=== PATIENT | male | born 1960 | race Caucasian/White ===

== ENCOUNTER 2017-01-14 18:01 | Inpatient (IN) | payer BC ==
--- NOTE | 2017-01-14 18:13 | ED ---
Chest Pain HPI - General Stated Complaint: chest pain Time Seen by Provider: 01/14/17 18:01 Source: patient, RN notes reviewed - History of Present Illness Initial Comments: This is a 56-year-old male with a history of type 2 diabetes and hypertension also a current one or 2 pack a week smoker who states he had the onset today about 30 minutes after walking and was pain going across his back and radiating to the front of his chest. It was about 78/10 severity associated with some dyspnea some nausea and sweats. He states he's had recent similar episodes we' ll go to bed at night and would resolve after he was sitting upright for a while. He has no known history of heart disease or lung disease that he is aware of. He's had no recent fevers chills nausea vomiting sweats cough or phlegm production except for any associated symptoms today already mentioned. He was given a nitroglycerin and route by paramedics she states the pain was very starting resolved and he took 2 aspirins at home he currently is pain-free at this time. MD Complaint: chest pain - Related Data Home Medications Medication Instructions Recorded Confirmed Aspirin 81 mg PO DAILY 12/18/13 01/14/17 Atenolol [Tenormin] 25 mg PO DAILY 12/18/13 01/14/17 Benazepril [Lotensin] 10 mg PO DAILY 12/18/13 01/14/17 Linagliptin [Tradjenta] 5 mg PO DAILY 12/18/13 01/14/17 Multivitamins, Thera [Multivitamin] 1 tab PO DAILY 12/18/13 01/14/17 Iraan-3 Fatty Acids [Iraan-3] 1,000 mg PO DAILY 12/18/13 01/14/17 glipiZIDE [Glucotrol XL] 5 mg PO DAILY 12/18/13 01/14/17 metFORMIN HCL 1,000 mg PO BID 12/18/13 01/14/17 Acetaminophen Tab [Tylenol Tab] 1,000 mg PO Q6HR PRN 09/21/15 01/14/17 Desloratadine [Clarinex] 5 mg PO DAILY 09/21/15 01/14/17 Ibuprofen [Motrin] 600 mg PO Q8HR PRN 09/21/15 01/14/17 Tadalafil [Cialis] 20 mg PO ONCE PRN 09/21/15 01/14/17 Hydrocodone/Acetaminophen [[place] 1 tab PO Q6HR PRN 01/14/17 01/14/17 5-325] Allergies Allergy/AdvReac Type Severity Reaction Status Date / Time No Known Allergies Allergy Verified 01/14/17 18:55 Review of Systems ROS Statement: Those systems with pertinent positive or pertinent negative responses have been documented in the HPI. ROS Other: All systems not noted in ROS Statement are negative. EKG Findings - EKG Results: EKG: interpreted by RUDOLPH, sinus rhythm (Sinus rhythm rate 88. Interval 1:30 QRS duration 70 QT/QTC of 352/425 that anterior fascicular block pulmonary disease pattern evidence for LVH no acute ST-T wave changes noted at this time) Past Medical History Past Medical History: Diabetes Mellitus, GERD/Reflux, Hearing Disorder / Deafness, Hyperlipidemia, Hypertension, Liver Disease, Musculoskeletal Disorder , Osteoarthritis (OA) Additional Past Medical History / Comment(s): SEASONAL ALLERGIES. UMBILICAL HERNIA. FATTY LIVER. VARICOSE VEIN LT CALF. RT RING, THUMB TRIGGER FINGERS. History of Any Multi-Drug Resistant Organisms: None Reported Past Surgical History: Orthopedic Surgery Additional Past Surgical History / Comment(s): COLONOSCOPY, colon polyps. TRAUMATIC AMP RT 3RD AND 4TH FINGERTIPS. TOTAL LT HIP 12/2013. Past Anesthesia/Blood Transfusion Reactions: No Reported Reaction Past Psychological History: No Psychological Hx Reported Smoking Status: Former smoker Past Alcohol Use History: Occasional Additional Past Alcohol Use History / Comment(s): SMOKED 25 YRS ON/OFF, 2-3 PKS PER WK, QUIT 08/2015. Past Drug Use History: None Reported - Past Family History Mother Family Medical History: No Reported History General Exam - General Exam Comments Initial Comments: This is a well-developed well-nourished awake alert oriented 3 male Course Vital Signs 01/14/17 01/14/17 18:15 19:11 Temperature 98.4 F 97.4 F L Pulse Rate 89 85 Respiratory 20 18 Rate Blood Pressure 117/71 131/65 O2 Sat by Pulse 99 98 Oximetry - Reevaluation(s) Reevaluation #1: 01/14/17 19:52 I did discuss smoking and risks of smoking and cessation with the patient. We did go over his factors for heart disease stroke peripheral vascular disease cancers. The total conversation lasted about 3.1 minutes. Reevaluation #2: 01/14/17 19:52 No further chest pains this time I did discuss the findings with the patient and his . Chest Pain MDM - MDM I did review the imaging and reports no acute findings. Patient is currently pain-free the symptoms are suspicious however for new-onset angina. Patient does have risk factors including family history was the patient's did deformity of also he is a smoker he has diabetes. They have requested Dr. Brown for consultation. Disposition Clinical Impression: Unstable angina pectoris Disposition: ADMITTED IP TO THIS HOSP Condition: Stable Referrals: Sridhar Tavarez MD [Primary Care Provider] - 1-2 days
[2017-01-14 18:31] LABS: Basophils # (A) 0.1 k/uL (0-0.2); Basophils % (A) 0 %; CH 31.5; CHCM 34.3; Eosinophils # (A) 0.5 k/uL (0-0.7); Eosinophils % (A) 3 %; HCT 47.8 % (39.0-53.0); HDW 2.65; HGB 16.1 gm/dL (13.0-17.5); Luc # (Auto) 0.22; Luc % (Auto) 1; Lymphocytes # (A) 1.5 k/uL (1.0-4.8); Lymphocytes % (A) 10 %; MCH 31.1 pg (25.0-35.0); MCHC 33.7 g/dL (31.0-37.0); MCV 92.2 fL (80.0-100.0); Mean Platelet Volume 7.8; Monocytes # (A) 0.5 k/uL (0-1.0); Monocytes % (A) 3 %; Neutrophils % (A) 82 %; RBC 5.19 m/uL (4.30-5.90); RDW 13.4 % (11.5-15.5); WBC 15.8 k/uL (3.8-10.6); WBC (Perox) 15.52
--- NOTE | 2017-01-14 18:38 | XR ---
EXAMINATION TYPE: XR chest 2V DATE OF EXAM: 01/14/2017 6:33 PM COMPARISON: NONE HISTORY: Chest pain TECHNIQUE: Frontal and lateral views of the chest are obtained. FINDINGS: Heart and mediastinum are normal. Lungs are clear. There are chest leads. Diaphragm is nor mal. Bony thorax is intact. IMPRESSION: Normal chest
[2017-01-14 18:40] LABS: ALT 77 U/L (21-72); AST 54 U/L (17-59); Alkaline Phosphatase 62 U/L (38-126); Anion Gap 14 mmol/L; Blood Urea Nitrogen 12 mg/dL (9-20); Carbon Dioxide 21 mmol/L (22-30); Chloride 108 mmol/L (98-107); Glucose 191 mg/dL (74-99); Magnesium 1.3 mg/dL (1.6-2.3); Non-African American GFR(MDRD) >60 (>60 ml/min/1.73 sqM); Potassium 4.3 mmol/L (3.5-5.1); Sodium 143 mmol/L (137-145); Total Bilirubin 0.6 mg/dL (0.2-1.3); Total Protein 7.3 g/dL (6.3-8.2)
[2017-01-14 18:46] LABS: INR 1.1 (<1.1); Partial Thromboplastin Time 24.2 sec (22.0-30.0); Prothrombin Time 10.9 sec (9.0-12.0)
[2017-01-14 19:04] LABS: Creatine Kinase MB 1.1 ng/mL (0.0-2.4); Troponin I 0.015 ng/mL (0.000-0.034)
[2017-01-14] MEDS: SODIUM CHLORIDE 0.9% 1,000 ML IV STA ×2 (19:11→21:53)
[2017-01-14] MEDS ORDERED: NITROGLYCERIN SL TABS 0.4 MG TAB SUBLINGUAL PRN (19:56)
[2017-01-14] MEDS ORDERED: HEPARIN SODIUM,PORCINE 5,000 UNIT/ML 1 ML VIAL IV ONE (19:56)
[2017-01-14] MEDS ORDERED: ACETAMINOPHEN TAB 500 MG TAB PO PRN (19:58)
[2017-01-14] MEDS ORDERED: HYDROcodone/APAP 5-325MG 1 EACH TAB PO PRN (19:58)
[2017-01-14] MEDS ORDERED: HEPARIN SODIUM,PORCINE/D5W PMX 25,000 UNIT in DEXTROSE/WATER 1 500ML.BAG IV SCH (20:00)
[2017-01-14 21:01] VITALS: BMI 33.7
[2017-01-14 21:43] LABS: Glucose,Whole Blood 188 mg/dL (75-99)
[2017-01-14] MEDS: INSULIN LISPRO (humaLOG) 300 UNIT/3 ML VIAL SQ SCH (21:52)
[2017-01-14] MEDS: SODIUM CHLORIDE 0.9% 1,000 ML IV SCH (21:54)
[2017-01-14] MEDS: metFORMIN 500 MG TAB PO SCH (21:57)
[2017-01-15] MEDS ORDERED: HEPARIN SODIUM,PORCINE 5,000 UNIT/ML 1 ML VIAL IV STA (00:29)
[2017-01-15 00:32] LABS: Creatine Kinase MB 1.5 ng/mL (0.0-2.4)
[2017-01-15 00:40] LABS: Troponin I 0.098 ng/mL (0.000-0.034)
[2017-01-15] MEDS: NITROGLYCERIN OINT 1 INCH/GM PACKET TOPICAL SCH ×3 (00:48→18:22)
[2017-01-15 06:24] LABS: Basophils # (A) 0.1 k/uL (0-0.2); Basophils % (A) 1 %; CH 31.6; CHCM 33.9; Eosinophils # (A) 0.7 k/uL (0-0.7); Eosinophils % (A) 5 %; HCT 45.6 % (39.0-53.0); HDW 2.57; HGB 15.2 gm/dL (13.0-17.5); Luc % (Auto) 2; Lymphocytes # (A) 2.5 k/uL (1.0-4.8); Lymphocytes % (A) 20 %; MCH 31.1 pg (25.0-35.0); MCHC 33.2 g/dL (31.0-37.0); MCV 93.6 fL (80.0-100.0); Mean Platelet Volume 7.8; Monocytes # (A) 0.5 k/uL (0-1.0); Monocytes % (A) 4 %; Neutrophils # (A) 8.6 k/uL (1.3-7.7); Neutrophils % (A) 68 %; RBC 4.87 m/uL (4.30-5.90); RDW 13.6 % (11.5-15.5); WBC 12.6 k/uL (3.8-10.6); WBC (Perox) 12.94
[2017-01-15 06:25] LABS: Glucose,Whole Blood 171 mg/dL (75-99)
[2017-01-15] MEDS: INSULIN LISPRO (humaLOG) 300 UNIT/3 ML VIAL SQ SCH ×4 (06:35→21:36)
[2017-01-15] MEDS ORDERED: Magnesium Replacement Protocol 1 EACH MISC MISCELLANE PRN (06:40)
[2017-01-15 06:47] LABS: Cholesterol 163 mg/dL (<200); HDL Cholesterol 34 mg/dL (40-60); Triglycerides 295 mg/dL (<150)
[2017-01-15 07:23] LABS: Creatine Kinase MB 1.3 ng/mL (0.0-2.4)
[2017-01-15 07:48] LABS: Troponin I 0.112 ng/mL (0.000-0.034)
[2017-01-15 08:07] LABS: Hemoglobin A1C 7.4 % (4.2-6.1)
[2017-01-15] MEDS ORDERED: NITROGLYCERIN SL TABS 0.4 MG TAB SUBLINGUAL PRN ×2 (08:38→13:56)
[2017-01-15] MEDS ORDERED: SODIUM CHLORIDE 0.9% 1,000 ML in EMPTY BAG 1 BAG IV ONE (08:38)
[2017-01-15] MEDS ORDERED: ASPIRIN 325 MG TAB PO STA (08:38)
[2017-01-15] MEDS ORDERED: ALPRAZolam 0.5 MG TAB PO PRN (08:38)
[2017-01-15] MEDS ORDERED: ATORVASTATIN 80 MG TAB PO STA (08:38)
[2017-01-15] MEDS ORDERED: ALPRAZolam 0.25 MG TAB PO PRN (08:38)
[2017-01-15] MEDS ORDERED: NON-FORMULARY DRUG (Omega-3 Fatty Acids [Omega-3] 1,000 MG) PO SCH (09:00)
[2017-01-15] MEDS ORDERED: ASPIRIN 325 MG TAB PO SCH (09:00)
--- NOTE | 2017-01-15 09:15 | CONS ---
DATE OF CONSULTATION: CHIEF COMPLAINT: Chest pain. Nikhil is a 56-year-old gentleman with multiple coronary risk factors including strong family history of premature coronary artery disease, smoking, hypertension, dyslipidemia, [id number] diabetes who presented to the hospital complaining of chest pain. He describes it as a moderate to severe intensity precordial chest pressure that radiated down his arms that came on at rest and progressively got worse. Came to the hospital, treated with intravenous heparin, nitrates and he became pain free. He EKG does not reveal acute ischemic changes. Cardiac enzymes are slightly elevated at 0.015, 0.09 and 0.1 suggestive of non-ST segment elevation ND. Given his symptomatology, risk factors and I advised the patient to undergo cardiac catheterization for further evaluation. He had been explained of risks, benefits, and alternatives, understood and accepted. Past medical history is significant for hypertension, diabetes, dyslipidemia, [id number] diabetes. Medications at home included metformin 1000 mg daily, Glucotrol XL 5 q. daily, Cialis 20 q. daily, Tradjenta, Motrin, [place], Clarinex, Lotensin, Tenormin, aspirin. ALLERGIES: There are no known drug allergies. FAMILY HISTORY: Significant for premature coronary artery disease. SOCIAL HISTORY: Negative for current smoking, EtOH abuse, or drug abuse. REVIEW OF SYSTEMS: HEENT is unremarkable. CARDIAC: As described above. RESPIRATORY: Negative. GI: Negative. GENITOURINARY: Negative. ALLERGY/IMMUNOLOGY: Negative. SKIN: Negative. MUSCULOSKELETAL: Negative. ENDOCRINE: Negative. CONSTITUTIONAL: Negative. ONCOLOGICAL: NEGATIVE. The rest of the system review is not relevant. On exam, comfortable at rest. Vital signs are stable. There is no jugular venous distention. Carotid upstroke is normal. There is no bruit. Chest is clear to auscultation and percussion. Heart exam reveals first and second heart sounds. No gallop. No murmur, no rub. Abdomen is soft, nontender. Exam of extremities did not reveal any edema. Peripheral pulses are felt. LEGAL WRITING PROFESSOR exam did not reveal focal neurological deficits. EKG does not reveal acute ischemic changes. Troponins are elevated. Creatinine is 0.86. ASSESSMENT: 1. Acute non-ST segment elevation myocardial infarction. 2. Hypertension. 3. Insulin-requiring diabetes. PLAN: Patient will undergo cardiac catheterization for further evaluation. He has been explained of risks, benefits, and alternatives.
[2017-01-15] MEDS: MAGNESIUM SULFATE-D5W PMX 1 GM in DEXTROSE/WATER 1 100ML.BAG IVPB SCH ×3 (09:47→17:19)
[2017-01-15] MEDS ORDERED: IV FLUID CONTINUATION 175 ML IV ONE (09:57)
[2017-01-15] MEDS ORDERED: SODIUM CHLORIDE 0.9% 250 ML IV ONE (09:57)
[2017-01-15] MEDS ORDERED: MIDAZOLAM 2 MG/2 ML VIAL ONE (10:00)
[2017-01-15] MEDS ORDERED: LIDOCAINE 2% INJ 20 MG/ML (20 ML MDV) ONE (10:01)
[2017-01-15] MEDS ORDERED: diphenhydrAMINE 50 MG/ML 1 ML VIAL ONE (10:04)
[2017-01-15] MEDS: MIDAZOLAM 2 MG/2 ML VIAL IV ONE ×2 (10:04→10:30)
[2017-01-15] MEDS ORDERED: diphenhydrAMINE 50 MG/ML 1 ML VIAL IVP ONE (10:06)
[2017-01-15] MEDS ORDERED: LIDOCAINE 2% INJ 20 MG/ML SQ ONE ×2 (10:08→13:18)
[2017-01-15] MEDS ORDERED: fentaNYL (PF) 50 MCG/ML 2 ML AMP ONE (10:19)
[2017-01-15] MEDS ORDERED: fentaNYL (PF) 50 MCG/ML 2 ML AMP IV ONE (10:22)
--- NOTE | 2017-01-15 10:26 | ECHOF ---
Referral Reason:chest pain MEASUREMENTS -------- HEIGHT: 152.4 cm WEIGHT: 105.2 kg BP: 119/56 RVIDd: 3.5 cm (< 3.3) IVSd: 1.3 cm (0.6 - 1.1) LVIDd: 4.6 cm (3.9 - 5.3) LVPWd: 1.0 cm (0.6 - 1.1) IVSs: 1.4 cm LVIDs: 3.6 cm LVPWs: 1.4 cm LA Diam: 3.2 cm (2.7 - 3.8) LAESV Index (A-L): 33.02 ml/m Ao Diam: 3.8 cm (2.0 - 3.7) AV Cusp: 0.9 cm (1.5 - 2.6) LA Diam: 3.9 cm (2.7 - 3.8) MV EXCURSION: 21.866 mm (> 18.000) MV EF SLOPE: 59 mm/s (70 - 150) EPSS: 0.7 cm MV E Kd: 0.63 m/s MV DecT: 221 ms MV A Kd: 0.86 m/s MV E/A Ratio: 0.73 AV maxP.14 mmHg AV meanP.60 mmHg AR PHT: 411 ms RAP: 5.00 mmHg RVSP: 12.23 mmHg FINDINGS -------- Sinus rhythm. This was a techncally difficult study with suboptimal views, , Definity utilized for enhancement of images. There is mild concentric left ventricular hypertrophy. Overall left ventricular systolic function is low-normal with, an EF between 50 - 55 %. The right ventricle is normal in size. LA is midly dilated 29-33ml/m2. The right atrial size is normal. 1.5MG OF DEFINITY UTLIZED: 2 OR MORE WALL SEGMENTS NOT VISUALIZED. Moderate aortic stenosis with peak/mean pressure gradient of 50.14mmHg / 26.60mmHg, the aortic valve area by continuity equation is 1.0cm. Can't exclude Bicuspid valve vs fused cusp. Mild mitral annular calcification present. Mild mitral regurgitation is present. Mild tricuspid regurgitation present. There is no evidence of pulmonary hypertension. The right ventricular systolic pressure, as measured by Doppler, is 12.23mmHg. There is no pulmonic regurgitation present. The aortic root size is normal. There is no pericardial effusion. CONCLUSIONS -------- 1. This was a techncally difficult study with suboptimal views, , Definity utilized for enhancement of images. 2. Mild tricuspid regurgitation present. 3. There is no evidence of pulmonary hypertension. 4. The right ventricular systolic pressure, as measured by Doppler, is 12.23mmHg. 5. There is no pulmonic regurgitation present. 6. The aortic root size is normal. 7. There is no pericardial effusion. 8. There is mild concentric left ventricular hypertrophy. 9. Overall left ventricular systolic function is low-normal with, an EF between 50 - 55 %. 10. LA is midly dilated 29-33ml/m2. 11. 1.5MG OF DEFINITY UTLIZED: 2 OR MORE WALL SEGMENTS NOT VISUALIZED. 12. Moderate aortic stenosis with peak/mean pressure gradient of 50.14mmHg / 26.60mmHg, the aortic valve area by continuity equation is 1.0cm. 13. Can't exclude Bicuspid valve vs fused cusp. 14. Mild mitral annular calcification present. 15. Mild mitral regurgitation is present. LEATHER [employer]EL[employer]S CUTTER: Liz Pena RDCS
[2017-01-15] MEDS ORDERED: IOHEXOL 350 MG/ML 125ML BOTTLE INJ ONE ×2 (10:40→13:46)
--- NOTE | 2017-01-15 10:54 | CC ---
DATE OF SERVICE: INDICATION: Non-ST segment elevation [place]. PROCEDURE NOTE: After obtaining informed consent, left heart catheterization and coronary angiogram are performed via the right femoral artery using standard Adryan catheters. Patient tolerated the procedure well without any obvious immediate complications. FINDINGS: 1. HEMODYNAMICS: Left ventricular end-diastolic pressure is 14 to 16 mm. There is no significant gradient across the aortic valve. 2. LEFT VENTRICULOGRAM: Left ventriculogram was not performed. 3. ANGIOGRAPHIC DATA: LEFT MAIN CORONARY ARTERY: Left main coronary artery is a normal size vessel and is free of stenosis. It divides into left anterior descending coronary artery and circumflex coronary artery. LAD shows an 80% to 90% stenosis right at the origin of a diagonal branch. The diagonal branch itself shows mild atherosclerotic plaque in its midportion. Circumflex coronary artery is a large dominant vessel that gives off a fair caliber OM branch that shows a 40% to 50% stenosis. It is a small caliber vessel and diffusely diseased. Right coronary artery is a nondominant vessel, shows long segment of 90% to 95% stenosis with right to left collaterals, probably to the LAD. The very distal LAD also shows the lesion. CONCLUSION: Three-vessel coronary artery disease as described above with severe stenosis involving the left anterior descending artery and right coronary artery. Patient will undergo angioplasty of the left anterior descending artery.
--- NOTE | 2017-01-15 10:58 | LTR ---
January 15, 2017 RE: Nikhil Shen Dear Varinder; I performed cardiac catheterization on Nikhil Shen who presented to [facility] with non-ST segment elevation CT. His cardiac catheterization revealed severe 2-vessel coronary artery disease and he will undergo angioplasty of LAD. Thank you for allowing us to participate in the care of this pleasant gentleman. Sincerely, JOSÉ MARIE MD
[2017-01-15 12:00] LABS: Glucose,Whole Blood 155 mg/dL (75-99)
[2017-01-15] MEDS ORDERED: MULTIVITAMINS, THERA 1 EACH TAB PO SCH (12:00)
[2017-01-15] MEDS ORDERED: IV FLUID CONTINUATION 200 ML IV ONE (13:02)
[2017-01-15] MEDS ORDERED: MIDAZOLAM 2 MG/2 ML VIAL IVP ONE (13:19)
[2017-01-15] MEDS ORDERED: BIVALIRUDIN BOLUS 250 MG/50 ML IV ONE (13:20)
[2017-01-15] MEDS ORDERED: BIVALIRUDIN 250 MG in SODIUM CHLORIDE 0.9% 35 ML IV ONE (13:21)
[2017-01-15] MEDS ORDERED: PRASUGREL 10 MG TAB PO ONE (13:23)
[2017-01-15] MEDS: NITROGLYCERIN 1000MCG/10ML SYRINGE INTRAARTER ONE ×2 (13:26→13:35)
[2017-01-15] MEDS ORDERED: HYDROmorphone 2 MG/ML 1 ML SYRINGE IVP ONE (13:36)
[2017-01-15] MEDS ORDERED: ZOLPIDEM 5 MG TAB PO PRN (13:56)
[2017-01-15] MEDS ORDERED: RX INFO: IV CONTRAST WAS GIVEN 1 EACH MISC MISCELLANE PRN (13:56)
[2017-01-15] MEDS ORDERED: MAG HYDROX/AL HYDROX/SIMETH 30 ML CUP PO PRN (13:56)
[2017-01-15] MEDS ORDERED: ATROPINE SULFATE 0.1 MG/ML 10ML SYRINGE IV PRN (13:56)
[2017-01-15] MEDS ORDERED: SODIUM CHLORIDE 0.9% 1,000 ML IV SCH (14:00)
--- NOTE | 2017-01-15 14:58 | P.HPIM ---
History of Present Illness H&P Date: 01/15/17 Chief Complaint: Chest pain This is a 56-year-old male one of Dr. Daysi Waller with a previous medical history significant for hypertension and hypertensive cardio vascular disease, diabetes mellitus type 2, GERD, hyperlipidemia, benign prostatic hypertrophy, osteoarthritis, patient presented to the emergency department at [facility] yesterday because of a back pain radiating to the front associated with increased shortness breath and severe diaphoresis patient didn' t feel very well at that time. He was getting into the shower after he came back from work and he ended up coming out of the shower he felt a little bit nauseated but no vomiting patient was brought to the ER and he was found to have a slightly elevated troponin with a normal EKG, patient was started on heparin drip, aspirin, he was seen in consultation by cardiology underwent left heart catheterization that showed 2 vessel disease including the RCA with a long segment 9095% stenosis along with the LAD of 90% stenosis right at the origin of the diagonal branch, there is also was some mild disease involving the posterior marginal branch off the LCx, he was recommended for the patient to have an energy possibility of the LAD. As the patient does have collateral from left to right. Review of Systems Constitutional: Denies anorexia, Denies chronic headaches, Denies lethargy, Denies malaise, Denies weakness, Denies weight gain, Denies weight loss Eyes: denies blurred vision, denies bulging eye, denies decreased vision Ears: deny: decreased hearing Ears, nose, mouth and throat: Denies dysphagia, Denies neck lump, Denies swelling in throat, Denies sore throat Cardiovascular: Reports chest pain, Reports decreased exercise tolerance, Reports dyspnea on exertion, Reports high blood pressure, Reports shortness of breath, Denies phlebitis, Denies rapid heart beat, Denies syncope Respiratory: Denies congestion, Denies cough, Denies cough with sputum, Denies home oxygen, Denies sleep apnea, Denies snoring, Denies wheezing Gastrointestinal: Reports nausea, Denies abdominal pain, Denies bloating, Denies BRBPR, Denies heartburn, Denies hematemesis, Denies hematochezia, Denies melena, Denies vomiting Genitourinary: Reports nocturia, Denies dysuria, Denies polyuria Musculoskeletal: Denies myalgias Musculoskeletal: absent: ankle pain, ankle stiffness, ankle swelling, elbow pain , elbow stiffness, elbow swelling, foot pain, foot stiffness, foot swelling, hand pain, hand stiffness, hand swelling, hip pain, hip stiffness, hip swelling , knee pain, knee stiffness, knee swelling, shoulder pain, shoulder stiffness, shoulder swelling, wrist pain, wrist stiffness, wrist swelling Integumentary: Denies pruritus, Denies rash Neurological: Denies numbness, Denies weakness Psychiatric: Denies anxiety, Denies depression Endocrine: Denies fatigue, Denies weight change Past Medical History Past Medical History: Coronary Artery Disease (CAD), Diabetes Mellitus, GERD/ Reflux, Hearing Disorder / Deafness, Hyperlipidemia, Hypertension, Liver Disease , Musculoskeletal Disorder, Osteoarthritis (OA) Additional Past Medical History / Comment(s): SEASONAL ALLERGIES. UMBILICAL HERNIA. FATTY LIVER. VARICOSE VEIN LT CALF. RT RING, THUMB TRIGGER FINGERS. History of Any Multi-Drug Resistant Organisms: None Reported Past Surgical History: Orthopedic Surgery Additional Past Surgical History / Comment(s): COLONOSCOPY, colon polyps. TRAUMATIC AMP RT 3RD AND 4TH FINGERTIPS. TOTAL LT HIP 12/2013. Past Anesthesia/Blood Transfusion Reactions: No Reported Reaction Past Psychological History: No Psychological Hx Reported Smoking Status: Current some day smoker Past Alcohol Use History: Occasional Additional Past Alcohol Use History / Comment(s): SMOKED 25 YRS ON/OFF, 2-3 PKS PER WK, QUIT 08/2015. Past Drug Use History: None Reported - Past Family History Mother Family Medical History: No Reported History, Coronary Artery Disease (CAD) ( Mother is 88-year-old has history of CAD and CABG.) Additional Family Medical History / Comment(s): CABG Father Family Medical History: Coronary Artery Disease (CAD) (Father at age of 73 from myocardial infarction. He had his first heart attack at the age of 54) Additional Family Medical History / Comment(s): CABG x2 Brother(s) Family Medical History: Coronary Artery Disease (CAD) (Patient has one brother he was diagnosed with CAD and a stent placement at the age of 58.), Myocardial Infarction (GA) Additional Family Medical History / Comment(s): coronary stents Sister(s) Family Medical History: No Reported History (Patient has one sister with irregular heartbeat.) Additional Family Medical History / Comment(s): cardiac arrythmia Daughter(s) Family Medical History: No Reported History (Patient has one daughter no major medical problems) Son(s) Family Medical History: No Reported History (Patient has one son no major medical problems.) Medications and Allergies Home Medications Medication Instructions Recorded Confirmed Type Aspirin 81 mg PO DAILY 12/18/13 01/14/17 History Atenolol [Tenormin] 25 mg PO DAILY 12/18/13 01/14/17 History Benazepril [Lotensin] 10 mg PO DAILY 12/18/13 01/14/17 History Linagliptin [Tradjenta] 5 mg PO DAILY 12/18/13 01/14/17 History Multivitamins, Thera [Multivitamin] 1 tab PO DAILY 12/18/13 01/14/17 History [place]-3 Fatty Acids [[place]-3] 1,000 mg PO DAILY 12/18/13 01/14/17 History glipiZIDE [Glucotrol XL] 5 mg PO DAILY 12/18/13 01/14/17 History metFORMIN HCL 1,000 mg PO DAILY 12/18/13 01/14/17 History Acetaminophen Tab [Tylenol Tab] 1,000 mg PO Q6HR PRN 09/21/15 01/14/17 History Desloratadine [Clarinex] 5 mg PO DAILY 09/21/15 01/14/17 History Ibuprofen [Motrin] 600 mg PO Q8HR PRN 09/21/15 01/14/17 History Tadalafil [Cialis] 20 mg PO ONCE PRN 09/21/15 01/14/17 History Hydrocodone/Acetaminophen [Skipwith 1 tab PO Q6HR PRN 01/14/17 01/14/17 History 5-325] Allergies Allergy/AdvReac Type Severity Reaction Status Date / Time No Known Allergies Allergy Verified 01/14/17 21:10 Physical Exam Vitals: Vital Signs Temp Pulse Pulse Pulse Resp BP BP 01/15/17 12:00 83 12 110/61 01/15/17 08:00 89 18 131/73 01/15/17 03:52 97.9 F 90 16 131/60 01/15/17 00:00 88 18 01/14/17 23:47 97.7 F 84 18 145/73 01/14/17 22:21 18 01/14/17 21:07 98.1 F 83 16 144/75 01/14/17 20:07 97.7 F 90 18 134/71 01/14/17 19:11 97.4 F L 85 18 131/65 01/14/17 18:15 98.4 F 89 20 117/71 Pulse Ox 01/15/17 12:00 01/15/17 08:00 01/15/17 03:52 96 01/15/17 00:00 01/14/17 23:47 96 01/14/17 22:21 01/14/17 21:07 98 01/14/17 20:07 97 01/14/17 19:11 98 01/14/17 18:15 99 Intake and Output 01/14/17 01/15/17 01/15/17 22:59 06:59 14:59 Intake Total 450 408.695 282 Output Total 400 Balance 450 8.695 282 Intake: IV 282 Intake, IV Titration 100 408.695 Amount Heparin Sodium,Porcine/ 40 248.695 D5w Pmx 25,000 unit In Dextrose/Water 1 500ml. bag @ 9.38 UNITS/KG/HR 19 .99 mls/hr IV .Q24H ROWAN Rx#:[id number] Sodium Chloride 0.9% 1, 60 160 000 ml @ 20 mls/hr IV . Q24H ROWAN Rx#:[id number] Oral 350 Output: Urine 400 Other: Voiding Method Toilet Toilet Toilet # Voids 1 2 Weight 106.594 kg 105.4 kg 105.4 kg Patient Weight 01/16/17 06:59 Weight 105.4 kg - Constitutional General appearance: average body habitus, no acute distress - EENT Eyes: anicteric sclerae, EOMI, PERRLA, no ptosis, no scleral icterus, normal appearance ENT: hearing grossly normal, normal oropharynx, no thrush Ears: bilateral: normal - Neck Neck: no lymphadenopathy, normal ROM, no rigidity, no stridor, no thyromegaly Carotids: bilateral: upstroke normal Thyroid: bilateral: normal size - Respiratory Respiratory: bilateral: diminished, negative: dullness, rales, rhonchi, wheezing , prolonged expiration - Cardiovascular Rhythm: regular Heart sounds: normal: S1, S2 Abnormal Heart Sounds: no systolic murmur, no S3 Gallop, no S4 Gallop, no click - Gastrointestinal General gastrointestinal: normal bowel sounds, soft, no splenomegaly, no tenderness, no umbilical hernia, no ventral hernia - Genitourinary Male genitourinary: enlarged prostate - Integumentary Integumentary: normal, normal turgor - Neurologic Neurologic: CNII-XII intact - Musculoskeletal Musculoskeletal: strength equal bilaterally - Psychiatric Psychiatric: A&O x's 3, appropriate affect, intact judgment & insight Results CBC & Chem 7: 01/15/17 05:53 01/14/17 18:20 Labs: Abnormal Lab Results - Last 24 Hours (Table) 01/14/17 01/14/17 01/14/17 Range/Units 18:20 18:20 18:20 WBC 15.8 H (3.8-10.6) k/uL Plt Count 146 L (150-450) k/uL Neutrophils # 13.0 H (1.3-7.7) k/uL APTT (22.0-30.0) sec Chloride 108 H (98-107) mmol/L Carbon Dioxide 21 L (22-30) mmol/L Glucose 191 H (74-99) mg/dL POC Glucose (mg/dL) (75-99) mg/dL Hemoglobin A1c (4.2-6.1) % Magnesium 1.3 L (1.6-2.3) mg/dL ALT 77 H (21-72) U/L Total Creatine Kinase 173 H (55-170) U/L Troponin I (0.000-0.034) ng/mL Triglycerides (<150) mg/dL HDL Cholesterol (40-60) mg/dL 01/14/17 01/14/17 01/14/17 Range/Units 18:20 21:40 23:29 WBC (3.8-10.6) k/uL Plt Count (150-450) k/uL Neutrophils # (1.3-7.7) k/uL APTT (22.0-30.0) sec Chloride (98-107) mmol/L Carbon Dioxide (22-30) mmol/L Glucose (74-99) mg/dL POC Glucose (mg/dL) 188 H (75-99) mg/dL Hemoglobin A1c 7.4 H (4.2-6.1) % Magnesium (1.6-2.3) mg/dL ALT (21-72) U/L Total Creatine Kinase (55-170) U/L Troponin I 0.098 H* (0.000-0.034) ng/mL Triglycerides (<150) mg/dL HDL Cholesterol (40-60) mg/dL 01/14/17 01/15/17 01/15/17 Range/Units 23:29 05:53 05:53 WBC (3.8-10.6) k/uL Plt Count (150-450) k/uL Neutrophils # (1.3-7.7) k/uL APTT 30.8 H (22.0-30.0) sec Chloride (98-107) mmol/L Carbon Dioxide (22-30) mmol/L Glucose (74-99) mg/dL POC Glucose (mg/dL) (75-99) mg/dL Hemoglobin A1c (4.2-6.1) % Magnesium (1.6-2.3) mg/dL ALT (21-72) U/L Total Creatine Kinase (55-170) U/L Troponin I 0.112 H* (0.000-0.034) ng/mL Triglycerides 295 H (<150) mg/dL HDL Cholesterol 34 L (40-60) mg/dL 01/15/17 01/15/17 01/15/17 Range/Units 05:53 05:53 06:23 WBC 12.6 H (3.8-10.6) k/uL Plt Count 137 L (150-450) k/uL Neutrophils # 8.6 H (1.3-7.7) k/uL APTT 37.3 H (22.0-30.0) sec Chloride (98-107) mmol/L Carbon Dioxide (22-30) mmol/L Glucose (74-99) mg/dL POC Glucose (mg/dL) 171 H (75-99) mg/dL Hemoglobin A1c (4.2-6.1) % Magnesium (1.6-2.3) mg/dL ALT (21-72) U/L Total Creatine Kinase (55-170) U/L Troponin I (0.000-0.034) ng/mL Triglycerides (<150) mg/dL HDL Cholesterol (40-60) mg/dL 01/15/17 Range/Units 11:58 WBC (3.8-10.6) k/uL Plt Count (150-450) k/uL Neutrophils # (1.3-7.7) k/uL APTT (22.0-30.0) sec Chloride (98-107) mmol/L Carbon Dioxide (22-30) mmol/L Glucose (74-99) mg/dL POC Glucose (mg/dL) 155 H (75-99) mg/dL Hemoglobin A1c (4.2-6.1) % Magnesium (1.6-2.3) mg/dL ALT (21-72) U/L Total Creatine Kinase (55-170) U/L Troponin I (0.000-0.034) ng/mL Triglycerides (<150) mg/dL HDL Cholesterol (40-60) mg/dL Thrombosis Risk Factor Assmnt - DVT/VTE Prophylaxis DVT/VTE Prophylaxis: Pharmacologic Prophylaxis ordered, Mechanical Prophylaxis ordered - Choose All That Apply Each Factor Represents 1 point: Age 41-60 years Thrombosis Risk Factor Assessment Total Risk Factor Score: 1 Thrombosis Risk Factor Assessment Level: Low Risk Assessment and Plan Plan: Assessment and plan: 1. Non-ST elevation [place] status post left heart catheterization with three- vessel CAD as above 90% stenosis of the LAD just after the origin of the diagonal branch, and a 90-95% long segment of the RCA, and mild disease of the first marginal branch off the LCx. Patient is on heparin drip, aspirin, he would have injured possibility of the LAD, since the RCA has collateral from left to right. Patient will be started on antiplatelet therapy in the form of aspirin 81 mg orally once every day, Plavix versus Effient, risk factor modification including smoking cessation, and high-dose statin. 2. Hypertension and hypertensive cardiovascular disease. Continue patient on atenolol 25 mg orally once every day and lisinopril 10 mg orally once every day. 3. Diabetes mellitus type 2. Continue patient on consistent carbohydrate diet 1800-calorie, continue Linagliptin 5 mg orally once every day, glipizide 2.5 mg orally twice every day, BGM twice every day. 4. Hyperlipidemia. Continue patient on Lipitor 40 mg orally once every day. 5. Osteoarthritis. Stable at this time discontinue NSAIDs. 6. Enlarged prostate. Monitor for urinary retention. 7. Chronic tobacco use and dependence. Smoking cessation and counseling an increased risk of CAD which she already has, CVA, and malignancy. 8. GERD. Continue current PPI. 9. Patient is full code. 10. Admitted to inpatient. Estimate a length of stay 2 midnights.
[2017-01-15] MEDS: ATENOLOL 25 MG TAB PO SCH (15:43)
[2017-01-15] MEDS: LISINOPRIL 10 MG TAB PO SCH (15:43)
[2017-01-15] MEDS: LORATADINE 10 MG TAB PO SCH (15:43)
[2017-01-15] MEDS: LINAGLIPTIN 5 MG TABLET PO SCH (15:44)
[2017-01-15 16:54] LABS: Glucose,Whole Blood 221 mg/dL (75-99)
[2017-01-15] MEDS: metFORMIN 500 MG TAB PO SCH (18:22)
[2017-01-15] MEDS: SODIUM CHLORIDE 0.9% 1,000 ML IV SCH (20:29)
[2017-01-15 20:47] LABS: Glucose,Whole Blood 143 mg/dL (75-99)
[2017-01-16 06:17] LABS: Glucose,Whole Blood 181 mg/dL (75-99)
[2017-01-16] MEDS: INSULIN LISPRO (humaLOG) 300 UNIT/3 ML VIAL SQ SCH (06:44)
[2017-01-16 07:05] LABS: Anion Gap 10 mmol/L; Blood Urea Nitrogen 13 mg/dL (9-20); Calcium 9.2 mg/dL (8.4-10.2); Carbon Dioxide 22 mmol/L (22-30); Chloride 106 mmol/L (98-107); Glucose 154 mg/dL (74-99); Magnesium 1.5 mg/dL (1.6-2.3); Non-African American GFR(MDRD) >60 (>60 ml/min/1.73 sqM); Potassium 4.3 mmol/L (3.5-5.1); Sodium 138 mmol/L (137-145)
--- NOTE | 2017-01-16 07:44 | PTCA ---
DATE OF SERVICE: Mr. Shen is a 56-year-old male who presented with symptoms of unstable angina and Non-STEMI. He underwent cardiac catheterization by Dr. Medeiros and was found to have critical stenosis involving the proximal LAD the take off of the first diagonal branch. In view of that, recommendation made regarding angioplasty and stenting, the procedure as well as the risks and complications were discussed with the patient who is in full understanding and agreement. PROCEDURE: Patient was brought to the dental laboratory supervisor in a fasting semisedated state after receiving Versed and achieving moderate conscious sedated state, using Xylocaine anesthesia and the guidewire exchange technique, the 6 [place] sheath in the right femoral artery was exchanged to a new 6 [place] sheath. Following that, a 6 [place] FR4 guiding catheter was introduced into the system. After cannulating the left main, 0.014 balanced medium weight J-wire was advanced across the lesion, positioned in the first diagonal branch and then a second wire 0.214 balanced medium weight J-wire was advanced and positioned distal LAD. Following that, a 3.0 x 12 mm Xience Alpine stent was deployed, it was dilated at 16 atmospheres. Following that, the diagonal wire was reintroduced and position in the first diagonal branch and a 2.5 x 12 mm Trek balloon was advanced and one inflation at 10 atmospheres was done. Following that, the balloon and the guidewire were withdrawn back in the guiding catheter. Images were obtained and repeated. Those images reveal stable successful stenting. At that point, the guiding catheter, the balloon and the guidewire were removed. The sheath was removed. Hemostasis was obtained with the deployment of an Angio-Seal. There were no immediate complications. Patient is returned to his room in stable condition. Of note, the patient received Angiomax per protocol as well as oral loading dose of Effient. He had chest discomfort and EKG changes with the inflation that resolved at the end of the procedure. RESULT: Successful stenting of the proximal left anterior descending artery with reduction in stenosis from 80% to 0%. RECOMMENDATION: Patient will be continued aspirin, Effient, beta roosevelt and statin. The importance of dual antiplatelet treatment was discussed with the patient and his family and they are in full understanding and agreement. The duration of the procedure was 30 minutes.
--- NOTE | 2017-01-16 07:46 | LTR ---
January 15, 2017 RE: Ac Nikhil Felecia Dear Dr. Tavarez: I had the pleasure of performing coronary angioplasty and stenting on Mr. Shen at [facility] on the january and a full copy of procedure note will be forwarded to you. In brief, he underwent successful stenting of the proximal left anterior descending artery using a drug-eluting stent. I am hopeful that this procedure will stabilize his status. Thank you again for allowing me to participate in this patient's care. Please feel free to call for any questions. Sincerely, AYLIN MAIER MD
[2017-01-16 08:00] VITALS: BP 138/79; PULSE 87; RESP 16; TEMP 97
[2017-01-16] MEDS: ATENOLOL 25 MG TAB PO SCH (08:00)
[2017-01-16] MEDS: LINAGLIPTIN 5 MG TABLET PO SCH (08:01)
[2017-01-16] MEDS: LORATADINE 10 MG TAB PO SCH (08:02)
[2017-01-16] MEDS: LISINOPRIL 10 MG TAB PO SCH ×2 (08:02→08:04)
[2017-01-16] MEDS ORDERED: ASPIRIN 81 MG CHEW PO SCH (09:00)
[2017-01-16] MEDS ORDERED: ATORVASTATIN 40 MG TAB PO SCH (09:00)
[2017-01-16] MEDS ORDERED: CLOPIDOGREL 75 MG TAB PO SCH (09:00)
[2017-01-16] MEDS: MAGNESIUM SULFATE-D5W PMX 1 GM in DEXTROSE/WATER 1 100ML.BAG IVPB SCH ×2 (09:53→11:04)
--- NOTE | 2017-01-16 11:27 | P.PN ---
Subjective Principal diagnosis: Non-STEMI This is a 56-year-old gentleman with history of hypertension, diabetes , hyperlipidemia, BPH, who presented to the hospital with a non-ST elevation myocardial infarction. He was taken to the cardiac catheterization lab yesterday, cardiac cath was performed by Dr. Paredes, patient subsequently underwent angioplasty and stenting of the LAD. EKG this morning showed normal sinus rhythm with no changes from post-PCI. Patient feels well, denies any chest pain or difficulty in breathing. Blood pressure 138/80 with a heart rate in the 80s. Temperature 97.0 he is 95% on room air. Sodium 138, potassium 4.3 , BUN 13, creatinine 0.9. Magnesium level I.5. Objective - Vital Signs Vital signs: Vital Signs Temp 97.0 F L 01/16/17 07:58 Pulse 87 01/16/17 07:58 Resp 16 01/16/17 07:58 BP 138/79 01/16/17 07:58 Pulse Ox 95 01/16/17 07:58 Intake & Output 01/15/17 01/16/17 01/16/17 18:59 06:59 18:59 Intake Total 642 1920 180 Output Total 1200 Balance 642 720 180 Weight 105.4 kg 106 kg 106 kg Intake: IV 282 Intake, IV Titration 1200 Amount Sodium Chloride 0.9% 1, 1200 000 ml @ 100 mls/hr IV . Q10H ROWAN Rx#:[id number] Oral 360 720 180 Output: Urine 1200 Other: Voiding Method Toilet Toilet Toilet # Voids 2 - Exam PHYSICAL EXAMINATION: HEENT: Head is atraumatic, normocephalic. Pupils equal, round. Neck is supple. There is no elevated jugular venous pressure. HEART EXAMINATION: Heart S1, S2 normal. No murmur or gallop heard. CHEST EXAMINATION: Lungs are clear to auscultation and precussion. No chest wall tenderness is noted on palpation or with deep breathing. ABDOMEN: Soft, nontender. Bowel sounds are heard. No organomegaly noted. Right groin soft, no evidence of any hematoma. EXTREMITIES:[ 2+ peripheral pulses with no evidence of peripheral edema and no calf tenderness noted]. NEUROLOGIC [patient is awake, alert and oriented -3.] . - Labs CBC & Chem 7: 01/15/17 05:53 01/16/17 05:53 Labs: Abnormal Lab Results - Last 24 Hours (Table) 01/15/17 01/15/17 01/15/17 Range/Units 11:58 16:40 20:46 Glucose (74-99) mg/dL POC Glucose (mg/dL) 155 H 221 H 143 H (75-99) mg/dL Magnesium (1.6-2.3) mg/dL 01/16/17 01/16/17 Range/Units 05:53 06:15 Glucose 154 H (74-99) mg/dL POC Glucose (mg/dL) 181 H (75-99) mg/dL Magnesium 1.5 L (1.6-2.3) mg/dL Assessment and Plan Plan: Assessment and plan #1 non-ST elevation myocardial infarction status post angioplasty and stenting of the LAD. #2 hypertension #3 hyperlipidemia #4 diabetes Plan Patient may be able to be discharged home today from cardiology's perspective. We will make him a follow-up appointment to see Dr. Paredes in the office in one week. Discharge medications include aspirin 81 mg daily, Tenormin 25 mg daily, patient states he has had issues with Lipitor in the past, therefore we will start him on Crestor 20 mg daily, Plavix 75 mg daily, Lisinopril 10 mg daily, and sublingual nitroglycerin as needed for chest pain. Prescriptions have been provided to the patient for all of his new medications. DNP note has been reviewed, I agree with a documented findings and plan of care. Patient was seen and examined.
--- NOTE | 2017-01-16 11:36 | P.DS ---
Providers Date of admission: 01/15/17 13:58 Attending physician: Marvin Villalobos Consults: 01/14/17 19:56 Consult Physician Urgent Consulting Provider: Patrick Toro Consult Reason/Comments: Unstable angina Do you want consulting provider notified?: Yes 01/15/17 13:56 Consult Physician Routine Consulting Provider: [facility] Consult Reason/Comments: Post Interventional patient Do you want consulting provider notified?: Already Contacted Primary care physician: Sridhar Tavarez [facility] Course: This is a 56-year-old male one of Dr. Daysi Waller with a previous medical history significant for hypertension and hypertensive cardio vascular disease, diabetes mellitus type 2, GERD, hyperlipidemia, benign prostatic hypertrophy, osteoarthritis, patient presented to the emergency department at [facility] yesterday because of a back pain radiating to the front associated with increased shortness breath and severe diaphoresis patient didn' t feel very well at that time. He was getting into the shower after he came back from work and he ended up coming out of the shower he felt a little bit nauseated but no vomiting patient was brought to the ER and he was found to have a slightly elevated troponin with a normal EKG, patient was started on heparin drip, aspirin, he was seen in consultation by cardiology underwent left heart catheterization that showed 2 vessel disease including the RCA with a long segment 9095% stenosis along with the LAD of 90% stenosis right at the origin of the diagonal branch, there is also was some mild disease involving the posterior marginal branch off the LCx, he was recommended for the patient to have an energy possibility of the LAD. As the patient does have collateral from left to right. Discharge diagnoses: 1. Non-ST elevation [place] status post left heart catheterization with three- vessel CAD as above 90% stenosis of the LAD just after the origin of the diagonal branch S/P PCI of the LAD 2. Hypertension and hypertensive cardiovascular disease. 3. Diabetes mellitus type 2. 4. Hyperlipidemia. 5. Osteoarthritis. 6. Enlarged prostate. 7. Chronic tobacco use and dependence. Smoking cessation and counseling an increased risk of CAD which she already has, CVA, and malignancy. 8. GERD. Patient Condition at Discharge: Stable Plan - Discharge Summary New Discharge Prescriptions: New Clopidogrel [Plavix] 75 mg PO DAILY #30 tab Nitroglycerin Sl Tabs [Nitrostat] 0.4 mg SUBLINGUAL Q5M PRN #25 tab PRN Reason: Chest Pain Rosuvastatin Calcium [Crestor] 20 mg PO DAILY #30 tab Continue Benazepril [Lotensin] 10 mg PO DAILY Atenolol [Tenormin] 25 mg PO DAILY Aspirin 81 mg PO DAILY Discontinued Ibuprofen [Motrin] 600 mg PO Q8HR PRN PRN Reason: Pain Tadalafil [Cialis] 20 mg PO ONCE PRN PRN Reason: ERECTILE DYSFUNCTION No Action Linagliptin [Tradjenta] 5 mg PO DAILY metFORMIN HCL 1,000 mg PO DAILY glipiZIDE [Glucotrol XL] 5 mg PO DAILY [place]-3 Fatty Acids [[place]-3] 1,000 mg PO DAILY Multivitamins, Thera [Multivitamin] 1 tab PO DAILY Acetaminophen Tab [Tylenol Tab] 1,000 mg PO Q6HR PRN PRN Reason: Pain Desloratadine [Clarinex] 5 mg PO DAILY Hydrocodone/Acetaminophen [[place] 5-325] 1 tab PO Q6HR PRN PRN Reason: Pain Discharge Medication List Aspirin 81 mg PO DAILY 12/18/13 [History] Atenolol [Tenormin] 25 mg PO DAILY 12/18/13 [History] Benazepril [Lotensin] 10 mg PO DAILY 12/18/13 [History] Linagliptin [Tradjenta] 5 mg PO DAILY 12/18/13 [History] Multivitamins, Thera [Multivitamin] 1 tab PO DAILY 12/18/13 [History] [place]-3 Fatty Acids [[place]-3] 1,000 mg PO DAILY 12/18/13 [History] glipiZIDE [Glucotrol XL] 5 mg PO DAILY 12/18/13 [History] metFORMIN HCL 1,000 mg PO DAILY 12/18/13 [History] Acetaminophen Tab [Tylenol Tab] 1,000 mg PO Q6HR PRN 09/21/15 [History] Desloratadine [Clarinex] 5 mg PO DAILY 09/21/15 [History] Hydrocodone/Acetaminophen [[place] 5-325] 1 tab PO Q6HR PRN 01/14/17 [History] Clopidogrel [Plavix] 75 mg PO DAILY #30 tab 01/16/17 [Rx] Nitroglycerin Sl Tabs [Nitrostat] 0.4 mg SUBLINGUAL Q5M PRN #25 tab 01/16/17 [Rx ] Rosuvastatin Calcium [Crestor] 20 mg PO DAILY #30 tab 01/16/17 [Rx] Follow up Appointment(s)/Referral(s): Jacob Medeiros MD [STAFF PHYSICIAN] - 1 Week Sridhar Tavarez MD [Primary Care Provider] - 1-2 days
[2017-01-16 11:49] LABS: Glucose,Whole Blood 176 mg/dL (75-99)
== END 2017-01-16 12:40 | disposition home or self-care (01) | DRG 247 ==
LOC: EC 18:01 → 3OBS 19:56 → 6SEL 01-15 01:34 → OBSVTOIN 01-15 13:58
PROVIDERS: ADMIT Internal Medicine; ATTEND Internal Medicine
PROC: 027034Z Dilation of Coronary Artery, One Artery with Drug-eluting Intraluminal Device, Percutaneous Approach (ICD-10-PCS; 2017-01-15)
PROC: B2111ZZ Fluoroscopy of Multiple Coronary Arteries using Low Osmolar Contrast (ICD-10-PCS; principal; 2017-01-15 10:00)
PROC: 4A023N6 Measurement of Cardiac Sampling and Pressure, Right Heart, Percutaneous Approach (ICD-10-PCS; principal; 2017-01-15 10:00)
DX: I21.4 Non-ST elevation (NSTEMI) myocardial infarction (principal); I11.9 Hypertensive heart disease without heart failure; K76.0 Fatty (change of) liver, not elsewhere classified; E11.9 Type 2 diabetes mellitus without complications; I25.110 Atherosclerotic heart disease of native coronary artery with unstable angina pectoris; E78.5 Hyperlipidemia, unspecified; F17.200 Nicotine dependence, unspecified, uncomplicated; H91.90 Unspecified hearing loss, unspecified ear; K21.9 Gastro-esophageal reflux disease without esophagitis; M19.90 Unspecified osteoarthritis, unspecified site; N40.0 Benign prostatic hyperplasia without lower urinary tract symptoms; Z79.4 Long term (current) use of insulin; Z79.82 Long term (current) use of aspirin; Z79.84 Long term (current) use of oral hypoglycemic drugs; Z79.899 Other long term (current) drug therapy; Z82.49 Family history of ischemic heart disease and other diseases of the circulatory system; Z86.010 Personal history of colon polyps
CPT/HCPCS: 36415; 71020; 80048; 80053; 80061; 82550; 82553; 83036; 83735; 83880; 84484; 85025; 85379; 85610; 85730; 93005; 93306; 93458; 94760; 96365; 96366; 96374; 96376; 99285

== ENCOUNTER → 2018-01-30 | Outpatient (CLI) | payer BC ==
[2018-01-30 13:09] LABS: Basophils % (A) 0 %; Eosinophils # (A) 0.5 k/uL (0-0.7); Eosinophils % (A) 5 %; HCT 43.1 % (39.0-53.0); HGB 14.8 gm/dL (13.0-17.5); Lymphocytes # (A) 2.3 k/uL (1.0-4.8); Lymphocytes % (A) 25 %; MCH 30.5 pg (25.0-35.0); MCHC 34.4 g/dL (31.0-37.0); MCV 88.5 fL (80.0-100.0); Mean Platelet Volume 7.5; Monocytes # (A) 0.6 k/uL (0-1.0); Monocytes % (A) 6 %; Neutrophils # (A) 5.6 k/uL (1.3-7.7); Neutrophils % (A) 61 %; Platelet Count 144 k/uL (150-450); RBC 4.87 m/uL (4.30-5.90); RDW 13.2 % (11.5-15.5); WBC 9.2 k/uL (3.8-10.6)
[2018-01-30 13:25] LABS: Anion Gap 11 mmol/L; Blood Urea Nitrogen 14 mg/dL (9-20); Calcium 9.7 mg/dL (8.4-10.2); Carbon Dioxide 27 mmol/L (22-30); Chloride 101 mmol/L (98-107); Glucose 157 mg/dL (74-99); Potassium 4.7 mmol/L (3.5-5.1); Sodium 139 mmol/L (137-145)
== END | disposition home or self-care (01) ==
LOC: LABPAT 12:16
PROVIDERS: ATTEND Urology
DX: Z01.818 Encounter for other preprocedural examination (principal)
CPT/HCPCS: 36415; 80048; 85025

== ENCOUNTER 2018-02-08 06:01 | Observation (INO) | payer BC ==
[2018-01-31 10:24] VITALS: BMI 32.7
[~2018-02-08 06:01] MED LIST: DEXAMETHASONE SOD PHOSPHATE 10 MG/ML 1 ML VIAL IV ONE; HEPARIN SODIUM,PORCINE 5,000 UNIT/ML 1 ML VIAL SQ ONE; ONDANSETRON 4 MG/2 ML VIAL IVP ONE; ceFAZolin IN SWFI 2 GM/20 ML SYRINGE IVP ONE
[2018-02-08 06:54] LABS: Glucose,Whole Blood 249 mg/dL (75-99)
[2018-02-08] MEDS: LACTATED RINGERS 1,000 ML IV SCH (06:55)
[2018-02-08] MEDS: MIDAZOLAM 2 MG/2 ML VIAL IV ONE ×2 (06:56→07:20)
[2018-02-08] MEDS ORDERED: INSULIN ASPART 100 UNIT/ML 1 ML 10 ML VIAL SQ ONE (07:32)
[2018-02-08] MEDS ORDERED: SUCCINYLCHOLINE CHLORIDE 100 MG/5 ML SYR IV ONE (07:37)
[2018-02-08] MEDS ORDERED: HYDROmorphone (PF) 1 MG/ML ONE (07:37)
[2018-02-08] MEDS ORDERED: PROPOFOL 10 MG/ML 20 ML VIAL IV ONE (07:37)
[2018-02-08] MEDS ORDERED: ROCURONIUM BROMIDE 10 MG/ML 10 ML VIAL IV ONE (07:37)
[2018-02-08] MEDS ORDERED: fentaNYL (PF) 50 MCG/ML 2 ML AMP ONE (07:37)
[2018-02-08] MEDS ORDERED: NEOSTIGMINE 1 MG/ML 10 ML VIAL ONE (07:37)
[2018-02-08] MEDS ORDERED: PHENYLEPHRINE-0.9% NACL SYG 1 MG/10 ML SYRINGE ONE (07:37)
[2018-02-08] MEDS ORDERED: LIDOCAINE 1% INJ 10MG/ML (20 ML MDV) ONE (07:37)
[2018-02-08] MEDS ORDERED: MIDAZOLAM 2 MG/2 ML VIAL ONE (07:37)
[2018-02-08] MEDS ORDERED: GLYCOPYRROLATE 0.2 MG/ML 2 ML VIAL ONE (07:37)
[2018-02-08] MEDS ORDERED: LACTATED RINGERS 1,000 ML IV ONE ×2 (07:41→09:28)
[2018-02-08] MEDS ORDERED: BUPIVACAINE (PF) 0.5% 30 ML VIAL SQ ONE ×2 (08:02→11:59)
[2018-02-08] MEDS ORDERED: NITROGLYCERIN SL TABS 0.4 MG TAB SUBLINGUAL PRN (11:59)
[2018-02-08] MEDS ORDERED: ONDANSETRON 4 MG/2 ML VIAL IVP PRN (12:01)
[2018-02-08] MEDS ORDERED: HYDROmorphone 0.5 MG/0.5 ML SYRINGE IVP PRN (12:01)
[2018-02-08] MEDS ORDERED: ACETAMINOPHEN TAB 325 MG TAB PO PRN (12:01)
[2018-02-08] MEDS: HYDROmorphone 0.5 MG/0.5 ML SYRINGE IVP PRN ×2 (13:20→13:45)
[2018-02-08] MEDS: KETOROLAC 30 MG/ML 1 ML VIAL IVP PRN ×2 (13:45→21:45)
[2018-02-08] MEDS: SODIUM CHLORIDE 0.9% 1,000 ML IV SCH (15:29)
[2018-02-08 17:23] LABS: Glucose,Whole Blood 329 mg/dL (75-99)
[2018-02-08] MEDS: INSULIN ASPART 100 UNIT/ML 1 ML 10 ML VIAL SQ SCH ×2 (17:32→21:44)
[2018-02-08 20:27] LABS: Glucose,Whole Blood 289 mg/dL (75-99)
[2018-02-08] MEDS: HEPARIN SODIUM,PORCINE 5,000 UNIT/ML 1 ML VIAL SQ SCH (21:45)
[2018-02-09 00:50] VITALS: RESP 16
[2018-02-09] MEDS: SODIUM CHLORIDE 0.9% 1,000 ML IV SCH (01:40)
[2018-02-09] MEDS: KETOROLAC 30 MG/ML 1 ML VIAL IVP PRN ×2 (05:35→11:02)
[2018-02-09 06:01] VITALS: BP 131/74; PULSE 79; TEMP 98.3
[2018-02-09 07:31] LABS: Glucose,Whole Blood 175 mg/dL (75-99)
--- NOTE | 2018-02-09 08:02 | P.OP ---
Date of Procedure: 02/08/18 Preoperative Diagnosis: Adenocarcinoma of the prostate, clinical stage [id number]. Umbilical hernia. Postoperative Diagnosis: Same Procedure(s) Performed: Left nerve sparing robotic-assisted laparoscopic prostatectomy, bilateral pelvic lymphadenectomy, umbilical hernia repair. Anesthesia: KATHERINE Surgeon: Tai Hart Injection Mold Tooling Technician #1: Susannah Dubois Estimated Blood Loss (ml): 100 IV fluids (ml): 1,400 Condition: stable Disposition: PACU Indications for Procedure: The patient came for a rising PSA [4.52]. He is asymptomatic. His exam does identify a nodule in the right base. His ultrasound identified a 37 ml prostate. The nodule was biopsied positive for a Gleason6/7 [id number] prostate cancer. I had a lengthy discussion about treatment options, and he has elected to undergo a left nerve-sparing RALP. He understands the likelihood of postoperative erectile dysfunction despite preservation of the left neurovascular bundle. He also is aware of the risk of treatment failure, and the possible need for adjuvant therapy. The umbilical hernia will be repaired as the camera port incision is closed. Operative Findings: No evidence of extraprostatic disease. Small umbilical hernia. Description of Procedure: The patient was taken in the operating room and placed in the dorsal lithotomy position, with his legs supported in Ben stirrups. He was carefully positioned on a beanbag for stability. The abdomen and external genitalia were prepped and draped sterilely. A Newman catheter was inserted. The Veress needle was passed through the anterior abdominal wall immediately cephalad to the umbilicus, and insufflation was performed to a pressure of 20 mm Hg. Once insufflation was performed, the Veress needle was removed and a supraumbilical incision was made, through which a 12 mm camera port was placed. Under camera guidance, 3 8 mm robotic ports were placed, 2 on the left and one on the right. An additional 12 mm port was placed on the right lateral side for use as an railway yard assistant port. A 5 mm port was placed to the right of the camera port for suction. The patient was placed in Trendelenburg position, and docking was then performed to the da Poppy system utilizing a 4-arm approach. The abdomen was examined. The sigmoid colon was mobilized out of the pelvis. The peritoneum was incised lateral to the medial umbilical ligaments bilaterally , exposing the pubis. The peritoneum was then incised across the midline, allowing the bladder flap to be taken down. The endopelvic fascia was opened bilaterally, and muscular attachments from the urogenital diaphragm were swept away from the prostate. Bilateral pelvic lymphadenectomies were performed in the standard fashion. The peritoneal incisions were extended in a cephalad direction, and the vas deferens were divided bilaterally. Margins of dissection were the bifurcation of the iliac vessels proximally, the circumflex iliac vein distally, the external iliac artery laterally, and the obturator nerve medially. A combination of sharp and blunt dissection was used. Care was taken to avoid any neurovascular injury, and the use of monopolar electrocautery was avoided immediately adjacent to neurovascular structures. The lymphatic package was clipped distally. No enlarged lymph nodes were encountered. There were no complications. The vesical neck was incised transversely, down to the lumen. The Newman catheter was brought out through the anterior vesical neck incision and was used for traction. The posterior aspect of the vesical neck was incised, such that the full-thickness of the vesical neck was divided. The anterior layer of the Denonvilliers fascia was incised, exposing the vas deferens. Each were isolated and divided. Next, each of the seminal vesicles were dissected away from adjacent tissues, and vascular attachments were cauterized and divided. The posterior leaf of Denonvilliers fascia was incised transversely, allowing entry into the plane between the prostate and rectum. With lateral spreading, this plane was developed down to the apex. This exposed the lateral vascular pedicles bilaterally. These were clipped and divided in an antegrade fashion, down to the apex. The use of electrocautery was avoided on the left to prevent thermal damage to the nerves. The plane of dissection was immediately adjacent to the prostate on the left side to preserve the neurovascular bundle, whereas on the right side the neurovascular bundle was not preserved. The remaining apical attachments were swept away from the prostate. The dorsal venous complex was incised, as well as periurethral tissue. At this point, only the urethra remained intact. This was transected immediately distal to the prostatic apex using cold scissors. The specimen was placed within a specimen bag. The dorsal venous complex was sutured using a V-Loc suture in a running fashion. A second V-Loc suture was then used to place the Josesito stitch, incorporating the rhabdosphincter and the edge of Denonvilliers fascia. This allowed the bladder to be taken down to the urethra, leaving the vesical neck immediately adjacent to the urethra. The vesicourethral anastomosis was then performed using a V-Loc suture in a running fashion. After completing the anastomosis, an 18-Portuguese Newman catheter was placed and approximately 150 mL of 0.9 normal saline were instilled into the bladder. No extravasation of irrigant from the vesicourethral anastomosis was noted. A small amount of oozing was noted from the left lateral vascular pedicle, so Surgicel was placed over this. The patient was returned to the supine position. Undocking was performed, and the specimen bag sutures were passed through the camera port. After removing all the ports and allowing all of the CO2 to be released from the peritoneal cavity, the camera port incision was enlarged to allow removal of the surgical specimen. The fascial incision was extended inferiorly to the umbilical hernia fascial defect, and the fascia was then closed using 0 Vicryl suture in an interrupted [id number]-[id number] fashion. Each of the skin incisions were then closed using 4-0 Monocryl suture in a subcuticular fashion. Bupivacaine was injected at each of the incision sites. Dermabond was applied to each incision , and Steri-Strips were applied to the supraumbilical incision. The Newman catheter was connected to gravity drainage. All sponge and needle counts were correct. The patient tolerated the procedure well was taken to the recovery room in stable condition.
[2018-02-09] MEDS: INSULIN ASPART 100 UNIT/ML 1 ML 10 ML VIAL SQ SCH (08:17)
[2018-02-09] MEDS: HEPARIN SODIUM,PORCINE 5,000 UNIT/ML 1 ML VIAL SQ SCH (08:19)
[2018-02-09] MEDS ORDERED: METOPROLOL TARTRATE 25 MG TAB PO SCH (09:00)
[2018-02-09] MEDS ORDERED: LISINOPRIL 10 MG TAB PO SCH (09:00)
[2018-02-09] MEDS ORDERED: LINAGLIPTIN 5 MG TABLET PO SCH (09:00)
[2018-02-09] MEDS ORDERED: metFORMIN 500 MG TAB PO SCH (09:00)
[2018-02-09] MEDS: LACTATED RINGERS 1,000 ML IV SCH (09:02)
[2018-02-09 11:50] LABS: Glucose,Whole Blood 178 mg/dL (75-99)
[2018-02-09 12:31] LABS: Hemoglobin A1C 8.2 % (4.0-6.0)
--- NOTE | 2018-02-09 12:35 | P.DS ---
Providers Date of admission: 02/08/18 22:16 Attending physician: Tai Hart Primary care physician: [facility] Course: The patient is 58 years old. He underwent a robotic-assisted laparoscopic prostatectomy yesterday. He has had no problems. Tolerating his pain. He is ambulating. He is tolerating regular diet. His abdomen was soft his wound looks good. His vital signs are stable. His urine is clear. He'll be discharged home in care of family regular diet diet. He'll be given a small prescription of [place]. He'll follow-up in the office on February 18 Dr. Marie. He had been given instructions for the catheter. He's been instructed to contact us with any problems. Pathology report is pending. Patient Condition at Discharge: Good Plan - Discharge Summary Discharge Rx Participant: No New Discharge Prescriptions: New Ciprofloxacin HCl [Cipro] 250 mg PO Q12HR #6 tablet Hydrocodone/Acetaminophen [[place] 5-325] 1 - 2 each PO Q4HR PRN #20 tab PRN Reason: Pain HYDROcodone/APAP 7.5-325MG [[place] 7.5-325] 1 tab PO Q6HR PRN 3 Days #12 tab PRN Reason: Pain No Action Linagliptin [Tradjenta] 5 mg PO DAILY metFORMIN HCL 1,000 mg PO DAILY glipiZIDE [Glucotrol XL] 5 mg PO DAILY Benazepril [Lotensin] 10 mg PO QAM Aspirin 81 mg PO DAILY Sentinel-3 Fatty Acids [Sentinel-3] 1,000 mg PO DAILY Acetaminophen Tab [Tylenol Tab] 1,000 mg PO Q6HR PRN PRN Reason: Pain Desloratadine [Clarinex] 5 mg PO DAILY Hydrocodone/Acetaminophen [[place] 5-325] 1 tab PO Q6HR PRN PRN Reason: Pain Clopidogrel [Plavix] 75 mg PO DAILY #30 tab Nitroglycerin Sl Tabs [Nitrostat] 0.4 mg SUBLINGUAL Q5M PRN #25 tab PRN Reason: Chest Pain Simvastatin [Zocor] 20 mg PO Q72H Tadalafil [Cialis] 20 mg PO DAILY PRN PRN Reason: SEXUAL DYSFUNCTION Metoprolol Tartrate [Lopressor] 25 mg PO QAM Discharge Medication List Aspirin 81 mg PO DAILY 12/18/13 [History] Benazepril [Lotensin] 10 mg PO QAM 12/18/13 [History] Linagliptin [Tradjenta] 5 mg PO DAILY 12/18/13 [History] Sentinel-3 Fatty Acids [Sentinel-3] 1,000 mg PO DAILY 12/18/13 [History] glipiZIDE [Glucotrol XL] 5 mg PO DAILY 12/18/13 [History] metFORMIN HCL 1,000 mg PO DAILY 12/18/13 [History] Acetaminophen Tab [Tylenol Tab] 1,000 mg PO Q6HR PRN 09/21/15 [History] Desloratadine [Clarinex] 5 mg PO DAILY 09/21/15 [History] Hydrocodone/Acetaminophen [[place] 5-325] 1 tab PO Q6HR PRN 01/14/17 [History] Clopidogrel [Plavix] 75 mg PO DAILY #30 tab 01/16/17 [Rx] Nitroglycerin Sl Tabs [Nitrostat] 0.4 mg SUBLINGUAL Q5M PRN #25 tab 01/16/17 [Rx ] Metoprolol Tartrate [Lopressor] 25 mg PO QAM 01/31/18 [History] Simvastatin [Zocor] 20 mg PO Q72H 01/31/18 [History] Tadalafil [Cialis] 20 mg PO DAILY PRN 01/31/18 [History] Ciprofloxacin HCl [Cipro] 250 mg PO Q12HR #6 tablet 02/08/18 [Rx] Hydrocodone/Acetaminophen [[place] 5-325] 1 - 2 each PO Q4HR PRN #20 tab 02/08/18 [Rx] HYDROcodone/APAP 7.5-325MG [[place] 7.5-325] 1 tab PO Q6HR PRN 3 Days #12 tab [Rx] Follow up Appointment(s)/Referral(s): Tai Hart MD [STAFF PHYSICIAN] - 02/18/18 Activity/Diet/Wound Care/Special Instructions: Discharge home with Newman catheter. Provide patient with a urinary leg bag, and instruct him on the use of both a leg bag and an overnight drainage bag. Diet as tolerated. No lifting, driving, or strenuous activity. Okay to shower. Patient is to begin taking ciprofloxacin on 02/17/2018. Discharge Disposition: HOME SELF-CARE
[2018-02-10] MEDS ORDERED: ATORVASTATIN 10 MG TAB PO SCH (21:00)
== END 2018-02-09 14:59 | disposition home or self-care (01) ==
LOC: OR 06:01 → 5MS5E 11:59 → OR 22:16
PROVIDERS: ADMIT Urology; ATTEND Urology
DX: C61 Malignant neoplasm of prostate (principal); K42.9 Umbilical hernia without obstruction or gangrene; I25.10 Atherosclerotic heart disease of native coronary artery without angina pectoris; I10 Essential (primary) hypertension; E78.2 Mixed hyperlipidemia; Z95.5 Presence of coronary angioplasty implant and graft; K21.9 Gastro-esophageal reflux disease without esophagitis; Z79.899 Other long term (current) drug therapy; I35.0 Nonrheumatic aortic (valve) stenosis; I25.2 Old myocardial infarction; Z82.49 Family history of ischemic heart disease and other diseases of the circulatory system; Z79.84 Long term (current) use of oral hypoglycemic drugs; E11.9 Type 2 diabetes mellitus without complications; Z79.02 Long term (current) use of antithrombotics/antiplatelets; Z79.82 Long term (current) use of aspirin; K76.0 Fatty (change of) liver, not elsewhere classified; M54.40 Lumbago with sciatica, unspecified side; J30.2 Other seasonal allergic rhinitis; I83.90 Asymptomatic varicose veins of unspecified lower extremity; M25.50 Pain in unspecified joint; Z87.891 Personal history of nicotine dependence; Z82.61 Family history of arthritis
CPT/HCPCS: 38571; 49652; 55866; S2900; 83036; 86850; 86900; 86901; 88307; 88309

== ENCOUNTER → 2018-03-19 | Outpatient (CLI) | payer BC | END | disposition home or self-care (01) | LOC: LABWHC1 10:08 | PROVIDERS: ATTEND Urology | DX: C61 Malignant neoplasm of prostate (principal) | CPT/HCPCS: 36415; 84153 ==

== ENCOUNTER → 2018-06-01 | Outpatient (CLI) | payer BC ==
[2018-06-01 09:38] LABS: ALT 109 U/L (21-72); AST 102 U/L (17-59); Cholesterol 238 mg/dL (<200); HDL Cholesterol 31 mg/dL (40-60)
[2018-06-01 09:48] LABS: Triglycerides 706 mg/dL (<150)
== END | disposition home or self-care (01) ==
LOC: LABWHC1 08:38
PROVIDERS: ATTEND Internal Medicine Cardiovascular Disease
DX: E78.2 Mixed hyperlipidemia (principal)
CPT/HCPCS: 36415; 80061; 84450; 84460

== ENCOUNTER → 2018-07-06 | Outpatient (CLI) | payer BC ==
[2018-07-06 17:26] LABS: ALT 112 U/L (10-49); AST 58 U/L (14-35)
== END | disposition home or self-care (01) ==
LOC: LABWHC1 09:01
PROVIDERS: ATTEND Internal Medicine Cardiovascular Disease
DX: I10 Essential (primary) hypertension (principal)
CPT/HCPCS: 36415; 84450; 84460

== ENCOUNTER → 2018-08-07 | Outpatient (CLI) | payer BC ==
--- NOTE | 2018-08-07 10:57 | US ---
EXAMINATION TYPE: US abdomen limited DATE OF EXAM: 08/07/2018 COMPARISON: NONE CLINICAL HISTORY: R94.5 ABN.LIVER FUNCTION STUDIES. abn labs, hx right back pain. NPO. Prostate rem terri in January. EXAM MEASUREMENTS: Liver Length: 21.9 cm Gallbladder Wall: 0.3 cm CHD: 0.4 cm Right Kidney: 13.2 x 4.9 x 4.9 cm Pancreas: Tail obscured by overlying bowel gas. Appears echogenic and heterogenous. Liver: Increased attenuation, decreased visualization of vessels suggestive of fatty infiltrate. Ap pears enlarged in size. Gallbladder: wnl Evidence for sonographic Barnes's sign: neg CBD: Obscured by overlying bowel gas CHD: wnl Right Kidney: wnl Visualized pancreas is slightly heterogeneous without mass or ductal dilatation. Portions of distal b artem and tail are obscured by overlying bowel gas on images saved. Visualized liver is heterogeneously hyperechoic. Evaluation for focal masses is suboptimal due to the heterogeneity. No surrounding asci audelia is noted. No shadowing mobile gallstones are present. No intrahepatic ductal dilatation is seen. IMPRESSION: Heterogeneous hyperechoic appearance of liver could reflect product of diffuse fatty infi ltration or underlying hepatocellular disease. Imaging guided random biopsy for tissue analysis can b e performed if desired.
== END | disposition home or self-care (01) ==
LOC: RADUSWWP 08:28
DX: R94.5 Abnormal results of liver function studies (principal)
CPT/HCPCS: 76705

== ENCOUNTER → 2018-12-26 | Outpatient (CLI) | payer BC | END | disposition home or self-care (01) | LOC: LABWHC1 16:44 | PROVIDERS: ATTEND Urology | DX: C61 Malignant neoplasm of prostate (principal) | CPT/HCPCS: 36415; 84153 ==

== ENCOUNTER → 2019-04-17 | Outpatient (CLI) | payer BC ==
[2019-04-17 16:59] LABS: Basophils # (A) 0.1 k/uL (0-0.2); Basophils % (A) 1 %; Eosinophils # (A) 0.5 k/uL (0-0.7); Eosinophils % (A) 6 %; HCT 44.6 % (39.0-53.0); HGB 15.3 gm/dL (13.0-17.5); Lymphocytes # (A) 1.8 k/uL (1.0-4.8); Lymphocytes % (A) 21 %; MCH 30.8 pg (25.0-35.0); MCHC 34.3 g/dL (31.0-37.0); MCV 89.8 fL (80.0-100.0); Mean Platelet Volume 7.3; Monocytes # (A) 0.5 k/uL (0-1.0); Monocytes % (A) 6 %; Neutrophils # (A) 5.2 k/uL (1.3-7.7); Neutrophils % (A) 62 %; Platelet Count 161 k/uL (150-450); RBC 4.97 m/uL (4.30-5.90); RDW 15.6 % (11.5-15.5); WBC 8.4 k/uL (3.8-10.6)
== END | disposition home or self-care (01) ==
LOC: LABPAT 16:31
PROVIDERS: ATTEND Surgery
DX: Z01.812 Encounter for preprocedural laboratory examination (principal); K43.2 Incisional hernia without obstruction or gangrene
CPT/HCPCS: 85025

== ENCOUNTER → 2019-04-28 | Outpatient (CLI) | payer BC | END | disposition home or self-care (01) | LOC: LABPAT 15:40 | PROVIDERS: ATTEND Anesthesiology | DX: Z01.818 Encounter for other preprocedural examination (principal); K43.2 Incisional hernia without obstruction or gangrene; I10 Essential (primary) hypertension; E11.9 Type 2 diabetes mellitus without complications; I25.2 Old myocardial infarction | CPT/HCPCS: 93005 ==

== ENCOUNTER 2019-04-30 08:48 | Day surgery (SDC) | payer BC ==
[2019-04-25 16:17] VITALS: BMI 33.0
[~2019-04-30 08:48] MED LIST changes: +LACTATED RINGERS 1,000 ML IV SCH; +ONDANSETRON 4 MG/2 ML VIAL IVP PRN; -ceFAZolin IN SWFI 2 GM/20 ML SYRINGE IVP ONE
[2019-04-30] MEDS ORDERED: LIDOCAINE 1% 20 ML VIAL (10MG/ML) FOR IV START INTRADERMA ONE (09:28)
[2019-04-30 09:32] LABS: Glucose,Whole Blood 173 mg/dL (75-99)
--- NOTE | 2019-04-30 09:34 | P.GSHP ---
History of Present Illness H&P Date: 04/30/19 Chief Complaint: Incisional hernia 59-year-old male known to our service. Patient was seen in February. Patient has complaints of a bulge above the umbilicus. He apparently had a robotic prostatectomy in January 2018. A small umbilical hernia was incorporated into the trocar closure site at that time. 2-3 months later the patient felt a bulge again while straining. Mild pain. Increasing in size. Past Medical History Past Medical History: Coronary Artery Disease (CAD), Diabetes Mellitus, GERD/Reflux, Hearing Disorder / Deafness, Hyperlipidemia, Hypertension, Liver Disease, Musculoskeletal Disorder, Osteoarthritis (OA) Additional Past Medical History / Comment(s): SEASONAL ALLERGIES. UMBILICAL HERNIA. FATTY LIVER. VARICOSE VEIN LT CALF. RT RING, THUMB TRIGGER FINGERS. Last Myocardial Infarction Date:: 01/14/2017 History of Any Multi-Drug Resistant Organisms: None Reported Past Surgical History: Orthopedic Surgery Additional Past Surgical History / Comment(s): COLONOSCOPY, colon polyps. TRAUMATIC AMP RT 3RD AND 4TH FINGERTIPS. TOTAL LT HIP 12/2013. Past Anesthesia/Blood Transfusion Reactions: No Reported Reaction Date of Last Stent Placement:: 01/15/18 Smoking Status: Current some day smoker - Past Family History Mother Family Medical History: No Reported History, Coronary Artery Disease (CAD) Additional Family Medical History / Comment(s): CABG and stent Father Family Medical History: Coronary Artery Disease (CAD) Additional Family Medical History / Comment(s): CABG x2 Brother(s) Family Medical History: Coronary Artery Disease (CAD), Myocardial Infarction ([place]) Additional Family Medical History / Comment(s): coronary stents Sister(s) Family Medical History: No Reported History Additional Family Medical History / Comment(s): cardiac arrythmia Daughter(s) Family Medical History: No Reported History Son(s) Family Medical History: No Reported History Medications and Allergies Home Medications Medication Instructions Recorded Confirmed Type Aspirin 81 mg PO DAILY 12/18/13 04/25/19 History Benazepril [Lotensin] 10 mg PO QAM 12/18/13 04/30/19 History Linagliptin [Tradjenta] 5 mg PO DAILY 12/18/13 04/30/19 History Ravenna-3 Fatty Acids [Ravenna-3] 1,000 mg PO DAILY 12/18/13 04/25/19 History glipiZIDE [Glucotrol XL] 5 mg PO DAILY 12/18/13 04/30/19 History metFORMIN HCL 1,000 mg PO BID 12/18/13 04/30/19 History Desloratadine [Clarinex] 5 mg PO DAILY 09/21/15 04/30/19 History Metoprolol Tartrate [Lopressor] 25 mg PO QAM 01/31/18 04/30/19 History Allergies Allergy/AdvReac Type Severity Reaction Status Date / Time No Known Allergies Allergy Verified 04/25/19 15:51 Surgical - Exam Vital Signs Temp Pulse Resp BP Pulse Ox 97 F L 99 16 175/89 96 04/30/19 09:12 04/30/19 09:12 04/30/19 09:12 04/30/19 09:12 04/30/19 09:12 Physical exam: General: Well-developed, well-nourished HEENT: Normocephalic, sclerae nonicteric Abdomen: Nontender, nondistended, reducible incisional hernia above umbilicus fascial defect 4 x 6 cm Extremities: No edema Neuro: Alert and oriented Results - Labs Abnormal Lab Results - Last 24 Hours (Table) 04/30/19 Range/Units 09:25 POC Glucose (mg/dL) 173 H (75-99) mg/dL Assessment and Plan (1) Incisional hernia Narrative/Plan: Will proceed with open repair reducible incisional hernia with mesh. Ri Risks of bleeding, infection, recurrence, bladder and bowel injury, numbness, nerve injury were discussed with the patient. The patient understands and wishes to proceed. Current Visit: Yes Status: Acute Code(s): K43.2 - INCISIONAL HERNIA WITHOUT OBSTRUCTION OR GANGRENE SNOMED Code(s): 327534490
[2019-04-30] MEDS ORDERED: GLYCOPYRROLATE 0.2 MG/ML 2 ML VIAL ONE (10:21)
[2019-04-30] MEDS ORDERED: SUCCINYLCHOLINE CHLORIDE 100 MG/5 ML SYR IV ONE (10:21)
[2019-04-30] MEDS ORDERED: ROCURONIUM BROMIDE 10 MG/ML 10 ML VIAL IV ONE (10:21)
[2019-04-30] MEDS ORDERED: fentaNYL (PF) 50 MCG/ML 2 ML AMP ONE (10:21)
[2019-04-30] MEDS ORDERED: HYDROmorphone (PF) 1 MG/ML ONE (10:21)
[2019-04-30] MEDS ORDERED: LIDOCAINE 1% INJ 10MG/ML (20 ML MDV) ONE (10:21)
[2019-04-30] MEDS ORDERED: METOPROLOL TARTRATE 5 MG/5 ML VIAL IVP ONE (10:21)
[2019-04-30] MEDS ORDERED: ePHEDrine SULFATE/0.9% NACL/PF 50 MG/5 ML SYRINGE IV ONE (10:21)
[2019-04-30] MEDS ORDERED: PROPOFOL 10 MG/ML 20 ML VIAL IV ONE (10:21)
[2019-04-30] MEDS ORDERED: MIDAZOLAM 2 MG/2 ML VIAL ONE (10:21)
[2019-04-30] MEDS ORDERED: NEOSTIGMINE 1 MG/ML 10 ML VIAL ONE (10:21)
[2019-04-30] MEDS ORDERED: BUPIVACAINE (PF) 0.25% 30 ML VIAL SQ ONE (10:43)
[2019-04-30] MEDS ORDERED: LACTATED RINGERS 1,000 ML IV ONE (11:00)
[2019-04-30] MEDS ORDERED: HYDROcodone/APAP 5-325MG 1 EACH TAB PO PRN (12:03)
[2019-04-30] MEDS ORDERED: NALOXONE 0.4 MG/ML 1 ML VIAL IV PRN (12:03)
--- NOTE | 2019-04-30 12:07 | P.OP ---
Date of Procedure: 04/30/19 Procedure(s) Performed: PREOPERATIVE DIAGNOSIS: Reducible incisional hernia POSTOPERATIVE DIAGNOSIS: Same PROCEDURE: Reducible incisional hernia with mesh SURGEON: Karlo EBL: Minimal ANESTHESIA: Gen. COMPLICATIONS: None OPERATIVE PROCEDURE: Patient placed on the operating table in the supine position. Abdomen was prepped and draped in usual sterile fashion. The previous incision was re-incised superiorly. Dissection through the subcutaneous tissues took place using electrocautery. A large hernia was identified. The hernia sac was carefully dissected down to the level of the fascia where it was excised. The patient's hernia defect at the fascia measured 6.5 x 4 cm. The 12 x 7 cm ventral ex mesh was placed beneath the fascia. This was sutured to the fascia using trans-fascial 0 Ethibond sutures. Following that the midline fascial defect was reapproximated using interrupted vest over pants 0 Ethibond sutures. The folding edge was tacked down using interrupted 0 Ethibond sutures as well. The umbilicus was tacked back down to the fascia using interrupted 3-0 Vicryl sutures. The subcutaneous tissues were closed using 20 and 3-0 Vicryl sutures. The skin was closed using a running 4-0 Monocryl stitch. Sterile dressings were applied. DISPOSITION: Stable to recovery room
[2019-04-30 12:16] VITALS: TEMP 97
[2019-04-30 12:37] VITALS: RESP 16
[2019-04-30] MEDS: HYDROmorphone 0.5 MG/0.5 ML SYRINGE IVP PRN ×2 (12:37→12:44)
[2019-04-30 13:01] LABS: Glucose,Whole Blood 233 mg/dL (75-99)
[2019-04-30] MEDS ORDERED: INSULIN ASPART (NovoLOG) 100 UNIT/ML VIAL SQ ONE (13:17)
[2019-04-30] MEDS ORDERED: SODIUM CHLORIDE 0.9% 1,000 ML IV ONE (13:21)
[2019-04-30] MEDS ORDERED: HYDROcodone/APAP 5-325MG 1 EACH TAB PO ONE (14:12)
[2019-04-30 15:02] VITALS: BP 135/85; PULSE 108
== END 2019-04-30 16:08 | disposition home or self-care (01) ==
LOC: OR 08:48
PROVIDERS: ATTEND Surgery
DX: K43.2 Incisional hernia without obstruction or gangrene (principal); E11.9 Type 2 diabetes mellitus without complications; E78.5 Hyperlipidemia, unspecified; I10 Essential (primary) hypertension; I25.10 Atherosclerotic heart disease of native coronary artery without angina pectoris; I25.2 Old myocardial infarction; K21.9 Gastro-esophageal reflux disease without esophagitis; M19.90 Unspecified osteoarthritis, unspecified site; Z79.82 Long term (current) use of aspirin; Z79.84 Long term (current) use of oral hypoglycemic drugs; Z82.49 Family history of ischemic heart disease and other diseases of the circulatory system; J30.2 Other seasonal allergic rhinitis; Z86.010 Personal history of colon polyps; Z95.1 Presence of aortocoronary bypass graft; Z95.5 Presence of coronary angioplasty implant and graft
CPT/HCPCS: 88302; 49560; 49568; C1781; J2250; J1644; J1100; J2710; J0690; J2405; J2001; J3010; J1170 ×2; J0330; J2704

== ENCOUNTER → 2019-05-20 | Outpatient (CLI) | payer BC ==
[2019-05-21 00:25] LABS: ALT 80 U/L (10-49); AST 49 U/L (14-35); Albumin/Globulin Ratio 2.71 (1.60-3.17); Alkaline Phosphatase 61 U/L (41-126); Bilirubin, Conjugated <0.20 mg/dL (0.20-0.40); Globulin 1.7 g/dL (1.6-3.3); Total Bilirubin 0.2 mg/dL (0.2-1.2); Total Protein 6.3 g/dL (6.2-8.2)
== END ==
LOC: LABWHC1 16:11
PROVIDERS: ATTEND Physician Assistant
DX: R94.5 Abnormal results of liver function studies (principal)
CPT/HCPCS: 36415; 80076

== ENCOUNTER → 2019-07-28 | Outpatient (CLI) | payer BC | END | disposition home or self-care (01) | LOC: LABWHC1 16:40 | PROVIDERS: ATTEND Urology | DX: C61 Malignant neoplasm of prostate (principal) | CPT/HCPCS: 36415; 84153 ==

== ENCOUNTER → 2019-09-27 | Outpatient (CLI) | payer BC ==
[2019-09-27 09:44] LABS: HCT 49.3 % (39.0-53.0); HGB 16.3 gm/dL (13.0-17.5); MCH 30.2 pg (25.0-35.0); MCHC 33.1 g/dL (31.0-37.0); MCV 91.1 fL (80.0-100.0); Mean Platelet Volume 7.9; Platelet Count 169 k/uL (150-450); RBC 5.41 m/uL (4.30-5.90); RDW 12.8 % (11.5-15.5)
[2019-09-27 18:07] LABS: African American GFR (CKD) 76.3 (60.0-200.0); Albumin 4.8 g/dL (3.80-4.90); Albumin/Globulin Ratio 2.53 (1.60-3.17); BUN/Creat Ratio 12.5 Ratio (12.00-20.00); Chol/HDL Ratio 8.43; Globulin 1.9 g/dL (1.6-3.3); Non-African American GFR(CKD) 65.8 (60.0-200.0); Total Bilirubin 0.4 mg/dL (0.3-1.2); Total Protein 6.7 g/dL (6.2-8.2)
== END | disposition home or self-care (01) ==
LOC: LABWHC1 09:09
PROVIDERS: ATTEND Family Medicine
DX: I10 Essential (primary) hypertension (principal); E11.9 Type 2 diabetes mellitus without complications; E78.5 Hyperlipidemia, unspecified; C61 Malignant neoplasm of prostate; I25.10 Atherosclerotic heart disease of native coronary artery without angina pectoris
CPT/HCPCS: 36415; 80053; 80061; 83036; 83721; 84153; 84443; 85027

== ENCOUNTER → 2020-03-17 | Outpatient (CLI) | payer BC ==
[2020-03-17 14:19] LABS: Basophils # (A) 0.1 k/uL (0-0.2); Basophils % (A) 1 %; Eosinophils # (A) 0.5 k/uL (0-0.7); Eosinophils % (A) 5 %; HCT 49.8 % (39.0-53.0); HGB 16.6 gm/dL (13.0-17.5); Lymphocytes % (A) 27 %; MCH 30.9 pg (25.0-35.0); MCHC 33.2 g/dL (31.0-37.0); MCV 92.8 fL (80.0-100.0); Mean Platelet Volume 7.9; Monocytes # (A) 0.6 k/uL (0-1.0); Monocytes % (A) 5 %; Neutrophils # (A) 6.6 k/uL (1.3-7.7); Neutrophils % (A) 59 %; Platelet Count 169 k/uL (150-450); RBC 5.37 m/uL (4.30-5.90); RDW 13.1 % (11.5-15.5); WBC 11.1 k/uL (3.8-10.6)
[2020-03-17 14:25] LABS: Appearance,Urine Clear (Clear); Bilirubin,Urine Negative (Negative); Blood,Urine Negative (Negative); Color,Urine Yellow; Glucose,Urine (UA) 4+ (Negative); Ketones,Urine Trace (Negative); Leukocyte Esterase,Urine Negative (Negative); Nitrite,Urine Negative (Negative); Protein,Urine Trace (Negative); Specific Gravity,Urine 1.032 (1.001-1.035); Urobilinogen,Urine <2.0 mg/dL (<2.0)
[2020-03-17 14:27] LABS: Calcium 10.3 mg/dL (8.4-10.2); Potassium 5.7 mmol/L (3.5-5.1)
== END | disposition home or self-care (01) ==
LOC: LABPAT 13:23
PROVIDERS: ATTEND Urology
DX: Z01.818 Encounter for other preprocedural examination (principal); N52.9 Male erectile dysfunction, unspecified; E11.9 Type 2 diabetes mellitus without complications; R35.0 Frequency of micturition
CPT/HCPCS: 80048; 81003; 85025; 87086

== ENCOUNTER 2020-03-23 09:23 | Day surgery (SDC) | payer BC ==
[2020-03-22 08:36] VITALS: BMI 33.0
[~2020-03-23 09:23] MED LIST changes: -DEXAMETHASONE SOD PHOSPHATE 10 MG/ML 1 ML VIAL IV ONE; -HEPARIN SODIUM,PORCINE 5,000 UNIT/ML 1 ML VIAL SQ ONE; +LIDOCAINE 1% (10MG/ML) FOR IV START INTRADERMA PRN; -ONDANSETRON 4 MG/2 ML VIAL IVP ONE; -ONDANSETRON 4 MG/2 ML VIAL IVP PRN
[2020-03-23 09:59] VITALS: TEMP 98.3
[2020-03-23] MEDS ORDERED: SODIUM CHLORIDE 0.9% 500 ML 500 ML IV ONE (09:59)
[2020-03-23 10:07] LABS: Glucose,Whole Blood 283 mg/dL (75-99)
[2020-03-23] MEDS ORDERED: fentaNYL (PF) 50 MCG/ML 2 ML AMP ONE (10:24)
[2020-03-23] MEDS ORDERED: BENZOCAINE SPRAY 1 CAN MUCOUS MEM ONE ×2 (10:30→10:35)
[2020-03-23] MEDS ORDERED: MIDAZOLAM 2 MG/2 ML VIAL IVP ONE (10:35)
[2020-03-23] MEDS ORDERED: fentaNYL (PF) 50 MCG/ML 2 ML AMP IVP ONE (10:35)
[2020-03-23 11:13] VITALS: RESP 16
[2020-03-23 11:45] VITALS: BP 118/72; PULSE 92
[2020-03-23] MEDS ORDERED: INSULIN ASPART (NovoLOG) 100 UNIT/ML VIAL SQ SCH (12:30)
[2020-03-23] MEDS ORDERED: SODIUM CHLORIDE 0.9% 1,000 ML IV SCH (12:30)
--- NOTE | 2020-03-23 13:57 | ECHOT ---
TRANSESOPHAGEAL ECHOCARDIOGRAM INDICATION: Severe aortic stenosis. Nikhil is a 60-year-old gentleman who has aortic stenosis and was advised to undergo transesophageal echo for the same. Patient has been explained of risks, benefits and alternatives, and he received moderate conscious sedation. Sedation time was 7 minutes. PROCEDURE NOTE: After obtaining informed consent, transesophageal echocardiogram is performed in left lateral position using an Omni plane probe. Local and IV sedation were obtained by Xylocaine spray and intravenous Versed. He tolerated the procedure well without any obvious immediate complications. FINDINGS: 1. Aortic valve appears heavily calcified with severe restriction in leaflet mobility which seems to be a quadricuspid valve with a valve area of around 0.6-0.8 aortic stenosis. There are mild aortic regurgitation noted. Aortic root measures within normal limits. Mitral valve appears anatomically normal. There is mild mitral regurgitation noted. There is mild tricuspid regurgitation noted. 2. Interatrial septum, there is no evidence of [id number] shunt by color-flow Doppler or [id number]-wq-psdm shunt by agitated saline contrast study. 3. Left ventricle has normal size and systolic function. CONCLUSION: Severe aortic stenosis involving a heavily calcified aortic valve. PLAN: The patient will need further evaluation for the valve once he goes through his surgery. MMODL / IJN: [id number] /
--- NOTE | 2020-03-23 14:07 | LTR ---
DATE OF SERVICE: 03/23/2020 RE: Ac Nikhil Dear Dr. Willis: Nikhil is a 60-year-old gentleman who was to undergo penile implants by you for erectile dysfunction and was referred to us for preoperative cardiac evaluation. He has severe aortic stenosis, but is currently free of symptoms. Does not have chest pain, syncope, leg edema, and he tolerated surgery under anesthesia well about a year ago. I do not see any absolute contraindications for surgery under anesthesia. He is at increased risk for perioperative cardiac events, primarily due to the severe aortic stenosis. Thank you for letting us participate in the care of this patient. Sincerely, MD JANE Valero / EDWIN: [id number] /
== END 2020-03-23 11:35 | disposition home or self-care (01) ==
LOC: CATHCVL 09:23
PROVIDERS: ATTEND Internal Medicine Cardiovascular Disease
DX: I08.3 Combined rheumatic disorders of mitral, aortic and tricuspid valves (principal); I25.10 Atherosclerotic heart disease of native coronary artery without angina pectoris; N52.9 Male erectile dysfunction, unspecified; I10 Essential (primary) hypertension; R00.0 Tachycardia, unspecified; E11.9 Type 2 diabetes mellitus without complications; Z98.61 Coronary angioplasty status; Z72.0 Tobacco use; Z79.82 Long term (current) use of aspirin; Z79.899 Other long term (current) drug therapy; Z79.84 Long term (current) use of oral hypoglycemic drugs; Z82.49 Family history of ischemic heart disease and other diseases of the circulatory system
CPT/HCPCS: 93312; 93325; J2250; J3010

== ENCOUNTER → 2020-04-22 | Day surgery (SDC) | payer BC ==
[2020-04-16 15:47] VITALS: BMI 32.3
[~2020-04-22] MED LIST changes: +ALPRAZolam 0.25 MG TAB PO PRN; +ALPRAZolam 0.5 MG TAB PO PRN; +ASPIRIN 325 MG TAB PO STA; +ATORVASTATIN 80 MG TAB PO STA; +INSULIN ASPART (NovoLOG) 100 UNIT/ML VIAL SQ SCH; +IOPAMIDOL-370 125ML BTL INJ ONE; -LACTATED RINGERS 1,000 ML IV SCH; -LIDOCAINE 1% (10MG/ML) FOR IV START INTRADERMA PRN; +LIDOCAINE 1% INJ 10MG/ML (20 ML MDV) ONE; +LIDOCAINE 1% INJ 10MG/ML (20 ML MDV) SQ ONE; +MIDAZOLAM 2 MG/2 ML VIAL IV ONE; +NITROGLYCERIN SL TABS 0.4 MG TAB SUBLINGUAL PRN; +RX INFO: IV CONTRAST WAS GIVEN 1 EACH MISC MISCELLANE PRN; +SODIUM CHLORIDE 0.9% 1,000 ML IV SCH; +SODIUM CHLORIDE 0.9% 1,000 ML in EMPTY BAG 1 BAG IV ONE; +fentaNYL (PF) 50 MCG/ML 2 ML AMP IV ONE; +fentaNYL (PF) 50 MCG/ML 2 ML AMP ONE
[2020-04-22 11:25] LABS: Glucose,Whole Blood 282 mg/dL (75-99)
[2020-04-22 11:33] VITALS: RESP 18; TEMP 98.3
--- NOTE | 2020-04-22 14:14 | CC ---
CARDIAC CATHETERIZATION REPORT INDICATION: Aortic stenosis This is a 60-year-old gentleman with history of coronary artery disease, status post angioplasty of the diagonal branch, who recently presented to me for preoperative cardiac evaluation and his noninvasive evaluation has showed severe aortic stenosis. Due to that, I have performed cardiac catheterization. The patient understands risks, benefits and alternatives. PROCEDURE NOTE: After obtaining informed consent, left heart catheterization and coronary angiogram were performed via the right femoral artery using standard Adryan catheters. Patient tolerated the procedure well without any obvious immediate complications. A femoral angiogram was performed and Angio-Seal was deployed for hemostasis. Patient received moderate conscious sedation. Total sedation was 26 minutes. FINDINGS: HEMODYNAMICS: Left ventricular end-diastolic pressure is 18 mm. There is no significant gradient across the aortic valve. LEFT VENTRICULOGRAM: Left ventriculogram was not performed. ANGIOGRAPHIC DATA: LEFT MAIN CORONARY ARTERY: Left main coronary artery is a normal-sized vessel and is free of stenosis. Divides into left anterior descending coronary artery and circumflex coronary artery. LEFT ANTERIOR DESCENDING CORONARY ARTERY: LAD shows it appears calcified but no focal significant stenotic lesion. Diagonal branch shows a patent stent. CIRCUMFLEX CORONARY ARTERY: A dominant vessel, gives off a large caliber OM branch that shows a 70% stenosis. This has remained unchanged from his prior cardiac catheterization in 2017. RIGHT CORONARY ARTERY: Right coronary artery is a nondominant vessel and shows chronic occlusion in its midportion with some [id number] collaterals. HEMODYNAMICS: The peak to peak gradient across the aortic valve was 33 mm. The mean gradient was 16 mm, consistent with moderate aortic stenosis. We overestimated the aortic stenosis on noninvasive studies. CONCLUSION: 1. Moderate aortic stenosis. 2. Chronic but stable coronary artery disease involving the right coronary artery, OM branch, and a peak stent within the diagonal branch. PLAN: I reviewed angiographic data with the patient and told him that he does not need aortic valve replacement at this stage and that will manage his underlying CAD with medical therapy and let him go through the surgery that he was planning to do. MMODL / IJN: [id number] /
--- NOTE | 2020-04-22 14:14 | LTR ---
DATE OF SERVICE: 04/22/2020 RE: Nikhil Shen Dear Varinder; I performed cardiac catheterization on Nikhil Shen. A detail catheterization note is enclosed for your records. In brief, cardiac catheterization revealed moderate aortic stenosis. I believe, I was over estimating the aortic stenosis on the noninvasive studies and patient does not need aortic valve replacement at this stage. Thank you for giving me the privilege to participate in the care of this pleasant gentleman. Sincerely, MD JANE Valero / EDWIN: [id number] /
[2020-04-22 17:28] VITALS: BP 122/66; PULSE 76
== END ==
LOC: CATHCVL 10:44
PROVIDERS: ATTEND Internal Medicine Cardiovascular Disease
DX: I35.0 Nonrheumatic aortic (valve) stenosis (principal); I25.10 Atherosclerotic heart disease of native coronary artery without angina pectoris; E11.9 Type 2 diabetes mellitus without complications; I10 Essential (primary) hypertension; E78.2 Mixed hyperlipidemia; Z98.890 Other specified postprocedural states; Z95.5 Presence of coronary angioplasty implant and graft; Z72.0 Tobacco use; Z79.82 Long term (current) use of aspirin; Z79.899 Other long term (current) drug therapy; Z79.84 Long term (current) use of oral hypoglycemic drugs; Z82.49 Family history of ischemic heart disease and other diseases of the circulatory system
CPT/HCPCS: 93458; 84132; C1769 ×2; C1760; C1894; J2250; J2001; J3010; Q9967

== ENCOUNTER 2020-06-02 06:59 | Day surgery (SDC) | payer BC ==
--- NOTE | 2020-06-01 18:54 | P.GSHP ---
History of Present Illness H&P Date: 06/01/20 60 yo male who comes for placement of an IPP THe patient underwent a RALP 01/2018 for a litzy 7 t2 N0M0 adeoca of the prostate. He developed impotence post op and has not been successfully recouperated with pde 5 inhibitors, vacuum pump or vasoactive injections. He has no erection at all. He has DM and htn that add to his ED. He was given the option of an IPP After deliberating on the alternatives, risks and complications including infection, erosion, failure, lack of satisfaction, pain he has decided to proceed. - Constitutional Constitutional: Denies chills, Denies fever - EENT Eyes: denies blurred vision, denies pain Ears, nose, mouth and throat: Denies headache, Denies sore throat - Cardiovascular Cardiovascular: Denies chest pain, Denies shortness of breath - Respiratory Respiratory: Denies cough, Denies 7 - Gastrointestinal Gastrointestinal: Denies abdominal pain, Denies diarrhea, Denies nausea, Denies vomiting - Genitourinary (Female) Genitourinary: Denies dysuria, Denies hematuria - Genitourinary (Male) Genitourinary: Denies dysuria, Denies hematuria - Musculoskeletal Musculoskeletal: Denies myalgias - Integumentary Integumentary: Denies pruritus, Denies rash - Neurological Neurological: Denies numbness, Denies weakness - Psychiatric Psychiatric: Denies anxiety, Denies depression - Endocrine Endocrine: Denies fatigue, Denies weight change Past Medical History Past Medical History: Coronary Artery Disease (CAD), Cancer, Diabetes Mellitus, GERD/Reflux, Hearing Disorder / Deafness, Hyperlipidemia, Hypertension, Liver Disease, Musculoskeletal Disorder, Osteoarthritis (OA) Additional Past Medical History / Comment(s): SEASONAL ALLERGIES. FATTY LIVER. prostate ca Last Myocardial Infarction Date:: 01/14/2017 History of Any Multi-Drug Resistant Organisms: None Reported Past Surgical History: Heart Catheterization With Stent, Hernia Repair, Joint Replacement, Prostate Surgery Additional Past Surgical History / Comment(s): PROSTATECOMY. NABEEL 03/23/20, COLONOSCOPY, TRAUMATIC AMP RT 3RD AND 4TH FINGERTIPS, TOTAL LT HIP. Past Anesthesia/Blood Transfusion Reactions: No Reported Reaction Date of Last Stent Placement:: January 2017. Past Psychological History: No Psychological Hx Reported Smoking Status: Former smoker Past Alcohol Use History: Occasional Additional Past Alcohol Use History / Comment(s): SMOKED 25 YRS ON/OFF, 2-3 PKS PER WK, QUIT 08/2016. Past Drug Use History: None Reported - Past Family History Mother Family Medical History: No Reported History, Coronary Artery Disease (CAD) Additional Family Medical History / Comment(s): CABG and stent Father Family Medical History: Coronary Artery Disease (CAD) Additional Family Medical History / Comment(s): CABG x2 Brother(s) Family Medical History: Coronary Artery Disease (CAD), Myocardial Infarction (IA) Additional Family Medical History / Comment(s): coronary stents Sister(s) Family Medical History: No Reported History Additional Family Medical History / Comment(s): cardiac arrythmia Daughter(s) Family Medical History: No Reported History Son(s) Family Medical History: No Reported History Medications and Allergies Home Medications Medication Instructions Recorded Confirmed Type Aspirin 81 mg PO DAILY 12/18/13 05/31/20 History Linagliptin [Tradjenta] 5 mg PO QAM 12/18/13 05/31/20 History glipiZIDE [Glucotrol XL] 5 mg PO QAM 12/18/13 05/31/20 History metFORMIN HCL 1,000 mg PO BID 12/18/13 05/31/20 History Desloratadine [Clarinex] 5 mg PO DAILY 09/21/15 05/31/20 History Metoprolol Tartrate [Lopressor] 25 mg PO QAM 01/31/18 05/31/20 History Famotidine [Pepcid] 20 mg PO QAM 03/18/20 05/31/20 History amLODIPine [Norvasc] 10 mg PO QAM 04/16/20 05/31/20 History Allergies Allergy/AdvReac Type Severity Reaction Status Date / Time No Known Allergies Allergy Verified 05/31/20 10:00 Surgical - Exam - General well developed, well nourished, no distress - Eyes PERRL - ENT no hearing loss - Neck trachea midline - Respiratory normal expansion, normal respiratory effort - Cardiovascular Rhythm: regular - Abdomen Abdomen: soft, non tender - Genitourinary normal penis with no external lesions, testicles present - Integumentary no rash, no growths - Neurologic normal coordination, normal sensation - Musculoskeletal normal gait, normal posture - Psychiatric oriented to time, oriented to person, oriented to place, speech is normal, memory intact Assessment and Plan Assessment: Impression: 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 Plan: insertion of IPP
[~2020-06-02 06:59] MED LIST changes: -ALPRAZolam 0.25 MG TAB PO PRN; -ALPRAZolam 0.5 MG TAB PO PRN; +AMPICILLIN 1,000 MG in SODIUM CHLORIDE 0.9% 50 ML IVPB ONE; -ASPIRIN 325 MG TAB PO STA; -ATORVASTATIN 80 MG TAB PO STA; +DEXAMETHASONE SOD PHOSPHATE 10 MG/ML 1 ML VIAL IV ONE; +GENTAMICIN 130 MG in SODIUM CHLORIDE 0.9% 100 ML IVPB ONE; -INSULIN ASPART (NovoLOG) 100 UNIT/ML VIAL SQ SCH; -IOPAMIDOL-370 125ML BTL INJ ONE; +LACTATED RINGERS 1,000 ML IV SCH; +LIDOCAINE 1% (10MG/ML) FOR IV START INTRADERMA PRN; -LIDOCAINE 1% INJ 10MG/ML (20 ML MDV) ONE; -LIDOCAINE 1% INJ 10MG/ML (20 ML MDV) SQ ONE; -MIDAZOLAM 2 MG/2 ML VIAL IV ONE; -NITROGLYCERIN SL TABS 0.4 MG TAB SUBLINGUAL PRN; -RX INFO: IV CONTRAST WAS GIVEN 1 EACH MISC MISCELLANE PRN; -SODIUM CHLORIDE 0.9% 1,000 ML IV SCH; -SODIUM CHLORIDE 0.9% 1,000 ML in EMPTY BAG 1 BAG IV ONE; -fentaNYL (PF) 50 MCG/ML 2 ML AMP IV ONE; -fentaNYL (PF) 50 MCG/ML 2 ML AMP ONE
[2020-06-02] MEDS ORDERED: ONDANSETRON 4 MG/2 ML VIAL ONE (07:29)
[2020-06-02] MEDS ORDERED: INSULIN ASPART (NovoLOG) 100 UNIT/ML VIAL SQ ONE ×2 (07:45→10:14)
[2020-06-02 07:53] LABS: Glucose,Whole Blood 249 mg/dL (75-99)
[2020-06-02] MEDS ORDERED: SUCCINYLCHOLINE CHLORIDE 100 MG/5 ML SYR IV ONE (07:59)
[2020-06-02] MEDS ORDERED: LIDOCAINE 1% INJ 10MG/ML (20 ML MDV) ONE (07:59)
[2020-06-02] MEDS ORDERED: MIDAZOLAM 2 MG/2 ML VIAL ONE (07:59)
[2020-06-02] MEDS ORDERED: PROPOFOL 10 MG/ML 20 ML VIAL IV ONE (07:59)
[2020-06-02] MEDS ORDERED: HYDROmorphone (PF) 1 MG/ML ONE (07:59)
[2020-06-02] MEDS ORDERED: fentaNYL (PF) 50 MCG/ML 2 ML AMP ONE (07:59)
[2020-06-02] MEDS ORDERED: GENTAMICIN 80 MG in SODIUM CHLORIDE 0.9% 200 ML IRRIGATION ONE (08:33)
[2020-06-02] MEDS ORDERED: LACTATED RINGERS 1,000 ML IV ONE (09:25)
[2020-06-02 09:43] LABS: Glucose,Whole Blood 263 mg/dL (75-99)
--- NOTE | 2020-06-02 09:43 | P.OP ---
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 His 2 years status post robotic-assisted laparoscopic prostatectomy. He is also diabetic. He has organic impotence secondary to the both. He failed PDE 5 inhibitors, vacuum pump and vasoactive injections. He has no erection. He comes for an inflatable penile prosthesis. The risks and complications have been outlined Description of Procedure: The patient is brought to the operating suite. He is given a general endotracheal anesthesia. He is prepped and draped sterilely. A midline infrapubic incision was made. The lower rectus fascia and the penis are exposed. I cleaned off the rectus fascia. I incised in the midline. I developed the prevesical pouch for the balloon reservoir. I placed an introducer through the right external inguinal ring into the prevesical space. I attached the tubing to the reservoir to the introducers and pull back through the incision. The reservoir was placed in infrapubic space. It is then insufflated with 65 mL of saline and a. It fits without compression. The rectus fascias closed with a running 1 PDS. Each corpora exposed and cleaned. 3-0 PDS stitches were used for stay stitches bilaterally. Corporotomies were made bilaterally. The corpora are dilated with Metzenbaum scissors proximally and distally and then with Hegar dilators 9-13. I measured the corporal length at 10 cm proximally and 9 cm distally bilaterally . I will use 18 cm prosthesis with 1 cm rear tip extenders. After the implants are prepared I used the Brian introducer and a Santiago needle. I first passed the right implant distally through the corpora. The proximal and seated and then the implant is inflated and deflates without buckling or ST deformity. I closed the corporotomies with a running 3-0 PDS. I then pass the left implant through the corpora using the Santiago needle and Brian introducer. It sits nicely distally and proximally and deflates appropriately without buckling or ST deformity. The corpora was closed with running 3-0 PDS. I then created a scrotal pouch for the pump. I placed the pump in the scrotum. I then connected the reservoir to the pump with straight connector. I then inflate and deflate the implant without difficulty. I then irrigate the wound thoroughly. I then closed the wound with a 3-0 chromic and then a 4-0 Vicryl. Blood loss is at most 50 mL. The patient tolerated procedure well he is awake and returned recovery in good condition. He'll be discharged home upon recovery and found the office in one week.
[2020-06-02 09:45] VITALS: TEMP 96.9
[2020-06-02] MEDS ORDERED: HYDROcodone/APAP 5-325MG 1 EACH TAB PO ONE (11:04)
[2020-06-02] MEDS ORDERED: HYDROcodone/APAP 5-325MG 1 EACH TAB ONE (11:06)
[2020-06-02 11:17] LABS: Glucose,Whole Blood 277 mg/dL (75-99)
[2020-06-02 11:47] VITALS: BP 138/88; PULSE 87; RESP 18
[2020-06-02 12:14] LABS: Glucose,Whole Blood 272 mg/dL (75-99)
== END 2020-06-02 12:20 | disposition home or self-care (01) ==
LOC: OR 06:59
PROVIDERS: ATTEND Urology
DX: N52.31 Erectile dysfunction following radical prostatectomy (principal); E11.9 Type 2 diabetes mellitus without complications; I25.10 Atherosclerotic heart disease of native coronary artery without angina pectoris; K21.9 Gastro-esophageal reflux disease without esophagitis; I35.0 Nonrheumatic aortic (valve) stenosis; H91.90 Unspecified hearing loss, unspecified ear; E78.5 Hyperlipidemia, unspecified; I10 Essential (primary) hypertension; K76.0 Fatty (change of) liver, not elsewhere classified; M19.90 Unspecified osteoarthritis, unspecified site; Z85.46 Personal history of malignant neoplasm of prostate; Z95.5 Presence of coronary angioplasty implant and graft; Z96.642 Presence of left artificial hip joint; Z87.891 Personal history of nicotine dependence; Z98.890 Other specified postprocedural states; Z82.49 Family history of ischemic heart disease and other diseases of the circulatory system; Z79.84 Long term (current) use of oral hypoglycemic drugs; Z79.82 Long term (current) use of aspirin; Z79.899 Other long term (current) drug therapy
CPT/HCPCS: 54401; C1813; J2250; J1580 ×2; J1100; J2405; J2001; J3010; J0290; J1170; J0330; J2704

== ENCOUNTER 2021-10-21 07:58 | Day surgery (SDC) | payer BC ==
[2021-10-20 10:12] VITALS: BMI 33.0
[~2021-10-21 07:58] MED LIST changes: +ALPRAZolam 0.25 MG TAB PO PRN; +ALPRAZolam 0.5 MG TAB PO PRN; -AMPICILLIN 1,000 MG in SODIUM CHLORIDE 0.9% 50 ML IVPB ONE; +ASPIRIN 325 MG TAB PO STA; -DEXAMETHASONE SOD PHOSPHATE 10 MG/ML 1 ML VIAL IV ONE; -GENTAMICIN 130 MG in SODIUM CHLORIDE 0.9% 100 ML IVPB ONE; +HEPARIN SODIUM,PORCINE 10,000 UNIT in SODIUM CHLORIDE 0.9% 1,000 ML IRRIGATION PRN; +HEPARIN SODIUM,PORCINE 2,500 UNIT in SODIUM CHLORIDE 0.9% 250 ML IRRIGATION PRN; -LACTATED RINGERS 1,000 ML IV SCH; -LIDOCAINE 1% (10MG/ML) FOR IV START INTRADERMA PRN; +NITROGLYCERIN SL TABS 0.4 MG TAB SUBLINGUAL PRN; +SODIUM CHLORIDE 0.9% 1,000 ML in EMPTY BAG 1 BAG IV SCH
[2021-10-21 08:25] VITALS: TEMP 98.2
[2021-10-21 08:27] LABS: Glucose,Whole Blood 210 mg/dL (75-99)
[2021-10-21] MEDS ORDERED: INSULIN ASPART (NovoLOG) 100 UNIT/ML VIAL SQ ONE (08:30)
[2021-10-21] MEDS ORDERED: HEPARIN SODIUM 1,000 UN/ML (10ML VL) ONE (08:50)
[2021-10-21] MEDS ORDERED: VERAPAMIL 2.5 MG/ML 2 ML AMP ONE (08:50)
[2021-10-21] MEDS ORDERED: LIDOCAINE 1% INJ 10MG/ML (20 ML MDV) ONE (08:51)
[2021-10-21] MEDS ORDERED: MIDAZOLAM 2 MG/2 ML VIAL IVP ONE (09:07)
[2021-10-21] MEDS ORDERED: LIDOCAINE 1% INJ 10MG/ML (20 ML MDV) SQ ONE (09:11)
[2021-10-21] MEDS ORDERED: VERAPAMIL SYRINGE (5 MG/10 ML) INTRAARTER ONE (09:14)
[2021-10-21] MEDS ORDERED: HEPARIN SODIUM 1,000 UN/ML (10ML VL) IVP ONE (09:17)
[2021-10-21] MEDS ORDERED: IOPAMIDOL-370 50ML BTL INJ ONE (09:27)
[2021-10-21] MEDS ORDERED: IOPAMIDOL-370 125ML BTL INJ ONE (09:30)
[2021-10-21] MEDS ORDERED: HYDROmorphone 0.5 MG/0.5 ML SYRINGE IVP STA (09:44)
[2021-10-21] MEDS ORDERED: FUROSEMIDE 10 MG/ML 4 ML VIAL IV STA (09:54)
[2021-10-21] MEDS ORDERED: FUROSEMIDE 10 MG/ML 2 ML VIAL IV STA (10:02)
[2021-10-21] MEDS ORDERED: FUROSEMIDE 10 MG/ML 4 ML VIAL ONE (10:04)
[2021-10-21] MEDS ORDERED: fentaNYL (PF) 50 MCG/ML 2 ML AMP ONE (11:09)
[2021-10-21] MEDS ORDERED: IV FLUID CONTINUATION 600 ML IV ONE (11:20)
[2021-10-21] MEDS ORDERED: fentaNYL (PF) 50 MCG/ML 2 ML AMP IV ONE (11:32)
[2021-10-21] MEDS ORDERED: BENZOCAINE SPRAY 1 CAN MUCOUS MEM ONE (11:32)
[2021-10-21] MEDS: MIDAZOLAM 2 MG/2 ML VIAL IV ONE ×2 (11:33→11:35)
[2021-10-21] MEDS ORDERED: RX INFO: IV CONTRAST WAS GIVEN 1 EACH MISC MISCELLANE PRN (13:42)
[2021-10-21] MEDS ORDERED: SODIUM CHLORIDE 0.9% 1,000 ML IV SCH (13:45)
--- NOTE | 2021-10-21 14:10 | ECHOT ---
TRANSESOPHAGEAL ECHOCARDIOGRAM INDICATION: Aortic stenosis. This is a 61-year-old gentleman with history of aortic stenosis and regurgitation and coronary artery disease, who presented to me recently with symptoms of chest pain and shortness of breath. He underwent a cardiac catheterization that revealed a patent stent within the LAD and chronic disease involving circumflex coronary artery and right coronary artery. Because of his worsening symptoms, I advised the patient to undergo transesophageal echo for further evaluation of his mitral and aortic valve. He has been explained risks, benefits and alternatives. PROCEDURE NOTE: After obtaining informed consent, transesophageal echocardiogram was performed in left lateral position using an Omni plane probe. Local and IV sedation were obtained with 2 mg of Versed and 25 mcg of fentanyl. The patient tolerated the procedure well without any obvious immediate complications. FINDINGS: 1. Aortic valve is a quadricuspid valve with severe restriction in leaflet mobility. It is calcified. By planimetry the valve area is 0.5 square cm. There is moderate aortic regurgitation noted. 2. Aortic root measures within normal limits. 3. Mitral valve appears anatomically normal. There is severe central mitral regurgitation noted with reversal of flow into the pulmonary veins. 4. Tricuspid valve shows mild tricuspid regurgitation. 5. Interatrial septum: There is no evidence of [id number] shunt by color-flow Doppler or [id number] shunt by agitated saline contrast study. 6. Left atrium appears enlarged. 7. Right atrium and right ventricle exam within normal limits. 8. Left ventricle has normal size and systolic function. CONCLUSION: 1. 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 2. Moderate aortic regurgitation. 3. Severe mitral regurgitation. PLAN: Patient will undergo bypass surgery along with aortic valve replacement. MMODL / IJN: [id number] /
--- NOTE | 2021-10-21 14:19 | CC ---
CARDIAC CATHETERIZATION REPORT INDICATION: Unstable angina. PROCEDURE NOTE: After obtaining informed consent, left heart catheterization and coronary angiogram were performed via the right radial artery using standard Adryan catheters. The patient tolerated the procedure well without any obvious immediate complications. Patient received moderate conscious sedation. Total sedation time was 16 minutes. Using a micropuncture needle, right radial artery access was obtained and catheters and wires were floated into the ascending aorta under fluoroscopic guidance. The patient tolerated the procedure well without any obvious immediate complications. He received 5 mg of verapamil and 5000 units of heparin. A size 3 and half Adryan catheters were used to engage the right and left coronary arteries. The pigtail was used to obtain aortogram. FINDINGS: HEMODYNAMICS: Central aortic pressure is 130/70 mm. LEFT VENTRICULOGRAM: Not performed. AORTOGRAM: Aortogram is performed in FAY position. Ascending aorta appears normal. There is a 2 to 3+ aortic regurgitation noted. CORONARY ANGIOGRAPHIC FINDINGS: RIGHT CORONARY ARTERY: Right coronary artery is a nondominant vessel, has a chronic total occlusion of the mid RCA. LEFT MAIN: Left main coronary artery is a normal-sized vessel and is free of stenosis. Divides into left anterior descending coronary artery and circumflex coronary artery. LEFT ANTERIOR DESCENDING CORONARY ARTERY: LAD was previously stented. The stent appears patent. The diagonal branches shows a 60-70% stenosis. CIRCUMFLEX CORONARY ARTERY: The circumflex coronary artery has a long segment of 90% stenosis and the OM branch has a 70-80 percent stenosis. CONCLUSIONS: Three-vessel coronary artery disease with patent stent within the LAD, severe stenosis involving the circumflex coronary artery, right coronary artery and the OM branch. PLAN: Patient will need bypass surgery with aortic valve replacement and mitral valve repair. MMODL / IJN: [id number] /
--- NOTE | 2021-10-21 14:19 | LTR ---
DATE OF SERVICE: 10/21/2021 Dear Varinder, I performed cardiac catheterization and NABEEL on Nikhil Shen. Detailed reports are enclosed for your records. In brief, his cardiac catheterization reveals severe two vessel coronary artery disease and he has severe aortic stenosis and mitral regurgitation along with moderate aortic regurgitation. The patient will need bypass surgery with aortic valve replacement and mitral valve repair. I have consulted Dr. Jones, the cardiothoracic surgeon. Thank you for giving me the privilege to participate in the care of this pleasant gentleman. Sincerely, MMTRACEYL / IJN: [id number] /
[2021-10-21 14:50] LABS: Appearance,Urine Clear (Clear); Bilirubin,Urine Negative (Negative); Blood,Urine Negative (Negative); Color,Urine Yellow; Glucose,Urine (UA) 3+ (Negative); Ketones,Urine Negative (Negative); Leukocyte Esterase,Urine Negative (Negative); Mucus,Urine Rare /hpf; Nitrite,Urine Negative (Negative); PH, Urine 5.5 (5.0-8.0); Protein,Urine 1+ (Negative); RBC,Urine 2 /hpf (0-5); Specific Gravity,Urine 1.045 (1.001-1.035); Squamous Epithelial Cell,Urine <1 /hpf (0-4); Urobilinogen,Urine <2.0 mg/dL (<2.0); WBC,Urine 1 /hpf (0-5)
--- NOTE | 2021-10-21 14:56 | P.GSCN ---
History of Present Illness Consult date: 10/21/21 Reason for Consult: Aortic valve stenosis, triple-vessel coronary artery disease Requesting physician: Jacob Medeiros History of present illness: This is a 61-year-old gentleman who follows on an outpatient basis with Dr. Sridhar Tavarez for primary care and Dr. Medeiros for cardiology. He has a previous medical history of coronary artery disease with myocardial infarction status post PCI in 2016, hypertension, hyperlipidemia, insulin-dependent diabetes, fatty liver disease, prostate cancer status post prostatectomy in 2017, previous tobacco dependence, Covid infection in June 2021, and strong family history of heart disease including premature coronary artery disease with father having CABG at 54 years old. He is vaccinated but not boosted against Covid. This gentleman has been experiencing exertional chest pain and shortness of breath for several weeks. He does admit to occasional lower extremity swelling. He denies any other symptomatology. He was recommended to undergo heart catheterization and transesophageal echocardiogram which were completed today. Cardiac catheterization was reported to show chronic total occlusion of the mid RCA, patent stents to the LAD, 60-70% stenosis to the diagonal branch of the LAD, 90% stenosis to the circumflex coronary artery as well as 70-80% stenosis to an OM branch. Transesophageal echocardiogram was reported to show quadricuspid aortic valve with severe restriction in leaflet mobility, aortic valve area 0.5 cm, moderate aortic regurgitation, severe central mitral regurgitation, mild tricuspid regurgitation, and normal left ventricular systoli c function. Due to these findings consultation was placed to Dr. Jones from cardiothoracic surgery for surgical recommendations. Review of Systems Review of systems was completed and was negative except as noted - Cardiovascular Reports as per HPI, Reports chest pain, Reports decreased exercise tolerance, Reports dyspnea on exertion Past Medical History Past Medical History: Coronary Artery Disease (CAD), Cancer, Diabetes Mellitus, GERD/Reflux, Hearing Disorder / Deafness, Hyperlipidemia, Hypertension, Liver Disease, Musculoskeletal Disorder, Osteoarthritis (OA) Additional Past Medical History / Comment(s): SEASONAL ALLERGIES. FATTY LIVER. prostate ca, recent occasional chest pressure & back pain for a few months, SOB w/exertion, mild ankle swelling Last Myocardial Infarction Date:: 01/14/2017 History of Any Multi-Drug Resistant Organisms: None Reported Past Surgical History: Heart Catheterization With Stent, Hernia Repair, Joint Replacement, Prostate Surgery Additional Past Surgical History / Comment(s): PROSTATECTOMY. NABEEL 03/23/20, COLONOSCOPY, TRAUMATIC AMP RT 3RD AND 4TH FINGERTIPS, TOTAL LT HIP., penile implant, right hand trigger finger surg. Past Anesthesia/Blood Transfusion Reactions: No Reported Reaction Date of Last Stent Placement:: January 2017. Past Psychological History: No Psychological Hx Reported Smoking Status: Former smoker Past Alcohol Use History: Rare Past Drug Use History: None Reported - Past Family History Mother Family Medical History: No Reported History, Coronary Artery Disease (CAD) Additional Family Medical History / Comment(s): CABG and stent Father Family Medical History: Coronary Artery Disease (CAD) Additional Family Medical History / Comment(s): CABG x2 Brother(s) Family Medical History: Coronary Artery Disease (CAD), Myocardial Infarction (ID) Additional Family Medical History / Comment(s): coronary stents Sister(s) Family Medical History: No Reported History Additional Family Medical History / Comment(s): cardiac arrythmia Daughter(s) Family Medical History: No Reported History Son(s) Family Medical History: No Reported History Medications and Allergies Home Medications Medication Instructions Recorded Confirmed Type Aspirin 81 mg PO DAILY 12/18/13 10/21/21 History Linagliptin [Tradjenta] 5 mg PO QAM 12/18/13 10/21/21 History glipiZIDE [Glucotrol XL] 5 mg PO QAM 12/18/13 10/21/21 History metFORMIN HCL [Glucophage] 1,000 mg PO BID 12/18/13 10/20/21 History Desloratadine [Clarinex] 5 mg PO DAILY 09/21/15 10/21/21 History Metoprolol Tartrate [Lopressor] 25 mg PO QAM 01/31/18 10/21/21 History Famotidine [Pepcid] 20 mg PO QAM 03/18/20 10/21/21 History Baclofen [Lioresal] 10 mg PO HS PRN 10/20/21 10/21/21 History Benazepril [Lotensin] 10 mg PO DAILY 10/20/21 10/21/21 History Insulin Glargine,Hum.rec.anlog 20 unit SQ QAM 10/20/21 10/21/21 History [Lantus Solostar Pen] Allergies Allergy/AdvReac Type Severity Reaction Status Date / Time No Known Allergies Allergy Verified 10/20/21 09:41 Surgical - Exam Vital Signs Temp Pulse Resp BP Pulse Ox 98.2 F 99 16 134/89 96 10/21/21 08:24 10/21/21 08:24 10/21/21 08:24 10/21/21 08:24 10/21/21 08:24 CONSTITUTIONAL: Awake and alert, appears comfortable, cooperative, well- developed, well-nourished, no pain, no acute distress EYES: Pupils equal, round, reactive to light, normal ocular movement ENT: Moist mucous membranes without oral lesions present NECK: No masses, no bruits, trachea midline RESPIRATORY: Lungs sounds clear to auscultation bilaterally. Respirations even, nonlabored. Currently on room air with oxygen saturation 92%. Strong cough. No chest wall deformities. No clubbing or cyanosis present CARDIOVASCULAR: S1, S2 present, systolic murmur present. Regular rate and rhythm, sinus rhythm on telemetry. Palpable peripheral pulses bilaterally. No edema present. No calf pain or tenderness noted. Lower extremity varicosities noted. Left radial Ben's test positive. GASTROINTESTINAL: Abdomen soft, nontender, nondistended without masses or organomegaly noted. There is no rebound or guarding present. Active bowel sounds present 4 quadrants. GENITOURINARY: Deferred INTEGUMENTARY: Skin is warm and dry with evidence of good perfusion. NEUROLOGIC: Cranial nerves II through XII intact, normal coordination, no obvious motor or sensory deficits, speech is normal MUSKULOSKELETAL: Able to move all extremities, strength equal bilaterally, normal posture PSYCHIATRIC: Alert and oriented to person place and time, appropriate affect, intact judgment and insight Results - Labs Abnormal Lab Results - Last 24 Hours (Table) 10/21/21 Range/Units 08:22 POC Glucose (mg/dL) 210 H (75-99) mg/dL - Imaging Additional studies: Heart catheterization and echocardiogram films reviewed Assessment and Plan Assessment: 1. Triple-vessel coronary artery disease with myocardial infarction status post PCI in 2016 2. Severe aortic stenosis with aortic valve area 0.57 m, mild aortic regurgitation 3. Severe central mitral regurgitation 4. Preserved left ventricular systolic function 5. Hypertension 6. Hyperlipidemia 7. Insulin-dependent diabetes 8. Fatty liver disease 9. Prostate cancer status post prostatectomy in 2017 10. Previous tobacco dependence 11. Covid infection in June 2021, vaccinated not boosted against Covid 12. Strong family history of heart disease including premature coronary artery disease with father having CABG at 54 years old Plan: The patient was seen and examined in the extended stay unit with Dr. Jones. Chart/diagnostics reviewed. The usual perioperative course of open heart surgery was discussed in detail the patient and his family, risks and benefits were reviewed, all questions were answered. The patient does consent to surgery. Preoperative testing was initiated. Once all testing has been completed we will calculate STS risk score. Recommend to maximize medical therapy with aspirin, statin, beta roosevelt. The patient was instructed to get dental clearance. Follow-up appointment was made with Dr. Jones for October 28 to discuss the results of preoperative testing and finalize plans for surgery. Thank you Dr. Medeiros for this consult. We look forward to working with you in the care of your patient. I have personally seen and examined the patient, performed the documentation and the assessment and plan as written. Number of minutes spent on the visit: 45. Time with Patient: Greater than 30
[2021-10-21 15:00] LABS: Basophils # (A) 0.1 k/uL (0-0.2); Basophils % (A) 1 %; Eosinophils # (A) 0.2 k/uL (0-0.7); Eosinophils % (A) 2 %; HCT 50.8 % (39.0-53.0); HGB 16.5 gm/dL (13.0-17.5); Lymphocytes # (A) 1.8 k/uL (1.0-4.8); Lymphocytes % (A) 16 %; MCH 30.4 pg (25.0-35.0); MCHC 32.5 g/dL (31.0-37.0); MCV 93.3 fL (80.0-100.0); Mean Platelet Volume 8.5; Monocytes # (A) 0.6 k/uL (0-1.0); Monocytes % (A) 5 %; Neutrophils # (A) 8.7 k/uL (1.3-7.7); Neutrophils % (A) 75 %; Platelet Count 199 k/uL (150-450); RBC 5.44 m/uL (4.30-5.90); RDW 14.1 % (11.5-15.5); WBC 11.6 k/uL (3.8-10.6)
[2021-10-21 15:10] VITALS: BP 104/76; PULSE 93; RESP 16
[2021-10-21 15:13] LABS: Partial Thromboplastin Time 23.4 sec (22.0-30.0); Prothrombin Time 11.3 sec (9.0-12.0)
[2021-10-21 15:21] LABS: ALT 95 U/L (4-49); AST 84 U/L (17-59); African American GFR (CKD) 75 (>60 ml/min/1.73 sqM); Albumin 4.2 g/dL (3.5-5.0); Alkaline Phosphatase 75 U/L (38-126); Anion Gap 13 mmol/L; Blood Urea Nitrogen 17 mg/dL (9-20); Calcium 9.2 mg/dL (8.4-10.2); Carbon Dioxide 22 mmol/L (22-30); Chloride 100 mmol/L (98-107); Glucose 320 mg/dL (74-99); Non-African American GFR(CKD) 65 (>60 ml/min/1.73 sqM); Potassium 4.6 mmol/L (3.5-5.1); Sodium 135 mmol/L (137-145); Total Bilirubin 0.7 mg/dL (0.2-1.3); Total Protein 7.2 g/dL (6.3-8.2)
--- NOTE | 2021-10-21 15:56 | CT ---
EXAMINATION TYPE: CT chest wo con DATE OF EXAM: 10/21/2021 COMPARISON: Chest x-ray 01/14/2017 HISTORY: Afib, looking for ascending aorta dimensions. Recent cardiac cath procedure CT DLP: 712 mGycm. Automated Exposure Control for Dose Reduction was Utilized. TECHNIQUE: CT scan of the thorax is performed without IV contrast. FINDINGS: Lack of intravenous contrast could compromise sensitivity Root of the aorta measures approximately 3.9 cm, proximal ascending aorta measures 3.5 cm, proximal d escending aorta 2.9 cm LUNGS: The lungs show bilateral airspace disease, groundglass opacity, there are bilateral pleural ef fusions and associated atelectasis MEDIASTINUM: Lack of IV contrast is noted to limit evaluation for mediastinal and especially hilar ad enopathy. There are no definitive greater than 1 cm hilar or mediastinal lymph nodes. No cardiomega ly or pericardial effusion is seen. There are extensive calcifications of the root of aorta, coronary artery calcifications are present. OTHER: No the liver shows low attenuation likely due to hepatic steatosis. There is contrast being e xcreted from the kidneys.. IMPRESSION: Correlate for congestive heart failure with bilateral pleural effusions. Coronary artery disease.
[2021-10-21 16:00] LABS: Magnesium 0.9 mg/dL (1.6-2.3)
[2021-10-21 23:32] LABS: LDL Cholesterol,Calculated 82.1 mg/dL (0.0-131.0)
[2021-10-22 01:21] LABS: Hepatitis A Antibody IgM Nonreactive (Nonreactive); Hepatitis B Core IgM Nonreactive (Nonreactive); Hepatitis B Surface Antigen Nonreactive (Nonreactive); Hepatitis C IgG Antibody Nonreactive (Nonreactive)
--- NOTE | 2021-10-27 10:44 | US ---
EXAMINATION TYPE: US vein mapping BILAT DATE OF EXAM: 10/21/2021 2:10 PM COMPARISON: NONE CLINICAL HISTORY: preop open heart. SIDE PERFORMED: Bilateral TECHNIQUE: Lower extremity saphenous vein is examined and measured utilizing real time linear array sonography. Patient History: Paralysis: Yes Varicosities: Yes Edema: Yes DUPLEX FINDINGS: Greater Saphenous: Color flow seen Measurements in mm: Right Greater Saphenous: Groin: 6.6 x 5.1 mm High Thigh: 4.5 x 5.5 mm Mid Thigh: 4.8 x 4.9 mm Above Knee: 3.9 x 4.8 mm Knee: 3.6 x 4.9 mm Below Knee: 2.2 x 2.6 mm Mid Calf: 2.7 x 3.3 mm At Ankle: 2.9 x 4.3 mm Left Greater Saphenous: Groin: 9.3 x 9.6 mm High Thigh: 5.9 x 8.3 mm Mid Thigh: 5.9 x 6.9 mm Above Knee: 7.2 x 9.9 mm Knee: 6.0 x 7.5 mm Below Knee: 7.0 x 7.9 mm At Ankle: 2.1 x 3.1 mm Multiple varicosities in the already enlarged left greater saphenous vein IMPRESSION: 1. Bilateral GSV measurements listed above. 2. Performing surgeon to determine viability as conduit.
--- NOTE | 2021-10-27 10:47 | US ---
EXAMINATION TYPE: Pre-Operative Non-Invasive Evaluation of the hand for Potential Radial Artery Bunny warren, Measurements only DATE OF EXAM: 10/21/2021 2:10 PM CLINICAL HISTORY: preop open heart. SIDE PERFORMED: Left TECHNIQUE: Radial artery is measured utilizing real time linear array sonography. Dominant hand: Right Duplex Findings: Radial Artery: Color flow seen Measurements in mm, transverse view: Left Radial: Proximal: 4.8 x 4.4 mm Mid: 3.8 x 3.1 mm Distal: 3.5 x 3.3 mm IMPRESSION: 1. Left radial artery measurements listed above. 2. Performing surgeon to determine viability of conduit.
== END 2021-10-21 14:53 | disposition home or self-care (01) ==
LOC: CATHCVL 07:58
PROVIDERS: ATTEND Internal Medicine Cardiovascular Disease
DX: I35.0 Nonrheumatic aortic (valve) stenosis (principal); I34.0 Nonrheumatic mitral (valve) insufficiency; Q23.8 Other congenital malformations of aortic and mitral valves
CPT/HCPCS: 93454; 93312; 93320; 93325; 94150; 80061; 80053; 80074; 84443; 83735; 85025; 85610; 85730; 81001; 87070; 83036; 93931; 93970; 71250; C1894; J2250; J1940; J2001; J3010; J1644; J1170; Q9967 ×2

== ENCOUNTER → 2021-10-26 | Outpatient (CLI) | payer BC ==
--- NOTE | 2021-10-26 14:11 | XR ---
EXAMINATION TYPE: XR chest 2V DATE OF EXAM: 10/26/2021 COMPARISON: 01/14/17 HISTORY: Shortness of breath TECHNIQUE: Frontal and lateral views of the chest are obtained. FINDINGS: Scattered senescent parenchymal changes noted. Hyperinflation compatible with COPD. No evidence for infiltrate. Perihilar linear atelectasis noted. Heart size is stable. Mediastinal structures are stable and grossly unremarkable. No evidence for hilar prominence. Degenerative changes dorsal spine. IMPRESSION: 1. No evidence for acute pulmonary disease.
== END | disposition home or self-care (01) ==
LOC: RADXRMAIN 13:43
PROVIDERS: ATTEND Surgery
DX: Z01.818 Encounter for other preprocedural examination (principal); I25.10 Atherosclerotic heart disease of native coronary artery without angina pectoris
CPT/HCPCS: 71046

== ENCOUNTER 2021-11-14 10:43 | Emergency (ER) | payer BC ==
[2021-11-14 10:59] VITALS: RESP 18; TEMP 97.8
--- NOTE | 2021-11-14 11:34 | ED ---
General Adult HPI - General Chief complaint: Shortness of Breath Stated complaint: SOB, feet & ankle swelling Time Seen by Provider: 11/14/21 11:08 Source: patient, RN notes reviewed Mode of arrival: ambulatory Limitations: no limitations - History of Present Illness Initial comments: 61-year-old male presents emergency department with chief complaint of dyspnea, orthopnea, leg swelling. Patient states that he is scheduled for aortic valve replacement on Sunday by is oriented. Patient states he had resized ligation 2 weeks ago for similar issues. He states that he has to sleep more upright, is noticed some increasing leg swelling, recent 3 pound weight gain. He does have continuous exertional dyspnea, increasing fatigue he did have some discomfort this morning which he took nitro for. Patient contacted cardiothoracic team prior arrival. - Related Data Home Medications Medication Instructions Recorded Confirmed Linagliptin [Tradjenta] 5 mg PO DAILY 12/18/13 11/14/21 glipiZIDE [Glucotrol XL] 5 mg PO DAILY 12/18/13 11/14/21 Desloratadine [Clarinex] 5 mg PO DAILY 09/21/15 11/14/21 Famotidine [Pepcid] 20 mg PO DAILY 03/18/20 11/14/21 Baclofen [Lioresal] 10 mg PO HS PRN 10/20/21 11/14/21 Insulin Glargine,Hum.rec.anlog 30 unit SQ DAILY 10/20/21 11/14/21 [Lantus Solostar Pen] Aspirin EC [Ecotrin Low Dose] 81 mg PO DAILY 10/28/21 11/14/21 Cholecalciferol [Vitamin D3 (25 25 mcg PO DAILY 10/28/21 11/14/21 Mcg = 1000 Iu)] Ibuprofen [Motrin] 800 mg PO Q8H PRN 10/28/21 11/14/21 Nitroglycerin Sl Tabs [Nitrostat] 0.4 mg SL Q5M PRN 10/28/21 11/14/21 Zinc 50 mg PO DAILY 10/28/21 11/14/21 Ubidecarenone [Co Q-10] 100 mg PO BID 11/14/21 11/14/21 metFORMIN HCL [Glucophage] 1,000 mg PO BID 11/14/21 11/14/21 Previous Rx's Medication Instructions Recorded Simvastatin 40 mg PO HS #30 tablet 10/26/21 Furosemide [Lasix] 20 mg PO DAILY #30 tab 10/29/21 Metoprolol Tartrate [Lopressor] 50 mg PO BID tab 10/29/21 amLODIPine [Norvasc] 5 mg PO DAILY #30 tab 10/29/21 Allergies Allergy/AdvReac Type Severity Reaction Status Date / Time No Known Allergies Allergy Verified 11/14/21 11:53 Review of Systems ROS Statement: Those systems with pertinent positive or pertinent negative responses have been documented in the HPI. ROS Other: All systems not noted in ROS Statement are negative. Past Medical History Past Medical History: Coronary Artery Disease (CAD), Cancer, Diabetes Mellitus, GERD/Reflux, Hearing Disorder / Deafness, Hyperlipidemia, Hypertension, Liver Disease, Musculoskeletal Disorder, Osteoarthritis (OA) Additional Past Medical History / Comment(s): SEASONAL ALLERGIES. FATTY LIVER. prostate ca, recent occasional chest pressure & back pain for a few months, SOB w/exertion, mild ankle swelling Last Myocardial Infarction Date:: 01/14/2017 History of Any Multi-Drug Resistant Organisms: None Reported Past Surgical History: Heart Catheterization With Stent, Hernia Repair, Joint Replacement, Prostate Surgery Additional Past Surgical History / Comment(s): PROSTATECTOMY. NABEEL 03/23/20, COLONOSCOPY, TRAUMATIC AMP RT 3RD AND 4TH FINGERTIPS, TOTAL LT HIP., penile implant, right hand trigger finger surg. Past Anesthesia/Blood Transfusion Reactions: No Reported Reaction Date of Last Stent Placement:: January 2017. Past Psychological History: No Psychological Hx Reported Smoking Status: Former smoker Past Alcohol Use History: Rare Past Drug Use History: None Reported - Past Family History Mother Family Medical History: No Reported History, Coronary Artery Disease (CAD) Additional Family Medical History / Comment(s): CABG and stent Father Family Medical History: Coronary Artery Disease (CAD) Additional Family Medical History / Comment(s): CABG x2 Brother(s) Family Medical History: Coronary Artery Disease (CAD), Myocardial Infarction (NM) Additional Family Medical History / Comment(s): coronary stents Sister(s) Family Medical History: No Reported History Additional Family Medical History / Comment(s): cardiac arrythmia Daughter(s) Family Medical History: No Reported History Son(s) Family Medical History: No Reported History General Exam Limitations: no limitations General appearance: alert, in no apparent distress Head exam: Present: atraumatic, normocephalic, normal inspection Eye exam: Present: normal appearance, PERRL, EOMI. Absent: scleral icterus, con junctival injection, periorbital swelling ENT exam: Present: normal exam, normal oropharynx, mucous membranes moist Neck exam: Present: normal inspection, full ROM. Absent: tenderness, meningismus, lymphadenopathy Respiratory exam: Present: rales. Absent: normal lung sounds bilaterally, respiratory distress, wheezes, rhonchi, stridor Cardiovascular Exam: Present: regular rate, normal rhythm, normal heart sounds. Absent: systolic murmur, diastolic murmur, rubs, gallop, clicks Extremities exam: Present: pedal edema Neurological exam: Present: alert Course Vital Signs 11/14/21 11/14/21 10:56 11:07 Temperature 97.8 F Pulse Rate 87 Respiratory 18 18 Rate Blood Pressure 96/68 O2 Sat by Pulse 94 L Oximetry Medical Decision Making - Medical Decision Making Chest x-ray shows very minimal trace effusion which is improved from prior. Patient has no hypoxia. Patient BNP is mildly elevated I did contact cardiothoracic. Patient be given additional dose of Lasix will increase Lasix for 5 days and return for any worsening changes symptoms. - Lab Data Result diagrams: 11/14/21 11:22 11/14/21 11:22 Lab Results 11/14/21 11/14/21 11/14/21 Range/Units 11:22 11:22 11:22 WBC 10.4 (3.8-10.6) k/uL RBC 4.99 (4.30-5.90) m/uL Hgb 15.3 (13.0-17.5) gm/dL Hct 45.3 (39.0-53.0) % MCV 90.8 (80.0-100.0) fL MCH 30.7 (25.0-35.0) pg MCHC 33.8 (31.0-37.0) g/dL RDW 13.8 (11.5-15.5) % Plt Count 180 (150-450) k/uL MPV 7.8 Neutrophils % 71 % Lymphocytes % 17 % Monocytes % 7 % Eosinophils % 1 % Basophils % 1 % Neutrophils # 7.4 (1.3-7.7) k/uL Lymphocytes # 1.8 (1.0-4.8) k/uL Monocytes # 0.7 (0-1.0) k/uL Eosinophils # 0.1 (0-0.7) k/uL Basophils # 0.1 (0-0.2) k/uL PT 10.9 (9.0-12.0) sec INR 1.0 (<1.2) APTT 28.5 (22.0-30.0) sec Sodium 137 (137-145) mmol/L Potassium 4.5 (3.5-5.1) mmol/L Chloride 101 (98-107) mmol/L Carbon Dioxide 21 L (22-30) mmol/L Anion Gap 15 mmol/L BUN 19 (9-20) mg/dL Creatinine 1.14 (0.66-1.25) mg/dL Est GFR (CKD-EPI)AfAm 80 (>60 ml/min/1.73 sqM) Est GFR (CKD-EPI)NonAf 69 (>60 ml/min/1.73 sqM) Glucose 185 H (74-99) mg/dL Calcium 9.4 (8.4-10.2) mg/dL Total Bilirubin 1.4 H (0.2-1.3) mg/dL AST 37 (17-59) U/L ALT 37 (4-49) U/L Alkaline Phosphatase 70 (38-126) U/L Troponin I (0.000-0.034) ng/mL NT-Pro-B Natriuret Pep pg/mL Total Protein 7.8 (6.3-8.2) g/dL Albumin 4.5 (3.5-5.0) g/dL 11/14/21 11/14/21 Range/Units 11:22 11:22 WBC (3.8-10.6) k/uL RBC (4.30-5.90) m/uL Hgb (13.0-17.5) gm/dL Hct (39.0-53.0) % MCV (80.0-100.0) fL MCH (25.0-35.0) pg MCHC (31.0-37.0) g/dL RDW (11.5-15.5) % Plt Count (150-450) k/uL MPV Neutrophils % % Lymphocytes % % Monocytes % % Eosinophils % % Basophils % % Neutrophils # (1.3-7.7) k/uL Lymphocytes # (1.0-4.8) k/uL Monocytes # (0-1.0) k/uL Eosinophils # (0-0.7) k/uL Basophils # (0-0.2) k/uL PT (9.0-12.0) sec INR (<1.2) APTT (22.0-30.0) sec Sodium (137-145) mmol/L Potassium (3.5-5.1) mmol/L Chloride (98-107) mmol/L Carbon Dioxide (22-30) mmol/L Anion Gap mmol/L BUN (9-20) mg/dL Creatinine (0.66-1.25) mg/dL Est GFR (CKD-EPI)AfAm (>60 ml/min/1.73 sqM) Est GFR (CKD-EPI)NonAf (>60 ml/min/1.73 sqM) Glucose (74-99) mg/dL Calcium (8.4-10.2) mg/dL Total Bilirubin (0.2-1.3) mg/dL AST (17-59) U/L ALT (4-49) U/L Alkaline Phosphatase (38-126) U/L Troponin I 0.031 (0.000-0.034) ng/mL NT-Pro-B Natriuret Pep 2760 pg/mL Total Protein (6.3-8.2) g/dL Albumin (3.5-5.0) g/dL Disposition Clinical Impression: Pulmonary edema, Aortic stenosis Disposition: HOME SELF-CARE Condition: Stable Instructions (If sedation given, give patient instructions): Heart Failure (ER) Additional Instructions: Please return to the Emergency Department if symptoms worsen or any other concerns. Is patient prescribed a controlled substance at d/c from ED?: No Referrals: Sridhar Tavarez MD [Primary Care Provider] - 1-2 days Time of Disposition: 12:59
--- NOTE | 2021-11-14 11:40 | XR ---
EXAMINATION TYPE: XR chest 2V DATE OF EXAM: 11/14/2021 COMPARISON: 10/28/2021 HISTORY: 61-year-old male shortness of breath, difficulty breathing TECHNIQUE: PA and lateral views FINDINGS: Heart limits of normal in size. Mild interstitial/vascular prominence. Possible trace effusion on the lateral view. Hyperinflation. No cait consolidation. [facility] in the mid to lower thoracic spine. IMPRESSION: COPD and interstitial/vascular prominence. Suggestion of trace effusions on the lateral view. Correla te for possible mild CHF with pulmonary vascular congestion.
[2021-11-14 11:55] LABS: Partial Thromboplastin Time 28.5 sec (22.0-30.0); Prothrombin Time 10.9 sec (9.0-12.0)
[2021-11-14 11:57] LABS: Basophils # (A) 0.1 k/uL (0-0.2); Basophils % (A) 1 %; Eosinophils # (A) 0.1 k/uL (0-0.7); Eosinophils % (A) 1 %; HCT 45.3 % (39.0-53.0); HGB 15.3 gm/dL (13.0-17.5); Lymphocytes # (A) 1.8 k/uL (1.0-4.8); Lymphocytes % (A) 17 %; MCH 30.7 pg (25.0-35.0); MCHC 33.8 g/dL (31.0-37.0); MCV 90.8 fL (80.0-100.0); Mean Platelet Volume 7.8; Monocytes # (A) 0.7 k/uL (0-1.0); Monocytes % (A) 7 %; Neutrophils # (A) 7.4 k/uL (1.3-7.7); Neutrophils % (A) 71 %; Platelet Count 180 k/uL (150-450); RBC 4.99 m/uL (4.30-5.90); RDW 13.8 % (11.5-15.5); WBC 10.4 k/uL (3.8-10.6)
[2021-11-14 12:11] LABS: Albumin 4.5 g/dL (3.5-5.0); Calcium 9.4 mg/dL (8.4-10.2); Potassium 4.5 mmol/L (3.5-5.1); Total Bilirubin 1.4 mg/dL (0.2-1.3); Total Protein 7.8 g/dL (6.3-8.2)
[2021-11-14] MEDS ORDERED: FUROSEMIDE 10 MG/ML 2 ML VIAL IV ONE (12:50)
[2021-11-14 13:18] VITALS: BP 116/78; PULSE 92
== END 2021-11-14 13:18 | disposition home or self-care (01) ==
LOC: EC 10:43
DX: J81.1 Chronic pulmonary edema (principal); I35.0 Nonrheumatic aortic (valve) stenosis; I25.10 Atherosclerotic heart disease of native coronary artery without angina pectoris; E11.9 Type 2 diabetes mellitus without complications; K21.9 Gastro-esophageal reflux disease without esophagitis; E78.5 Hyperlipidemia, unspecified; I10 Essential (primary) hypertension; M19.90 Unspecified osteoarthritis, unspecified site; Z79.82 Long term (current) use of aspirin; Z79.4 Long term (current) use of insulin; Z79.84 Long term (current) use of oral hypoglycemic drugs; Z85.46 Personal history of malignant neoplasm of prostate; Z96.642 Presence of left artificial hip joint; Z87.891 Personal history of nicotine dependence
CPT/HCPCS: 99285; 96374; 36415; 93005; 83880; 80053; 84484; 85025; 85610; 85730; 71046; J1940

== ENCOUNTER → 2021-11-15 | Outpatient (CLI) | payer BC ==
[2021-11-15 15:46] LABS: Partial Thromboplastin Time 26.8 sec (22.0-30.0); Prothrombin Time 10.4 sec (9.0-12.0)
--- NOTE | 2021-11-15 15:47 | P.PN ---
Progress Note - Text Progress Note Date: 11/15/21 A 5 m walk test was completed with the patient, time 1: 2.27 seconds, time 2: 2.30 seconds, time 3: 2.33 seconds.
[2021-11-16 02:04] LABS: HCT 45.5 % (39.6-50.0); HGB 14.8 g/dL (13.0-17.0); MCHC 32.5 g/dL (32.0-37.0); MCV 89.2 fL (80.0-97.0); Mean Platelet Volume 10.7 fL (9.5-12.2); NRBC Per 100 WBC 0 /100 WBCS (0.0-0.0); Platelet Count 197 X 10*3/uL (140-440); WBC 8.86 X 10*3/uL (4.50-10.00)
[2021-11-16 02:31] LABS: African American GFR (CKD) 74.4 (60.0-200.0); Albumin 4.6 g/dL (3.8-4.9); Albumin/Globulin Ratio 1.66 (1.60-3.17); Anion Gap 13.3 mmol/L (10.00-18.00); BUN/Creat Ratio 14.3 Ratio (12.00-20.00); Blood Urea Nitrogen 17.3 mg/dL (9.0-27.0); Calcium 10.2 mg/dL (8.7-10.3); Carbon Dioxide 27.9 mmol/L (20.0-27.5); Globulin 2.7 g/dL (1.6-3.3); Non-African American GFR(CKD) 64.2 (60.0-200.0); Potassium 4.1 mmol/L (3.5-5.5); Total Bilirubin 0.6 mg/dL (0.30-1.20); Total Protein 7.3 g/dL (6.2-8.2)
== END | disposition home or self-care (01) ==
LOC: LABPAT 12:14
PROVIDERS: ATTEND Surgery
DX: I10 Essential (primary) hypertension (principal); E11.9 Type 2 diabetes mellitus without complications; J81.1 Chronic pulmonary edema; R06.09 Other forms of dyspnea
CPT/HCPCS: 36415; 80053; 85027; 85610; 85730; 87070

== ENCOUNTER 2021-11-21 05:45 | Inpatient (IN) | payer BC ==
[~2021-11-21 05:45] MED LIST changes: +ALBUMIN HUMAN 25% 50 ML IV ONE; -ALPRAZolam 0.25 MG TAB PO PRN; -ALPRAZolam 0.5 MG TAB PO PRN; +ASPIRIN 325 MG TAB PO ONE; -ASPIRIN 325 MG TAB PO STA; +ATORVASTATIN 10 MG TAB PO ONE; +CALCIUM CHLORIDE 100 MG/ML 10 ML SYRINGE IV ONE; +CHLORHEXIDINE GLUCONATE 15 ML CUP MUCOUS MEM ONE; +CLEVIDIPINE BUTYRATE 25 MG in EMPTY BAG 1 BAG IV ONE; +DILTIAZEM 125 MG in SODIUM CHLORIDE 0.9% 100 ML IV ONE; +ELECTROLYTE-A SOLUTION 1,000 ML with POTASSIUM CHLORIDE 100 MEQ, MAGNESIUM SULFATE 16 M... IV ONE; +ELECTROLYTE-A SOLUTION 1,000 ML with POTASSIUM CHLORIDE 40 MEQ, MAGNESIUM SULFATE 16 ME... IV ONE; +HEPARIN SODIUM 1,000 UN/ML (10ML VL) IV ONE; -HEPARIN SODIUM,PORCINE 10,000 UNIT in SODIUM CHLORIDE 0.9% 1,000 ML IRRIGATION PRN; -HEPARIN SODIUM,PORCINE 2,500 UNIT in SODIUM CHLORIDE 0.9% 250 ML IRRIGATION PRN; +HEPARIN SODIUM,PORCINE 5,000 UNIT in SODIUM CHLORIDE 0.9% 500 ML 500 ML IV ONE; +INSULIN REGULAR 100 UNIT in SODIUM CHLORIDE 0.9% 100 ML IV ONE; +LACTATED RINGERS 1,000 ML IV ONE; +MAGNESIUM SULFATE 16.24 MEQ in EMPTY SYRINGE 1 SYR IV ONE; +MANNITOL 25% 12.5 GM/50 ML VIAL IV ONE; +METOPROLOL TARTRATE 12.5 MG TAB PO ONE; +MUPIROCIN 2% OINT 22 GM TUBE NASAL ONE; +NITROGLYCERIN SL TABS 0.4 MG TAB SUBLINGUAL ONE; -NITROGLYCERIN SL TABS 0.4 MG TAB SUBLINGUAL PRN; +NITROGLYCERIN-D5W PMX 25 MG/250 ML BTL IV ONE; +NITROGLYCERIN-D5W PMX 50 MG in DEXTROSE/WATER 1 250ML.BAG IV ONE; +NOREPINEPHRINE 4 MG in SODIUM CHLORIDE 0.9% 250 ML IV ONE; +PAPAVERINE 360 MG in SODIUM CHLORIDE 0.9% 90 ML IV ONE; +PHENYLEPHRINE 10 MG/ML VIAL IV ONE; +PHENYLEPHRINE 40 MG in SODIUM CHLORIDE 0.9% 250 ML IV ONE; +PROTAMINE SULFATE 10 MG/ML 25 ML VIAL IV ONE; +PROTAMINE SULFATE 250 MG in EMPTY BAG 1 BAG IV ONE; +SODIUM BICARB 8.4% 50 ML SYR (1 MEQ/ML) IV ONE; +SODIUM CHLORIDE 0.9% 1,000 ML IV ONE; -SODIUM CHLORIDE 0.9% 1,000 ML in EMPTY BAG 1 BAG IV SCH; +TRANEXAMIC ACID 2,000 MG in SODIUM CHLORIDE 0.9% 80 ML IV ONE; +ceFAZolin 1,000 MG in SODIUM CHLORIDE 0.9% IRRIGATIO 1,000 ML IRRIGATION ONE; +propofoL 1,000 MG/100 ML VIAL IV ONE
[2021-11-21] MEDS ORDERED: MIDAZOLAM 2 MG/2 ML VIAL IV PRN (05:56)
[2021-11-21] MEDS ORDERED: LACTATED RINGERS 1,000 ML IV SCH (05:56)
[2021-11-21 06:28] LABS: Glucose,Whole Blood 157 mg/dL (75-99)
[2021-11-21] MEDS ORDERED: NITROGLYCERIN-D5W PMX 50 MG/250 ML BOTTLE IV ONE (07:30)
[2021-11-21] MEDS ORDERED: MIDAZOLAM HCL 10 MG/10 ML VIAL ONE (07:30)
[2021-11-21] MEDS ORDERED: PHENYLEPHRINE-0.9% NACL SYG 1,000 MCG/10 ML SYRINGE ONE (07:30)
[2021-11-21] MEDS ORDERED: PROTAMINE SULFATE 10 MG/ML 25 ML VIAL IV ONE (07:30)
[2021-11-21] MEDS ORDERED: TRANEXAMIC ACID IN NACL,ISO-OS 1,000 MG/100 ML BAG ONE (07:30)
[2021-11-21] MEDS ORDERED: fentaNYL (PF) 50 MCG/ML 50 ML VIAL ONE (07:30)
[2021-11-21] MEDS ORDERED: ELECTROLYTE-R (PH 7.4) 1,000 ML IV.SOLN IV ONE (07:30)
[2021-11-21] MEDS ORDERED: CALCIUM CHLORIDE 100 MG/ML 10 ML SYRINGE ONE (07:30)
[2021-11-21] MEDS ORDERED: LIDOCAINE 2% SYG (PF) 100 MG/5 ML ONE (07:30)
[2021-11-21] MEDS ORDERED: VECURONIUM 10 MG VIAL IV ONE (07:30)
[2021-11-21] MEDS ORDERED: MAGNESIUM SULFATE 4 MEQ/ML 10ML VIAL ONE (07:30)
[2021-11-21] MEDS ORDERED: PROPOFOL 10 MG/ML 20 ML VIAL IV ONE (07:30)
[2021-11-21] MEDS ORDERED: HEPARIN SODIUM,PORCINE 10,000 UNIT/ML 1 ML VIAL ONE (07:30)
[2021-11-21] MEDS ORDERED: WATER FOR INJECTION, STERILE 10 ML VIAL IV ONE (07:30)
[2021-11-21] MEDS ORDERED: SODIUM CHLORIDE 0.9% IRRIG 1,000 ML BTL IRRIGATION ONE (07:30)
[2021-11-21] MEDS ORDERED: ALBUMIN HUMAN 5% (25gm) 500 ML VIAL IVPB ONE (07:30)
[2021-11-21] MEDS ORDERED: ELECTROLYTE-A SOLUTION 1,000 ML with POTASSIUM CHLORIDE 100 MEQ, MAGNESIUM SULFATE 16 M... IV ONE ×5 (08:45)
[2021-11-21] MEDS ORDERED: ELECTROLYTE-A SOLUTION 1,000 ML with POTASSIUM CHLORIDE 40 MEQ, MAGNESIUM SULFATE 16 ME... IV ONE ×5 (09:00)
--- NOTE | 2021-11-21 09:10 | P.ANPRN ---
Procedure Note - Anesthesia - Invasive Line Right Central Line Time Out Performed: Yes Date of Procedure: 11/21/21 Time of Procedure: 07:10 Location of Patient: Phase I Preparation: Sterile Prep, Sterile Dressing Ultrasound Used: Yes Purpose - Visualization and Identification of Vasculature: Yes Needle Guage: 18 Image Stored and Saved: Yes Narrative: Central line placement per sterile protocol utilized. Seldinger technique used. Right IJ Right Samaria Mirian Time Out Performed: Yes Date of Procedure: 11/21/21 Time of Procedure: 07:20 Location of Patient: Phase I Preparation: Sterile Prep, Sterile Dressing Narrative: With the patient still draped after central line, SWAN placed after all ports flushed and balloon tested. Advanced to RV and then PA waveforms. Secured @ 45 cm. Main PA position on NABEEL Right Arterial Line Time Out Performed: Yes Date of Procedure: 11/21/21 Time of Procedure: 07:40 Location of Patient: Phase I Preparation: Sterile Prep, Sterile Dressing Arterial Line Location: Brachial Ultrasound Used: Yes Purpose - Visualization and Identification of Vasculature: Yes Needle Guage: 20 Image Stored and Saved: Yes Narrative: After several radial attempts by [employer]ING [employer]ILES TEACHER, attending anesthesiologist took over and right arm prepped and draped. Under u/s guidance right brachial artery identified. 1% lidocaine 3 ml injected subq. 20 g needle inserted under u/s with pulsatile flow obtain. Catheter advanced over inserted guidewire. Line sutured in place. Biopatch and sterile dressing placed.
[2021-11-21] MEDS ORDERED: SODIUM CHLORIDE 0.9% 50 ML with VASOPRESSIN 20 UNIT IVPB SCH ×2 (09:15)
[2021-11-21] MEDS ORDERED: PAPAVERINE 360 MG in SODIUM CHLORIDE 0.9% 90 ML IV ONE (09:55)
[2021-11-21] MEDS ORDERED: SODIUM CHLORIDE 0.9% 500 ML 500 ML with HEPARIN SODIUM,PORCINE 5,000 UNIT IV ONE ×2 (09:55)
[2021-11-21] MEDS ORDERED: ceFAZolin 1,000 MG in SODIUM CHLORIDE 0.9% 1,000 ML IRRIGATION ONE (09:55)
[2021-11-21] MEDS ORDERED: ALBUMIN HUMAN 5% 250 ML IVPB ONE (15:04)
--- NOTE | 2021-11-21 15:07 | P.ANPRN ---
Procedure Note - Anesthesia - NABEEL Intraop Pre Bypass NABEEL Intraop - Anesthesia Indication: Aortic stenosis, mitral regurgitation, CAD Date of Procedure: 11/21/21 Pre-operative Diagnosis: Aortic stenosis, mitral regurgitation, CAD Post-operative Diagnosis: Same Surgeon: Ja Jones Left Ventricle: EF 40%, hypokinesis inferior and inferolateral ortega Ejection Fraction: Other Regional Wall Motion Abnormalities: Other Left Ventricle Hypertrophy: Yes R. Ventricle Function: Normal Aortic Valve: Peak 58 mmHg / Mean 38 mmHg Anatomy: Trileaflet Aortic Stenosis: Severe Aortic Regurgitation: Mild Mitral Stenosis: None Mitral Regurgitation: Mild Tricuspid Stenosis: None Tricuspid Regurgitation: None Pulmonic Stenosis: None Pulmonic Regurgitation: None R. Atrial Dilation: No R. Atrial PFO: No L. Atrial Dilation: No Aortic Dissection: No Aortic Calcification: Moderate Plural Effusion: None - NABEEL Intraop Post Bypass NABEEL Intraop Post Bypass Procedure Performed: S/P CABG, AVR, MVr with ring Left Ventricle: EF 40% w/ hypokinesis inferior and inferolateral unchanged Ejection Fraction: Other Regional Wall Motion Abnormalities: Other R. Ventricle Function: Normal Aortic Valve: Gradient Peak 21 / Mean 8.8 mmHg Mitral Valve: MV annuloplasty. No MR. Gradient Peak 7 / Mean 3.4 Tricuspid: Unchanged Pulmonic: Unchanged Aortic Dissection: No
[2021-11-21] MEDS ORDERED: METOCLOPRAMIDE 5 MG/ML 2 ML VIAL IVP PRN (15:35)
[2021-11-21] MEDS ORDERED: CALCIUM GLUCONATE IN NACL 2 GM in SALINE 1 100ML.BAG IVPB PRN (15:35)
[2021-11-21] MEDS ORDERED: FLUTICASONE 50MCG/SPRAY NASAL 16GM EA NOSTRIL PRN (15:35)
[2021-11-21] MEDS ORDERED: hydrALAZINE HCL 20 MG/ML 1 ML VIAL IVP PRN (15:35)
[2021-11-21] MEDS ORDERED: DEXTROSE 5% IN WATER 100 ML with AMIODARONE 150 MG IV PRN (15:35)
[2021-11-21] MEDS ORDERED: AMIODARONE 360 MG in DEXTROSE 5% IN WATER 200 ML IV ONE ×2 (15:35)
[2021-11-21] MEDS ORDERED: NITROGLYCERIN-D5W PMX 50 MG in DEXTROSE/WATER 1 250ML.BAG IV SCH (15:35)
[2021-11-21] MEDS ORDERED: Magnesium Replacement Protocol 1 EACH MISC MISCELLANE PRN (15:35)
[2021-11-21] MEDS ORDERED: MORPHINE SULFATE 2 MG/ML SYRINGE IVP PRN (15:35)
[2021-11-21] MEDS ORDERED: DEXMEDETOMIDINE/0.9% NACL(PMX) 400 MCG in EMPTY BAG 1 BAG IV SCH (15:35)
[2021-11-21] MEDS ORDERED: NOREPINEPHRINE 4 MG in SODIUM CHLORIDE 0.9% 250 ML IV SCH (15:35)
[2021-11-21] MEDS ORDERED: CLEVIDIPINE BUTYRATE 25 MG in EMPTY BAG 1 BAG IV SCH (15:35)
[2021-11-21] MEDS ORDERED: IPRATROPIUM-ALBUTEROL 3 ML NEB INHALATION PRN (15:35)
[2021-11-21] MEDS ORDERED: Potassium Replacement Protocol 1 EACH MISC MISCELLANE PRN (15:35)
[2021-11-21] MEDS ORDERED: Phosphorus Replacement Protoco 1 EACH MISC MISCELLANE PRN (15:35)
[2021-11-21] MEDS: MILRINONE-D5W PMX 20 MG in DEXTROSE/WATER 1 100ML.BAG IV SCH (16:00)
[2021-11-21 16:01] LABS: Glucose,Whole Blood 128 mg/dL (75-99)
[2021-11-21] MEDS: IPRATROPIUM-ALBUTEROL 3 ML NEB INHALATION SCH ×2 (16:07→19:26)
--- NOTE | 2021-11-21 16:09 | XR ---
EXAMINATION TYPE: XR chest 1V portable DATE OF EXAM: 11/21/2021 COMPARISON: X-ray dated 11/14/2021 HISTORY: Postoperative cardiac surgery TECHNIQUE: Single frontal view of the chest is obtained. FINDINGS: The tip of endotracheal tube is about 3.5 cm proximal to the perico. NG tube is seen in place with th e tip is below the diaphragm. Cardiac valve prosthesis with left atrial appendage clip, sternotomy wi re sutures and Villanueva-Mirian catheter. No sizable pleural effusion or definite pneumothorax. Minimal atelectasis seen in the left mid to lower lung zones. Degenerative changes of the thoracic sp ine and acromioclavicular joints. Lucency superimposed on the right glenoid, possibly artifactual jj chele fracture, please correlate clinically. IMPRESSION: Postsurgical changes and incidental findings as described above.
[2021-11-21 16:10] LABS: ABG Base Excess -2.1 mmol/L; ABG HCO3 24 mmol/L (21-25); ABG PCO2 45 mmHg (35-45); ABG PH 7.33 (7.35-7.45); ABG PO2 385 mmHg (83-108); ABG TCO2 25 mmol/L (19-24)
[2021-11-21] MEDS: INSULIN REGULAR 100 UNIT in SODIUM CHLORIDE 0.9% 100 ML IV SCH (16:12)
[2021-11-21 16:22] LABS: Allen Test Performed? no
[2021-11-21] MEDS: SODIUM CHLORIDE 0.9% 1,000 ML IV SCH (16:22)
[2021-11-21 16:57] LABS: Ionized Calcium 4.5 mg/dL (4.5-5.3)
[2021-11-21 17:04] LABS: Glucose,Whole Blood 151 mg/dL (75-99)
[2021-11-21 17:08] LABS: INR 1.2 (<1.2); Partial Thromboplastin Time 30.4 sec (22.0-30.0); Prothrombin Time 12.5 sec (9.0-12.0)
[2021-11-21 17:09] LABS: ALT 26 U/L (4-49); AST 60 U/L (17-59); African American GFR (CKD) >90 (>60 ml/min/1.73 sqM); Albumin 2.5 g/dL (3.5-5.0); Alkaline Phosphatase 26 U/L (38-126); Anion Gap 6 mmol/L; Basophils % (A) 0 %; Blood Urea Nitrogen 10 mg/dL (9-20); Calcium 6.9 mg/dL (8.4-10.2); Carbon Dioxide 23 mmol/L (22-30); Chloride 109 mmol/L (98-107); Eosinophils # (A) 0.1 k/uL (0-0.7); Eosinophils % (A) 1 %; Glucose 126 mg/dL (74-99); Lymphocytes # (A) 0.9 k/uL (1.0-4.8); Lymphocytes % (A) 11 %; MCH 30.5 pg (25.0-35.0); MCV 89.9 fL (80.0-100.0); Magnesium 2.2 mg/dL (1.6-2.3); Mean Platelet Volume 7.7; Monocytes # (A) 0.4 k/uL (0-1.0); Monocytes % (A) 5 %; Neutrophils # (A) 6.6 k/uL (1.3-7.7); Neutrophils % (A) 81 %; Non-African American GFR(CKD) >90 (>60 ml/min/1.73 sqM); RBC 3.78 m/uL (4.30-5.90); RDW 13.5 % (11.5-15.5); Sodium 138 mmol/L (137-145); Total Bilirubin 1.2 mg/dL (0.2-1.3); Total Protein 4.4 g/dL (6.3-8.2); WBC 8.2 k/uL (3.8-10.6)
[2021-11-21 17:10] LABS: HGB 11.6 gm/dL (13.0-17.5)
[2021-11-21 17:11] LABS: Potassium 4.1 mmol/L (3.5-5.1)
[2021-11-21 17:33] LABS: Platelet Count 94 k/uL (150-450)
[2021-11-21 18:15] LABS: Glucose,Whole Blood 180 mg/dL (75-99)
--- NOTE | 2021-11-21 18:16 | OP ---
OPERATIVE REPORT DATE OF SURGERY: 11/21/2021 SURGEON: Dr. Ja Jones. ASSISTANTS: 1. Amy Phillips. 2. RADHA Best. PREOPERATIVE DIAGNOSIS: 1. Severe bicuspid aortic valve stenosis. 2. Coronary artery disease. 3. Moderate to severe mitral valve regurgitation. 4. Moderate left ventricular dysfunction. 5. Diabetes. 6. Hypertension. 7. History of prostate cancer. 8. History of recent COVID infection. POSTOPERATIVE DIAGNOSIS: 1. Severe bicuspid aortic valve stenosis. 2. Coronary artery disease. 3. Moderate to severe mitral valve regurgitation. 4. Moderate left ventricular dysfunction. 5. Diabetes. 6. Hypertension. 7. History of prostate cancer. 8. History of recent COVID infection. 9. 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 PROCEDURE: 1. Double coronary artery bypass grafting using reverse saphenous vein graft from the aorta to the first obtuse marginal artery, reverse saphenous vein graft from the aorta to the posterolateral branch of the circumflex artery. 2. Aortic valve replacement using a 25 mm Inspiris pericardial bioprosthesis. 3. Mitral valve repair with posterior annuloplasty using a 30 mm AnnuloFlex band. 4. Exclusion of the left atrial appendage using a 35 mm AtriClip. 5. Intraoperative graft flow measurements using the Jenn Rykert-Stim system. 6. Intraoperative transesophageal echocardiogram and epiaortic scanning. INDICATION FOR SURGERY: The patient is a 61-year-old gentleman with known aortic stenosis who has been followed as an outpatient by Dr. Medeiros. Patient started having symptoms of heart failure and underwent workup that showed severe aortic valve stenosis at this point with cardiac catheterization showing a totally occluded old right coronary artery and severe stenosis of the first marginal artery and the circumflex system leading to a large posterolateral branch. LAD is patent with disease of the first diagonal artery. Patient has varicose veins in his left lower extremity. His modified Ben's test is very positive on the left side, precluding the use of radial artery. Patient has been brought in today for aortic valve replacement, mitral valve repair, as his NABEEL showed at least moderate central mitral valve regurgitation, and coronary artery bypass grafting to his first and second obtuse marginal arteries and possibly his diagonal artery. The STS risk was discussed with him and his family. They understood it and agreed to proceed. DESCRIPTION OF THE PROCEDURE: The patient was in supine position in the preoperative holding area. Right internal jugular Butternut-Mirian catheter and right brachial arterial line were placed. The patient's PA pressure was 60/30, cardiac index of 1.9. Subsequently he was brought to the operating room, where general endotracheal anesthesia was induced uneventfully. Newman catheter was inserted. Patient received 2 grams of cefazolin intravenously. The chest, abdomen and both lower extremities were prepped and draped using ChloraPrep. Ioban was used to cover the skin. Transesophageal echocardiogram confirmed the preoperative finding of moderate left ventricular dysfunction with inferior akinesia, and at this point under anesthesia mild to moderate mitral valve regurgitation and severe aortic valve stenosis. Midline sternotomy was performed and no bone wax was used. The left pleura was intentionally opened and drained with a 19-Prydeinig Jung drain. A Santo mitral retractor was used. Mediastinal fat was transected between two ties and epiaortic scanning revealed normal ascending aorta. Pericardium was opened in an inverted T- fashion and a pericardial cradle was created. Findings included a normal soft aorta, an enlarged heart and enlarged right-sided cavities. After systemic heparinization and after placement of respective pledgeted pursestrings, aortic cannulation in the proximal arch with a 21-Prydeinig cannula, direct SVC cannulation with a 28-Prydeinig cannula, and IVC cannulation at the junction with the right atrium with a 32-Prydeinig cannula were performed. Antegrade as well as retrograde cardioplegia catheters were placed. Both cava were encircled but not snared. In the same setting, the right greater saphenous vein was harvested endoscopically from groin to above ankle level after administration of 2500 units of heparin. The vein was prepared, and there appeared to be two usable segments from the vein, as it had varicosities in the discarded segments. The used pieces were reasonably of good quality and around 4 mm in diameter. The branches were tied and the leg incisions were closed over a drain. Cardiopulmonary bypass was initiated, and with the heart empty and beating, we looked at the target. The first obtuse marginal artery and the posterolateral branch of the circumflex artery were identified. The diagonal artery was diffusely diseased, and anyway we had not enough vein to bypass it. There was evidence of an old inferior posterior myocardial infarction with fibrotic changes. The right coronary artery had no tributary to speak of except an acute marginal artery. Aorta was clamped, and during aortic clamping myocardial protection was achieved with an initial dose of one liter of antegrade cold blood cardioplegia with adequate arrest at 200 mL followed by 400 mL of retrograde cold blood cardioplegia. All subsequent doses were given retrograde at 15-minute intervals. We started by excluding the left atrial appendage by deploying a 35 mm AtriClip at its base. Next we proceeded to perform the first distal anastomosis between a segment of vein and the first obtuse marginal artery, which was around 1.5 mm in diameter, using Prolene 7- 0 in continuous fashion. The second distal anastomosis was between another segment of vein and the posterolateral branch of the circumflex artery, which had diffuse disease in it proximally, but was bypassed in a soft area where it was around 1.5 mm in diameter using Prolene 7-0 in continuous fashion. At this point we proceeded to excise the aortic valve via a transverse aortotomy made 1 cm above the sinotubular junction. The valve appeared to be bicuspid with partial fusion of the left and right cusps. There was extensive calcification of the anulus and by the commissure between the right and without fusion at that level. The valve was excised and the anulus was debrided to a pliable anulus throughout. Thorough irrigation with around 700 mL of cold saline was performed. The valve was sized to around a 25 mm Inspires valve. I decided at this point to place only the sutures on the noncoronary anulus before proceeding with mitral valve repair. Ticron 2-0 with pledgets on the ventricular sides were placed at that level. So at this point I stopped and I moved to performing the mitral valve repair part. A standard left atriotomy was performed and the mitral valve was very deep and posterior. However, I was able to pass 6 annuloplasty sutures using non-pledgeted Ticron 2-0 from trigone to trigone posteriorly, and those were passed into a 30 mm posterior AnnuloFlex band, which seated nicely. The needles were cut and the suture tied using the CorKnot device. The valve appeared to be competent at this point. CO2 was flowing over the left-sided cavities as long they were open. Subsequently we closed the left atriotomy in one layer using 4-0 Prolene buttressed on each corner by a pledget. At this point we completed the aortic valve replacement part. We placed a total of 16 Ticron 2-0 horizontal mattress with the pledgets on the ventricular side all along the aortic anulus that were passed and a 25 mm Inspiris pericardial bioprosthesis cuff which seated nicely in a supra-annular position. All the needles were cut and the suture tied using the CorKnot device. Thorough irrigation was performed one more time. The aortotomy was closed in two layers using 4-0 Prolene buttressed on each side with a pledget, with the first layer being in a horizontal mattress and the second layer being in an [id number] technique. At this point rewarming was started as we punched out two buttons of the ascending aorta on the left side and performed the two proximal anastomoses of the vein graft using Prolene 6-0 in continuous fashion. The patient was half loaded with Primacor and started on 0.2 mcg/kg per minute of drips. De-airing maneuvers were followed. After around 15 to 20 minutes of reperfusion and after placement of two monopolar atrial pacing wires, one on the pursestring of the retrograde site and one on the right atrial appendage, we were able to wean off cardiopulmonary bypass with adequate hemodynamics. NABEEL showed good functioning aortic valve with no paravalvular leak and a low gradient and no mitral valve regurgitation. The left ventricular function appeared to be slightly improved, with adequate de-airing. With that, all suckers were stopped, and test-dose then full-dose protamine was given. Decannulation followed. Two 19-Prydeinig Jung drains were left substernally. No ventricular pacing wire was placed. Pericardial fat was approximated over the heart and the aorta. Before closing the pericardial fat, we had measured graft flow using a 4 mm probe. The flow into the vein to the first obtuse marginal artery was 43 mL/minute, pulsatility index of 3.3, diastolic filling of 57%, showing an excellent functioning graft. The flow into the vein to the second obtuse marginal artery was 93 mL/minute, pulsatility index of 1.5, diastolic filling of 67%, showing an excellent functioning artery going to a large territory. At this point and after ensuring adequate hemostasis and hemodynamics and after correct sponge, instrument and needle counts, the sternum was closed using 5 [id number] [place] cables after interposing Fibrillar between the sternal edges. Thorough irrigation with cefazolin followed. The rest of the closure proceeded in layers. Skin glue was applied. The patient did not receive any blood bank product but received one liter of Cell Saver blood. He was transferred to the ICU with a cardiac index of 3.2, mean arterial pressure of 72, PA pressure of 32/16, sinus rhythm at around 90 with good conduction. MMODL / AVIN: [id number] /
[2021-11-21] MEDS: HEPARIN SODIUM,PORCINE/PF 5,000 UNIT/0.5 ML SYRINGE SQ SCH ×2 (18:17→23:54)
[2021-11-21] MEDS: ACETAMINOPHEN IV (For NPO) 1,000 MG in EMPTY BAG 1 BAG IVPB SCH ×2 (18:17→23:53)
[2021-11-21] MEDS: ALBUMIN HUMAN 5% 250 ML in EMPTY BAG 1 BAG IVPB PRN ×3 (19:01→23:12)
[2021-11-21 19:08] LABS: Glucose,Whole Blood 177 mg/dL (75-99)
[2021-11-21 20:05] LABS: Glucose,Whole Blood 191 mg/dL (75-99)
[2021-11-21 20:23] LABS: Basophils % (A) 0 %; Eosinophils % (A) 0 %; HCT 32.7 % (39.0-53.0); HGB 10.7 gm/dL (13.0-17.5); Lymphocytes # (A) 0.9 k/uL (1.0-4.8); Lymphocytes % (A) 9 %; MCH 29.5 pg (25.0-35.0); MCHC 32.8 g/dL (31.0-37.0); MCV 89.7 fL (80.0-100.0); Mean Platelet Volume 8.1; Monocytes # (A) 0.5 k/uL (0-1.0); Monocytes % (A) 5 %; Neutrophils # (A) 8.9 k/uL (1.3-7.7); Neutrophils % (A) 84 %; RBC 3.65 m/uL (4.30-5.90); RDW 12.9 % (11.5-15.5); WBC 10.6 k/uL (3.8-10.6)
[2021-11-21 20:27] LABS: Platelet Count 97 k/uL (150-450)
[2021-11-21 21:04] LABS: Glucose,Whole Blood 196 mg/dL (75-99)
[2021-11-21 21:09] LABS: Allen Test Performed? Yes
[2021-11-21 21:10] LABS: ABG Base Excess -3.1 mmol/L; ABG HCO3 22 mmol/L (21-25); ABG Oxygen Saturation 98.6 % (94-97); ABG PCO2 37 mmHg (35-45); ABG PH 7.38 (7.35-7.45); ABG PO2 124 mmHg (83-108); ABG TCO2 23 mmol/L (19-24)
[2021-11-21] MEDS ORDERED: AMIODARONE 450 MG in DEXTROSE 5% IN WATER 250 ML IV SCH ×2 (21:35)
[2021-11-21 22:05] LABS: Glucose,Whole Blood 195 mg/dL (75-99)
[2021-11-21] MEDS: MUPIROCIN 2% OINT 22 GM TUBE NASAL SCH (22:45)
[2021-11-21 23:02] LABS: Glucose,Whole Blood 190 mg/dL (75-99)
[2021-11-21 23:36] LABS: Basophils % (A) 0 %; Eosinophils % (A) 0 %; HCT 30.3 % (39.0-53.0); HGB 10.1 gm/dL (13.0-17.5); Lymphocytes # (A) 0.7 k/uL (1.0-4.8); Lymphocytes % (A) 7 %; MCH 30.2 pg (25.0-35.0); MCHC 33.4 g/dL (31.0-37.0); MCV 90.3 fL (80.0-100.0); Mean Platelet Volume 8.8; Monocytes # (A) 0.4 k/uL (0-1.0); Monocytes % (A) 4 %; Neutrophils # (A) 8.7 k/uL (1.3-7.7); Neutrophils % (A) 87 %; RBC 3.35 m/uL (4.30-5.90); RDW 13.6 % (11.5-15.5)
[2021-11-21 23:40] LABS: Platelet Count 99 k/uL (150-450)
[2021-11-22 00:14] LABS: Glucose,Whole Blood 175 mg/dL (75-99)
[2021-11-22] MEDS: INSULIN REGULAR 100 UNIT in SODIUM CHLORIDE 0.9% 100 ML IV SCH ×3 (00:14→22:04)
[2021-11-22 01:11] LABS: Glucose,Whole Blood 170 mg/dL (75-99)
[2021-11-22 02:11] LABS: Glucose,Whole Blood 165 mg/dL (75-99)
[2021-11-22] MEDS: HYDROcodone/APAP 5-325MG 1 EACH TAB PO PRN ×4 (02:15→19:58)
[2021-11-22 03:07] LABS: Glucose,Whole Blood 159 mg/dL (75-99)
[2021-11-22] MEDS: MILRINONE-D5W PMX 20 MG in DEXTROSE/WATER 1 100ML.BAG IV SCH (03:15)
[2021-11-22 03:57] LABS: Glucose,Whole Blood 157 mg/dL (75-99)
[2021-11-22 04:17] LABS: Basophils % (A) 0 %; Eosinophils % (A) 0 %; HCT 29.1 % (39.0-53.0); HGB 9.6 gm/dL (13.0-17.5); Lymphocytes # (A) 1.1 k/uL (1.0-4.8); Lymphocytes % (A) 10 %; MCH 29.6 pg (25.0-35.0); MCHC 32.9 g/dL (31.0-37.0); Mean Platelet Volume 8.3; Monocytes # (A) 0.6 k/uL (0-1.0); Monocytes % (A) 5 %; Neutrophils # (A) 8.9 k/uL (1.3-7.7); Neutrophils % (A) 83 %; RBC 3.23 m/uL (4.30-5.90); RDW 13.3 % (11.5-15.5); WBC 10.7 k/uL (3.8-10.6)
[2021-11-22 04:36] LABS: Ionized Calcium 4.4 mg/dL (4.5-5.3)
[2021-11-22 04:39] LABS: Platelet Count 95 k/uL (150-450)
[2021-11-22 04:43] LABS: ALT 21 U/L (4-49); AST 65 U/L (17-59); African American GFR (CKD) >90 (>60 ml/min/1.73 sqM); Alkaline Phosphatase 32 U/L (38-126); Anion Gap 10 mmol/L; Blood Urea Nitrogen 10 mg/dL (9-20); Carbon Dioxide 21 mmol/L (22-30); Chloride 109 mmol/L (98-107); Glucose 147 mg/dL (74-99); Magnesium 1.8 mg/dL (1.6-2.3); Non-African American GFR(CKD) >90 (>60 ml/min/1.73 sqM); Potassium 4.1 mmol/L (3.5-5.1); Sodium 140 mmol/L (137-145); Total Bilirubin 0.8 mg/dL (0.2-1.3); Total Protein 4.8 g/dL (6.3-8.2)
[2021-11-22 05:11] LABS: Glucose,Whole Blood 159 mg/dL (75-99)
[2021-11-22] MEDS: MAGNESIUM SULFATE-D5W PMX 1 GM in DEXTROSE/WATER 1 100ML.BAG IVPB SCH ×2 (06:00→06:51)
[2021-11-22 06:10] LABS: Glucose,Whole Blood 143 mg/dL (75-99)
[2021-11-22] MEDS: ALBUMIN HUMAN 5% 250 ML in EMPTY BAG 1 BAG IVPB PRN ×3 (06:34→11:07)
[2021-11-22 07:03] LABS: Glucose,Whole Blood 150 mg/dL (75-99)
[2021-11-22] MEDS ORDERED: FUROSEMIDE 10 MG/ML 2 ML VIAL IV STA (07:24)
[2021-11-22] MEDS: CLOPIDOGREL 75 MG TAB PO SCH (07:59)
[2021-11-22] MEDS: ASPIRIN 325 MG TAB PO SCH (07:59)
[2021-11-22] MEDS: CHOLECALCIFEROL 25 MCG (1000 IU) TABLET PO SCH (07:59)
[2021-11-22] MEDS: METOPROLOL TARTRATE 25 MG TAB PO SCH ×2 (07:59→19:58)
[2021-11-22] MEDS: ATORVASTATIN 40 MG TAB PO SCH (07:59)
[2021-11-22] MEDS: HEPARIN SODIUM,PORCINE/PF 5,000 UNIT/0.5 ML SYRINGE SQ SCH ×3 (08:00→23:04)
[2021-11-22] MEDS: AMIODARONE 200 MG TAB PO SCH ×2 (08:00→19:58)
[2021-11-22] MEDS: MUPIROCIN 2% OINT 22 GM TUBE NASAL SCH ×2 (08:06→20:33)
--- NOTE | 2021-11-22 08:14 | XR ---
EXAMINATION TYPE: XR chest 1V portable DATE OF EXAM: 11/22/2021 Comparison: 11/21/2021 Clinical History: 61-year-old male Post Operative Cardiac Surgery Findings: Right IJ Boswell-Mirian catheter. Tip in the proximal right main pulmonary artery region. Median sternotom y wires with a prosthetic aortic valve. Left-sided basilar chest tube. Mediastinal drains also noted. Heart mildly enlarged. Interstitial prominence. Patchy retrocardiac opacity. No appreciable pneumoth orax. Impression: 1. Mild cardiomegaly and mild interstitial change, possible mild pulmonary vascular congestion, simil ar to prior. 2. Some patchy retrocardiac opacity/trace left effusion may be slightly increased, probably postopera tive atelectasis.
[2021-11-22 08:32] LABS: Glucose,Whole Blood 155 mg/dL (75-99)
[2021-11-22] MEDS ORDERED: PANTOPRAZOLE 40 MG/10 ML VIAL IVP SCH (09:00)
[2021-11-22] MEDS ORDERED: MAGNESIUM HYDROXIDE 2,400 MG/10 ML CUP PO PRN (09:00)
[2021-11-22] MEDS ORDERED: METOPROLOL TARTRATE 12.5 MG TAB PO SCH (09:00)
[2021-11-22] MEDS: IPRATROPIUM-ALBUTEROL 3 ML NEB INHALATION SCH ×4 (09:16→19:11)
[2021-11-22 09:20] LABS: Glucose,Whole Blood 146 mg/dL (75-99)
--- NOTE | 2021-11-22 10:11 | P.PN ---
Subjective Progress Note Date: 11/22/21 Principal diagnosis: Severe bicuspid aortic valve stenosis, coronary artery disease, moderate to severe mitral valve regurgitation and moderate left ventricular dysfunction. Past medical history significant for hypertension, coronary artery disease with history of myocardial infarction status post PCI in 2016, hyperlipidemia, insulin-dependent diabetes mellitus, fatty liver disease, prostate cancer status post prostatectomy in 2017, GERD, remote history of tobacco dependence, COVID-19 infection in June 2021, and a strong family history of premature coronary artery disease with his father having a CABG at age 54. Positive preoperative nasal screening for MSSA which was treated. POD #1 double coronary artery bypass grafting using a reverse saphenous vein graft from the aorta to the first obtuse marginal coronary artery, a reverse greater saphenous vein graft from the aorta to the posterior lateral branch of the circumflex coronary artery. Aortic valve replacement using a 25 mm Inspiris pericardial bioprosthesis. Mitral valve repair with posterior annuloplasty using a 30 mm AnnuloFlex band. Exclusion of the left atrial appendage using a 35 mm Atriclip. Intraoperative graft flow measurements using the VenueJam-Stim sytem. Intraoperative transesophageal echocardiogram and epi-aortic scanning. Acute blood loss anemia, expected due to hemodilution and cardiopulmonary bypass. Patient was seen in follow-up today 11/22/2021 at his bedside in the intensive care unit. Currently he is sitting up to the bedside chair, is awake, alert, oriented 3 and is in no acute distress. He was successfully extubated at 9:14 PM last evening, currently on 3 L nasal cannula with oxygen saturations 97% and he is achieving 1000 mL on his incentive spirometry with encouragement. Denies any complaints of shortness of breath although is complaining of some surgical type pain to his chest tube insertion sites. Right IJ Cordis and [place]-Mirian catheter in place with current hemodynamics showing a cardiac output of 5.9, cardiac index 2.7, PA pressures 30/21 and CVP 8 mmHg. Primacor drip is infusing at 0.3 mcg/kg/m, amiodarone drip is at 0.5 mg/m, nitroglycerin drip at 5 mics per minute and insulin drip is currently at 10.5 units per hour. Mediastinal and left pleural chest tubes remain in place to low continuous wall suction -20 cm H2O. No air leak is present. Draining thin serosanguineous drainage. Mediastinal chest tubes with 140 mL output in the last 8 hours and 450 mL output since surgery. Left pleural chest tube with 90 mL output last 8 hours and 300 mL output since surgery. Laboratory results and chest x-ray reviewed. Bedside telemetry showing sinus tachycardia heart rate 101 BPM. Afebrile the last 24 hours. Objective - Vital Signs Vital signs: Vital Signs Temp 97.9 F 11/22/21 08:00 Pulse 90 11/22/21 09:30 Resp 32 H 11/22/21 09:00 BP 132/86 11/21/21 06:10 Pulse Ox 97 11/22/21 09:00 Intake & Output 11/21/21 11/22/21 11/22/21 18:59 06:59 18:59 Intake Total 780.423 6907.857 855.178 Output Total 3890 972 225 Balance -3155.708 1637.857 630.178 Weight 107.8 kg Intake: IV 710 1865.39 494.97 ACETAMINOPHEN IV (For NPO 100 100 ) 1,000 mg In Empty Bag 1 bag @ 400 mls/hr IVPB Q6HR [facility] Rx#:[id number] Albumin Human 5% 250 ml @ 250 500 250 0 mls/hr IVPB .STK-MED ONE Rx#:[id number] CA Gluconate 100 CO/CI 80 310 50 Nitro @ 5mcg/min 16.5 Pressure Bag 27 90 27 Primacor @0.3mcg/kg/min 98.89 17.97 Sodium Chloride 0.9% 1, 150 550 150 000 ml @ 50 mls/hr IV . Q20H [facility] Rx#:[id number] ceFAZolin 2 gm In Sodium 50 100 Chloride 0.9% 50 ml @ 100 mls/hr IVPB Q8HR [facility] Rx# :[id number] Intake, IV Titration 24.292 485.467 160.208 Amount Insulin Regular 100 unit 3.233 70.525 38.108 In Sodium Chloride 0.9% 100 ml @ Per Protocol IV .Q0M [facility] Rx#:[id number] Magnesium Sulfate-D5w Pmx 100 100 1 gm In Dextrose/Water 1 100ml.bag @ 100 mls/hr IVPB Q1H [facility] Rx#: [id number] Milrinone-D5w Pmx 20 mg 100 In Dextrose/Water 1 100ml .bag @ 0.15 MCG/KG/MIN 4. 496 mls/hr IV .[id number] [facility] Rx#:[id number] Nitroglycerin-D5w Pmx 50 22.1 mg In Dextrose/Water 1 250ml.bag @ 5 MCG/MIN 1.5 mls/hr IV .Q24H [facility] Rx#: [id number] Norepinephrine 4 mg In 21.059 158.847 Sodium Chloride 0.9% 250 ml @ 0.02 MCG/KG/MIN 7. 612 mls/hr IV .Q24H [facility] Rx#:[id number] propofoL 1,000 mg In 56.095 Empty Bag 1 bag @ Titrate IV .Q0M [facility] Rx#: [id number] Oral 250 200 Lipid 9 Pressure Bag 9 Output: Chest Tube Drainage 400 262 50 Chest Tube Mediastinal 210 160 0 Left Pleural 190 102 50 Gastric Drainage 100 Drainage 30 20 Right Calf 30 20 Urine 1460 590 175 Estimated Blood Loss 2000 Other: Voiding Method Indwelling Catheter Indwelling Catheter Indwelling Catheter ABP, PAP, CO, CI - Last Documented Arterial Blood Pressure 126/58 Pulmonary Artery Pressure 32/20 Cardiac Output 9.1 Cardiac Index 4.2 - Exam CONSTITUTIONAL: Sitting up to the bedside chair in the intensive care unit, appears comfortable, cooperative, no apparent acute distress. HEENT: Neck is supple, no JVD, no lymphadenopathy. Right IJ Cordis and [place]- Mirian catheter in place and functioning. RESPIRATORY: Lungs sounds essentially clear throughout, diminished to his bilateral bases. Respirations are symmetrical and nonlabored. Currently on 3 L nasal cannula with oxygen saturations 97%. Able to achieve 1000 mL on his incentive spirometry. Strong cough. CARDIOVASCULAR: Regular rhythm and rate. S1 and S2 present, negative for S3, gallop or murmur. Sternum is stable. Palpable peripheral pulses bilaterally. No calf pain or tenderness noted. Heart hugger in place with patient demonstrating appropriate use. Knee-high RICHIE hose and sequential compression devices in place to his bilateral lower extremities. GASTROINTESTINAL: Abdomen soft, nontender, nondistended. Hypoactive bowel sounds present 4 quadrants. Tolerating diet. No guarding or rigidity. GENITOURINARY: Newman present draining clear, yellow urine. Output 395 mL in the last 8 hours. INTEGUMENTARY: Skin is warm and dry with no evidence of clubbing or cyanosis. Midline sternal incision clean dry and well approximated, covered with dry intact dressing. Right lower extremity EVH sites well approximated without redness or drainage. NEUROLOGIC: Cranial nerves II through XII intact. No focal deficits. MUSKULOSKELETAL: Able to move all extremities, strength equal bilaterally, generalized weakness. PSYCHIATRIC: Alert and oriented to person place and time, appropriate affect, intact judgment and insight. INVASIVE LINES AND TUBES: Mediastinal/left pleural chest tubes present and connected to low continuous wall suction, no air leaks present. Mediastinal tube with 140 mL of thin serosanguineous drainage overnight, 450 mL output since surgery. Left pleural chest tube with 90 mL of thin serosanguineous drainage overnight, 300 mL output since surgery. Atrial epicardial pacemaker wires present, connected to generator, AAI backup rate 50 bpm. Right internal jugular [place]/Cordis, right radial arterial line present. Last CO 5.9, CI 2.7, PA 30/21 and CVP 8 mmHg. right leg RONAN drain in place with scant thin serosanguineous drainage, 20 mL output in the last 8 hours. - Allied health notes Allied health notes reviewed: nursing - Labs CBC & Chem 7: 11/22/21 03:56 11/22/21 03:56 Labs: Abnormal Lab Results - Last 24 Hours (Table) 11/15/21 11/21/21 11/21/21 Range/Units 14:30 15:59 16:00 WBC (3.8-10.6) k/uL RBC 3.78 L (4.30-5.90) m/uL Hgb 11.6 L D (13.0-17.5) gm/dL Hct 34.0 L (39.0-53.0) % Plt Count 94 L (150-450) k/uL Neutrophils # (1.3-7.7) k/uL Lymphocytes # 0.9 L (1.0-4.8) k/uL PT (9.0-12.0) sec INR (<1.2) APTT (22.0-30.0) sec ABG pH (7.35-7.45) ABG pO2 (83-108) mmHg ABG Total CO2 (19-24) mmol/L ABG O2 Saturation (94-97) % Chloride (98-107) mmol/L Carbon Dioxide (22-30) mmol/L Glucose (74-99) mg/dL POC Glucose (mg/dL) 128 H (75-99) mg/dL Calcium (8.4-10.2) mg/dL Ionized Calcium Hipolito (4.5-5.3) mg/dL AST (17-59) U/L Alkaline Phosphatase (38-126) U/L Total Protein (6.3-8.2) g/dL Albumin (3.5-5.0) g/dL Crossmatch See Detail 11/21/21 11/21/21 11/21/21 Range/Units 16:00 16:00 16:06 WBC (3.8-10.6) k/uL RBC (4.30-5.90) m/uL Hgb (13.0-17.5) gm/dL Hct (39.0-53.0) % Plt Count (150-450) k/uL Neutrophils # (1.3-7.7) k/uL Lymphocytes # (1.0-4.8) k/uL PT 12.5 H (9.0-12.0) sec INR 1.2 H (<1.2) APTT 30.4 H (22.0-30.0) sec ABG pH 7.33 L (7.35-7.45) ABG pO2 385 H (83-108) mmHg ABG Total CO2 25 H (19-24) mmol/L ABG O2 Saturation 100.0 H (94-97) % Chloride 109 H (98-107) mmol/L Carbon Dioxide (22-30) mmol/L Glucose 126 H (74-99) mg/dL POC Glucose (mg/dL) (75-99) mg/dL Calcium 6.9 L (8.4-10.2) mg/dL Ionized Calcium Hipolito (4.5-5.3) mg/dL AST 60 H (17-59) U/L Alkaline Phosphatase 26 L (38-126) U/L Total Protein 4.4 L (6.3-8.2) g/dL Albumin 2.5 L (3.5-5.0) g/dL Crossmatch 11/21/21 11/21/21 11/21/21 Range/Units 16:53 18:13 19:07 WBC (3.8-10.6) k/uL RBC (4.30-5.90) m/uL Hgb (13.0-17.5) gm/dL Hct (39.0-53.0) % Plt Count (150-450) k/uL Neutrophils # (1.3-7.7) k/uL Lymphocytes # (1.0-4.8) k/uL PT (9.0-12.0) sec INR (<1.2) APTT (22.0-30.0) sec ABG pH (7.35-7.45) ABG pO2 (83-108) mmHg ABG Total CO2 (19-24) mmol/L ABG O2 Saturation (94-97) % Chloride (98-107) mmol/L Carbon Dioxide (22-30) mmol/L Glucose (74-99) mg/dL POC Glucose (mg/dL) 151 H 180 H 177 H (75-99) mg/dL Calcium (8.4-10.2) mg/dL Ionized Calcium Hipolito (4.5-5.3) mg/dL AST (17-59) U/L Alkaline Phosphatase (38-126) U/L Total Protein (6.3-8.2) g/dL Albumin (3.5-5.0) g/dL Crossmatch 11/21/21 11/21/21 11/21/21 Range/Units 20:02 20:03 21:02 WBC (3.8-10.6) k/uL RBC 3.65 L (4.30-5.90) m/uL Hgb 10.7 L (13.0-17.5) gm/dL Hct 32.7 L (39.0-53.0) % Plt Count 97 L (150-450) k/uL Neutrophils # 8.9 H (1.3-7.7) k/uL Lymphocytes # 0.9 L (1.0-4.8) k/uL PT (9.0-12.0) sec INR (<1.2) APTT (22.0-30.0) sec ABG pH (7.35-7.45) ABG pO2 (83-108) mmHg ABG Total CO2 (19-24) mmol/L ABG O2 Saturation (94-97) % Chloride (98-107) mmol/L Carbon Dioxide (22-30) mmol/L Glucose (74-99) mg/dL POC Glucose (mg/dL) 191 H 196 H (75-99) mg/dL Calcium (8.4-10.2) mg/dL Ionized Calcium Hipolito (4.5-5.3) mg/dL AST (17-59) U/L Alkaline Phosphatase (38-126) U/L Total Protein (6.3-8.2) g/dL Albumin (3.5-5.0) g/dL Crossmatch 11/21/21 11/21/21 11/21/21 Range/Units 21:05 22:03 22:58 WBC (3.8-10.6) k/uL RBC (4.30-5.90) m/uL Hgb (13.0-17.5) gm/dL Hct (39.0-53.0) % Plt Count (150-450) k/uL Neutrophils # (1.3-7.7) k/uL Lymphocytes # (1.0-4.8) k/uL PT (9.0-12.0) sec INR (<1.2) APTT (22.0-30.0) sec ABG pH (7.35-7.45) ABG pO2 124 H (83-108) mmHg ABG Total CO2 (19-24) mmol/L ABG O2 Saturation 98.6 H (94-97) % Chloride (98-107) mmol/L Carbon Dioxide (22-30) mmol/L Glucose (74-99) mg/dL POC Glucose (mg/dL) 195 H 190 H (75-99) mg/dL Calcium (8.4-10.2) mg/dL Ionized Calcium Hipolito (4.5-5.3) mg/dL AST (17-59) U/L Alkaline Phosphatase (38-126) U/L Total Protein (6.3-8.2) g/dL Albumin (3.5-5.0) g/dL Crossmatch 11/21/21 11/22/21 11/22/21 Range/Units 23:00 00:13 01:10 WBC (3.8-10.6) k/uL RBC 3.35 L (4.30-5.90) m/uL Hgb 10.1 L (13.0-17.5) gm/dL Hct 30.3 L (39.0-53.0) % Plt Count 99 L (150-450) k/uL Neutrophils # 8.7 H (1.3-7.7) k/uL Lymphocytes # 0.7 L (1.0-4.8) k/uL PT (9.0-12.0) sec INR (<1.2) APTT (22.0-30.0) sec ABG pH (7.35-7.45) ABG pO2 (83-108) mmHg ABG Total CO2 (19-24) mmol/L ABG O2 Saturation (94-97) % Chloride (98-107) mmol/L Carbon Dioxide (22-30) mmol/L Glucose (74-99) mg/dL POC Glucose (mg/dL) 175 H 170 H (75-99) mg/dL Calcium (8.4-10.2) mg/dL Ionized Calcium Hipolito (4.5-5.3) mg/dL AST (17-59) U/L Alkaline Phosphatase (38-126) U/L Total Protein (6.3-8.2) g/dL Albumin (3.5-5.0) g/dL Crossmatch 11/22/21 11/22/21 11/22/21 Range/Units 02:09 03:06 03:55 WBC (3.8-10.6) k/uL RBC (4.30-5.90) m/uL Hgb (13.0-17.5) gm/dL Hct (39.0-53.0) % Plt Count (150-450) k/uL Neutrophils # (1.3-7.7) k/uL Lymphocytes # (1.0-4.8) k/uL PT (9.0-12.0) sec INR (<1.2) APTT (22.0-30.0) sec ABG pH (7.35-7.45) ABG pO2 (83-108) mmHg ABG Total CO2 (19-24) mmol/L ABG O2 Saturation (94-97) % Chloride (98-107) mmol/L Carbon Dioxide (22-30) mmol/L Glucose (74-99) mg/dL POC Glucose (mg/dL) 165 H 159 H 157 H (75-99) mg/dL Calcium (8.4-10.2) mg/dL Ionized Calcium Hipolito (4.5-5.3) mg/dL AST (17-59) U/L Alkaline Phosphatase (38-126) U/L Total Protein (6.3-8.2) g/dL Albumin (3.5-5.0) g/dL Crossmatch 11/22/21 11/22/21 11/22/21 Range/Units 03:56 03:56 05:09 WBC 10.7 H (3.8-10.6) k/uL RBC 3.23 L (4.30-5.90) m/uL Hgb 9.6 L (13.0-17.5) gm/dL Hct 29.1 L (39.0-53.0) % Plt Count 95 L (150-450) k/uL Neutrophils # 8.9 H (1.3-7.7) k/uL Lymphocytes # (1.0-4.8) k/uL PT (9.0-12.0) sec INR (<1.2) APTT (22.0-30.0) sec ABG pH (7.35-7.45) ABG pO2 (83-108) mmHg ABG Total CO2 (19-24) mmol/L ABG O2 Saturation (94-97) % Chloride 109 H (98-107) mmol/L Carbon Dioxide 21 L (22-30) mmol/L Glucose 147 H (74-99) mg/dL POC Glucose (mg/dL) 159 H (75-99) mg/dL Calcium 7.0 L (8.4-10.2) mg/dL Ionized Calcium Hipolito 4.4 L (4.5-5.3) mg/dL AST 65 H (17-59) U/L Alkaline Phosphatase 32 L (38-126) U/L Total Protein 4.8 L (6.3-8.2) g/dL Albumin 3.0 L (3.5-5.0) g/dL Crossmatch 11/22/21 11/22/21 11/22/21 Range/Units 06:08 07:01 08:30 WBC (3.8-10.6) k/uL RBC (4.30-5.90) m/uL Hgb (13.0-17.5) gm/dL Hct (39.0-53.0) % Plt Count (150-450) k/uL Neutrophils # (1.3-7.7) k/uL Lymphocytes # (1.0-4.8) k/uL PT (9.0-12.0) sec INR (<1.2) APTT (22.0-30.0) sec ABG pH (7.35-7.45) ABG pO2 (83-108) mmHg ABG Total CO2 (19-24) mmol/L ABG O2 Saturation (94-97) % Chloride (98-107) mmol/L Carbon Dioxide (22-30) mmol/L Glucose (74-99) mg/dL POC Glucose (mg/dL) 143 H 150 H 155 H (75-99) mg/dL Calcium (8.4-10.2) mg/dL Ionized Calcium Hipolito (4.5-5.3) mg/dL AST (17-59) U/L Alkaline Phosphatase (38-126) U/L Total Protein (6.3-8.2) g/dL Albumin (3.5-5.0) g/dL Crossmatch 11/22/21 Range/Units 09:08 WBC (3.8-10.6) k/uL RBC (4.30-5.90) m/uL Hgb (13.0-17.5) gm/dL Hct (39.0-53.0) % Plt Count (150-450) k/uL Neutrophils # (1.3-7.7) k/uL Lymphocytes # (1.0-4.8) k/uL PT (9.0-12.0) sec INR (<1.2) APTT (22.0-30.0) sec ABG pH (7.35-7.45) ABG pO2 (83-108) mmHg ABG Total CO2 (19-24) mmol/L ABG O2 Saturation (94-97) % Chloride (98-107) mmol/L Carbon Dioxide (22-30) mmol/L Glucose (74-99) mg/dL POC Glucose (mg/dL) 146 H (75-99) mg/dL Calcium (8.4-10.2) mg/dL Ionized Calcium Hipolito (4.5-5.3) mg/dL AST (17-59) U/L Alkaline Phosphatase (38-126) U/L Total Protein (6.3-8.2) g/dL Albumin (3.5-5.0) g/dL Crossmatch - Imaging and Cardiology Chest x-ray: report reviewed, image reviewed Assessment and Plan Assessment: 1. Severe bicuspid aortic valve stenosis, status post aortic valve replacement with a 25 mm Inspiris pericardial bioprosthesis 2. Moderate to severe mitral valve regurgitation, status post mitral valve repair with a posterior annuloplasty using a 30 mm AnnuloFlex band 3. Coronary artery disease, status post double coronary artery bypass grafting 4. Moderate left ventricular dysfunction 5. History of hypertension 6. Hyperlipidemia 7. History of coronary artery disease and myocardial infarction status post PCI in 2016 8. Insulin-dependent diabetes mellitus 9. History of prostate cancer status post prostatectomy in 2017 10. Remote history of tobacco dependence 11. COVID-19 infection in June 2021 12. Fatty liver disease 13. GERD 14. Strong family history of premature coronary artery disease with his father having a CABG at age 54 15. Acute blood loss anemia, expected due to hemodilution and cardiopulmonary bypass 16. Preoperative nasal screening positive for MSSA, treated Plan: 1. Continue aspirin, statin, Plavix and beta roosevelt. We will increase met oprolol tartrate 25 mg by mouth twice a day. 2. Discontinue nitroglycerin drip. 3. Continue Primacor drip, decrease Primacor drip to 0.15 mcg/kg/m. 4. Discontinue amiodarone drip and start amiodarone 400 mg by mouth twice a day per protocol. 5. Wean oxygen as tolerated. Encourage incentive spirometry use 10 times every hour while awake. Bronchodilators per pulmonary/critical care medicine re commendations. 6. Increase activity, ambulate ambulate as tolerated. Out of bed for all meals. PT/OT/cardiac rehab consulted. 7. Will monitor daily labs and chest x-rays. Electrolyte replacement per protocol. 8. Pain control per current medication regimen. 9. Lasix 20 mg IV 1 now. 10. Insulin management per primary care service. The patient needs tight blood sugar control to promote healing and sternal union as well as prevent infection. Preoperative hemoglobin A1c 10.4%. 11. Continue right IJ Cordis and [place]-Mirian catheter. Continue to monitor hemodynamics. 12. Discontinue right leg RONAN drain. 13. We will continue chest tubes and arterial line for another 24 hours. 14. Continue Newman catheter for another 24 hours, continue to record strict accurate intake and output. Daily weights. 15. Continue mupirocin 2% nasal ointment as directed for positive for preoperative nasal screen of MSSA. 16. More recommendations to follow based on patient's clinical course. Time with Patient: Greater than 30
[2021-11-22] MEDS: INSULIN DETEMIR (LEVEMIR) 100 UNIT/ML SYR SQ SCH ×2 (10:13→20:33)
[2021-11-22 10:18] LABS: Glucose,Whole Blood 146 mg/dL (75-99)
[2021-11-22 11:18] LABS: Glucose,Whole Blood 141 mg/dL (75-99)
[2021-11-22] MEDS: ONDANSETRON 4 MG/2 ML VIAL IVP PRN (11:59)
--- NOTE | 2021-11-22 11:59 | P.CNPUL ---
History of Present Illness Consult date: 11/22/21 Requesting physician: Ja Jones Reason for consult: other (Status post double coronary artery bypass grafting and aortic valve replacement and mitral valve repair, postoperative ICU management) Chief complaint: Severe bicuspid aortic valve stenosis and moderate to severe mitral valve r History of present illness: This is a 61-year-old white male with history of bicuspid aortic valve stenosis, coronary artery disease, moderate to severe mitral valve regurgitation moderate LV dysfunction, history of previous RI and PCI in 2017, patient underwent double coronary bypass grafting yesterday using reverse saphenous vein graft from the aorta to the first obtuse marginal coronary artery reverse greater saphenous vein graft from the aorta to the posterior lateral branch of the circumflex art janice, aortic valve replacement, mitral valve repair with posterior annuloplasty, postoperatively patient was admitted to the ICU, and I was asked to see him on consultation. I was notified on this patient about his ventilator settings early evening, and I have adjusted the ventilator settings based on the ABG. A few hours later, I was notified about this patient weaning, and he had excellent weaning parameters, I recommended extubating the patient, and he was extubated uneventfully. Patient was evaluated today, he is doing well, he is on 3 L nasal cannula, sating at a bedside chair, in no distress. Patient is on amiodarone drip, milrinone drip at 0.15, insulin drip at 12 units per hour, his cardiac index is 4.2, chest x-ray showed minimal atelectasis, no evidence of congestive heart failure, and the patient seems to be well, tolerated the extubation quite well overnight. Review of Systems CONSTITUTIONAL: Denies fever or chills. CARDIOVASCULAR: As noted in HPI. RESPIRATORY: Denies cough. No shortness of breath no chest pain. GASTROINTESTINAL: Denies abdominal pain, diarrhea, constipation, nausea or vomiting. MUSCULOSKELETAL: Denies myalgias. NEUROLOGIC: Denies numbness, tingling or weakness. ENDOCRINE: Denies fatigue, weight change, polydipsia or polyurina. GENITOURINARY: Denies burning, hematuria or urgency with micturation. HEMATOLOGIC: Denies history of anemia or bleeding. Past Medical History Past Medical History: Coronary Artery Disease (CAD), Cancer, Diabetes Mellitus, GERD/Reflux, Hearing Disorder / Deafness, Hyperlipidemia, Hypertension, Liver Disease, Musculoskeletal Disorder, Osteoarthritis (OA) Additional Past Medical History / Comment(s): SEASONAL ALLERGIES. FATTY LIVER. prostate ca 4 yrs. ago, recent occasional chest pressure & back pain for a few months, SOB w/exertion, mild ankle swelling, seen in [facility] yesterday for SOB & edema in feet & ankles Last Myocardial Infarction Date:: 01/14/2017 History of Any Multi-Drug Resistant Organisms: None Reported Past Surgical History: Heart Catheterization With Stent, Hernia Repair, Joint Replacement, Prostate Surgery Additional Past Surgical History / Comment(s): PROSTATECTOMY. NABEEL 03/23/20, COLONOSCOPY, TRAUMATIC AMP RT 3RD AND 4TH FINGERTIPS, TOTAL LT HIP., penile implant, right hand trigger finger surg. Past Anesthesia/Blood Transfusion Reactions: No Reported Reaction Date of Last Stent Placement:: January 2017. Smoking Status: Former smoker - Past Family History Mother Family Medical History: No Reported History, Coronary Artery Disease (CAD) Additional Family Medical History / Comment(s): CABG and stent Father Family Medical History: Coronary Artery Disease (CAD) Additional Family Medical History / Comment(s): CABG x2 Brother(s) Family Medical History: Coronary Artery Disease (CAD), Myocardial Infarction (RI) Additional Family Medical History / Comment(s): coronary stents Sister(s) Family Medical History: No Reported History Additional Family Medical History / Comment(s): cardiac arrythmia Daughter(s) Family Medical History: No Reported History Son(s) Family Medical History: No Reported History Medications and Allergies Home Medications Medication Instructions Recorded Confirmed Type Linagliptin [Tradjenta] 5 mg PO DAILY 12/18/13 11/21/21 History glipiZIDE [Glucotrol XL] 5 mg PO DAILY 12/18/13 11/21/21 History Desloratadine [Clarinex] 5 mg PO DAILY 09/21/15 11/21/21 History Famotidine [Pepcid] 20 mg PO DAILY 03/18/20 11/21/21 History Baclofen [Lioresal] 10 mg PO HS PRN 10/20/21 11/21/21 History Insulin Glargine,Hum.rec.anlog 30 unit SQ QAM 10/20/21 11/21/21 History [Lantus Solostar Pen] Simvastatin 40 mg PO HS #30 tablet 10/26/21 11/21/21 Rx Aspirin EC [Ecotrin Low Dose] 81 mg PO DAILY 10/28/21 11/21/21 History Cholecalciferol [Vitamin D3 (25 25 mcg PO DAILY 10/28/21 11/21/21 History Mcg = 1000 Iu)] Ibuprofen [Motrin] 800 mg PO Q8H PRN 10/28/21 11/21/21 History Nitroglycerin Sl Tabs [Nitrostat] 0.4 mg SL Q5M PRN 10/28/21 11/21/21 History Zinc 50 mg PO DAILY 10/28/21 11/21/21 History Metoprolol Tartrate [Lopressor] 50 mg PO BID tab 10/29/21 11/21/21 Rx amLODIPine [Norvasc] 5 mg PO DAILY #30 tab 10/29/21 11/21/21 Rx Ubidecarenone [Co Q-10] 100 mg PO BID 11/14/21 11/21/21 History metFORMIN HCL [Glucophage] 1,000 mg PO BID 11/14/21 11/21/21 History Furosemide [Lasix] 20 mg PO BID 11/15/21 11/21/21 History Fluticasone Nasal [place] [Flonase 2 spray EA NOSTRIL DAILY PRN 11/17/21 11/21/21 History Nasal [place]] Mupirocin [Mupirocin 2%] 1 applic NASAL BID #1 tub 11/18/21 11/21/21 Rx Allergies Allergy/AdvReac Type Severity Reaction Status Date / Time No Known Allergies Allergy Verified 11/21/21 06:09 Physical Exam Vitals: Vital Signs Temp Pulse Resp Pulse Ox 11/22/21 11:00 76 14 98 11/22/21 10:30 81 17 98 11/22/21 10:00 84 19 95 11/22/21 09:30 90 20 97 11/22/21 09:16 92 11/22/21 09:00 93 32 H 97 11/22/21 08:30 11 L 97 11/22/21 08:00 97.9 F 26 H 96 11/22/21 07:00 98 9 L 98 11/22/21 06:30 100 21 97 11/22/21 06:00 109 H 20 97 11/22/21 05:30 105 H 25 H 97 11/22/21 05:00 103 H 19 96 11/22/21 04:30 96 23 97 11/22/21 04:00 99 19 98 11/22/21 03:30 101 H 19 97 11/22/21 03:00 100 20 97 11/22/21 02:45 98 19 97 11/22/21 02:30 97 21 98 11/22/21 02:15 101 H 18 98 11/22/21 02:00 99 18 98 11/22/21 01:45 98 19 98 11/22/21 01:30 98 22 98 11/22/21 01:15 98 19 98 11/22/21 01:00 99 20 98 11/22/21 00:45 98 18 98 11/22/21 00:30 98 19 98 11/22/21 00:15 101 H 21 99 11/22/21 00:00 100 24 98 11/21/21 23:45 102 H 24 98 11/21/21 23:30 101 H 24 98 11/21/21 23:20 100 23 98 11/21/21 23:15 101 H 21 98 11/21/21 23:00 103 H 18 98 11/21/21 22:45 103 H 22 98 11/21/21 22:30 102 H 24 98 11/21/21 22:15 102 H 24 98 11/21/21 22:00 102 H 21 98 11/21/21 21:45 103 H 24 97 11/21/21 21:30 103 H 27 H 97 11/21/21 21:15 109 H 23 98 11/21/21 21:00 112 H 14 97 11/21/21 20:45 109 H 23 98 11/21/21 20:30 106 H 19 99 11/21/21 20:15 107 H 24 98 11/21/21 20:00 99.0 F 107 H 19 98 11/21/21 19:45 109 H 22 99 11/21/21 19:38 101 H 11/21/21 19:30 111 H 20 100 11/21/21 19:28 111 H 11/21/21 19:15 106 H 19 99 11/21/21 19:00 108 H 20 99 11/21/21 18:45 109 H 19 99 11/21/21 18:30 109 H 19 100 11/21/21 18:15 108 H 19 100 11/21/21 18:00 106 H 18 100 04/11/22 17:45 106 H 18 100 11/21/21 17:30 105 H 18 100 11/21/21 17:15 108 H 17 100 11/21/21 17:00 111 H 17 99 11/21/21 16:45 112 H 21 99 11/21/21 16:30 109 H 0 L 99 11/21/21 16:15 105 H 7 L 100 11/21/21 16:00 105 H 16 100 Intake and Output 11/21/21 11/22/21 11/22/21 22:59 06:59 14:59 Intake Total 5463.045 5015.896 1024.675 Output Total 1019 643 405 Balance 092.705 1852.896 619.675 Intake: IV 1185.47 1336.92 641.95 ACETAMINOPHEN IV (For NPO 100 100 ) 1,000 mg In Empty Bag 1 bag @ 400 mls/hr IVPB Q6HR [facility] Rx#:[id number] Albumin Human 5% 250 ml @ 500 250 250 0 mls/hr IVPB .STK-MED ONE Rx#:[id number] CA Gluconate 100 CO/CI 150 240 70 Nitro @ 5mcg/min 4.5 12.0 Pressure Bag 54 63 45 Primacor @0.3mcg/kg/min 26.97 71.92 26.95 Sodium Chloride 0.9% 1, 300 400 250 000 ml @ 20 mls/hr IV . Q24H [facility] Rx#:[id number] ceFAZolin 2 gm In Sodium 50 100 Chloride 0.9% 50 ml @ 100 mls/hr IVPB Q8HR [facility] Rx# :[id number] Intake, IV Titration 141.783 367.976 182.725 Amount Insulin Regular 100 unit 19.208 54.550 60.625 In Sodium Chloride 0.9% 100 ml @ Per Protocol IV .Q0M [facility] Rx#:[id number] Magnesium Sulfate-D5w Pmx 100 100 1 gm In Dextrose/Water 1 100ml.bag @ 100 mls/hr IVPB Q1H [facility] Rx#: [id number] Milrinone-D5w Pmx 20 mg 100 In Dextrose/Water 1 100ml .bag @ 0.15 MCG/KG/MIN 4. 496 mls/hr IV .[id number] [facility] Rx#:[id number] Nitroglycerin-D5w Pmx 50 22.1 mg In Dextrose/Water 1 250ml.bag @ 5 MCG/MIN 1.5 mls/hr IV .Q24H [facility] Rx#: [id number] Norepinephrine 4 mg In 66.480 113.426 Sodium Chloride 0.9% 250 ml @ 0.02 MCG/KG/MIN 7. 612 mls/hr IV .Q24H [facility] Rx#:[id number] propofoL 1,000 mg In 56.095 Empty Bag 1 bag @ Titrate IV .Q0M [facility] Rx#: [id number] Oral 250 200 Lipid 9 Pressure Bag 9 Output: Chest Tube Drainage 434 228 80 Chest Tube Mediastinal 230 140 20 Left Pleural 204 88 60 Gastric Drainage 100 Drainage 30 20 50 Right Calf 30 20 50 Urine 455 395 275 Other: Voiding Method Indwelling Catheter Indwelling Catheter Indwelling Catheter Weight 107.8 kg ABP, PAP, CO, CI - Last 8 Hours Arterial Blood Pressure 91/46 Arterial Blood Pressure 98/48 Arterial Blood Pressure 92/49 Arterial Blood Pressure 106/51 Arterial Blood Pressure 126/58 Arterial Blood Pressure 127/55 Arterial Blood Pressure 110/51 Arterial Blood Pressure 114/51 Arterial Blood Pressure 126/54 Arterial Blood Pressure 169/59 Arterial Blood Pressure 148/56 Arterial Blood Pressure 140/60 Arterial Blood Pressure 118/55 Arterial Blood Pressure 118/55 Pulmonary Artery Pressure 35/18 Pulmonary Artery Pressure 31/17 Pulmonary Artery Pressure 36/21 Pulmonary Artery Pressure 30/17 Pulmonary Artery Pressure 32/20 Pulmonary Artery Pressure 37/22 Pulmonary Artery Pressure 35/20 Pulmonary Artery Pressure 30/21 Pulmonary Artery Pressure 32/20 Pulmonary Artery Pressure 40/25 Pulmonary Artery Pressure 38/27 Pulmonary Artery Pressure 41/25 Pulmonary Artery Pressure 40/26 Pulmonary Artery Pressure 40/29 Cardiac Output 6.2 Cardiac Output 9.1 Cardiac Output 5.7 Cardiac Output 5.9 Cardiac Output 6.9 Cardiac Output 7 Cardiac Index 2.8 Cardiac Index 4.2 Cardiac Index 2.6 Cardiac Index 2.7 Cardiac Index 3.2 Cardiac Index 3.2 Gen.: Revealed a 61-year-old white male, sitting in a bedside chair, in no distress. HEENT: PERRLA, EOMI, nonicteric, right IJ Cordis noted in place. RESPIRATORY: Symmetrical chest expansion, diminished breath sounds at the bases no rhonchi and no wheezes CARDIOVASCULAR: Distant S1 and S2, no S3 gallop, positive pericardial rub. A 2/6 systolic murmur thought the precordium GASTROINTESTINAL: Abdomen soft, nontender, nondistended. Hypoactive bowel sounds present 4 quadrants. Tolerating diet. No guarding or rigidity. INTEGUMENTARY: No rashes. NEUROLOGIC: Alert and oriented 3 no gross focal deficits. MUSKULOSKELETAL: No deformities and no limitation in range of motion. PSYCHIATRIC: Normal mood, affect and normal mental status examination. Lines/tubes and catheters:: Mediastinal/left pleural chest tubes present and connected to low continuous wall suction, no air leaks present. Mediastinal tube with 140 mL of thin serosanguineous drainage overnight, 450 mL output since surgery. Left pleural chest tube with 90 mL of thin serosanguineous drainage overnight, 300 mL output since surgery. Atrial epicardial pacemaker wires present, connected to generator, AAI backup rate 50 bpm. Results - Laboratory Findings CBC and BMP: 11/22/21 03:56 11/22/21 03:56 ABG ABG pH 7.38 (7.35-7.45) 11/21/21 21:05 ABG pCO2 37 mmHg (35-45) 11/21/21 21:05 ABG pO2 124 mmHg (83-108) H 11/21/21 21:05 ABG O2 Saturation 98.6 % (94-97) H 11/21/21 21:05 PT/INR, D-dimer PT 12.5 sec (9.0-12.0) H 11/21/21 16:00 INR 1.2 (<1.2) H 11/21/21 16:00 Abnormal lab findings: Abnormal Labs 11/15/21 11/21/21 11/21/21 14:30 06:22 15:59 WBC RBC Hgb Hct Plt Count Neutrophils # Lymphocytes # PT INR APTT ABG pH ABG pO2 ABG Total CO2 ABG O2 Saturation Chloride Carbon Dioxide Glucose POC Glucose (mg/dL) 157 H 128 H Calcium Ionized Calcium [place] AST Alkaline Phosphatase Total Protein Albumin Crossmatch See Detail 11/21/21 11/21/21 11/21/21 16:00 16:00 16:00 WBC RBC 3.78 L Hgb 11.6 L D Hct 34.0 L Plt Count 94 L Neutrophils # Lymphocytes # 0.9 L PT 12.5 H INR 1.2 H APTT 30.4 H ABG pH ABG pO2 ABG Total CO2 ABG O2 Saturation Chloride 109 H Carbon Dioxide Glucose 126 H POC Glucose (mg/dL) Calcium 6.9 L Ionized Calcium [place] AST 60 H Alkaline Phosphatase 26 L Total Protein 4.4 L Albumin 2.5 L Crossmatch 11/21/21 11/21/21 11/21/21 16:06 16:53 18:13 WBC RBC Hgb Hct Plt Count Neutrophils # Lymphocytes # PT INR APTT ABG pH 7.33 L ABG pO2 385 H ABG Total CO2 25 H ABG O2 Saturation 100.0 H Chloride Carbon Dioxide Glucose POC Glucose (mg/dL) 151 H 180 H Calcium Ionized Calcium [place] AST Alkaline Phosphatase Total Protein Albumin Crossmatch 11/21/21 11/21/21 11/21/21 19:07 20:02 20:03 WBC RBC 3.65 L Hgb 10.7 L Hct 32.7 L Plt Count 97 L Neutrophils # 8.9 H Lymphocytes # 0.9 L PT INR APTT ABG pH ABG pO2 ABG Total CO2 ABG O2 Saturation Chloride Carbon Dioxide Glucose POC Glucose (mg/dL) 177 H 191 H Calcium Ionized Calcium [place] AST Alkaline Phosphatase Total Protein Albumin Crossmatch 11/21/21 11/21/21 11/21/21 21:02 21:05 22:03 WBC RBC Hgb Hct Plt Count Neutrophils # Lymphocytes # PT INR APTT ABG pH ABG pO2 124 H ABG Total CO2 ABG O2 Saturation 98.6 H Chloride Carbon Dioxide Glucose POC Glucose (mg/dL) 196 H 195 H Calcium Ionized Calcium [place] AST Alkaline Phosphatase Total Protein Albumin Crossmatch 11/21/21 11/21/21 11/22/21 22:58 23:00 00:13 WBC RBC 3.35 L Hgb 10.1 L Hct 30.3 L Plt Count 99 L Neutrophils # 8.7 H Lymphocytes # 0.7 L PT INR APTT ABG pH ABG pO2 ABG Total CO2 ABG O2 Saturation Chloride Carbon Dioxide Glucose POC Glucose (mg/dL) 190 H 175 H Calcium Ionized Calcium [place] AST Alkaline Phosphatase Total Protein Albumin Crossmatch 11/22/21 11/22/21 11/22/21 01:10 02:09 03:06 WBC RBC Hgb Hct Plt Count Neutrophils # Lymphocytes # PT INR APTT ABG pH ABG pO2 ABG Total CO2 ABG O2 Saturation Chloride Carbon Dioxide Glucose POC Glucose (mg/dL) 170 H 165 H 159 H Calcium Ionized Calcium [place] AST Alkaline Phosphatase Total Protein Albumin Crossmatch 11/22/21 11/22/21 11/22/21 03:55 03:56 03:56 WBC 10.7 H RBC 3.23 L Hgb 9.6 L Hct 29.1 L Plt Count 95 L Neutrophils # 8.9 H Lymphocytes # PT INR APTT ABG pH ABG pO2 ABG Total CO2 ABG O2 Saturation Chloride 109 H Carbon Dioxide 21 L Glucose 147 H POC Glucose (mg/dL) 157 H Calcium 7.0 L Ionized Calcium [place] 4.4 L AST 65 H Alkaline Phosphatase 32 L Total Protein 4.8 L Albumin 3.0 L Crossmatch 11/22/21 11/22/21 11/22/21 05:09 06:08 07:01 WBC RBC Hgb Hct Plt Count Neutrophils # Lymphocytes # PT INR APTT ABG pH ABG pO2 ABG Total CO2 ABG O2 Saturation Chloride Carbon Dioxide Glucose POC Glucose (mg/dL) 159 H 143 H 150 H Calcium Ionized Calcium [place] AST Alkaline Phosphatase Total Protein Albumin Crossmatch 11/22/21 11/22/21 11/22/21 08:30 09:08 10:15 WBC RBC Hgb Hct Plt Count Neutrophils # Lymphocytes # PT INR APTT ABG pH ABG pO2 ABG Total CO2 ABG O2 Saturation Chloride Carbon Dioxide Glucose POC Glucose (mg/dL) 155 H 146 H 146 H Calcium Ionized Calcium [place] AST Alkaline Phosphatase Total Protein Albumin Crossmatch 11/22/21 11:06 WBC RBC Hgb Hct Plt Count Neutrophils # Lymphocytes # PT INR APTT ABG pH ABG pO2 ABG Total CO2 ABG O2 Saturation Chloride Carbon Dioxide Glucose POC Glucose (mg/dL) 141 H Calcium Ionized Calcium [place] AST Alkaline Phosphatase Total Protein Albumin Crossmatch - Diagnostic Findings Chest x-ray: image reviewed (As noted in HPI.) Assessment and Plan Assessment: Impression: Postoperative day #1 Severe bicuspid aortic valve, status post aortic valve replacement with 25 mm Inspiris pericardial bioprosthesis Coronary artery disease, status post double coronary artery bypass grafting Severe mitral regurgitation, status post mitral valve repair History of previous RI and LV dysfunction and previous PCI in 2016 Ischemic cardiomyopathy Benign essential hypertension Dyslipidemia History of COVID-19 infection in June 14 021 History of fatty liver disease Family history of premature coronary artery disease Postoperative atelectasis, expected. GERD without esophagitis. Type 2 diabetes. Insulin-dependent. Recommendation: Continue postoperative pulmonary care, incentive spirometry, and early ambulation. Continue aspirin and Plavix beta blockers and statins Decrease and titrate Primacor drip as tolerated. Monitor hemodynamics and cardiac index. Transition IV amiodarone to oral amiodarone. Discontinue on necessary catheters and lines. Continue insulin patient may benefit from Levemir insulin dosing at night Continue chest tubes and monitor daily x-rays of the chest. Continue to monitor I's and O's and hemodynamics. We'll continue to follow while in the ICU. Prognosis is excellent. Time with Patient: Greater than 30
--- NOTE | 2021-11-22 12:08 | P.CONS ---
History of Present Illness - Reason for Consult Consult date: 11/22/21 - History of Present Illness HISTORY OF PRESENT ILLNESS This is a 61 year old male patient of Dr. Sridhar Tavarez with past medical history of hypertension, hypertensive cardiovascular disease, coronary artery disease status post stent in 2017, severe aortic stenosis, chronic diastolic heart failure, diabetes mellitus type 2, gastroesophageal reflux disease, hyperlipidemia, benign prostatic hypertrophy, prostate cancer status post prostatectomy in 2018 under the care of Dr. Willis, remote history of tobacco use, generalized osteoarthritis. Cardiac catheterization 10/21/2021 showed chronic total occlusion of mid RCA patent stent to the LAD 60-70% stenosis to the diagonal branch of the LAD 90% stenosis of the circumflex coronary artery and 70-80% stenosis to the OM branch. NABEEL revealed moderate aortic regurgitation, severe central mitral regurgitation, mild tricuspid regurgitation and normal left ventricular function. Patient has been brought into the hospital under the care of cardiothoracic surgery status post double coronary artery bypass grafting using a reverse saphenous vein graft from the aorta to the first obtuse marginal coronary artery, a reverse greater saphenous vein g raft from the aorta to the posterior lateral branch of the circumflex coronary artery, aortic valve replacement using bioprosthesis, mitral valve repair with posterior annuloplasty, exclusion of the left atrial appendage using a 35 mm Atriclip. Patient is seen today in the ICU, successfully extubated, resting and recliner. Patient states he has discomfort in his chest pain is controlled. His last A1c was 10.4 on 10/21/2021. He states he was recently started on insulin and is currently on insulin drip. WBC 10.7, hemoglobin 9.6 and platelet count 95. Sodium 140, potassium 4.1, chloride 109, CO2 21, BUN 10 and creatinine 0.84. Blood sugar 147. REVIEW OF SYSTEMS Constitutional: No fever, no chills, no night sweats. No weight change. Mild generalized weakness and fatigue. No daytime sleepiness. EENT: No headache. No blurred vision or double vision, no loss of vision. No loss of Hearing, no ringing in the ears, no dizziness. No nasal drainage or congestion. No epistaxis. No sore throat. Lungs: No shortness of breath, cough, no sputum production. No wheezing. Cardiovascular: Reports chest discomfort mild, no lower extremity edema. No palpitations. No paroxysmal nocturnal dyspnea. No orthopnea. No lightheadedness or dizziness. No syncopal episodes. Abdominal: No abdominal pain. No nausea, vomiting. No diarrhea. No constipation. No bloody or tarry stools. No loss of appetite. Genitourinary: No dysuria, increased frequency, urgency. No urinary retention. Musculoskeletal: No myalgias. No muscle weakness, no gait dysfunction, no frequ ent falls. No back pain. No neck pain. Integumentary: No wounds, no lesions. No rash or pruritus. No unusual bruising. No change in hair or nails. Neurologic: No aphasia. No facial droop. No change in mentation. No head injury. No headache. No paralysis. No paresthesia. Psychiatric: No depression. No anxiety. No mood swings. Endocrine: No abnormal blood sugars. No weight change. No excessive sweating or thirst. No cold intolerance. SOCIAL HISTORY Patient was a smoker on and off for 25 years at 2-3 packs per week and quit in August 2015. He drinks alcohol occasionally. 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 FAMILY HISTORY Mother at age 90 from old age with history of coronary artery disease and CABG. Father at age 74 from myocardial infarction. He had his first myocardial infarction at age 54. Patient has 1 brother diagnosed with coronary artery disease with stent placement at the age of 58. He has one sister with irregular heartbeat. Patient has one daughter and one son with no major medical problems. PHYSICAL EXAMINATION Gen: This is a 61-year-old male. He is resting and recliner and appears to be comfortable at rest. No acute distress noted. HEENT: Head is atraumatic, normocephalic. Pupils equal, round. Sclerae is anicteric. NECK: Supple. Trachea midline. Right IJ and [place]-Mir[place] in place. LUNGS: Clear to auscultation. No wheezes or rhonchi. No intercostal retractions. Mediastinal chest tubes in place, left pleural chest tube HEART: Regular rate and rhythm. No murmur. quality assurance monitor body is sinus rhythm ABDOMEN: Soft. Bowel sounds are present. No masses. No tenderness. Newman catheter in place. EXTREMITIES: No pedal edema. No calf tenderness. Right leg RONAN drain. NEUROLOGICAL: Patient is awake, alert and oriented x3. Cranial nerves 2 through 12 are grossly intact. ASSESSMENT AND PLAN 1. Coronary artery disease status post double CABG 11/21. Continue aspirin, Lipitor, Plavix, Lopressor. 2. Severe bicuspid aortic valve stenosis status post aortic valve replacement. Continue current management per cardiothoracic surgery team. Patient has been recommended to have children checked for bicuspid valve. 3. Moderate to severe mitral valve regurgitation status post mitral valve repair. 4. Coronary artery disease with previous PCI/stent. 5. Chronic diastolic heart failure. 6. Hypertension, hypertensive cardiovascular disease. Continue Lopressor. 7. Thrombocytopenia secondary to surgery, not unexpected with illness or surgery. Continue to monitor 8. Anemia, acute blood loss expected with surgery. 9. Diabetes mellitus type 2. Hemoglobin A1c 10.4. Patient is currently on insulin drip and Levemir 10 units twice daily will be added with plan to transition patient off the insulin drip tomorrow. 10. Gastroesophageal reflux disease. Continue Protonix. 11. DVT prophylaxis. Heparin subcu. CODE STATUS: Full code DISCHARGE PLAN TBD. Impression and plan of care have been directed as dictated by the signing physician. Harmony Hernandez nurse practitioner acting as scribe for signing physician. Past Medical History Past Medical History: Coronary Artery Disease (CAD), Cancer, Diabetes Mellitus, GERD/Reflux, Hearing Disorder / Deafness, Hyperlipidemia, Hypertension, Liver Disease, Musculoskeletal Disorder, Osteoarthritis (OA) Additional Past Medical History / Comment(s): SEASONAL ALLERGIES. FATTY LIVER. prostate ca 4 yrs. ago, recent occasional chest pressure & back pain for a few months, SOB w/exertion, mild ankle swelling, seen in [facility] yesterday for SOB & edema in feet & ankles Last Myocardial Infarction Date:: 01/14/2017 History of Any Multi-Drug Resistant Organisms: None Reported Past Surgical History: Heart Catheterization With Stent, Hernia Repair, Joint Replacement, Prostate Surgery Additional Past Surgical History / Comment(s): PROSTATECTOMY. NABEEL 03/23/20, COLONOSCOPY, TRAUMATIC AMP RT 3RD AND 4TH FINGERTIPS, TOTAL LT HIP., penile implant, right hand trigger finger surg. Past Anesthesia/Blood Transfusion Reactions: No Reported Reaction Date of Last Stent Placement:: January 2017. Smoking Status: Former smoker - Past Family History Mother Family Medical History: No Reported History, Coronary Artery Disease (CAD) Additional Family Medical History / Comment(s): CABG and stent Father Family Medical History: Coronary Artery Disease (CAD) Additional Family Medical History / Comment(s): CABG x2 Brother(s) Family Medical History: Coronary Artery Disease (CAD), Myocardial Infarction ([place]) Additional Family Medical History / Comment(s): coronary stents Sister(s) Family Medical History: No Reported History Additional Family Medical History / Comment(s): cardiac arrythmia Daughter(s) Family Medical History: No Reported History Son(s) Family Medical History: No Reported History Medications and Allergies Home Medications Medication Instructions Recorded Confirmed Type Linagliptin [Tradjenta] 5 mg PO DAILY 12/18/13 11/21/21 History glipiZIDE [Glucotrol XL] 5 mg PO DAILY 12/18/13 11/21/21 History Desloratadine [Clarinex] 5 mg PO DAILY 09/21/15 11/21/21 History Famotidine [Pepcid] 20 mg PO DAILY 03/18/20 11/21/21 History Baclofen [Lioresal] 10 mg PO HS PRN 10/20/21 11/21/21 History Insulin Glargine,Hum.rec.anlog 30 unit SQ QAM 10/20/21 11/21/21 History [Lantus Solostar Pen] Simvastatin 40 mg PO HS #30 tablet 10/26/21 11/21/21 Rx Aspirin EC [Ecotrin Low Dose] 81 mg PO DAILY 10/28/21 11/21/21 History Cholecalciferol [Vitamin D3 (25 25 mcg PO DAILY 10/28/21 11/21/21 History Mcg = 1000 Iu)] Ibuprofen [Motrin] 800 mg PO Q8H PRN 10/28/21 11/21/21 History Nitroglycerin Sl Tabs [Nitrostat] 0.4 mg SL Q5M PRN 10/28/21 11/21/21 History Zinc 50 mg PO DAILY 10/28/21 11/21/21 History Metoprolol Tartrate [Lopressor] 50 mg PO BID tab 10/29/21 11/21/21 Rx amLODIPine [Norvasc] 5 mg PO DAILY #30 tab 10/29/21 11/21/21 Rx Ubidecarenone [Co Q-10] 100 mg PO BID 11/14/21 11/21/21 History metFORMIN HCL [Glucophage] 1,000 mg PO BID 11/14/21 11/21/21 History Furosemide [Lasix] 20 mg PO BID 11/15/21 11/21/21 History Fluticasone Nasal Eleva [Flonase 2 spray EA NOSTRIL DAILY PRN 11/17/21 11/21/21 History Nasal Eleva] Mupirocin [Mupirocin 2%] 1 applic NASAL BID #1 tub 11/18/21 11/21/21 Rx Allergies Allergy/AdvReac Type Severity Reaction Status Date / Time No Known Allergies Allergy Verified 11/21/21 06:09 Physical Exam Vitals: Vital Signs Temp Pulse Resp Pulse Ox 11/22/21 08:30 11 L 97 11/22/21 08:00 97.9 F 26 H 96 11/22/21 07:00 98 9 L 98 11/22/21 06:30 100 21 97 11/22/21 06:00 109 H 20 97 11/22/21 05:30 105 H 25 H 97 11/22/21 05:00 103 H 19 96 11/22/21 04:30 96 23 97 11/22/21 04:00 99 19 98 11/22/21 03:30 101 H 19 97 11/22/21 03:00 100 20 97 11/22/21 02:45 98 19 97 11/22/21 02:30 97 21 98 11/22/21 02:15 101 H 18 98 11/22/21 02:00 99 18 98 11/22/21 01:45 98 19 98 11/22/21 01:30 98 22 98 11/22/21 01:15 98 19 98 11/22/21 01:00 99 20 98 11/22/21 00:45 98 18 98 11/22/21 00:30 98 19 98 11/22/21 00:15 101 H 21 99 11/22/21 00:00 100 24 98 11/21/21 23:45 102 H 24 98 11/21/21 23:30 101 H 24 98 11/21/21 23:20 100 23 98 11/21/21 23:15 101 H 21 98 11/21/21 23:00 103 H 18 98 11/21/21 22:45 103 H 22 98 11/21/21 22:30 102 H 24 98 11/21/21 22:15 102 H 24 98 11/21/21 22:00 102 H 21 98 04/11/22 21:45 103 H 24 97 11/21/21 21:30 103 H 27 H 97 11/21/21 21:15 109 H 23 98 11/21/21 21:00 112 H 14 97 11/21/21 20:45 109 H 23 98 11/21/21 20:30 106 H 19 99 11/21/21 20:15 107 H 24 98 11/21/21 20:00 99.0 F 107 H 19 98 11/21/21 19:45 109 H 22 99 11/21/21 19:38 101 H 11/21/21 19:30 111 H 20 100 11/21/21 19:28 111 H 11/21/21 19:15 106 H 19 99 11/21/21 19:00 108 H 20 99 11/21/21 18:45 109 H 19 99 11/21/21 18:30 109 H 19 100 11/21/21 18:15 108 H 19 100 11/21/21 18:00 106 H 18 100 11/21/21 17:45 106 H 18 100 11/21/21 17:30 105 H 18 100 11/21/21 17:15 108 H 17 100 11/21/21 17:00 111 H 17 99 11/21/21 16:45 112 H 21 99 11/21/21 16:30 109 H 0 L 99 11/21/21 16:15 105 H 7 L 100 11/21/21 16:00 105 H 16 100 Intake and Output 11/21/21 11/22/21 11/22/21 22:59 06:59 14:59 Intake Total 6093.343 0192.896 791.688 Output Total 1019 643 105 Balance 602.852 3449.896 686.688 Intake: IV 1185.47 1336.92 431.48 ACETAMINOPHEN IV (For NPO 100 100 ) 1,000 mg In Empty Bag 1 bag @ 400 mls/hr IVPB Q6HR [facility], [facility]–1983 Rx#:[id number] Albumin Human 5% 250 ml @ 500 250 250 0 mls/hr IVPB .STK-MED ONE Rx#:[id number] CA Gluconate 100 CO/CI 150 240 50 Nitro @ 5mcg/min 4.5 12.0 Pressure Bag 54 63 18 Primacor @0.3mcg/kg/min 26.97 71.92 13.48 Sodium Chloride 0.9% 1, 300 400 100 000 ml @ 50 mls/hr IV . Q20H [facility] Rx#:[id number] ceFAZolin 2 gm In Sodium 50 100 Chloride 0.9% 50 ml @ 100 mls/hr IVPB Q8HR [facility] Rx# :[id number] Intake, IV Titration 141.783 367.976 160.208 Amount Insulin Regular 100 unit 19.208 54.550 38.108 In Sodium Chloride 0.9% 100 ml @ Per Protocol IV .Q0M [facility] Rx#:[id number] Magnesium Sulfate-D5w Pmx 100 100 1 gm In Dextrose/Water 1 100ml.bag @ 100 mls/hr IVPB Q1H [facility] Rx#: [id number] Milrinone-D5w Pmx 20 mg 100 In Dextrose/Water 1 100ml .bag @ 0.15 MCG/KG/MIN 4. 496 mls/hr IV .[id number] [facility] Rx#:[id number] Nitroglycerin-D5w Pmx 50 22.1 mg In Dextrose/Water 1 250ml.bag @ 5 MCG/MIN 1.5 mls/hr IV .Q24H [facility] Rx#: [id number] Norepinephrine 4 mg In 66.480 113.426 Sodium Chloride 0.9% 250 ml @ 0.02 MCG/KG/MIN 7. 612 mls/hr IV .Q24H [facility] Rx#:[id number] propofoL 1,000 mg In 56.095 Empty Bag 1 bag @ Titrate IV .Q0M [facility] Rx#: [id number] Oral 250 200 Lipid 9 Pressure Bag 9 Output: Chest Tube Drainage 434 228 30 Chest Tube Mediastinal 230 140 0 Left Pleural 204 88 30 Gastric Drainage 100 Drainage 30 20 Right Calf 30 20 Urine 455 395 75 Other: Voiding Method Indwelling Catheter Indwelling Catheter Weight 107.8 kg ABP, PAP, CO, CI - Last 8 Hours Arterial Blood Pressure 127/55 Arterial Blood Pressure 110/51 Arterial Blood Pressure 114/51 Arterial Blood Pressure 126/54 Arterial Blood Pressure 169/59 Arterial Blood Pressure 148/56 Arterial Blood Pressure 140/60 Arterial Blood Pressure 118/55 Arterial Blood Pressure 118/55 Arterial Blood Pressure 110/54 Arterial Blood Pressure 120/55 Arterial Blood Pressure 123/54 Arterial Blood Pressure 128/56 Arterial Blood Pressure 139/60 Arterial Blood Pressure 115/52 Arterial Blood Pressure 112/52 Arterial Blood Pressure 119/54 Arterial Blood Pressure 109/51 Arterial Blood Pressure 113/50 Pulmonary Artery Pressure 37/22 Pulmonary Artery Pressure 35/20 Pulmonary Artery Pressure 30/21 Pulmonary Artery Pressure 32/20 Pulmonary Artery Pressure 40/25 Pulmonary Artery Pressure 38/27 Pulmonary Artery Pressure 41/25 Pulmonary Artery Pressure 40/26 Pulmonary Artery Pressure 40/29 Pulmonary Artery Pressure 38/27 Pulmonary Artery Pressure 41/27 Pulmonary Artery Pressure 41/23 Pulmonary Artery Pressure 42/26 Pulmonary Artery Pressure 45/28 Pulmonary Artery Pressure 39/22 Pulmonary Artery Pressure 39/22 Pulmonary Artery Pressure 39/21 Pulmonary Artery Pressure 39/20 Pulmonary Artery Pressure 40/20 Cardiac Output 9.1 Cardiac Output 5.7 Cardiac Output 5.9 Cardiac Output 6.9 Cardiac Output 7 Cardiac Output 6.5 Cardiac Output 7.7 Cardiac Output 6.2 Cardiac Index 4.2 Cardiac Index 2.6 Cardiac Index 2.7 Cardiac Index 3.2 Cardiac Index 3.2 Cardiac Index 2.9 Cardiac Index 3.5 Cardiac Index 2.8 Results CBC & Chem 7: 11/22/21 03:56 11/22/21 03:56 Labs: Abnormal Lab Results - Last 24 Hours (Table) 11/15/21 11/21/21 11/21/21 Range/Units 14:30 15:59 16:00 WBC (3.8-10.6) k/uL RBC 3.78 L (4.30-5.90) m/uL Hgb 11.6 L D (13.0-17.5) gm/dL Hct 34.0 L (39.0-53.0) % Plt Count 94 L (150-450) k/uL Neutrophils # (1.3-7.7) k/uL Lymphocytes # 0.9 L (1.0-4.8) k/uL PT (9.0-12.0) sec INR (<1.2) APTT (22.0-30.0) sec ABG pH (7.35-7.45) ABG pO2 (83-108) mmHg ABG Total CO2 (19-24) mmol/L ABG O2 Saturation (94-97) % Chloride (98-107) mmol/L Carbon Dioxide (22-30) mmol/L Glucose (74-99) mg/dL POC Glucose (mg/dL) 128 H (75-99) mg/dL Calcium (8.4-10.2) mg/dL Ionized Calcium Hipolito (4.5-5.3) mg/dL AST (17-59) U/L Alkaline Phosphatase (38-126) U/L Total Protein (6.3-8.2) g/dL Albumin (3.5-5.0) g/dL Crossmatch See Detail 11/21/21 11/21/21 11/21/21 Range/Units 16:00 16:00 16:06 WBC (3.8-10.6) k/uL RBC (4.30-5.90) m/uL Hgb (13.0-17.5) gm/dL Hct (39.0-53.0) % Plt Count (150-450) k/uL Neutrophils # (1.3-7.7) k/uL Lymphocytes # (1.0-4.8) k/uL PT 12.5 H (9.0-12.0) sec INR 1.2 H (<1.2) APTT 30.4 H (22.0-30.0) sec ABG pH 7.33 L (7.35-7.45) ABG pO2 385 H (83-108) mmHg ABG Total CO2 25 H (19-24) mmol/L ABG O2 Saturation 100.0 H (94-97) % Chloride 109 H (98-107) mmol/L Carbon Dioxide (22-30) mmol/L Glucose 126 H (74-99) mg/dL POC Glucose (mg/dL) (75-99) mg/dL Calcium 6.9 L (8.4-10.2) mg/dL Ionized Calcium Hip[place]ito (4.5-5.3) mg/dL AST 60 H (17-59) U/L Alkaline Phosphatase 26 L (38-126) U/L Total Protein 4.4 L (6.3-8.2) g/dL Albumin 2.5 L (3.5-5.0) g/dL Crossmatch 11/21/21 11/21/21 11/21/21 Range/Units 16:53 18:13 19:07 WBC (3.8-10.6) k/uL RBC (4.30-5.90) m/uL Hgb (13.0-17.5) gm/dL Hct (39.0-53.0) % Plt Count (150-450) k/uL Neutrophils # (1.3-7.7) k/uL Lymphocytes # (1.0-4.8) k/uL PT (9.0-12.0) sec INR (<1.2) APTT (22.0-30.0) sec ABG pH (7.35-7.45) ABG pO2 (83-108) mmHg ABG Total CO2 (19-24) mmol/L ABG O2 Saturation (94-97) % Chloride (98-107) mmol/L Carbon Dioxide (22-30) mmol/L Glucose (74-99) mg/dL POC Glucose (mg/dL) 151 H 180 H 177 H (75-99) mg/dL Calcium (8.4-10.2) mg/dL Ionized Calcium Hip[place]ito (4.5-5.3) mg/dL AST (17-59) U/L Alkaline Phosphatase (38-126) U/L Total Protein (6.3-8.2) g/dL Albumin (3.5-5.0) g/dL Crossmatch 11/21/21 11/21/21 11/21/21 Range/Units 20:02 20:03 21:02 WBC (3.8-10.6) k/uL RBC 3.65 L (4.30-5.90) m/uL Hgb 10.7 L (13.0-17.5) gm/dL Hct 32.7 L (39.0-53.0) % Plt Count 97 L (150-450) k/uL Neutrophils # 8.9 H (1.3-7.7) k/uL Lymphocytes # 0.9 L (1.0-4.8) k/uL PT (9.0-12.0) sec INR (<1.2) APTT (22.0-30.0) sec ABG pH (7.35-7.45) ABG pO2 (83-108) mmHg ABG Total CO2 (19-24) mmol/L ABG O2 Saturation (94-97) % Chloride (98-107) mmol/L Carbon Dioxide (22-30) mmol/L Glucose (74-99) mg/dL POC Glucose (mg/dL) 191 H 196 H (75-99) mg/dL Calcium (8.4-10.2) mg/dL Ionized Calcium Hipolito (4.5-5.3) mg/dL AST (17-59) U/L Alkaline Phosphatase (38-126) U/L Total Protein (6.3-8.2) g/dL Albumin (3.5-5.0) g/dL Crossmatch 11/21/21 11/21/21 11/21/21 Range/Units 21:05 22:03 22:58 WBC (3.8-10.6) k/uL RBC (4.30-5.90) m/uL Hgb (13.0-17.5) gm/dL Hct (39.0-53.0) % Plt Count (150-450) k/uL Neutrophils # (1.3-7.7) k/uL Lymphocytes # (1.0-4.8) k/uL PT (9.0-12.0) sec INR (<1.2) APTT (22.0-30.0) sec ABG pH (7.35-7.45) ABG pO2 124 H (83-108) mmHg ABG Total CO2 (19-24) mmol/L ABG O2 Saturation 98.6 H (94-97) % Chloride (98-107) mmol/L Carbon Dioxide (22-30) mmol/L Glucose (74-99) mg/dL POC Glucose (mg/dL) 195 H 190 H (75-99) mg/dL Calcium (8.4-10.2) mg/dL Ionized Calcium Hipolito (4.5-5.3) mg/dL AST (17-59) U/L Alkaline Phosphatase (38-126) U/L Total Protein (6.3-8.2) g/dL Albumin (3.5-5.0) g/dL Crossmatch 11/21/21 11/22/21 11/22/21 Range/Units 23:00 00:13 01:10 WBC (3.8-10.6) k/uL RBC 3.35 L (4.30-5.90) m/uL Hgb 10.1 L (13.0-17.5) gm/dL Hct 30.3 L (39.0-53.0) % Plt Count 99 L (150-450) k/uL Neutrophils # 8.7 H (1.3-7.7) k/uL Lymphocytes # 0.7 L (1.0-4.8) k/uL PT (9.0-12.0) sec INR (<1.2) APTT (22.0-30.0) sec ABG pH (7.35-7.45) ABG pO2 (83-108) mmHg ABG Total CO2 (19-24) mmol/L ABG O2 Saturation (94-97) % Chloride (98-107) mmol/L Carbon Dioxide (22-30) mmol/L Glucose (74-99) mg/dL POC Glucose (mg/dL) 175 H 170 H (75-99) mg/dL Calcium (8.4-10.2) mg/dL Ionized Calcium Hipolito (4.5-5.3) mg/dL AST (17-59) U/L Alkaline Phosphatase (38-126) U/L Total Protein (6.3-8.2) g/dL Albumin (3.5-5.0) g/dL Crossmatch 11/22/21 11/22/21 11/22/21 Range/Units 02:09 03:06 03:55 WBC (3.8-10.6) k/uL RBC (4.30-5.90) m/uL Hgb (13.0-17.5) gm/dL Hct (39.0-53.0) % Plt Count (150-450) k/uL Neutrophils # (1.3-7.7) k/uL Lymphocytes # (1.0-4.8) k/uL PT (9.0-12.0) sec INR (<1.2) APTT (22.0-30.0) sec ABG pH (7.35-7.45) ABG pO2 (83-108) mmHg ABG Total CO2 (19-24) mmol/L ABG O2 Saturation (94-97) % Chloride (98-107) mmol/L Carbon Dioxide (22-30) mmol/L Glucose (74-99) mg/dL POC Glucose (mg/dL) 165 H 159 H 157 H (75-99) mg/dL Calcium (8.4-10.2) mg/dL Ionized Calcium Hipolito (4.5-5.3) mg/dL AST (17-59) U/L Alkaline Phosphatase (38-126) U/L Total Protein (6.3-8.2) g/dL Albumin (3.5-5.0) g/dL Crossmatch 11/22/21 11/22/21 11/22/21 Range/Units 03:56 03:56 05:09 WBC 10.7 H (3.8-10.6) k/uL RBC 3.23 L (4.30-5.90) m/uL Hgb 9.6 L (13.0-17.5) gm/dL Hct 29.1 L (39.0-53.0) % Plt Count 95 L (150-450) k/uL Neutrophils # 8.9 H (1.3-7.7) k/uL Lymphocytes # (1.0-4.8) k/uL PT (9.0-12.0) sec INR (<1.2) APTT (22.0-30.0) sec ABG pH (7.35-7.45) ABG pO2 (83-108) mmHg ABG Total CO2 (19-24) mmol/L ABG O2 Saturation (94-97) % Chloride 109 H (98-107) mmol/L Carbon Dioxide 21 L (22-30) mmol/L Glucose 147 H (74-99) mg/dL POC Glucose (mg/dL) 159 H (75-99) mg/dL Calcium 7.0 L (8.4-10.2) mg/dL Ionized Calcium Hipolito 4.4 L (4.5-5.3) mg/dL AST 65 H (17-59) U/L Alkaline Phosphatase 32 L (38-126) U/L Total Protein 4.8 L (6.3-8.2) g/dL Albumin 3.0 L (3.5-5.0) g/dL Crossmatch 11/22/21 11/22/21 11/22/21 Range/Units 06:08 07:01 08:30 WBC (3.8-10.6) k/uL RBC (4.30-5.90) m/uL Hgb (13.0-17.5) gm/dL Hct (39.0-53.0) % Plt Count (150-450) k/uL Neutrophils # (1.3-7.7) k/uL Lymphocytes # (1.0-4.8) k/uL PT (9.0-12.0) sec INR (<1.2) APTT (22.0-30.0) sec ABG pH (7.35-7.45) ABG pO2 (83-108) mmHg ABG Total CO2 (19-24) mmol/L ABG O2 Saturation (94-97) % Chloride (98-107) mmol/L Carbon Dioxide (22-30) mmol/L Glucose (74-99) mg/dL POC Glucose (mg/dL) 143 H 150 H 155 H (75-99) mg/dL Calcium (8.4-10.2) mg/dL Ionized Calcium Hipolito (4.5-5.3) mg/dL AST (17-59) U/L Alkaline Phosphatase (38-126) U/L Total Protein (6.3-8.2) g/dL Albumin (3.5-5.0) g/dL Crossmatch
[2021-11-22 12:09] LABS: Glucose,Whole Blood 137 mg/dL (75-99)
[2021-11-22] MEDS: SODIUM CHLORIDE 0.9% 1,000 ML IV SCH (12:19)
[2021-11-22 13:12] LABS: Glucose,Whole Blood 118 mg/dL (75-99)
[2021-11-22 14:06] LABS: Glucose,Whole Blood 110 mg/dL (75-99)
[2021-11-22 15:07] VITALS: BMI 34.1
[2021-11-22 15:49] LABS: Glucose,Whole Blood 202 mg/dL (75-99)
[2021-11-22 16:42] LABS: Glucose,Whole Blood 174 mg/dL (75-99)
[2021-11-22 17:19] LABS: Glucose,Whole Blood 164 mg/dL (75-99)
[2021-11-22 18:07] LABS: Glucose,Whole Blood 141 mg/dL (75-99)
[2021-11-22 19:17] LABS: Glucose,Whole Blood 148 mg/dL (75-99)
[2021-11-22 19:53] LABS: Glucose,Whole Blood 142 mg/dL (75-99)
[2021-11-22] MEDS: SENNOSIDES-DOCUSATE SODIUM 1 EACH TAB PO SCH (19:58)
--- NOTE | 2021-11-22 20:21 | CONS ---
CONSULTATION Joce Shen is a 61-year-old gentleman with a bicuspid aortic valve and severe mitral regurgitation. Yesterday he underwent aortocoronary bypass surgery with two separate vein grafts to the two branches of circumflex marginal. His aortic valve was replaced with a tissue valve and mitral valve was repaired. His cardiac catheterization by Dr. Medeiros from October 21 revealed that he had triple-vessel disease with patent stent in LAD, no significant disease, severe stenosis involving circumflex coronary artery, and right coronary artery was nondominant with a chronic total mid occlusion. Circumflex was bypassed and LAD was patent. He also had aortic valve replacement and mitral valve repair. He is extubated. He is in sinus rhythm, appears to be comfortable. Seems to be doing better. He is on a very small dose of Primacor and amiodarone. Vitals are stable. S1-S2 heard normally. Short systolic murmur at the base is audible. Lungs reveal diminished air entry. Abdomen is soft. Lower extremities reveal diminished pulses. Central system grossly no focal deficits. IMPRESSION: 1. History of bicuspid aortic valve, status post aortic valve replacement, mitral valve repair and two-vessel bypass surgery to the two obtuse marginal branches. 2. History of prostate cancer. 3. History of COVID infection in the past. 4. Diabetes. 5. Moderate left ventricular dysfunction. RECOMMENDATIONS: Continue current medical regimen, incentive spirometry, pulmonary toilet. Patient is making decent progress. MMODL / IJN: [id number] /
[2021-11-22 20:59] LABS: Glucose,Whole Blood 112 mg/dL (75-99)
[2021-11-22 22:03] LABS: Glucose,Whole Blood 134 mg/dL (75-99)
[2021-11-22 22:59] LABS: Glucose,Whole Blood 128 mg/dL (75-99)
[2021-11-22 23:59] LABS: Glucose,Whole Blood 98 mg/dL (75-99)
[2021-11-23 01:07] LABS: Glucose,Whole Blood 128 mg/dL (75-99)
[2021-11-23 01:52] LABS: Glucose,Whole Blood 122 mg/dL (75-99)
[2021-11-23] MEDS: HYDROcodone/APAP 5-325MG 1 EACH TAB PO PRN ×3 (02:42→15:36)
[2021-11-23 03:08] LABS: Glucose,Whole Blood 86 mg/dL (75-99)
[2021-11-23 04:02] LABS: Glucose,Whole Blood 98 mg/dL (75-99)
[2021-11-23 04:11] LABS: Basophils % (A) 0 %; Eosinophils % (A) 0 %; HCT 27.8 % (39.0-53.0); Lymphocytes # (A) 1.7 k/uL (1.0-4.8); Lymphocytes % (A) 11 %; MCH 29.6 pg (25.0-35.0); MCHC 32.5 g/dL (31.0-37.0); MCV 91.1 fL (80.0-100.0); Mean Platelet Volume 9.8; Monocytes # (A) 0.9 k/uL (0-1.0); Monocytes % (A) 6 %; Neutrophils # (A) 12.1 k/uL (1.3-7.7); Neutrophils % (A) 80 %; RBC 3.05 m/uL (4.30-5.90); RDW 13.6 % (11.5-15.5)
[2021-11-23 04:14] LABS: Ionized Calcium 4.7 mg/dL (4.5-5.3); Platelet Count 93 k/uL (150-450)
[2021-11-23 04:24] LABS: Albumin 3.1 g/dL (3.5-5.0); Calcium 7.7 mg/dL (8.4-10.2); Magnesium 2.4 mg/dL (1.6-2.3); Potassium 4.5 mmol/L (3.5-5.1); Total Bilirubin 0.6 mg/dL (0.2-1.3); Total Protein 5.1 g/dL (6.3-8.2)
[2021-11-23 04:59] LABS: Glucose,Whole Blood 125 mg/dL (75-99)
[2021-11-23 06:20] LABS: Glucose,Whole Blood 181 mg/dL (75-99)
[2021-11-23] MEDS: INSULIN DETEMIR (LEVEMIR) 100 UNIT/ML SYR SQ SCH ×2 (06:45→20:19)
[2021-11-23] MEDS: PANTOPRAZOLE 40 MG TABLET PO SCH (06:45)
[2021-11-23 06:52] LABS: Glucose,Whole Blood 144 mg/dL (75-99)
--- NOTE | 2021-11-23 07:53 | XR ---
EXAMINATION TYPE: XR chest 1V portable DATE OF EXAM: 11/23/2021 COMPARISON: 412 [id number] INDICATION: Postop cardiac surgery TECHNIQUE: Single frontal view of the chest is obtained. FINDINGS: The heart size is enlarged. The pulmonary vasculature is normal. Mild right lower lobe infiltrate is present. Correlate for atelectasis. Right central venous catheter sheath is on the right. No pneumothorax is evident. [place]-Mirian catheter is been removed. Mediastinal tubes are present. Sternotomy wires cardiac valve surgery are evident. L eft basilar chest tube remains present. IMPRESSION: 1. Mild right lower lobe atelectasis or developing infiltrate. 2. Lines and catheters discussed above.
[2021-11-23] MEDS: HEPARIN SODIUM,PORCINE/PF 5,000 UNIT/0.5 ML SYRINGE SQ SCH ×2 (08:16→15:35)
[2021-11-23] MEDS: ASPIRIN 325 MG TAB PO SCH (08:16)
[2021-11-23] MEDS: IPRATROPIUM-ALBUTEROL 3 ML NEB INHALATION SCH ×4 (08:16→19:47)
[2021-11-23] MEDS: AMIODARONE 200 MG TAB PO SCH ×2 (08:17→20:19)
[2021-11-23] MEDS: ATORVASTATIN 40 MG TAB PO SCH (08:17)
[2021-11-23] MEDS: CHOLECALCIFEROL 25 MCG (1000 IU) TABLET PO SCH (08:17)
[2021-11-23] MEDS: CLOPIDOGREL 75 MG TAB PO SCH (08:17)
[2021-11-23] MEDS: MUPIROCIN 2% OINT 22 GM TUBE NASAL SCH ×2 (08:20→20:19)
[2021-11-23] MEDS: METOPROLOL TARTRATE 25 MG TAB PO SCH (08:20)
[2021-11-23 08:24] LABS: Glucose,Whole Blood 190 mg/dL (75-99)
[2021-11-23] MEDS ORDERED: FUROSEMIDE 10 MG/ML 2 ML VIAL IV STA (09:02)
[2021-11-23] MEDS ORDERED: INSULIN DETEMIR (LEVEMIR) 100 UNIT/ML SYR SQ SCH (09:15)
--- NOTE | 2021-11-23 09:23 | PN ---
PROGRESS NOTE Mr. Shen is status post aortic valve replacement, mitral valve repair and bypass surgery. He is doing well. Creatinine has gone up. He is feeling better. He has eaten some. No chest pain. He has some incisional discomfort. S1-S2 heard normally. He is in sinus rhythm. Short systolic murmur is audible. Lungs reveal improved air entry. Abdomen is soft. Lower extremities reveal diminished pulses. I am recommending that we hydrate him cautiously at 75 mL/hour normal saline, and I will leave it up to the surgeons with regard to hydration, which I think will be helpful for him, given his creatinine going up. MMODL / IJN: [id number] /
[2021-11-23 09:35] LABS: Glucose,Whole Blood 128 mg/dL (75-99)
[2021-11-23] MEDS: LINAGLIPTIN 5 MG TABLET PO SCH (10:08)
[2021-11-23] MEDS: INSULIN REGULAR 100 UNIT in SODIUM CHLORIDE 0.9% 100 ML IV SCH (10:09)
[2021-11-23 10:13] LABS: Glucose,Whole Blood 106 mg/dL (75-99)
[2021-11-23] MEDS: ALBUMIN HUMAN 5% 250 ML in EMPTY BAG 1 BAG IVPB PRN (10:26)
--- NOTE | 2021-11-23 10:29 | P.PN ---
Subjective Progress Note Date: 11/23/21 HISTORY OF PRESENT ILLNESS This is a 61 year old male patient of Dr. Sridhar Tavarez with past medical history of hypertension, hypertensive cardiovascular disease, coronary artery disease status post stent in 2017, severe aortic stenosis, chronic diastolic heart failure, diabetes mellitus type 2, gastroesophageal reflux disease, hyperlipidemia, benign prostatic hypertrophy, prostate cancer status post prostatectomy in 2018 under the care of Dr. Willis, remote history of tobacco use, generalized osteoarthritis. Cardiac catheterization 10/21/2021 showed chronic total occlusion of mid RCA patent stent to the LAD 60-70% stenosis to the diagonal branch of the LAD 90% stenosis of the circumflex coronary artery and 70-80% stenosis to the OM branch. NABEEL revealed moderate aortic regurgitation, severe central mitral regurgitation, mild tricuspid regurgitation and normal left ventricular function. Patient has been brought into the hospital under the care of cardiothoracic surgery status post double coronary artery bypass grafting using a reverse saphenous vein graft from the aorta to the first obtuse marginal coronary artery, a reverse greater saphenous vein graft from the aorta to the posterior lateral branch of the circumflex coronary artery, aortic valve replacement using bioprosthesis, mitral valve repair with posterior annuloplasty, exclusion of the left atrial appendage using a 35 mm Atriclip. Patient is seen today in the ICU, successfully extubated, resting and recliner. Patient states he has discomfort in his chest pain is controlled. His last A1c was 10.4 on 10/21/2021. He states he was recently started on insulin and is currently on insulin drip. WBC 10.7, hemoglobin 9.6 and platelet count 95. Sodium 140, potassium 4.1, chloride 109, CO2 21, BUN 10 and creatinine 0.84. Blood sugar 147. 4/13: Patient is seen in the intensive care unit. He states he slept appetite in bed in half and recliner. He was also up walking today and felt he did well. Blood sugars are running between 128 and 190 however patient is on a high-dose of insulin 13 units per hour. We will increase Levemir, and NovoLog with meals scheduled, resume Tradjenta and add NovoLog scale and titrate off insulin drip. Repeat chest x-ray reveals mild right lower lobe atelectasis or developing infiltrate. [place] catheter is been removed. Mediastinal chest tubes and left chest tube remains intact as well as Newman catheter. He is reaching 1500 miles on incentive spirometry. machine riveter sinus rhythm. REVIEW OF SYSTEMS Constitutional: No fever, no chills, no night sweats. No weight change. Mild generalized weakness and fatigue. No daytime sleepiness. EENT: No headache. No blurred vision or double vision, no loss of vision. No l oss of Hearing, no ringing in the ears, no dizziness. No nasal drainage or congestion. No epistaxis. No sore throat. Lungs: No shortness of breath, cough, no sputum production. No wheezing. Cardiovascular: Reports chest discomfort mild, no lower extremity edema. No palpitations. No paroxysmal nocturnal dyspnea. No orthopnea. No lightheadedness or dizziness. No syncopal episodes. Abdominal: No abdominal pain. No nausea, vomiting. No diarrhea. No constipation. No bloody or tarry stools. No loss of appetite. Genitourinary: No dysuria, increased frequency, urgency. No urinary retention. Musculoskeletal: No myalgias. No muscle weakness, no gait dysfunction, no frequent falls. No back pain. No neck pain. Integumentary: No wounds, no lesions. No rash or pruritus. No unusual br uising. No change in hair or nails. Neurologic: No aphasia. No facial droop. No change in mentation. No head injury. No headache. No paralysis. No paresthesia. Psychiatric: No depression. No anxiety. No mood swings. Endocrine: Noted abnormal blood sugars. No weight change. No excessive sweating or thirst. PHYSICAL EXAMINATION Gen: This is a 61-year-old male. He is resting and recliner and appears to be comfortable at rest. No acute distress noted. HEENT: Head is atraumatic, normocephalic. Pupils equal, round. Sclerae is anicteric. NECK: Supple. Trachea midline. LUNGS: Clear to auscultation. No wheezes or rhonchi. No intercostal retractions. Mediastinal chest tubes in place, left pleural chest tube HEART: Regular rate and rhythm. No murmur. machine riveter is sinus rhythm ABDOMEN: Soft. Bowel sounds are present. No masses. No tenderness. Newman catheter in place. EXTREMITIES: No pedal edema. No calf tenderness. NEUROLOGICAL: Patient is awake, alert and oriented x3. Cranial nerves 2 through 12 are grossly intact. ASSESSMENT AND PLAN 1. Coronary artery disease status post double CABG 11/21. Continue aspirin, Lipitor, Plavix, Lopressor. 2. Severe bicuspid aortic valve stenosis status post aortic valve replacement. Continue current management per cardiothoracic surgery team. Patient has been recommended to have children checked for bicuspid valve. 3. Moderate to severe mitral valve regurgitation status post mitral valve repair. 4. Coronary artery disease with previous PCI/stent. 5. Chronic diastolic heart failure. 6. Hypertension, hypertensive cardiovascular disease. Continue Lopressor. 7. Thrombocytopenia secondary to surgery, not unexpected with illness or surgery. Continue to monitor 8. Anemia, acute blood loss expected with surgery. 9. Diabetes mellitus type 2. Hemoglobin A1c 10.4. Patient is currently on insulin drip and Levemir 10 units twice daily will be added with plan to transition patient off the insulin drip tomorrow. 10. Gastroesophageal reflux disease. Continue Protonix. 11. DVT prophylaxis. Heparin subcu. CODE STATUS: Full code DISCHARGE PLAN Home with [facility]. Impression and plan of care have been directed as dictated by the signing physician. Harmony Hernandez nurse practitioner acting as scribe for signing physician. Objective - Vital Signs Vital signs: Vital Signs Temp 98 F 11/23/21 04:00 Pulse 94 11/23/21 08:26 Resp 20 11/23/21 07:00 BP 153/83 11/23/21 07:00 Pulse Ox 93 L 11/23/21 07:00 Intake & Output 11/22/21 11/23/21 11/23/21 18:59 06:59 18:59 Intake Total 1530.365 836.060 43.633 Output Total 815 495 20 Balance 715.365 341.060 23.633 Weight 107.8 kg 109.8 kg Intake: IV 913.44 312 26 Albumin Human 5% 250 ml @ 250 0 mls/hr IVPB .[facility] Rx#:[id number] CO/CI 110 Pressure Bag 75 72 6 Primacor @0.3mcg/kg/min 58.44 Sodium Chloride 0.9% 1, 420 240 20 000 ml @ 20 mls/hr IV . Q24H [facility] Rx#:[id number] Intake, IV Titration 216.925 124.060 17.633 Amount Insulin Regular 100 unit 94.825 124.060 17.633 In Sodium Chloride 0.9% 100 ml @ Per Protocol IV .Q0M [facility] Rx#:[id number] Magnesium Sulfate-D5w Pmx 100 1 gm In Dextrose/Water 1 100ml.bag @ 100 mls/hr IVPB Q1H [facility] Rx#: [id number] Nitroglycerin-D5w Pmx 50 22.1 mg In Dextrose/Water 1 250ml.bag @ 5 MCG/MIN 1.5 mls/hr IV .Q24H [facility] Rx#: [id number] Oral 400 400 Output: Chest Tube Drainage 210 180 Chest Tube Mediastinal 60 40 Left Pleural 150 140 Drainage 50 Right Calf 50 Urine 555 315 20 Other: Voiding Method Indwelling Catheter Indwelling Catheter ABP, PAP, CO, CI - Last Documented Arterial Blood Pressure 121/61 Pulmonary Artery Pressure 39/23 Cardiac Output 7.8 Cardiac Index 3.6 - Labs CBC & Chem 7: 11/23/21 04:00 11/23/21 04:00 Labs: Abnormal Lab Results - Last 24 Hours (Table) 11/22/21 11/22/21 11/22/21 Range/Units 09:08 10:15 11:06 WBC (3.8-10.6) k/uL RBC (4.30-5.90) m/uL Hgb (13.0-17.5) gm/dL Hct (39.0-53.0) % Plt Count (150-450) k/uL Neutrophils # (1.3-7.7) k/uL Sodium (137-145) mmol/L Creatinine (0.66-1.25) mg/dL POC Glucose (mg/dL) 146 H 146 H 141 H (75-99) mg/dL Calcium (8.4-10.2) mg/dL Magnesium (1.6-2.3) mg/dL AST (17-59) U/L Alkaline Phosphatase (38-126) U/L Total Protein (6.3-8.2) g/dL Albumin (3.5-5.0) g/dL 11/22/21 11/22/21 11/22/21 Range/Units 12:08 13:10 14:05 WBC (3.8-10.6) k/uL RBC (4.30-5.90) m/uL Hgb (13.0-17.5) gm/dL Hct (39.0-53.0) % Plt Count (150-450) k/uL Neutrophils # (1.3-7.7) k/uL Sodium (137-145) mmol/L Creatinine (0.66-1.25) mg/dL POC Glucose (mg/dL) 137 H 118 H 110 H (75-99) mg/dL Calcium (8.4-10.2) mg/dL Magnesium (1.6-2.3) mg/dL AST (17-59) U/L Alkaline Phosphatase (38-126) U/L Total Protein (6.3-8.2) g/dL Albumin (3.5-5.0) g/dL 11/22/21 11/22/21 11/22/21 Range/Units 15:47 16:40 17:18 WBC (3.8-10.6) k/uL RBC (4.30-5.90) m/uL Hgb (13.0-17.5) gm/dL Hct (39.0-53.0) % Plt Count (150-450) k/uL Neutrophils # (1.3-7.7) k/uL Sodium (137-145) mmol/L Creatinine (0.66-1.25) mg/dL POC Glucose (mg/dL) 202 H 174 H 164 H (75-99) mg/dL Calcium (8.4-10.2) mg/dL Magnesium (1.6-2.3) mg/dL AST (17-59) U/L Alkaline Phosphatase (38-126) U/L Total Protein (6.3-8.2) g/dL Albumin (3.5-5.0) g/dL 11/22/21 11/22/21 11/22/21 Range/Units 18:06 19:05 19:50 WBC (3.8-10.6) k/uL RBC (4.30-5.90) m/uL Hgb (13.0-17.5) gm/dL Hct (39.0-53.0) % Plt Count (150-450) k/uL Neutrophils # (1.3-7.7) k/uL Sodium (137-145) mmol/L Creatinine (0.66-1.25) mg/dL POC Glucose (mg/dL) 141 H 148 H 142 H (75-99) mg/dL Calcium (8.4-10.2) mg/dL Magnesium (1.6-2.3) mg/dL AST (17-59) U/L Alkaline Phosphatase (38-126) U/L Total Protein (6.3-8.2) g/dL Albumin (3.5-5.0) g/dL 11/22/21 11/22/21 11/22/21 Range/Units 20:55 22:02 22:57 WBC (3.8-10.6) k/uL RBC (4.30-5.90) m/uL Hgb (13.0-17.5) gm/dL Hct (39.0-53.0) % Plt Count (150-450) k/uL Neutrophils # (1.3-7.7) k/uL Sodium (137-145) mmol/L Creatinine (0.66-1.25) mg/dL POC Glucose (mg/dL) 112 H 134 H 128 H (75-99) mg/dL Calcium (8.4-10.2) mg/dL Magnesium (1.6-2.3) mg/dL AST (17-59) U/L Alkaline Phosphatase (38-126) U/L Total Protein (6.3-8.2) g/dL Albumin (3.5-5.0) g/dL 11/23/21 11/23/21 11/23/21 Range/Units 00:55 01:50 04:00 WBC 15.0 H (3.8-10.6) k/uL RBC 3.05 L (4.30-5.90) m/uL Hgb 9.0 L (13.0-17.5) gm/dL Hct 27.8 L (39.0-53.0) % Plt Count 93 L (150-450) k/uL Neutrophils # 12.1 H (1.3-7.7) k/uL Sodium (137-145) mmol/L Creatinine (0.66-1.25) mg/dL POC Glucose (mg/dL) 128 H 122 H (75-99) mg/dL Calcium (8.4-10.2) mg/dL Magnesium (1.6-2.3) mg/dL AST (17-59) U/L Alkaline Phosphatase (38-126) U/L Total Protein (6.3-8.2) g/dL Albumin (3.5-5.0) g/dL 11/23/21 11/23/21 11/23/21 Range/Units 04:00 04:57 06:09 WBC (3.8-10.6) k/uL RBC (4.30-5.90) m/uL Hgb (13.0-17.5) gm/dL Hct (39.0-53.0) % Plt Count (150-450) k/uL Neutrophils # (1.3-7.7) k/uL Sodium 134 L (137-145) mmol/L Creatinine 1.28 H (0.66-1.25) mg/dL POC Glucose (mg/dL) 125 H 181 H (75-99) mg/dL Calcium 7.7 L (8.4-10.2) mg/dL Magnesium 2.4 H (1.6-2.3) mg/dL AST 81 H (17-59) U/L Alkaline Phosphatase 35 L (38-126) U/L Total Protein 5.1 L (6.3-8.2) g/dL Albumin 3.1 L (3.5-5.0) g/dL 11/23/21 11/23/21 Range/Units 06:51 08:22 WBC (3.8-10.6) k/uL RBC (4.30-5.90) m/uL Hgb (13.0-17.5) gm/dL Hct (39.0-53.0) % Plt Count (150-450) k/uL Neutrophils # (1.3-7.7) k/uL Sodium (137-145) mmol/L Creatinine (0.66-1.25) mg/dL POC Glucose (mg/dL) 144 H 190 H (75-99) mg/dL Calcium (8.4-10.2) mg/dL Magnesium (1.6-2.3) mg/dL AST (17-59) U/L Alkaline Phosphatase (38-126) U/L Total Protein (6.3-8.2) g/dL Albumin (3.5-5.0) g/dL
[2021-11-23] MEDS: ONDANSETRON 4 MG/2 ML VIAL IVP PRN ×2 (10:38→17:41)
--- NOTE | 2021-11-23 10:38 | P.PN ---
Subjective Progress Note Date: 11/23/21 Principal diagnosis: Severe bicuspid aortic valve stenosis, coronary artery disease, moderate to severe mitral valve regurgitation and moderate left ventricular dysfunction. Past medical history significant for hypertension, coronary artery disease with history of myocardial infarction status post PCI in 2016, hyperlipidemia, insulin-dependent diabetes mellitus, fatty liver disease, prostate cancer status post prostatectomy in 2017, GERD, remote history of tobacco dependence, COVID-19 infection in June 2021, and a strong family history of premature coronary artery disease with his father having a CABG at age 54. Positive preoperative nasal screening for MSSA which was treated. POD #2 double coronary artery bypass grafting using a reverse saphenous vein graft from the aorta to the first obtuse marginal coronary artery, a reverse greater saphenous vein graft from the aorta to the posterior lateral branch of the circumflex coronary artery. Aortic valve replacement using a 25 mm Inspiris pericardial bioprosthesis. Mitral valve repair with posterior annuloplasty using a 30 mm AnnuloFlex band. Exclusion of the left atrial appendage using a 35 mm Atriclip. Intraoperative graft flow measurements using the Asteel-Stim sytem. Intraoperative transesophageal echocardiogram and epi-aortic scanning. Acute blood loss anemia, expected due to hemodilution and cardiopulmonary bypass. The patient was seen in follow-up today 11/23/2021 at his bedside in the intens rowena care unit. Currently sitting up to the bedside chair, awake, alert, oriented 3 and is in no acute distress. Denies any complaints of shortness of breath although was complaining of some surgical type pain to his chest tube insertion sites. Currently rating his pain 5 out of 10 on the pain scale. He remains hemodynamically stable and is currently on no inotropic pressure support. Right IJ cordis remains in place with continuous CVP monitoring, current CVP pressures 15 mmHg. Oxygen saturations are 94% on 1 L nasal cannula and is achieving 1250 mL on his incentive spirometry with encouragement. Mediastinal and left pleural chest tubes remain in place located continuous wall suction -20 cm H2O. No air leak is present. Draining thin serosanguineous drainage. Mediastinal chest tubes drained 20 mL output in the last 8 hours and 130 mL output in the last 24 hours. Left pleural chest tube drained 110 mL output in the last 8 hours and 380 mL output in the last 24 hours. Bedside telemetry showing normal sinus rhythm heart rate 81 BPM. Laboratory and chest x-ray results reviewed. The patient reports he was up ambulating in the intensive care unit hallway this morning with standby assistance from nursing staff. He has been afebrile the last 24 hours. Objective - Vital Signs Vital signs: Vital Signs Temp 98 F 11/23/21 04:00 Pulse 94 11/23/21 08:26 Resp 20 11/23/21 07:00 BP 153/83 11/23/21 07:00 Pulse Ox 93 L 11/23/21 07:00 Intake & Output 11/22/21 11/23/21 11/23/21 18:59 06:59 18:59 Intake Total 1530.365 836.060 43.633 Output Total 815 495 20 Balance 715.365 341.060 23.633 Weight 107.8 kg 109.8 kg Intake: IV 913.44 312 26 Albumin Human 5% 250 ml @ 250 0 mls/hr IVPB [facility] Rx#:[id number] CO/CI 110 Pressure Bag 75 72 6 Primacor @0.3mcg/kg/min 58.44 Sodium Chloride 0.9% 1, 420 240 20 000 ml @ 20 mls/hr IV . Q24H [facility] Rx#:[id number] Intake, IV Titration 216.925 124.060 17.633 Amount Insulin Regular 100 unit 94.825 124.060 17.633 In Sodium Chloride 0.9% 100 ml @ Per Protocol IV .Q0M [facility] Rx#:[id number] Magnesium Sulfate-D5w Pmx 100 1 gm In Dextrose/Water 1 100ml.bag @ 100 mls/hr IVPB Q1H [facility] Rx#: [id number] Nitroglycerin-D5w Pmx 50 22.1 mg In Dextrose/Water 1 250ml.bag @ 5 MCG/MIN 1.5 mls/hr IV .Q24H [facility] Rx#: [id number] Oral 400 400 Output: Chest Tube Drainage 210 180 Chest Tube Mediastinal 60 40 Left Pleural 150 140 Drainage 50 Right Calf 50 Urine 555 315 20 Other: Voiding Method Indwelling Catheter Indwelling Catheter ABP, PAP, CO, CI - Last Documented Arterial Blood Pressure 121/61 Pulmonary Artery Pressure 39/23 Cardiac Output 7.8 Cardiac Index 3.6 - Exam CONSTITUTIONAL: Sitting up to the bedside chair in the intensive care unit, appears comfortable, cooperative, no apparent acute distress. HEENT: Neck is supple, no JVD, no lymphadenopathy. Right IJ Cordis in place and functioning. RESPIRATORY: Lungs sounds essentially clear throughout, diminished to his bilateral bases. Respirations are symmetrical and nonlabored. Currently on 1 L nasal cannula with oxygen saturations 94%. Able to achieve 1250 mL on his incentive spirometry. Strong cough. CARDIOVASCULAR: Regular rhythm and rate. S1 and S2 present, negative for S3, gallop or murmur. Sternum is stable. Palpable peripheral pulses bilaterally. No calf pain or tenderness noted. Heart hugger in place with patient demonstrating appropriate use. Knee-high RICHIE hose and sequential compression devices in place to his bilateral lower extremities. Bedside telemetry showing normal sinus rhythm heart rate 81 bpm. GASTROINTESTINAL: Abdomen soft, nontender, nondistended. Active bowel sounds present 4 quadrants. Tolerating diet. No guarding or rigidity. Passing flatus. GENITOURINARY: Newman present draining clear, yellow urine. Output 210 mL in the last 8 hours. INTEGUMENTARY: Skin is warm and dry with no evidence of clubbing or cyanosis. Midline sternal incision clean dry and well approximated, covered with dry intact dressing. Right lower extremity EVH sites well approximated without redness or drainage. NEUROLOGIC: Cranial nerves II through XII intact. No focal deficits. MUSKULOSKELETAL: Able to move all extremities, strength equal bilaterally, generalized weakness. PSYCHIATRIC: Alert and oriented to person place and time, appropriate affect, intact judgment and insight. INVASIVE LINES AND TUBES: Mediastinal/left pleural chest tubes present and connected to low continuous wall suction, no air leaks present. Mediastinal tube with 20 mL of thin serosanguineous drainage overnight, 130 mL output in the last 24 hours. Left pleural chest tube with 110 mL of thin serosanguineous drainage overnight, 380 mL output in the last 24 hours. Atrial epicardial pacemaker wires present, and grounded, Right internal jugular Cordis, right radial arterial line present. Current CVP 15 mmHg. - Allied health notes Allied health notes reviewed: nursing - Labs CBC & Chem 7: 11/23/21 04:00 11/23/21 04:00 Labs: Abnormal Lab Results - Last 24 Hours (Table) 11/22/21 11/22/21 11/22/21 Range/Units 09:08 10:15 11:06 WBC (3.8-10.6) k/uL RBC (4.30-5.90) m/uL Hgb (13.0-17.5) gm/dL Hct (39.0-53.0) % Plt Count (150-450) k/uL Neutrophils # (1.3-7.7) k/uL Sodium (137-145) mmol/L Creatinine (0.66-1.25) mg/dL POC Glucose (mg/dL) 146 H 146 H 141 H (75-99) mg/dL Calcium (8.4-10.2) mg/dL Magnesium (1.6-2.3) mg/dL AST (17-59) U/L Alkaline Phosphatase (38-126) U/L Total Protein (6.3-8.2) g/dL Albumin (3.5-5.0) g/dL 11/22/21 11/22/21 11/22/21 Range/Units 12:08 13:10 14:05 WBC (3.8-10.6) k/uL RBC (4.30-5.90) m/uL Hgb (13.0-17.5) gm/dL Hct (39.0-53.0) % Plt Count (150-450) k/uL Neutrophils # (1.3-7.7) k/uL Sodium (137-145) mmol/L Creatinine (0.66-1.25) mg/dL POC Glucose (mg/dL) 137 H 118 H 110 H (75-99) mg/dL Calcium (8.4-10.2) mg/dL Magnesium (1.6-2.3) mg/dL AST (17-59) U/L Alkaline Phosphatase (38-126) U/L Total Protein (6.3-8.2) g/dL Albumin (3.5-5.0) g/dL 11/22/21 11/22/21 11/22/21 Range/Units 15:47 16:40 17:18 WBC (3.8-10.6) k/uL RBC (4.30-5.90) m/uL Hgb (13.0-17.5) gm/dL Hct (39.0-53.0) % Plt Count (150-450) k/uL Neutrophils # (1.3-7.7) k/uL Sodium (137-145) mmol/L Creatinine (0.66-1.25) mg/dL POC Glucose (mg/dL) 202 H 174 H 164 H (75-99) mg/dL Calcium (8.4-10.2) mg/dL Magnesium (1.6-2.3) mg/dL AST (17-59) U/L Alkaline Phosphatase (38-126) U/L Total Protein (6.3-8.2) g/dL Albumin (3.5-5.0) g/dL 11/22/21 11/22/21 11/22/21 Range/Units 18:06 19:05 19:50 WBC (3.8-10.6) k/uL RBC (4.30-5.90) m/uL Hgb (13.0-17.5) gm/dL Hct (39.0-53.0) % Plt Count (150-450) k/uL Neutrophils # (1.3-7.7) k/uL Sodium (137-145) mmol/L Creatinine (0.66-1.25) mg/dL POC Glucose (mg/dL) 141 H 148 H 142 H (75-99) mg/dL Calcium (8.4-10.2) mg/dL Magnesium (1.6-2.3) mg/dL AST (17-59) U/L Alkaline Phosphatase (38-126) U/L Total Protein (6.3-8.2) g/dL Albumin (3.5-5.0) g/dL 11/22/21 11/22/21 11/22/21 Range/Units 20:55 22:02 22:57 WBC (3.8-10.6) k/uL RBC (4.30-5.90) m/uL Hgb (13.0-17.5) gm/dL Hct (39.0-53.0) % Plt Count (150-450) k/uL Neutrophils # (1.3-7.7) k/uL Sodium (137-145) mmol/L Creatinine (0.66-1.25) mg/dL POC Glucose (mg/dL) 112 H 134 H 128 H (75-99) mg/dL Calcium (8.4-10.2) mg/dL Magnesium (1.6-2.3) mg/dL AST (17-59) U/L Alkaline Phosphatase (38-126) U/L Total Protein (6.3-8.2) g/dL Albumin (3.5-5.0) g/dL 11/23/21 11/23/21 11/23/21 Range/Units 00:55 01:50 04:00 WBC 15.0 H (3.8-10.6) k/uL RBC 3.05 L (4.30-5.90) m/uL Hgb 9.0 L (13.0-17.5) gm/dL Hct 27.8 L (39.0-53.0) % Plt Count 93 L (150-450) k/uL Neutrophils # 12.1 H (1.3-7.7) k/uL Sodium (137-145) mmol/L Creatinine (0.66-1.25) mg/dL POC Glucose (mg/dL) 128 H 122 H (75-99) mg/dL Calcium (8.4-10.2) mg/dL Magnesium (1.6-2.3) mg/dL AST (17-59) U/L Alkaline Phosphatase (38-126) U/L Total Protein (6.3-8.2) g/dL Albumin (3.5-5.0) g/dL 11/23/21 11/23/21 11/23/21 Range/Units 04:00 04:57 06:09 WBC (3.8-10.6) k/uL RBC (4.30-5.90) m/uL Hgb (13.0-17.5) gm/dL Hct (39.0-53.0) % Plt Count (150-450) k/uL Neutrophils # (1.3-7.7) k/uL Sodium 134 L (137-145) mmol/L Creatinine 1.28 H (0.66-1.25) mg/dL POC Glucose (mg/dL) 125 H 181 H (75-99) mg/dL Calcium 7.7 L (8.4-10.2) mg/dL Magnesium 2.4 H (1.6-2.3) mg/dL AST 81 H (17-59) U/L Alkaline Phosphatase 35 L (38-126) U/L Total Protein 5.1 L (6.3-8.2) g/dL Albumin 3.1 L (3.5-5.0) g/dL 11/23/21 11/23/21 Range/Units 06:51 08:22 WBC (3.8-10.6) k/uL RBC (4.30-5.90) m/uL Hgb (13.0-17.5) gm/dL Hct (39.0-53.0) % Plt Count (150-450) k/uL Neutrophils # (1.3-7.7) k/uL Sodium (137-145) mmol/L Creatinine (0.66-1.25) mg/dL POC Glucose (mg/dL) 144 H 190 H (75-99) mg/dL Calcium (8.4-10.2) mg/dL Magnesium (1.6-2.3) mg/dL AST (17-59) U/L Alkaline Phosphatase (38-126) U/L Total Protein (6.3-8.2) g/dL Albumin (3.5-5.0) g/dL - Imaging and Cardiology Chest x-ray: report reviewed, image reviewed Assessment and Plan Assessment: 1. Severe bicuspid aortic valve stenosis, status post aortic valve replacement with a 25 mm Inspiris pericardial bioprosthesis 2. Moderate to severe mitral valve regurgitation, status post mitral valve re pair with a posterior annuloplasty using a 30 mm AnnuloFlex band 3. Coronary artery disease, status post double coronary artery bypass grafting 4. Moderate left ventricular dysfunction 5. History of hypertension 6. Hyperlipidemia 7. History of coronary artery disease and myocardial infarction status post PCI in 2016 8. Insulin-dependent diabetes mellitus 9. History of prostate cancer status post prostatectomy in 2017 10. Remote history of tobacco dependence 11. COVID-19 infection in June 2021 12. Fatty liver disease 13. GERD 14. Strong family history of premature coronary artery disease with his father having a CABG at age 54 15. Acute blood loss anemia, expected due to hemodilution and cardiopulmonary bypass 16. Preoperative nasal screening positive for MSSA, treated Plan: 1. Continue aspirin, statin, Plavix and beta roosevelt. We will increase metoprolol tartrate as tolerated. 2. Continue right IJ Cordis, continue to monitor continuous CVP. 3. Continue amiodarone 400 mg by mouth twice a day per protocol. 4. Wean oxygen as tolerated. Encourage incentive spirometry use 10 times every hour while awake. Bronchodilators per pulmonary/critical care medicine recommendations. 5. Increase activity, ambulate ambulate as tolerated. Out of bed for all meals. PT/OT/cardiac rehab consulted. 6. Will monitor daily labs and chest x-rays. Electrolyte replacement per protocol. 7. Pain control per current medication regimen. 8. Insulin management per primary care service. The patient needs tight blood sugar control to promote healing and sternal union as well as prevent infection. Preoperative hemoglobin A1c 10.4%. 9. Remove mediastinal chest tubes, keep left pleural chest tube in place to low continuous wall suction -20 cm H2O. 10. Ground atrial epicardial pacemaker wires. 11. Discontinue Newman catheter. Continue to monitor daily weights. 12. Continue mupirocin 2% nasal ointment as directed for positive for preoperative nasal screen of MSSA. 13. More recommendations to follow based on patient's clinical course. Time with Patient: Greater than 30
[2021-11-23 11:25] LABS: Glucose,Whole Blood 134 mg/dL (75-99)
--- NOTE | 2021-11-23 12:03 | P.PN ---
Subjective Progress Note Date: 11/23/21 Principal diagnosis: POD #2 double coronary artery bypass grafting using a reverse saphenous vein graft from the aorta to the first obtuse marginal coronary artery, a reverse greater saphenous vein graft from the aorta to the posterior lateral branch of the circumflex coronary artery. Aortic valve replacement using a 25 mm Inspiris pericardial bioprosthesis. Mitral valve repair with posterior annuloplasty using a 30 mm AnnuloFlex band. Exclusion of the left atrial appendage using a 35 mm Atriclip. This is a 61-year-old white male with history of bicuspid aortic valve stenosis, coronary artery disease, moderate to severe mitral valve regurgitation moderate LV dysfunction, history of previous NV and PCI in 2017, patient underwent double coronary bypass grafting yesterday using reverse saphenous vein graft from the aorta to the first obtuse marginal coronary artery reverse greater saphenous vein graft from the aorta to the posterior lateral branch of the circumflex artery, aortic valve replacement, mitral valve repair with posterior annuloplasty, postoperatively patient was admitted to the ICU, and I was asked to see him on consultation. I was notified on this patient about his ventilator settings early evening, and I have adjusted the ventilator settings based on the ABG. A few hours later, I was notified about this patient weaning, and he had excellent weaning parameters, I recommended extubating the patient, and he was extubated uneventfully. Patient was evaluated today, he is doing well, he is on 3 L nasal cannula, sating at a bedside chair, in no distress. Patient is on amiodarone drip, milrinone drip at 0.15, insulin drip at 12 units per hour, his cardiac index is 4.2, chest x-ray showed minimal atelectasis, no evidence of congestive heart failure, and the patient seems to be well, tolerated the extubation quite well overnight. Patient was reevaluated today on 11/23/2021, patient remains in the ICU, doing quite well, hemodynamically stable, on 1 L nasal cannula, denies any distress, had some minimal surgical site pain. Patient is not requiring any inotropes. CVP today is 15, patient is doing well with incentive spirometry achieving over 1250. Continues to have left pleural and mediastinal chest tubes. No air leak. Minimal output from the mediastinal chest tube, hence it would likely be removed today. Labs are unremarkable except for slight rise in his creatinine. Patient had a good cardiac index yesterday before going off milrinone. WBC count today is 15 hemoglobin is 9, basic metabolic profile is normal BUN is 17 and creatinine 1.2. Chest x-ray showed minimal right lower lobe atelectasis, doubt infiltrate. Objective - Vital Signs Vital signs: Vital Signs Temp 97.9 F 11/23/21 08:00 Pulse 75 11/23/21 11:38 Resp 28 H 11/23/21 11:01 BP 95/64 11/23/21 11:01 Pulse Ox 96 11/23/21 11:01 Intake & Output 11/22/21 11/23/21 11/23/21 18:59 06:59 18:59 Intake Total 1530.365 836.060 162.233 Output Total 815 495 145 Balance 715.365 341.060 17.233 Weight 107.8 kg 109.8 kg Intake: IV 913.44 312 130 Albumin Human 5% 250 ml @ 250 0 mls/hr IVPB .[facility] Rx#:[id number] CO/CI 110 Pressure Bag 75 72 30 Primacor @0.3mcg/kg/min 58.44 Sodium Chloride 0.9% 1, 420 240 100 000 ml @ 20 mls/hr IV . Q24H [facility] Rx#:[id number] Intake, IV Titration 216.925 124.060 32.233 Amount Insulin Regular 100 unit 94.825 124.060 32.233 In Sodium Chloride 0.9% 100 ml @ Per Protocol IV .Q0M [facility] Rx#:[id number] Magnesium Sulfate-D5w Pmx 100 1 gm In Dextrose/Water 1 100ml.bag @ 100 mls/hr IVPB Q1H [facility] Rx#: [id number] Nitroglycerin-D5w Pmx 50 22.1 mg In Dextrose/Water 1 250ml.bag @ 5 MCG/MIN 1.5 mls/hr IV .Q24H [facility] Rx#: [id number] Oral 400 400 Output: Chest Tube Drainage 210 180 30 Chest Tube Mediastinal 60 40 0 Left Pleural 150 140 30 Drainage 50 Right Calf 50 Urine 555 315 115 Other: Voiding Method Indwelling Catheter Indwelling Catheter Indwelling Catheter ABP, PAP, CO, CI - Last Documented Arterial Blood Pressure 92/49 Pulmonary Artery Pressure 39/23 Cardiac Output 7.8 Cardiac Index 3.6 - Exam Gen.: Revealed a 61-year-old white male, sitting in a bedside chair, on 1 L nasal cannula, asymptomatic. HEENT: PERRLA, EOMI, nonicteric, right IJ Cordis noted in place. RESPIRATORY: Symmetrical chest expansion, slightly diminished breath sounds at the left base. CARDIOVASCULAR: Distant S1 and S2, no S3 gallop, positive pericardial rub. GASTROINTESTINAL: Abdomen soft, nontender, nondistended. No guarding. Good bowel sounds. INTEGUMENTARY: No rashes. NEUROLOGIC: Alert and oriented 3 no gross focal deficits. MUSKULOSKELETAL: No deformities and no limitation in range of motion. PSYCHIATRIC: Normal mood, affect and normal mental status examination. - Labs CBC & Chem 7: 11/23/21 04:00 11/23/21 04:00 Labs: Abnormal Lab Results - Last 24 Hours (Table) 11/22/21 11/22/21 11/22/21 Range/Units 12:08 13:10 14:05 WBC (3.8-10.6) k/uL RBC (4.30-5.90) m/uL Hgb (13.0-17.5) gm/dL Hct (39.0-53.0) % Plt Count (150-450) k/uL Neutrophils # (1.3-7.7) k/uL Sodium (137-145) mmol/L Creatinine (0.66-1.25) mg/dL POC Glucose (mg/dL) 137 H 118 H 110 H (75-99) mg/dL Calcium (8.4-10.2) mg/dL Magnesium (1.6-2.3) mg/dL AST (17-59) U/L Alkaline Phosphatase (38-126) U/L Total Protein (6.3-8.2) g/dL Albumin (3.5-5.0) g/dL 11/22/21 11/22/21 11/22/21 Range/Units 15:47 16:40 17:18 WBC (3.8-10.6) k/uL RBC (4.30-5.90) m/uL Hgb (13.0-17.5) gm/dL Hct (39.0-53.0) % Plt Count (150-450) k/uL Neutrophils # (1.3-7.7) k/uL Sodium (137-145) mmol/L Creatinine (0.66-1.25) mg/dL POC Glucose (mg/dL) 202 H 174 H 164 H (75-99) mg/dL Calcium (8.4-10.2) mg/dL Magnesium (1.6-2.3) mg/dL AST (17-59) U/L Alkaline Phosphatase (38-126) U/L Total Protein (6.3-8.2) g/dL Albumin (3.5-5.0) g/dL 11/22/21 11/22/21 11/22/21 Range/Units 18:06 19:05 19:50 WBC (3.8-10.6) k/uL RBC (4.30-5.90) m/uL Hgb (13.0-17.5) gm/dL Hct (39.0-53.0) % Plt Count (150-450) k/uL Neutrophils # (1.3-7.7) k/uL Sodium (137-145) mmol/L Creatinine (0.66-1.25) mg/dL POC Glucose (mg/dL) 141 H 148 H 142 H (75-99) mg/dL Calcium (8.4-10.2) mg/dL Magnesium (1.6-2.3) mg/dL AST (17-59) U/L Alkaline Phosphatase (38-126) U/L Total Protein (6.3-8.2) g/dL Albumin (3.5-5.0) g/dL 11/22/21 11/22/21 11/22/21 Range/Units 20:55 22:02 22:57 WBC (3.8-10.6) k/uL RBC (4.30-5.90) m/uL Hgb (13.0-17.5) gm/dL Hct (39.0-53.0) % Plt Count (150-450) k/uL Neutrophils # (1.3-7.7) k/uL Sodium (137-145) mmol/L Creatinine (0.66-1.25) mg/dL POC Glucose (mg/dL) 112 H 134 H 128 H (75-99) mg/dL Calcium (8.4-10.2) mg/dL Magnesium (1.6-2.3) mg/dL AST (17-59) U/L Alkaline Phosphatase (38-126) U/L Total Protein (6.3-8.2) g/dL Albumin (3.5-5.0) g/dL 11/23/21 11/23/21 11/23/21 Range/Units 00:55 01:50 04:00 WBC 15.0 H (3.8-10.6) k/uL RBC 3.05 L (4.30-5.90) m/uL Hgb 9.0 L (13.0-17.5) gm/dL Hct 27.8 L (39.0-53.0) % Plt Count 93 L (150-450) k/uL Neutrophils # 12.1 H (1.3-7.7) k/uL Sodium (137-145) mmol/L Creatinine (0.66-1.25) mg/dL POC Glucose (mg/dL) 128 H 122 H (75-99) mg/dL Calcium (8.4-10.2) mg/dL Magnesium (1.6-2.3) mg/dL AST (17-59) U/L Alkaline Phosphatase (38-126) U/L Total Protein (6.3-8.2) g/dL Albumin (3.5-5.0) g/dL 11/23/21 11/23/21 11/23/21 Range/Units 04:00 04:57 06:09 WBC (3.8-10.6) k/uL RBC (4.30-5.90) m/uL Hgb (13.0-17.5) gm/dL Hct (39.0-53.0) % Plt Count (150-450) k/uL Neutrophils # (1.3-7.7) k/uL Sodium 134 L (137-145) mmol/L Creatinine 1.28 H (0.66-1.25) mg/dL POC Glucose (mg/dL) 125 H 181 H (75-99) mg/dL Calcium 7.7 L (8.4-10.2) mg/dL Magnesium 2.4 H (1.6-2.3) mg/dL AST 81 H (17-59) U/L Alkaline Phosphatase 35 L (38-126) U/L Total Protein 5.1 L (6.3-8.2) g/dL Albumin 3.1 L (3.5-5.0) g/dL 11/23/21 11/23/21 11/23/21 Range/Units 06:51 08:22 09:33 WBC (3.8-10.6) k/uL RBC (4.30-5.90) m/uL Hgb (13.0-17.5) gm/dL Hct (39.0-53.0) % Plt Count (150-450) k/uL Neutrophils # (1.3-7.7) k/uL Sodium (137-145) mmol/L Creatinine (0.66-1.25) mg/dL POC Glucose (mg/dL) 144 H 190 H 128 H (75-99) mg/dL Calcium (8.4-10.2) mg/dL Magnesium (1.6-2.3) mg/dL AST (17-59) U/L Alkaline Phosphatase (38-126) U/L Total Protein (6.3-8.2) g/dL Albumin (3.5-5.0) g/dL 11/23/21 11/23/21 Range/Units 10:11 11:24 WBC (3.8-10.6) k/uL RBC (4.30-5.90) m/uL Hgb (13.0-17.5) gm/dL Hct (39.0-53.0) % Plt Count (150-450) k/uL Neutrophils # (1.3-7.7) k/uL Sodium (137-145) mmol/L Creatinine (0.66-1.25) mg/dL POC Glucose (mg/dL) 106 H 134 H (75-99) mg/dL Calcium (8.4-10.2) mg/dL Magnesium (1.6-2.3) mg/dL AST (17-59) U/L Alkaline Phosphatase (38-126) U/L Total Protein (6.3-8.2) g/dL Albumin (3.5-5.0) g/dL Assessment and Plan Assessment: Impression: Postoperative day #2 Severe bicuspid aortic valve, status post aortic valve replacement with 25 mm Inspiris pericardial bioprosthesis Coronary artery disease, status post double coronary artery bypass grafting Severe mitral regurgitation, status post mitral valve repair History of previous NV and LV dysfunction and previous PCI in 2017 Ischemic cardiomyopathy Benign essential hypertension Dyslipidemia History of COVID-19 infection in June 14 021 History of fatty liver disease Family history of premature coronary artery disease Postoperative atelectasis, expected. GERD without esophagitis. Type 2 diabetes. Insulin-dependent. Recommendation: Continue incentive spirometry, ambulate Continue aspirin and Plavix beta blockers and statins Continue oral amiodarone. Any insulin Continue chest tubes and monitor daily x-rays of the chest. Mediastinal chest tube to be removed today. We'll continue to follow while in the ICU. Prognosis is excellent. Time with Patient: Less than 30
[2021-11-23 12:26] LABS: Glucose,Whole Blood 92 mg/dL (75-99)
[2021-11-23] MEDS: SODIUM CHLORIDE 0.9% 1,000 ML IV SCH (12:26)
[2021-11-23] MEDS: INSULIN ASPART (NovoLOG) 100 UNIT/ML VIAL SQ SCH ×2 (12:27→17:39)
[2021-11-23 13:35] LABS: Glucose,Whole Blood 138 mg/dL (75-99)
[2021-11-23 14:35] LABS: Glucose,Whole Blood 109 mg/dL (75-99)
[2021-11-23 15:22] LABS: Glucose,Whole Blood 97 mg/dL (75-99)
[2021-11-23] MEDS ORDERED: METOPROLOL TARTRATE 25 MG TAB PO SCH ×2 (16:00→21:00)
[2021-11-23 16:21] LABS: Glucose,Whole Blood 114 mg/dL (75-99)
[2021-11-23 17:11] LABS: Glucose,Whole Blood 92 mg/dL (75-99)
[2021-11-23 19:06] LABS: Glucose,Whole Blood 149 mg/dL (75-99)
[2021-11-23 20:17] LABS: Glucose,Whole Blood 125 mg/dL (75-99)
[2021-11-23] MEDS: SENNOSIDES-DOCUSATE SODIUM 1 EACH TAB PO SCH (20:19)
[2021-11-23] MEDS ORDERED: METOPROLOL TARTRATE 50 MG TAB PO SCH (21:00)
[2021-11-23 22:03] LABS: Glucose,Whole Blood 136 mg/dL (75-99)
[2021-11-24 00:03] LABS: Glucose,Whole Blood 88 mg/dL (75-99)
[2021-11-24 00:03] LABS: Glucose,Whole Blood 30 mg/dL (75-99)
[2021-11-24] MEDS: HEPARIN SODIUM,PORCINE/PF 5,000 UNIT/0.5 ML SYRINGE SQ SCH ×3 (00:04→17:19)
[2021-11-24 02:37] LABS: Glucose,Whole Blood 121 mg/dL (75-99)
[2021-11-24 04:21] LABS: Glucose,Whole Blood 143 mg/dL (75-99)
[2021-11-24] MEDS: HYDROcodone/APAP 5-325MG 1 EACH TAB PO PRN ×2 (04:22→04:26)
[2021-11-24] MEDS: ONDANSETRON 4 MG/2 ML VIAL IVP PRN ×2 (04:29→11:03)
[2021-11-24 04:34] LABS: Basophils % (A) 0 %; Eosinophils % (A) 0 %; HCT 28.2 % (39.0-53.0); HGB 9.2 gm/dL (13.0-17.5); Lymphocytes # (A) 1.8 k/uL (1.0-4.8); Lymphocytes % (A) 11 %; MCH 29.8 pg (25.0-35.0); MCHC 32.4 g/dL (31.0-37.0); Mean Platelet Volume 8.6; Monocytes # (A) 0.6 k/uL (0-1.0); Monocytes % (A) 3 %; Neutrophils # (A) 14.3 k/uL (1.3-7.7); Neutrophils % (A) 83 %; Platelet Count 131 k/uL (150-450); RBC 3.07 m/uL (4.30-5.90); RDW 14.5 % (11.5-15.5); WBC 17.2 k/uL (3.8-10.6)
[2021-11-24 04:59] LABS: Albumin 3.1 g/dL (3.5-5.0); Calcium 7.8 mg/dL (8.4-10.2); Potassium 5.3 mmol/L (3.5-5.1); Total Bilirubin 1.3 mg/dL (0.2-1.3); Total Protein 5.1 g/dL (6.3-8.2)
[2021-11-24] MEDS: INSULIN REGULAR 100 UNIT in SODIUM CHLORIDE 0.9% 100 ML IV SCH (05:04)
[2021-11-24 06:26] LABS: Glucose,Whole Blood 88 mg/dL (75-99)
[2021-11-24] MEDS: PANTOPRAZOLE 40 MG TABLET PO SCH (07:03)
[2021-11-24] MEDS: INSULIN DETEMIR (LEVEMIR) 100 UNIT/ML SYR SQ SCH ×2 (07:03→21:08)
[2021-11-24] MEDS: INSULIN ASPART (NovoLOG) 100 UNIT/ML VIAL SQ SCH ×6 (07:03→21:08)
--- NOTE | 2021-11-24 07:46 | XR ---
EXAMINATION TYPE: XR chest 1V portable DATE OF EXAM: 11/24/2021 Comparison: 11/23/2021 Clinical History: 61-year-old male post cardiac surgery Findings: Median sternotomy wires are present with prosthetic aortic valve. Heart mildly enlarged. Left basilar chest tube. No appreciable pneumothorax. Interstitial prominence. Small to moderate left and small l eft pleural effusions similar to slightly increased. Impression: Correlate for mild pulmonary vascular congestion. Continued small to moderate right and small left ef fusions with adjacent atelectasis and or consolidation. Similar to slightly increased.
[2021-11-24] MEDS: IPRATROPIUM-ALBUTEROL 3 ML NEB INHALATION SCH ×4 (07:51→20:12)
[2021-11-24 08:40] LABS: Glucose,Whole Blood 138 mg/dL (75-99)
[2021-11-24] MEDS: METOPROLOL TARTRATE 12.5 MG TAB PO SCH ×2 (09:04→21:08)
[2021-11-24] MEDS: LINAGLIPTIN 5 MG TABLET PO SCH (09:04)
[2021-11-24] MEDS: ASPIRIN 325 MG TAB PO SCH (09:04)
[2021-11-24] MEDS: CLOPIDOGREL 75 MG TAB PO SCH (09:04)
[2021-11-24] MEDS: CHOLECALCIFEROL 25 MCG (1000 IU) TABLET PO SCH (09:04)
[2021-11-24] MEDS: MUPIROCIN 2% OINT 22 GM TUBE NASAL SCH ×2 (09:05→21:08)
--- NOTE | 2021-11-24 09:28 | P.PN ---
Subjective Progress Note Date: 11/24/21 Principal diagnosis: Severe bicuspid aortic valve stenosis, coronary artery disease, moderate to severe mitral valve regurgitation and moderate left ventricular dysfunction. Previous medical history of coronary artery disease with previous myocardial infarction and PCI in 2016, hypertension, hyperlipidemia, insulin-dependent diabetes mellitus, fatty liver disease, prostate cancer status post prostatectomy in 2017, GERD, remote history of tobacco dependence, COVID-19 infection in June 2021, and a strong family history of premature coronary artery disease with his father having a CABG at age 54. Positive preoperative nasal screening for MSSA which was treated. POD #3 double coronary artery bypass grafting using a reverse saphenous vein graft from the aorta to the first obtuse marginal coronary artery, a reverse greater saphenous vein graft from the aorta to the posterior lateral branch of the circumflex coronary artery. Aortic valve replacement using a 25 mm Inspiris pericardial bioprosthesis. Mitral valve repair with posterior annuloplasty using a 30 mm AnnuloFlex band. Exclusion of the left atrial appendage using a 35 mm Atriclip. Intraoperative graft flow measurements using the Weavly-Stim sytem. Intraoperative transesophageal echocardiogram and epi-aortic scanning. Right greater saphenous vein harvest from the groin to above the ankle Acute blood loss anemia and thrombocytopenia, expected due to hemodilution and cardiopulmonary bypass Acute kidney injury, unexpected Elevated transaminases, unexpected The patient was seen and examined this morning sitting up in a recliner in the intensive care unit in no acute distress eating breakfast. Does complain of sharp pain to his back with deep inspiration otherwise no complaints of pain. He did have some shortness of breath last night, currently denies shortness of breath. Remains in sinus rhythm. Blood pressure marginal, currently on no inotropes or pressors. He did ambulate in the hallway 3 times yesterday. Patient has been voiding with some stress incontinence. Objective - Vital Signs Vital signs: Vital Signs Temp 97.7 F 11/24/21 04:00 Pulse 80 11/24/21 07:00 Resp 29 H 11/24/21 07:00 BP 104/63 11/24/21 07:00 Pulse Ox 95 11/24/21 07:00 Intake & Output 11/23/21 11/24/21 11/24/21 18:59 06:59 18:59 Intake Total 565.216 738.600 26 Output Total 215 660 0 Balance 350.216 78.600 26 Weight 111.2 kg Intake: IV 312 312 26 Pressure Bag 72 72 6 Sodium Chloride 0.9% 1, 240 240 20 000 ml @ 20 mls/hr IV . Q24H [facility] Rx#:[id number] Intake, IV Titration 53.216 66.600 Amount Insulin Regular 100 unit 53.216 66.600 In Sodium Chloride 0.9% 100 ml @ Per Protocol IV .Q0M [facility] Rx#:[id number] Oral 200 360 Output: Chest Tube Drainage 80 160 Chest Tube Mediastinal 0 Left Pleural 80 160 Urine 135 500 0 Other: Voiding Method Urinal Urinal # Voids 1 1 ABP, PAP, CO, CI - Last Documented Arterial Blood Pressure 97/48 Pulmonary Artery Pressure 39/23 Cardiac Output 7.8 Cardiac Index 3.6 - Exam CONSTITUTIONAL: Appears comfortable, cooperative, no acute distress RESPIRATORY: Lungs sounds diminished bilaterally. Respirations even, nonlabored. Currently on room air with oxygen saturation 93%. Able to achieve 1000 mL on incentive spirometry. Strong loose cough. CARDIOVASCULAR: S1, S2 present. Regular rate and rhythm, sinus rhythm on telemetry. Sternum stable. Palpable peripheral pulses bilaterally. Generalized edema present. No calf pain or tenderness noted. Heart hugger in place with patient demonstrating appropriate use. Antiembolism stockings, SCDs present. GASTROINTESTINAL: Abdomen soft, nontender, nondistended. Active bowel sounds present 4 quadrants. Tolerating diet GENITOURINARY: Continues to void. Output 635 mL in the last 24 hours with some episodes of stress incontinence which was not measured INTEGUMENTARY: Skin is warm and dry with evidence of good perfusion. Anterior chest incision well approximated and covered with dry intact dressing. Right EVH site well approximated without redness, some drainage present per nursing NEUROLOGIC: Cranial nerves II through XII intact MUSKULOSKELETAL: Able to move all extremities, strength equal bilaterally, gait normal PSYCHIATRIC: Alert and oriented to person place and time, appropriate affect, i ntact judgment and insight INVASIVE LINES AND TUBES: Left pleural chest tubes present and connected to wall suction, no air leaks present. Left pleural chest tube with 40 mL serosanguineous drainage overnight, 250 mL in the last 24 hours. Atrial epicardial pacemaker wires present, grounded. Right internal jugular Cordis, right radial arterial line present. - Labs CBC & Chem 7: 11/24/21 04:18 11/24/21 04:18 Labs: Abnormal Lab Results - Last 24 Hours (Table) 11/23/21 11/23/21 11/23/21 Range/Units 08:22 09:33 10:11 WBC (3.8-10.6) k/uL RBC (4.30-5.90) m/uL Hgb (13.0-17.5) gm/dL Hct (39.0-53.0) % Plt Count (150-450) k/uL Neutrophils # (1.3-7.7) k/uL Sodium (137-145) mmol/L Potassium (3.5-5.1) mmol/L Carbon Dioxide (22-30) mmol/L BUN (9-20) mg/dL Creatinine (0.66-1.25) mg/dL Glucose (74-99) mg/dL POC Glucose (mg/dL) 190 H 128 H 106 H (75-99) mg/dL Calcium (8.4-10.2) mg/dL AST (17-59) U/L ALT (4-49) U/L Total Protein (6.3-8.2) g/dL Albumin (3.5-5.0) g/dL 11/23/21 11/23/21 11/23/21 Range/Units 11:24 13:31 14:34 WBC (3.8-10.6) k/uL RBC (4.30-5.90) m/uL Hgb (13.0-17.5) gm/dL Hct (39.0-53.0) % Plt Count (150-450) k/uL Neutrophils # (1.3-7.7) k/uL Sodium (137-145) mmol/L Potassium (3.5-5.1) mmol/L Carbon Dioxide (22-30) mmol/L BUN (9-20) mg/dL Creatinine (0.66-1.25) mg/dL Glucose (74-99) mg/dL POC Glucose (mg/dL) 134 H 138 H 109 H (75-99) mg/dL Calcium (8.4-10.2) mg/dL AST (17-59) U/L ALT (4-49) U/L Total Protein (6.3-8.2) g/dL Albumin (3.5-5.0) g/dL 11/23/21 11/23/21 11/23/21 Range/Units 16:20 19:04 20:15 WBC (3.8-10.6) k/uL RBC (4.30-5.90) m/uL Hgb (13.0-17.5) gm/dL Hct (39.0-53.0) % Plt Count (150-450) k/uL Neutrophils # (1.3-7.7) k/uL Sodium (137-145) mmol/L Potassium (3.5-5.1) mmol/L Carbon Dioxide (22-30) mmol/L BUN (9-20) mg/dL Creatinine (0.66-1.25) mg/dL Glucose (74-99) mg/dL POC Glucose (mg/dL) 114 H 149 H 125 H (75-99) mg/dL Calcium (8.4-10.2) mg/dL AST (17-59) U/L ALT (4-49) U/L Total Protein (6.3-8.2) g/dL Albumin (3.5-5.0) g/dL 11/23/21 11/24/21 11/24/21 Range/Units 22:02 00:01 02:36 WBC (3.8-10.6) k/uL RBC (4.30-5.90) m/uL Hgb (13.0-17.5) gm/dL Hct (39.0-53.0) % Plt Count (150-450) k/uL Neutrophils # (1.3-7.7) k/uL Sodium (137-145) mmol/L Potassium (3.5-5.1) mmol/L Carbon Dioxide (22-30) mmol/L BUN (9-20) mg/dL Creatinine (0.66-1.25) mg/dL Glucose (74-99) mg/dL POC Glucose (mg/dL) 136 H 30 L 121 H (75-99) mg/dL Calcium (8.4-10.2) mg/dL AST (17-59) U/L ALT (4-49) U/L Total Protein (6.3-8.2) g/dL Albumin (3.5-5.0) g/dL 11/24/21 11/24/21 11/24/21 Range/Units 04:18 04:18 04:19 WBC 17.2 H (3.8-10.6) k/uL RBC 3.07 L (4.30-5.90) m/uL Hgb 9.2 L (13.0-17.5) gm/dL Hct 28.2 L (39.0-53.0) % Plt Count 131 L (150-450) k/uL Neutrophils # 14.3 H (1.3-7.7) k/uL Sodium 130 L (137-145) mmol/L Potassium 5.3 H (3.5-5.1) mmol/L Carbon Dioxide 17 L (22-30) mmol/L BUN 34 H (9-20) mg/dL Creatinine 2.23 H (0.66-1.25) mg/dL Glucose 134 H (74-99) mg/dL POC Glucose (mg/dL) 143 H (75-99) mg/dL Calcium 7.8 L (8.4-10.2) mg/dL AST 1045 H (17-59) U/L ALT 551 H (4-49) U/L Total Protein 5.1 L (6.3-8.2) g/dL Albumin 3.1 L (3.5-5.0) g/dL - Imaging and Cardiology Chest x-ray: report reviewed, image reviewed Assessment and Plan Assessment: 1. Severe bicuspid aortic valve stenosis, status post aortic valve replacement 2. Coronary artery disease with previous myocardial infarction and PCI in 2017, status post 2 vessel CABG 3. Moderate to severe mitral valve regurgitation, status post mitral valve repair 4. Moderate left ventricular dysfunction 5. History of hypertension, currently borderline hypotensive 6. Hyperlipidemia, treated, cholesterol 103, LDL 42 7. Insulin-dependent diabetes mellitus, uncontrolled with hyperglycemia, preoperative hemoglobin A1c 10.4% 8. Fatty liver disease with mild elevation in liver enzymes 9. Prostate cancer status post prostatectomy in 2018 10. GERD 11. Remote history of tobacco dependence 12. Severe restrictive lung disease with preoperative FEV1 49% of predicted 13. COVID-19 infection in June 2021, vaccinated but not boosted against covid 14. Strong family history of premature coronary artery disease with his father having a CABG at age 54 15. Positive preoperative nasal screening for MSSA 16. Acute blood loss anemia and thrombocytopenia, expected due to hemodilution and cardiopulmonary bypass 17. Acute kidney injury, unexpected, likely due to hypotension 18. Elevated transaminases, unexpected, likely due to hypotension Plan: 1. Continue aspirin, Plavix and beta roosevelt. Metoprolol decreased to 12.5 mg twice daily. Will hold statins for now due to elevated transaminases 2. Amiodarone discontinued due to elevated transaminases 3. Wean oxygen as tolerated. Encourage incentive spirometry use 10 times every hour while awake. Bronchodilators per pulmonology 4. Increase activity, ambulate ambulate as tolerated. Out of bed for all meals. PT/OT/cardiac rehab following 5. Will monitor daily labs and chest x-rays. Electrolyte replacement per protocol. Nephrology consult appreciated 6. Pain control per current medication regimen. Discontinued Barry, started tramadol 7. Insulin management per primary care service. The patient needs tight blood sugar control to promote healing and sternal union as well as prevent infection 8. Will discontinue left pleural chest tube 9. Will discontinue Cordis later today. Keep arterial line until patient's transferred to [address] [place] [id number] cardiac stepdown unit 10. Strict accurate intake and output. Daily weights 11. Newman catheter discontinued yesterday, may bladder scan and straight cath for greater than 300 mL residual 12. Continue mupirocin 2% nasal ointment as directed for positive for preoperative nasal screen of MSSA. 13. More recommendations to follow based on patient's clinical course.
--- NOTE | 2021-11-24 09:39 | P.NPCON ---
History of Present Illness - Reason for Consult acute renal failure - History of Present Illness Reason for consultation: Acute kidney injury History of present illness: Patient is a 61-year-old male seen in renal consultation for acute kidney injury. Patient's creatinine on admission was 0.7 to and is up to 2.23 today. Patient has history of coronary artery disease with cardiac stenting in the past. Patient also has history of CVA aortic stenosis, moderate aortic regurgitation and severe mitral regurgitation. Patient underwent CABG with aortic valve replacement on 11/21/2021. Last night the patient became quite hypotensive with blood pressure in the systolic 70s. This morning patient's renal function is worse an AST and healthy are noted to be elevated as well. Patient denies any prior history of kidney disease. No vomiting or diarrhea. Oral intake is fair. Denies any chest pain or shortness breath at this time. No fever or chills. No cough. He does have long-standing history of diabetes. He denies any family history of renal disease. Amiodarone has been discontinued and dose of Lopressor has been decreased. Vital signs are stable. Blood pressure on the lower side. Most recent blood pressure 97/48. General: Awake and alert. No acute distress. HEENT: Head exam is unremarkable. LUNGS: Breath sounds decreased. HEART: Rate and Rhythm are regular. ABDOMEN: Soft, obese. EXTREMITITES: 1+ edema right lower extremity. Trace edema in the left lower extremity. Past Medical History Past Medical History: Coronary Artery Disease (CAD), Cancer, Diabetes Mellitus, GERD/Reflux, Hearing Disorder / Deafness, Hyperlipidemia, Hypertension, Liver Disease, Musculoskeletal Disorder, Osteoarthritis (OA) Additional Past Medical History / Comment(s): SEASONAL ALLERGIES. FATTY LIVER. prostate ca 4 yrs. ago, recent occasional chest pressure & back pain for a few months, SOB w/exertion, mild ankle swelling, seen in [facility] yesterday for SOB & edema in feet & ankles Last Myocardial Infarction Date:: 01/14/2017 History of Any Multi-Drug Resistant Organisms: None Reported Past Surgical History: Heart Catheterization With Stent, Hernia Repair, Joint Replacement, Prostate Surgery Additional Past Surgical History / Comment(s): PROSTATECTOMY. NABEEL 03/23/20, COLONOSCOPY, TRAUMATIC AMP RT 3RD AND 4TH FINGERTIPS, TOTAL LT HIP., penile implant, right hand trigger finger surg. Past Anesthesia/Blood Transfusion Reactions: No Reported Reaction Date of Last Stent Placement:: January 2017. Smoking Status: Former smoker - Past Family History Mother Family Medical History: No Reported History, Coronary Artery Disease (CAD) Additional Family Medical History / Comment(s): CABG and stent Father Family Medical History: Coronary Artery Disease (CAD) Additional Family Medical History / Comment(s): CABG x2 Brother(s) Family Medical History: Coronary Artery Disease (CAD), Myocardial Infarction ([place]) Additional Family Medical History / Comment(s): coronary stents Sister(s) Family Medical History: No Reported History Additional Family Medical History / Comment(s): cardiac arrythmia Daughter(s) Family Medical History: No Reported History Son(s) Family Medical History: No Reported History Medications and Allergies Home Medications Medication Instructions Recorded Confirmed Type Linagliptin [Tradjenta] 5 mg PO DAILY 12/18/13 11/21/21 History glipiZIDE [Glucotrol XL] 5 mg PO DAILY 12/18/13 11/21/21 History Desloratadine [Clarinex] 5 mg PO DAILY 09/21/15 11/21/21 History Famotidine [Pepcid] 20 mg PO DAILY 03/18/20 11/21/21 History Baclofen [Lioresal] 10 mg PO HS PRN 10/20/21 11/21/21 History Insulin Glargine,Hum.rec.anlog 30 unit SQ QAM 10/20/21 11/21/21 History [Lantus Solostar Pen] Simvastatin 40 mg PO HS #30 tablet 10/26/21 11/21/21 Rx Aspirin EC [Ecotrin Low Dose] 81 mg PO DAILY 10/28/21 11/21/21 History Cholecalciferol [Vitamin D3 (25 25 mcg PO DAILY 10/28/21 11/21/21 History Mcg = 1000 Iu)] Ibuprofen [Motrin] 800 mg PO Q8H PRN 10/28/21 11/21/21 History Nitroglycerin Sl Tabs [Nitrostat] 0.4 mg SL Q5M PRN 10/28/21 11/21/21 History Zinc 50 mg PO DAILY 10/28/21 11/21/21 History Metoprolol Tartrate [Lopressor] 50 mg PO BID tab 10/29/21 11/21/21 Rx amLODIPine [Norvasc] 5 mg PO DAILY #30 tab 10/29/21 11/21/21 Rx Ubidecarenone [Co Q-10] 100 mg PO BID 11/14/21 11/21/21 History metFORMIN HCL [Glucophage] 1,000 mg PO BID 11/14/21 11/21/21 History Furosemide [Lasix] 20 mg PO BID 11/15/21 11/21/21 History Fluticasone Nasal Mcdade [Flonase 2 spray EA NOSTRIL DAILY PRN 11/17/21 11/21/21 History Nasal Mcdade] Mupirocin [Mupirocin 2%] 1 applic NASAL BID #1 tub 11/18/21 11/21/21 Rx Allergies Allergy/AdvReac Type Severity Reaction Status Date / Time No Known Allergies Allergy Verified 11/21/21 06:09 Physical Exam Vitals: Vital Signs Temp Pulse Resp BP Pulse Ox 11/24/21 08:01 78 16 11/24/21 07:51 82 16 94 L 11/24/21 07:00 80 29 H 104/63 95 11/24/21 06:20 90 26 H 114/63 97 11/24/21 05:00 78 21 113/69 96 11/24/21 04:00 97.7 F 77 20 100/69 93 L 11/24/21 03:00 77 24 89/58 96 11/24/21 02:00 66 24 93 L 11/24/21 01:00 76 23 99/63 96 11/24/21 00:05 80 24 95 11/24/21 00:00 98 F 80 22 95/64 96 11/23/21 23:00 80 19 126/78 95 11/23/21 22:00 90 21 115/73 93 L 11/23/21 21:00 92 34 H 133/76 92 L 11/23/21 20:00 98.2 F 87 21 100/58 97 11/23/21 19:49 96 11/23/21 19:47 84 11/23/21 19:40 85 27 H 94 L 11/23/21 18:50 86 29 H 100/58 91 L 11/23/21 18:40 79 22 100/58 92 L 11/23/21 18:30 80 23 100/58 93 L 11/23/21 18:20 81 23 100/58 93 L 11/23/21 18:10 80 23 100/58 91 L 11/23/21 18:00 81 29 H 114/67 92 L 11/23/21 17:00 85 27 H 111/71 90 L 11/23/21 16:00 98.1 F 82 26 H 114/68 92 L 11/23/21 15:18 82 11/23/21 15:10 81 11/23/21 15:00 83 23 106/63 93 L 11/23/21 14:00 83 24 99/53 92 L 11/23/21 13:00 85 22 116/77 95 11/23/21 12:00 98.2 F 86 29 H 107/70 96 11/23/21 11:38 75 11/23/21 11:28 80 11/23/21 11:01 28 H 95/64 96 11/23/21 10:00 80 22 121/67 96 Intake and Output 11/23/21 11/24/21 11/24/21 22:59 06:59 14:59 Intake Total 219.5 623.100 26 Output Total 50 640 0 Balance 169.5 -16.900 26 Intake: IV 208 208 26 Pressure Bag 48 48 6 Sodium Chloride 0.9% 1, 160 160 20 000 ml @ 20 mls/hr IV . Q24H ROWAN Rx#:[id number] Intake, IV Titration 11.5 55.100 Amount Insulin Regular 100 unit 11.5 55.100 In Sodium Chloride 0.9% 100 ml @ Per Protocol IV .Q0M ROWAN Rx#:[id number] Oral 360 Output: Chest Tube Drainage 50 140 Left Pleural 50 140 Urine 0 500 0 Other: Voiding Method Urinal Urinal # Voids 1 1 Weight 111.2 kg ABP, PAP, CO, CI - Last 8 Hours Arterial Blood Pressure 97/48 Arterial Blood Pressure 105/49 Arterial Blood Pressure 108/55 Arterial Blood Pressure 110/58 Arterial Blood Pressure 101/54 Arterial Blood Pressure 71/44 Cardiac Output 7.8 Cardiac Output 7.8 Cardiac Output 7.8 Cardiac Index 3.6 Cardiac Index 3.6 Cardiac Index 3.6 Results - Lab Results Most recent lab results ABG pH 7.38 (7.35-7.45) 11/21/21 21:05 ABG pCO2 37 mmHg (35-45) 11/21/21 21:05 ABG pO2 124 mmHg (83-108) H 11/21/21 21:05 ABG HCO3 22 mmol/L (21-25) 11/21/21 21:05 ABG O2 Saturation 98.6 % (94-97) H 11/21/21 21:05 Calcium 7.8 mg/dL (8.4-10.2) L 11/24/21 04:18 Magnesium 2.4 mg/dL (1.6-2.3) H 11/23/21 04:00 11/24/21 04:18 11/24/21 04:18 Assessment and Plan Plan: Assessment: 1. Acute kidney injury secondary to ATN secondary to hypotension. Creatinine was 0.7-1 admission and is 2.23 today. Recent bladder scan negative. 2. Coronary artery disease status post CABG and aortic valve replacement 11/21/2021. 3. Hyponatremia secondary to acute kidney injury. Hypervolemic. 4. Metabolic acidosis secondary to acute kidney injury. 5. Diabetes mellitus. 6. Hypotension. Amiodarone discontinued. Dose of Lopressor decreased. Rule out adrenal insufficiency. 7. Volume overload. Plan: Add midodrine 5 mg 3 times daily. Hold for systolic blood pressure greater than 110. Check urinalysis. Continue to monitor bladder scans to rule out urinary retention. Check renal ultrasound. Check a.m. cortisol level. Add oral bicarbonate. Hold off on diuretics as blood pressure is low. Continue to monitor. Currently on room air. Thank you for the consultation. I will continue to follow the patient with you during his hospital stay.
[2021-11-24] MEDS: traMADol 50 MG TAB PO PRN (09:46)
[2021-11-24 11:09] LABS: Glucose,Whole Blood 174 mg/dL (75-99)
[2021-11-24] MEDS: SODIUM BICARBONATE TAB 650 MG TAB PO SCH ×2 (12:26→21:14)
[2021-11-24] MEDS: SODIUM CHLORIDE 0.9% 1,000 ML IV SCH (12:26)
[2021-11-24] MEDS: MIDODRINE 5 MG TAB PO SCH ×2 (12:26→17:20)
--- NOTE | 2021-11-24 12:59 | P.PN ---
Subjective Progress Note Date: 11/24/21 Principal diagnosis: POD #3 double coronary artery bypass grafting using a reverse saphenous vein graft from the aorta to the first obtuse marginal coronary artery, a reverse greater saphenous vein graft from the aorta to the posterior lateral branch of the circumflex coronary artery. Aortic valve replacement using a 25 mm Inspiris pericardial bioprosthesis. Mitral valve repair with posterior annuloplasty using a 30 mm AnnuloFlex band. Exclusion of the left atrial appendage using a 35 mm Atriclip. This is a 61-year-old white male with history of bicuspid aortic valve stenosis, coronary artery disease, moderate to severe mitral valve regurgitation moderate LV dysfunction, history of previous DC and PCI in 2017, patient underwent double coronary bypass grafting yesterday using reverse saphenous vein graft from the aorta to the first obtuse marginal coronary artery reverse greater saphenous vein graft from the aorta to the posterior lateral branch of the circumflex artery, aortic valve replacement, mitral valve repair with posterior annuloplasty, postoperatively patient was admitted to the ICU, and I was asked to see him on consultation. I was notified on this patient about his ventilator settings early evening, and I have adjusted the ventilator settings based on the ABG. A few hours later, I was notified about this patient weaning, and he had excellent weaning parameters, I recommended extubating the patient, and he was extubated uneventfully. Patient was evaluated today, he is doing well, he is on 3 L nasal cannula, sating at a bedside chair, in no distress. Patient is on amiodarone drip, milrinone drip at 0.15, insulin drip at 12 units per hour, his cardiac index is 4.2, chest x-ray showed minimal atelectasis, no evidence of congestive heart failure, and the patient seems to be well, tolerated the extubation quite well overnight. Patient was reevaluated today on 11/23/2021, patient remains in the ICU, doing quite well, hemodynamically stable, on 1 L nasal cannula, denies any distress, had some minimal surgical site pain. Patient is not requiring any inotropes. CVP today is 15, patient is doing well with incentive spirometry achieving over 1250. Continues to have left pleural and mediastinal chest tubes. No air leak. Minimal output from the mediastinal chest tube, hence it would likely be removed today. Labs are unremarkable except for slight rise in his creatinine. Patient had a good cardiac index yesterday before going off milrinone. WBC count today is 15 hemoglobin is 9, basic metabolic profile is normal BUN is 17 and creatinine 1.2. Chest x-ray showed minimal right lower lobe atelectasis, doubt infiltrate. Reevaluated today on 11/24/2021, patient is postoperative day #3. Continues to do clinically well, relatively asymptomatic, however the patient is developing a picture of acute kidney injury, unexpected. And elevated liver enzymes, unexpected, patient is being followed by nephrology. Apparently had some shortness of breath last night, presently asymptomatic, he is on few liters nasal cannula, and his O2 saturation is in the 90s. Patient is now off amiodarone, he is on insulin, on tradjenta had overall clinically the patient is doing well, but there is a concern about his renal profile, liver profile, and a chest x-ray is showing a worsening atelectasis at the bases, clinically doubt infiltrate, patient does have a productive cough, and I recommended sputum cultures before deciding on antibiotics. Objective - Vital Signs Vital signs: Vital Signs Temp 98.2 F 11/24/21 08:00 Pulse 72 11/24/21 11:52 Resp 16 11/24/21 11:52 BP 97/58 11/24/21 11:00 Pulse Ox 92 L 11/24/21 11:00 Intake & Output 11/23/21 11/24/21 11/24/21 18:59 06:59 18:59 Intake Total 565.216 738.600 130 Output Total 215 660 0 Balance 350.216 78.600 130 Weight 111.2 kg Intake: IV 312 312 130 Pressure Bag 72 72 30 Sodium Chloride 0.9% 1, 240 240 100 000 ml @ 20 mls/hr IV . Q24H [facility]OWAN Rx#:[id number] Intake, IV Titration 53.216 66.600 Amount Insulin Regular 100 unit 53.216 66.600 In Sodium Chloride 0.9% 100 ml @ Per Protocol IV .Q0M ROWAN Rx#:[id number] Oral 200 360 Output: Chest Tube Drainage 80 160 Chest Tube Mediastinal 0 Left Pleural 80 160 Urine 135 500 0 Other: Voiding Method Urinal Urinal Urinal # Voids 1 1 1 ABP, PAP, CO, CI - Last Documented Arterial Blood Pressure 97/47 Pulmonary Artery Pressure 39/23 Cardiac Output 7.8 Cardiac Index 3.6 - Exam Gen.: Revealed a 61-year-old white male, sitting in a bedside chair, on 4 L nasal cannula, asymptomatic. HEENT: PERRLA, EOMI, nonicteric, right IJ Cordis noted in place. RESPIRATORY: Symmetrical chest expansion, slightly diminished breath sounds at the left base. CARDIOVASCULAR: Distant S1 and S2, no S3 gallop, positive pericardial rub. GASTROINTESTINAL: Abdomen soft, nontender, nondistended. No guarding. Good bowel sounds. INTEGUMENTARY: No rashes. NEUROLOGIC: Alert and oriented 3 no gross focal deficits. MUSKULOSKELETAL: No deformities and no limitation in range of motion. PSYCHIATRIC: Normal mood, affect and normal mental status examination. - Labs CBC & Chem 7: 11/24/21 04:18 11/24/21 04:18 Labs: Abnormal Lab Results - Last 24 Hours (Table) 11/23/21 11/23/21 11/23/21 Range/Units 13:31 14:34 16:20 WBC (3.8-10.6) k/uL RBC (4.30-5.90) m/uL Hgb (13.0-17.5) gm/dL Hct (39.0-53.0) % Plt Count (150-450) k/uL Neutrophils # (1.3-7.7) k/uL Sodium (137-145) mmol/L Potassium (3.5-5.1) mmol/L Carbon Dioxide (22-30) mmol/L BUN (9-20) mg/dL Creatinine (0.66-1.25) mg/dL Glucose (74-99) mg/dL POC Glucose (mg/dL) 138 H 109 H 114 H (75-99) mg/dL Calcium (8.4-10.2) mg/dL AST (17-59) U/L ALT (4-49) U/L Total Protein (6.3-8.2) g/dL Albumin (3.5-5.0) g/dL 11/23/21 11/23/21 11/23/21 Range/Units 19:04 20:15 22:02 WBC (3.8-10.6) k/uL RBC (4.30-5.90) m/uL Hgb (13.0-17.5) gm/dL Hct (39.0-53.0) % Plt Count (150-450) k/uL Neutrophils # (1.3-7.7) k/uL Sodium (137-145) mmol/L Potassium (3.5-5.1) mmol/L Carbon Dioxide (22-30) mmol/L BUN (9-20) mg/dL Creatinine (0.66-1.25) mg/dL Glucose (74-99) mg/dL POC Glucose (mg/dL) 149 H 125 H 136 H (75-99) mg/dL Calcium (8.4-10.2) mg/dL AST (17-59) U/L ALT (4-49) U/L Total Protein (6.3-8.2) g/dL Albumin (3.5-5.0) g/dL 11/24/21 11/24/21 11/24/21 Range/Units 00:01 02:36 04:18 WBC 17.2 H (3.8-10.6) k/uL RBC 3.07 L (4.30-5.90) m/uL Hgb 9.2 L (13.0-17.5) gm/dL Hct 28.2 L (39.0-53.0) % Plt Count 131 L (150-450) k/uL Neutrophils # 14.3 H (1.3-7.7) k/uL Sodium (137-145) mmol/L Potassium (3.5-5.1) mmol/L Carbon Dioxide (22-30) mmol/L BUN (9-20) mg/dL Creatinine (0.66-1.25) mg/dL Glucose (74-99) mg/dL POC Glucose (mg/dL) 30 L 121 H (75-99) mg/dL Calcium (8.4-10.2) mg/dL AST (17-59) U/L ALT (4-49) U/L Total Protein (6.3-8.2) g/dL Albumin (3.5-5.0) g/dL 11/24/21 11/24/21 11/24/21 Range/Units 04:18 04:19 08:39 WBC (3.8-10.6) k/uL RBC (4.30-5.90) m/uL Hgb (13.0-17.5) gm/dL Hct (39.0-53.0) % Plt Count (150-450) k/uL Neutrophils # (1.3-7.7) k/uL Sodium 130 L (137-145) mmol/L Potassium 5.3 H (3.5-5.1) mmol/L Carbon Dioxide 17 L (22-30) mmol/L BUN 34 H (9-20) mg/dL Creatinine 2.23 H (0.66-1.25) mg/dL Glucose 134 H (74-99) mg/dL POC Glucose (mg/dL) 143 H 138 H (75-99) mg/dL Calcium 7.8 L (8.4-10.2) mg/dL AST 1045 H (17-59) U/L ALT 551 H (4-49) U/L Total Protein 5.1 L (6.3-8.2) g/dL Albumin 3.1 L (3.5-5.0) g/dL 11/24/21 Range/Units 11:08 WBC (3.8-10.6) k/uL RBC (4.30-5.90) m/uL Hgb (13.0-17.5) gm/dL Hct (39.0-53.0) % Plt Count (150-450) k/uL Neutrophils # (1.3-7.7) k/uL Sodium (137-145) mmol/L Potassium (3.5-5.1) mmol/L Carbon Dioxide (22-30) mmol/L BUN (9-20) mg/dL Creatinine (0.66-1.25) mg/dL Glucose (74-99) mg/dL POC Glucose (mg/dL) 174 H (75-99) mg/dL Calcium (8.4-10.2) mg/dL AST (17-59) U/L ALT (4-49) U/L Total Protein (6.3-8.2) g/dL Albumin (3.5-5.0) g/dL Assessment and Plan Assessment: Impression: Postoperative day #3 Severe bicuspid aortic valve, status post aortic valve replacement with 25 mm Inspiris pericardial bioprosthesis Coronary artery disease, status post double coronary artery bypass grafting Severe mitral regurgitation, status post mitral valve repair History of previous DC and LV dysfunction and previous PCI in 2016 Ischemic cardiomyopathy Benign essential hypertension Dyslipidemia History of COVID-19 infection in June 14 021 History of fatty liver disease Family history of premature coronary artery disease Postoperative atelectasis, expected. GERD without esophagitis. Type 2 diabetes. Insulin-dependent. Recommendation: Continue incentive spirometry, ambulate Continue aspirin and Plavix beta blockers Continue insulin Check sputum cultures consider antibiotics if necessary. Nephrology is addressing his renal status, We'll continue to follow while in the ICU. Time with Patient: Less than 30
--- NOTE | 2021-11-24 13:46 | US ---
EXAMINATION TYPE: US kidneys/renal and bladder DATE OF EXAM: 11/24/2021 COMPARISON: NONE CLINICAL HISTORY: 61 year-old male acute kidney injury Exam done portable in ICU with patient sitting in chair TECHNIQUE: Multiple sonographic images of the kidneys and bladder are obtained. FINDINGS: EXAM MEASUREMENTS: Right Kidney: 10.5 x 5.1 x 6.0 cm Left Kidney: 11.3 x 5.9 x 5.4 cm Right Kidney: No hydronephrosis or masses seen Left Kidney: No hydronephrosis or masses seen Bladder: Partially distended but with Newman catheter balloon is visualized on periphery of the bladde r lumen. IMPRESSION: 1. No hydronephrosis. 2. The bladder remains partially distended despite the Newman catheter balloon seen within the bladder . Clinically correlate.
--- NOTE | 2021-11-24 14:37 | P.PN ---
Subjective Progress Note Date: 11/24/21 HISTORY OF PRESENT ILLNESS This is a 61 year old male patient of Dr. Sridhar Tavarez with past medical history of hypertension, hypertensive cardiovascular disease, coronary artery disease status post stent in 2017, severe aortic stenosis, chronic diastolic heart failure, diabetes mellitus type 2, gastroesophageal reflux disease, hyperlipidemia, benign prostatic hypertrophy, prostate cancer status post prostatectomy in 2018 under the care of Dr. Willis, remote history of tobacco use, generalized osteoarthritis. Cardiac catheterization 10/21/2021 showed chronic total occlusion of mid RCA patent stent to the LAD 60-70% stenosis to the diagonal branch of the LAD 90% stenosis of the circumflex coronary artery and 70-80% stenosis to the OM branch. NABEEL revealed moderate aortic regurgitation, severe central mitral regurgitation, mild tricuspid regurgitation and normal left ventricular function. Patient has been brought into the hospital under the care of cardiothoracic surgery status post double coronary artery bypass grafting using a reverse saphenous vein graft from the aorta to the first obtuse marginal coronary artery, a reverse greater saphenous vein graft from the aorta to the posterior lateral branch of the circumflex coronary artery, aortic valve replacement using bioprosthesis, mitral valve repair with posterior annuloplasty, exclusion of the left atrial appendage using a 35 mm Atriclip. Patient is seen today in the ICU, successfully extubated, resting and recliner. Patient states he has discomfort in his chest pain is controlled. His last A1c was 10.4 on 10/21/2021. He states he was recently started on insulin and is currently on insulin drip. WBC 10.7, hemoglobin 9.6 and platelet count 95. Sodium 140, potassium 4.1, chloride 109, CO2 21, BUN 10 and creatinine 0.84. Blood sugar 147. 4/13: Patient is seen in the intensive care unit. He states he slept appetite in bed in half and recliner. He was also up walking today and felt he did well. Blood sugars are running between 128 and 190 however patient is on a high-dose of insulin 13 units per hour. We will increase Levemir, and NovoLog with meals scheduled, resume Tradjenta and add NovoLog scale and titrate off insulin drip. Repeat chest x-ray reveals mild right lower lobe atelectasis or developing infiltrate. [place]-Mirian catheter is been removed. Mediastinal chest tubes and left chest tube remains intact as well as Newman catheter. He is reaching 1500 miles on incentive spirometry. datastage developer sinus rhythm. 11/24: Patient remains in the intensive care unit. Patient had hypoglycemia at midnight but he was still on insulin drip on top of the scheduled long-acting and short acting. The insulin drip was discontinued this morning and patient to continue on Levemir scheduled NovoLog and NovoLog scale., Platelet count 131. Sodium 130, potassium 5.3, chloride 103, CO2 17, BUN 34 creatinine 2.23. AST 1045, ALT 551. Alkaline phosphatase 82. Consult was added for nephrology with recommendations to add midodrine, and bicarb and hold diuretics as blood pressure is low.patient denies having any chest pain. He has ambulated in the hallway. .metoprolol was decreased, amiodarone was discontinued and statin on hold renal ultrasound reveals no hydronephrosis. Bladder remains partially distended despite the Newman catheter balloon seen within the bladder. REVIEW OF SYSTEMS Constitutional: No fever, no chills, no night sweats. No weight change. Mild generalized weakness and fatigue. No daytime sleepiness. EENT: No headache. No blurred vision or double vision, no loss of vision. No loss of Hearing, no ringing in the ears, no dizziness. No nasal drainage or congestion. No epistaxis. No sore throat. Lungs: No shortness of breath, cough, no sputum production. No wheezing. Cardiovascular: Reports chest discomfort mild, no lower extremity edema. No palpitations. No paroxysmal nocturnal dyspnea. No orthopnea. No lightheade dness or dizziness. No syncopal episodes. Abdominal: No abdominal pain. No nausea, vomiting. No diarrhea. No constipation. No bloody or tarry stools. No loss of appetite. Genitourinary: No dysuria, increased frequency, urgency. No urinary retention. Musculoskeletal: No myalgias. No muscle weakness, no gait dysfunction, no frequent falls. No back pain. No neck pain. Integumentary: No wounds, no lesions. No rash or pruritus. No unusual bruising. No change in hair or nails. Neurologic: No aphasia. No facial droop. No change in mentation. No head injury. No headache. No paralysis. No paresthesia. Psychiatric: No depression. No anxiety. No mood swings. Endocrine: Noted abnormal blood sugars with episode of hypoglycemia. No weight change. No excessive sweating or thirst. PHYSICAL EXAMINATION Gen: This is a 61-year-old male. He is resting and recliner and appears to be comfortable at rest. No acute distress noted. HEENT: Head is atraumatic, normocephalic. Pupils equal, round. Sclerae is anicteric. NECK: Supple. Trachea midline. LUNGS: Clear to auscultation. No wheezes or rhonchi. No intercostal retractions. Mediastinal chest tubes in place, left pleural chest tube HEART: Regular rate and rhythm. No murmur. datastage developer is sinus rhythm ABDOMEN: Soft. Bowel sounds are present. No masses. No tenderness. EXTREMITIES: No pedal edema. No calf tenderness. NEUROLOGICAL: Patient is awake, alert and oriented x3. Cranial nerves 2 through 12 are grossly intact. ASSESSMENT AND PLAN 1. Coronary artery disease status post double CABG 11/21. Continue aspirin, Lipitor, Plavix, Lopressor. 2. Severe bicuspid aortic valve stenosis status post aortic valve replacement. Continue current management per cardiothoracic surgery team. Patient has been recommended to have children checked for bicuspid valve. 3. Moderate to severe mitral valve regurgitation status post mitral valve repair. 4. Coronary artery disease with previous PCI/stent. 5. Chronic diastolic heart failure. 6. Hypertension, hypertensive cardiovascular disease. Continue Lopressor. 7. Thrombocytopenia secondary to surgery, not unexpected with illness or surgery. Continue to monitor 8. Anemia, acute blood loss expected with surgery. 9. Diabetes mellitus type 2. Hemoglobin A1c 10.4. Patient is currently on insulin drip and Levemir 10 units twice daily will be added with plan to transition patient off the insulin drip tomorrow. 10. acute kidney injury secondary to ATN secondary to hypotension. Consult with nephrology appreciated. Midodrine was added, renal ultrasound as above. 11. Metabolic acidosis secondary to acute kidney injury. Patient was started on bicarb. 12. Hyponatremia. 13. Transaminitis. Amiodarone discontinued and statin placed on hold. 14. Gastroesophageal reflux disease. Continue Protonix. 14. DVT prophylaxis. Heparin subcu. CODE STATUS: Full code DISCHARGE PLAN Home with [facility]. Impression and plan of care have been directed as dictated by the signing physician. Harmony Hernandez nurse practitioner acting as scribe for signing physician. Objective - Vital Signs Vital signs: Vital Signs Temp 97.7 F 11/24/21 04:00 Pulse 78 11/24/21 08:01 Resp 16 11/24/21 08:01 BP 104/63 11/24/21 07:00 Pulse Ox 94 L 11/24/21 07:51 Intake & Output 11/23/21 11/24/21 11/24/21 18:59 06:59 18:59 Intake Total 565.216 738.600 26 Output Total 215 660 0 Balance 350.216 78.600 26 Weight 111.2 kg Intake: IV 312 312 26 Pressure Bag 72 72 6 Sodium Chloride 0.9% 1, 240 240 20 000 ml @ 20 mls/hr IV . Q24H [facility] Rx#:[id number] Intake, IV Titration 53.216 66.600 Amount Insulin Regular 100 unit 53.216 66.600 In Sodium Chloride 0.9% 100 ml @ Per Protocol IV .Q0M [facility] Rx#:[id number] Oral 200 360 Output: Chest Tube Drainage 80 160 Chest Tube Mediastinal 0 Left Pleural 80 160 Urine 135 500 0 Other: Voiding Method Urinal Urinal # Voids 1 1 ABP, PAP, CO, CI - Last Documented Arterial Blood Pressure 97/48 Pulmonary Artery Pressure 39/23 Cardiac Output 7.8 Cardiac Index 3.6 - Labs CBC & Chem 7: 11/24/21 04:18 11/24/21 04:18 Labs: Abnormal Lab Results - Last 24 Hours (Table) 11/23/21 11/23/21 11/23/21 Range/Units 09:33 10:11 11:24 WBC (3.8-10.6) k/uL RBC (4.30-5.90) m/uL Hgb (13.0-17.5) gm/dL Hct (39.0-53.0) % Plt Count (150-450) k/uL Neutrophils # (1.3-7.7) k/uL Sodium (137-145) mmol/L Potassium (3.5-5.1) mmol/L Carbon Dioxide (22-30) mmol/L BUN (9-20) mg/dL Creatinine (0.66-1.25) mg/dL Glucose (74-99) mg/dL POC Glucose (mg/dL) 128 H 106 H 134 H (75-99) mg/dL Calcium (8.4-10.2) mg/dL AST (17-59) U/L ALT (4-49) U/L Total Protein (6.3-8.2) g/dL Albumin (3.5-5.0) g/dL 11/23/21 11/23/21 11/23/21 Range/Units 13:31 14:34 16:20 WBC (3.8-10.6) k/uL RBC (4.30-5.90) m/uL Hgb (13.0-17.5) gm/dL Hct (39.0-53.0) % Plt Count (150-450) k/uL Neutrophils # (1.3-7.7) k/uL Sodium (137-145) mmol/L Potassium (3.5-5.1) mmol/L Carbon Dioxide (22-30) mmol/L BUN (9-20) mg/dL Creatinine (0.66-1.25) mg/dL Glucose (74-99) mg/dL POC Glucose (mg/dL) 138 H 109 H 114 H (75-99) mg/dL Calcium (8.4-10.2) mg/dL AST (17-59) U/L ALT (4-49) U/L Total Protein (6.3-8.2) g/dL Albumin (3.5-5.0) g/dL 11/23/21 11/23/21 11/23/21 Range/Units 19:04 20:15 22:02 WBC (3.8-10.6) k/uL RBC (4.30-5.90) m/uL Hgb (13.0-17.5) gm/dL Hct (39.0-53.0) % Plt Count (150-450) k/uL Neutrophils # (1.3-7.7) k/uL Sodium (137-145) mmol/L Potassium (3.5-5.1) mmol/L Carbon Dioxide (22-30) mmol/L BUN (9-20) mg/dL Creatinine (0.66-1.25) mg/dL Glucose (74-99) mg/dL POC Glucose (mg/dL) 149 H 125 H 136 H (75-99) mg/dL Calcium (8.4-10.2) mg/dL AST (17-59) U/L ALT (4-49) U/L Total Protein (6.3-8.2) g/dL Albumin (3.5-5.0) g/dL 11/24/21 11/24/21 11/24/21 Range/Units 00:01 02:36 04:18 WBC 17.2 H (3.8-10.6) k/uL RBC 3.07 L (4.30-5.90) m/uL Hgb 9.2 L (13.0-17.5) gm/dL Hct 28.2 L (39.0-53.0) % Plt Count 131 L (150-450) k/uL Neutrophils # 14.3 H (1.3-7.7) k/uL Sodium (137-145) mmol/L Potassium (3.5-5.1) mmol/L Carbon Dioxide (22-30) mmol/L BUN (9-20) mg/dL Creatinine (0.66-1.25) mg/dL Glucose (74-99) mg/dL POC Glucose (mg/dL) 30 L 121 H (75-99) mg/dL Calcium (8.4-10.2) mg/dL AST (17-59) U/L ALT (4-49) U/L Total Protein (6.3-8.2) g/dL Albumin (3.5-5.0) g/dL 11/24/21 11/24/21 11/24/21 Range/Units 04:18 04:19 08:39 WBC (3.8-10.6) k/uL RBC (4.30-5.90) m/uL Hgb (13.0-17.5) gm/dL Hct (39.0-53.0) % Plt Count (150-450) k/uL Neutrophils # (1.3-7.7) k/uL Sodium 130 L (137-145) mmol/L Potassium 5.3 H (3.5-5.1) mmol/L Carbon Dioxide 17 L (22-30) mmol/L BUN 34 H (9-20) mg/dL Creatinine 2.23 H (0.66-1.25) mg/dL Glucose 134 H (74-99) mg/dL POC Glucose (mg/dL) 143 H 138 H (75-99) mg/dL Calcium 7.8 L (8.4-10.2) mg/dL AST 1045 H (17-59) U/L ALT 551 H (4-49) U/L Total Protein 5.1 L (6.3-8.2) g/dL Albumin 3.1 L (3.5-5.0) g/dL
--- NOTE | 2021-11-24 17:00 | US ---
EXAMINATION TYPE: US bladder DATE OF EXAM: 11/24/2021 COMPARISON: NONE CLINICAL HISTORY: distended bladder. Bladder scan, patient states he has a penile pump Penile pump seen superior to bladder, free fluid in pelvis Prevoid bladder volume 69 cc. Small amount of free fluid in pelvis. IMPRESSION: 1. Nonspecific small ascites. 2. Penile pump device partially visualized. 3. Partially distended urinary bladder.
[2021-11-24 17:10] LABS: Glucose,Whole Blood 259 mg/dL (75-99)
[2021-11-24 19:02] LABS: Appearance,Urine Clear (Clear); Bilirubin,Urine Negative (Negative); Blood,Urine Small (Negative); Color,Urine Yellow; Glucose,Urine (UA) 1+ (Negative); Hyaline Casts,Urine 221 /lpf (0-2); Ketones,Urine Trace (Negative); Leukocyte Esterase,Urine Trace (Negative); Mucus,Urine Occasional /hpf; Nitrite,Urine Negative (Negative); Protein,Urine Trace (Negative); RBC,Urine 9 /hpf (0-5); Squamous Epithelial Cell,Urine 2 /hpf (0-4); Urobilinogen,Urine <2.0 mg/dL (<2.0); WBC,Urine 10 /hpf (0-5)
--- NOTE | 2021-11-24 19:13 | PN ---
PROGRESS NOTE Mr. Shen had episodes of hypotension last night. He has sustained some acute kidney injury. His creatinine is elevated. He has been receiving some fluid boluses, but kidney function remains high. He also has underlying diabetes. From a valve disease standpoint, he seems to be coming along well. He is maintaining sinus rhythm. His liver functions are also elevated. His amiodarone has been held. He is, however, maintaining sinus rhythm. Creatinine has gone up to 2.23 today. Vitals are stable. JVD 1 cm. No carotid bruit. S1, S2 with a short systolic murmur audible. Lungs reveal diminished air entry. Abdomen is soft, nontender. Lower extremities reveal diminished pulses. IMPRESSION: 1. Acute kidney injury in a patient with diabetes and status post multivalvular surgery and bypass. 2. History of type 2 diabetes. 3. Abnormal liver function tests. RECOMMENDATIONS: I agree with holding amiodarone for now. I would recommend that we hydrate him cautiously and also seek nephrology input. Prognosis remains guarded. MMODL / IJN: [id number] /
[2021-11-24 21:06] LABS: Glucose,Whole Blood 212 mg/dL (75-99)
[2021-11-24] MEDS: SENNOSIDES-DOCUSATE SODIUM 1 EACH TAB PO SCH (21:08)
[2021-11-25] MEDS: HEPARIN SODIUM,PORCINE/PF 5,000 UNIT/0.5 ML SYRINGE SQ SCH ×4 (00:47→23:45)
[2021-11-25 05:12] LABS: Basophils % (A) 0 %; Eosinophils # (A) 0.2 k/uL (0-0.7); Eosinophils % (A) 2 %; HCT 25.9 % (39.0-53.0); HGB 8.3 gm/dL (13.0-17.5); Lymphocytes # (A) 1.2 k/uL (1.0-4.8); Lymphocytes % (A) 11 %; MCH 29.6 pg (25.0-35.0); MCHC 32.2 g/dL (31.0-37.0); MCV 91.9 fL (80.0-100.0); Mean Platelet Volume 9.1; Monocytes # (A) 0.4 k/uL (0-1.0); Monocytes % (A) 4 %; Neutrophils # (A) 8.9 k/uL (1.3-7.7); Neutrophils % (A) 81 %; Platelet Count 108 k/uL (150-450); RBC 2.82 m/uL (4.30-5.90); RDW 14.3 % (11.5-15.5)
[2021-11-25 05:31] LABS: Albumin 2.9 g/dL (3.5-5.0); Calcium 8.1 mg/dL (8.4-10.2); Potassium 4.1 mmol/L (3.5-5.1)
--- NOTE | 2021-11-25 06:02 | XR ---
EXAMINATION TYPE: XR chest 1V portable DATE OF EXAM: 11/25/2021 CLINICAL HISTORY: Postopen cardiac surgery progress study. TECHNIQUE: Single AP portable upright view of the chest is obtained. COMPARISON: Chest x-ray from one day earlier and older studies. FINDINGS: Stable right internal jugular Cordis sheath. Overlying sternal wires along with left atria l appendage clip and metallic aortic valve are all redemonstrated. Interval removal of left basilar c hest tube. Persistent right greater than left bibasilar opacities. Persistent cardiomegaly. Osseous structures a re intact. IMPRESSION: Interval removal of left basilar chest tube. No visualized pneumothorax. Other findings s table. Cardiomegaly with [id number] size right greater than left pleural effusions and associa julian bibasilar opacities favoring compressive atelectasis all redemonstrated.
[2021-11-25] MEDS: IPRATROPIUM-ALBUTEROL 3 ML NEB INHALATION SCH ×4 (07:49→20:12)
--- NOTE | 2021-11-25 08:00 | P.PN ---
Subjective Progress Note Date: 11/25/21 Principal diagnosis: Severe bicuspid aortic valve stenosis, coronary artery disease, moderate to severe mitral valve regurgitation and moderate left ventricular dysfunction. Previous medical history of coronary artery disease with previous myocardial infarction and PCI in 2016, hypertension, hyperlipidemia, insulin-dependent diabetes mellitus, fatty liver disease, prostate cancer status post prostatectomy in 2017, GERD, remote history of tobacco dependence, COVID-19 infection in June 2021, and a strong family history of premature coronary artery disease with his father having a CABG at age 54. Positive preoperative nasal screening for MSSA which was treated. POD #4 double coronary artery bypass grafting using a reverse saphenous vein graft from the aorta to the first obtuse marginal coronary artery, a reverse greater saphenous vein graft from the aorta to the posterior lateral branch of the circumflex coronary artery. Aortic valve replacement using a 25 mm Inspiris pericardial bioprosthesis. Mitral valve repair with posterior annuloplasty using a 30 mm AnnuloFlex band. Exclusion of the left atrial appendage using a 35 mm Atriclip. Intraoperative graft flow measurements using the New Body MD-Stim sytem. Intraoperative transesophageal echocardiogram and epi-aortic scanning. Right greater saphenous vein harvest from the groin to above the ankle Acute blood loss anemia and thrombocytopenia, expected due to hemodilution and cardiopulmonary bypass Acute kidney injury, unexpected, likely due to hypotension Elevated transaminases, unexpected, likely due to hypotension The patient was seen and examined this morning sitting up in a recliner in the intensive care unit in no acute distress eating breakfast. States post surgical pain has significantly improved with removal of chest tube, denies shortness of breath. Actively using incentive spirometry and achieving 1500 mL. Remains in sinus rhythm. Blood pressure improved with midodrine. He did ambulate in the hallway 4 times yesterday. Continues to void. Objective - Vital Signs Vital signs: Vital Signs Temp 97.8 F 11/25/21 04:00 Pulse 110 H 11/25/21 07:50 Resp 16 11/25/21 07:50 BP 123/71 11/25/21 06:30 Pulse Ox 97 11/25/21 07:50 Intake & Output 11/24/21 11/25/21 11/25/21 18:59 06:59 18:59 Intake Total 812 312 26 Output Total 100 500 250 Balance 099 -004 -085 Weight 111.8 kg Intake: IV 312 312 26 Pressure Bag 72 72 6 Sodium Chloride 0.9% 1, 240 240 20 000 ml @ 20 mls/hr IV . Q24H [facility] Rx#:[id number] Oral 500 Output: Urine 100 500 250 Other: Voiding Method Urinal Urinal # Voids 1 ABP, PAP, CO, CI - Last Documented Arterial Blood Pressure 131/55 Pulmonary Artery Pressure 39/23 Cardiac Output 7.8 Cardiac Index 3.6 - Exam CONSTITUTIONAL: Appears comfortable, cooperative, no acute distress RESPIRATORY: Lungs sounds diminished bilaterally. Respirations even, nonlabored. Currently on room air with oxygen saturation 92%. Able to achieve 1500 mL on incentive spirometry. Strong loose cough. CARDIOVASCULAR: S1, S2 present. Regular rate and rhythm, sinus rhythm on telemetry. Sternum stable. Palpable peripheral pulses bilaterally. Generalized edema present. No calf pain or tenderness noted. Heart hugger in place with patient demonstrating appropriate use. Antiembolism stockings, SCDs present. GASTROINTESTINAL: Abdomen soft, nontender, nondistended. Active bowel sounds present 4 quadrants. Tolerating diet GENITOURINARY: Continues to void. Output 600 mL plus 2 unmeasured voids in the last 24 hours INTEGUMENTARY: Skin is warm and dry with evidence of good perfusion. Anterior chest incision well approximated and covered with dry intact dressing. Right EVH site well approximated without redness, drainage NEUROLOGIC: Cranial nerves II through XII intact MUSKULOSKELETAL: Able to move all extremities, strength equal bilaterally, gait normal PSYCHIATRIC: Alert and oriented to person place and time, appropriate affect, intact judgment and insight INVASIVE LINES AND TUBES: Atrial epicardial pacemaker wires present, grounded. Right internal jugular Cordis, right radial arterial line present. - Allied health notes Allied health notes reviewed: nursing - Labs CBC & Chem 7: 11/25/21 05:00 11/25/21 05:00 Labs: Abnormal Lab Results - Last 24 Hours (Table) 11/24/21 11/24/21 11/24/21 Range/Units 08:39 11:08 17:09 WBC (3.8-10.6) k/uL RBC (4.30-5.90) m/uL Hgb (13.0-17.5) gm/dL Hct (39.0-53.0) % Plt Count (150-450) k/uL Neutrophils # (1.3-7.7) k/uL Sodium (137-145) mmol/L BUN (9-20) mg/dL Creatinine (0.66-1.25) mg/dL Glucose (74-99) mg/dL POC Glucose (mg/dL) 138 H 174 H 259 H (75-99) mg/dL Calcium (8.4-10.2) mg/dL AST (17-59) U/L ALT (4-49) U/L Total Protein (6.3-8.2) g/dL Albumin (3.5-5.0) g/dL Urine Protein (Negative) Urine Glucose (UA) (Negative) Urine Ketones (Negative) Urine Blood (Negative) Ur Leukocyte Esterase (Negative) Urine RBC (0-5) /hpf Urine WBC (0-5) /hpf Hyaline Casts (0-2) /lpf Urine Mucus (None) /hpf 11/24/21 11/24/21 11/25/21 Range/Units 18:20 21:05 05:00 WBC 11.0 H (3.8-10.6) k/uL RBC 2.82 L (4.30-5.90) m/uL Hgb 8.3 L (13.0-17.5) gm/dL Hct 25.9 L (39.0-53.0) % Plt Count 108 L (150-450) k/uL Neutrophils # 8.9 H (1.3-7.7) k/uL Sodium (137-145) mmol/L BUN (9-20) mg/dL Creatinine (0.66-1.25) mg/dL Glucose (74-99) mg/dL POC Glucose (mg/dL) 212 H (75-99) mg/dL Calcium (8.4-10.2) mg/dL AST (17-59) U/L ALT (4-49) U/L Total Protein (6.3-8.2) g/dL Albumin (3.5-5.0) g/dL Urine Protein Trace H (Negative) Urine Glucose (UA) 1+ H (Negative) Urine Ketones Trace H (Negative) Urine Blood Small H (Negative) Ur Leukocyte Esterase Trace H (Negative) Urine RBC 9 H (0-5) /hpf Urine WBC 10 H (0-5) /hpf Hyaline Casts 221 H (0-2) /lpf Urine Mucus Occasional H (None) /hpf 11/25/21 Range/Units 05:00 WBC (3.8-10.6) k/uL RBC (4.30-5.90) m/uL Hgb (13.0-17.5) gm/dL Hct (39.0-53.0) % Plt Count (150-450) k/uL Neutrophils # (1.3-7.7) k/uL Sodium 131 L (137-145) mmol/L BUN 50 H (9-20) mg/dL Creatinine 2.08 H (0.66-1.25) mg/dL Glucose 115 H (74-99) mg/dL POC Glucose (mg/dL) (75-99) mg/dL Calcium 8.1 L (8.4-10.2) mg/dL AST 743 H (17-59) U/L ALT 661 H (4-49) U/L Total Protein 5.0 L (6.3-8.2) g/dL Albumin 2.9 L (3.5-5.0) g/dL Urine Protein (Negative) Urine Glucose (UA) (Negative) Urine Ketones (Negative) Urine Blood (Negative) Ur Leukocyte Esterase (Negative) Urine RBC (0-5) /hpf Urine WBC (0-5) /hpf Hyaline Casts (0-2) /lpf Urine Mucus (None) /hpf Microbiology - Last 24 Hours (Table) 11/24/21 14:15 Gram Stain - Preliminary Sputum Sputum Culture - Preliminary - Imaging and Cardiology Chest x-ray: report reviewed, image reviewed Assessment and Plan Assessment: 1. Severe bicuspid aortic valve stenosis, status post aortic valve replacement 2. Coronary artery disease with previous myocardial infarction and PCI in 2017, status post 2 vessel CABG 3. Moderate to severe mitral valve regurgitation, status post mitral valve repair 4. Moderate left ventricular dysfunction 5. History of hypertension, currently borderline hypotensive 6. Hyperlipidemia, treated, cholesterol 103, LDL 42 7. Insulin-dependent diabetes mellitus, uncontrolled with hyperglycemia, preoperative hemoglobin A1c 10.4% 8. Fatty liver disease with mild elevation in liver enzymes 9. Prostate cancer status post prostatectomy in 2018 10. GERD 11. Remote history of tobacco dependence 12. Severe restrictive lung disease with preoperative FEV1 49% of predicted 13. COVID-19 infection in June 2021, vaccinated but not boosted against cov id 14. Strong family history of premature coronary artery disease with his father having a CABG at age 54 15. Positive preoperative nasal screening for MSSA 16. Acute blood loss anemia and thrombocytopenia, expected due to hemodilution and cardiopulmonary bypass 17. Acute kidney injury, unexpected, likely due to hypotension 18. Elevated transaminases, unexpected, likely due to hypotension Plan: 1. Continue aspirin, Plavix and low dose beta roosevelt. Will hold statins for now due to elevated transaminases 2. Encourage incentive spirometry use 10 times every hour while awake. Bronchodilators per pulmonology 3. Increase activity, ambulate as tolerated. Out of bed for all meals. PT/OT/cardiac rehab following 4. Will monitor daily labs and chest x-rays. Electrolyte replacement per protocol 5. Pain control per current medication regimen 6. Insulin management per primary care service. The patient needs tight blood sugar control to promote healing and sternal union as well as prevent infection 7. Will discontinue Cordis later today. Keep arterial line until patient's transferred to 3 [facility] cardiac stepdown unit 8. Strict accurate intake and output. Daily weights 9. Continue mupirocin 2% nasal ointment as directed for positive for preoperat [place] nasal screen of MSSA 10. Will place transfer orders for 3 [facility] cardiac stepdown unit. May transfer when bed available 11. More recommendations to follow based on patient's clinical course.
[2021-11-25 08:15] LABS: Glucose,Whole Blood 246 mg/dL (75-99)
[2021-11-25] MEDS: PSYLLIUM HUSK 100% 6 GM PACKET PO SCH (08:27)
[2021-11-25] MEDS: PANTOPRAZOLE 40 MG TABLET PO SCH (08:27)
[2021-11-25] MEDS: CHOLECALCIFEROL 25 MCG (1000 IU) TABLET PO SCH (08:27)
[2021-11-25] MEDS: INSULIN ASPART (NovoLOG) 100 UNIT/ML VIAL SQ SCH ×7 (08:27→20:07)
[2021-11-25] MEDS: INSULIN DETEMIR (LEVEMIR) 100 UNIT/ML SYR SQ SCH ×2 (08:27→20:07)
[2021-11-25] MEDS: LINAGLIPTIN 5 MG TABLET PO SCH (08:27)
[2021-11-25] MEDS: METOPROLOL TARTRATE 12.5 MG TAB PO SCH ×2 (08:27→20:07)
[2021-11-25] MEDS: CLOPIDOGREL 75 MG TAB PO SCH (08:29)
[2021-11-25] MEDS: ASPIRIN 325 MG TAB PO SCH (08:29)
[2021-11-25] MEDS: SODIUM BICARBONATE TAB 650 MG TAB PO SCH ×2 (08:29→20:07)
[2021-11-25] MEDS: traMADol 50 MG TAB PO PRN ×3 (08:34→23:51)
--- NOTE | 2021-11-25 09:11 | PN ---
PROGRESS NOTE Mr. Shen is in sinus rhythm. He is comfortable resting. He is status post aortic valve replacement, mitral valve repair and bypass surgery. His kidney injury also seems to be making some improvement. Creatinine is down from 2.2 to 2.08. S1, S2 heard normally. Short systolic murmur noted. Lungs reveal improved air entry. Abdomen is soft. Lower extremities reveal diminished pulses. Central nervous system is normal. Plan is to continue current medical regimen and fluid management per Nephrology. MMODL / IJN: [id number] /
[2021-11-25] MEDS: MIDODRINE 5 MG TAB PO SCH ×3 (09:12→17:46)
[2021-11-25] MEDS ORDERED: FUROSEMIDE 10 MG/ML 4 ML VIAL IV STA (10:11)
--- NOTE | 2021-11-25 10:12 | P.PN ---
Subjective Patient is seen in follow for acute kidney injury. Renal function slightly better today. Has been voiding. No chest pain or shortness of breath. Blood pressure stable. No vomiting or diarrhea. Oral intake fair. Vital signs are stable. General: Awake and alert. No acute distress. HEENT: Head exam is unremarkable. LUNGS: Breath sounds decreased. HEART: Rate and Rhythm are regular. ABDOMEN: Soft, obese. EXTREMITITES: Trace edema. Objective - Vital Signs Vital signs: Vital Signs Temp 97.9 F 11/25/21 08:00 Pulse 91 11/25/21 09:30 Resp 20 11/25/21 09:30 BP 122/62 11/25/21 08:30 Pulse Ox 90 L 11/25/21 09:30 Intake & Output 11/24/21 11/25/21 11/25/21 18:59 06:59 18:59 Intake Total 812 312 104 Output Total 100 500 350 Balance 298 -168 -410 Weight 111.8 kg Intake: IV 312 312 104 Pressure Bag 72 72 24 Sodium Chloride 0.9% 1, 240 240 80 000 ml @ 20 mls/hr IV . Q24H [facility] Rx#:[id number] Oral 500 Output: Urine 100 500 350 Other: Voiding Method Urinal Urinal # Voids 1 0 ABP, PAP, CO, CI - Last Documented Arterial Blood Pressure 109/52 Pulmonary Artery Pressure 39/23 Cardiac Output 7.8 Cardiac Index 3.6 - Labs CBC & Chem 7: 11/25/21 05:00 11/25/21 05:00 Labs: Abnormal Lab Results - Last 24 Hours (Table) 11/24/21 11/24/21 11/24/21 Range/Units 11:08 17:09 18:20 WBC (3.8-10.6) k/uL RBC (4.30-5.90) m/uL Hgb (13.0-17.5) gm/dL Hct (39.0-53.0) % Plt Count (150-450) k/uL Neutrophils # (1.3-7.7) k/uL Sodium (137-145) mmol/L BUN (9-20) mg/dL Creatinine (0.66-1.25) mg/dL Glucose (74-99) mg/dL POC Glucose (mg/dL) 174 H 259 H (75-99) mg/dL Calcium (8.4-10.2) mg/dL AST (17-59) U/L ALT (4-49) U/L Total Protein (6.3-8.2) g/dL Albumin (3.5-5.0) g/dL Urine Protein Trace H (Negative) Urine Glucose (UA) 1+ H (Negative) Urine Ketones Trace H (Negative) Urine Blood Small H (Negative) Ur Leukocyte Esterase Trace H (Negative) Urine RBC 9 H (0-5) /hpf Urine WBC 10 H (0-5) /hpf Hyaline Casts 221 H (0-2) /lpf Urine Mucus Occasional H (None) /hpf 11/24/21 11/25/21 11/25/21 Range/Units 21:05 05:00 05:00 WBC 11.0 H (3.8-10.6) k/uL RBC 2.82 L (4.30-5.90) m/uL Hgb 8.3 L (13.0-17.5) gm/dL Hct 25.9 L (39.0-53.0) % Plt Count 108 L (150-450) k/uL Neutrophils # 8.9 H (1.3-7.7) k/uL Sodium 131 L (137-145) mmol/L BUN 50 H (9-20) mg/dL Creatinine 2.08 H (0.66-1.25) mg/dL Glucose 115 H (74-99) mg/dL POC Glucose (mg/dL) 212 H (75-99) mg/dL Calcium 8.1 L (8.4-10.2) mg/dL AST 743 H (17-59) U/L ALT 661 H (4-49) U/L Total Protein 5.0 L (6.3-8.2) g/dL Albumin 2.9 L (3.5-5.0) g/dL Urine Protein (Negative) Urine Glucose (UA) (Negative) Urine Ketones (Negative) Urine Blood (Negative) Ur Leukocyte Esterase (Negative) Urine RBC (0-5) /hpf Urine WBC (0-5) /hpf Hyaline Casts (0-2) /lpf Urine Mucus (None) /hpf 11/25/21 Range/Units 08:13 WBC (3.8-10.6) k/uL RBC (4.30-5.90) m/uL Hgb (13.0-17.5) gm/dL Hct (39.0-53.0) % Plt Count (150-450) k/uL Neutrophils # (1.3-7.7) k/uL Sodium (137-145) mmol/L BUN (9-20) mg/dL Creatinine (0.66-1.25) mg/dL Glucose (74-99) mg/dL POC Glucose (mg/dL) 246 H (75-99) mg/dL Calcium (8.4-10.2) mg/dL AST (17-59) U/L ALT (4-49) U/L Total Protein (6.3-8.2) g/dL Albumin (3.5-5.0) g/dL Urine Protein (Negative) Urine Glucose (UA) (Negative) Urine Ketones (Negative) Urine Blood (Negative) Ur Leukocyte Esterase (Negative) Urine RBC (0-5) /hpf Urine WBC (0-5) /hpf Hyaline Casts (0-2) /lpf Urine Mucus (None) /hpf Microbiology - Last 24 Hours (Table) 11/24/21 14:15 Gram Stain - Preliminary Sputum Sputum Culture - Preliminary Assessment and Plan Plan: Assessment: 1. Acute kidney injury secondary to ATN secondary to hypotension. Creatinine was 0.72 admission and peaked at 2.23 this admission - 2.08 today. No evidence of urinary retention. No hydronephrosis noted on kidney ultrasound. 2. Coronary artery disease status post CABG and aortic valve replacement 11/21/2021. 3. Hyponatremia secondary to acute kidney injury. Hypervolemic. 4. Metabolic acidosis secondary to acute kidney injury. On oral bicarbonate. 5. Diabetes mellitus. 6. Hypotension. Amiodarone discontinued. Dose of Lopressor decreased. On midodrine. 7. Volume overload. Plan: Lasix 40 mg IV once today. Encouraged oral intake. Avoid nephrotoxins. Follow-up cortisol level. Continue to monitor renal function and urine output.
[2021-11-25] MEDS ORDERED: INSULIN DETEMIR (LEVEMIR) 100 UNIT/ML SYR SQ ONE (10:30)
--- NOTE | 2021-11-25 10:33 | P.PN ---
Subjective Progress Note Date: 11/25/21 HISTORY OF PRESENT ILLNESS This is a 61 year old male patient of Dr. Sridhar Tavarez with past medical history of hypertension, hypertensive cardiovascular disease, coronary artery disease status post stent in 2017, severe aortic stenosis, chronic diastolic heart failure, diabetes mellitus type 2, gastroesophageal reflux disease, hyperlipidemia, benign prostatic hypertrophy, prostate cancer status post prostatectomy in 2018 under the care of Dr. Willis, remote history of tobacco use, generalized osteoarthritis. Cardiac catheterization 10/21/2021 showed chronic total occlusion of mid RCA patent stent to the LAD 60-70% stenosis to the diagonal branch of the LAD 90% stenosis of the circumflex coronary artery and 70-80% stenosis to the OM branch. NABEEL revealed moderate aortic regurgitation, severe central mitral regurgitation, mild tricuspid regurgitation and normal left ventricular function. Patient has been brought into the hospital under the care of cardiothoracic surgery status post double coronary artery bypass grafting using a reverse saphenous vein graft from the aorta to the first obtuse marginal coronary artery, a reverse greater saphenous vein graft from the aorta to the posterior lateral branch of the circumflex coronary artery, aortic valve replacement using bioprosthesis, mitral valve repair with posterior annuloplasty, exclusion of the left atrial appendage using a 35 mm Atriclip. Patient is seen today in the ICU, successfully extubated, resting and recliner. Patient states he has discomfort in his chest pain is controlled. His last A1c was 10.4 on 10/21/2021. He states he was recently started on insulin and is currently on insulin drip. WBC 10.7, hemoglobin 9.6 and platelet count 95. Sodium 140, potassium 4.1, chloride 109, CO2 21, BUN 10 and creatinine 0.84. Blood sugar 147. 4/13: Patient is seen in the intensive care unit. He states he slept appetite in bed in half and recliner. He was also up walking today and felt he did well. Blood sugars are running between 128 and 190 however patient is on a high-dose of insulin 13 units per hour. We will increase Levemir, and NovoLog with meals scheduled, resume Tradjenta and add NovoLog scale and titrate off insulin drip. Repeat chest x-ray reveals mild right lower lobe atelectasis or developing infiltrate. [place] catheter is been removed. Mediastinal chest tubes and left chest tube remains intact as well as Newman catheter. He is reaching 1500 miles on incentive spirometry. wheel setter sinus rhythm. 11/24: Patient remains in the intensive care unit. Patient had hypoglycemia at midnight but he was still on insulin drip on top of the scheduled long-acting and short acting. The insulin drip was discontinued this morning and patient to continue on Levemir scheduled NovoLog and NovoLog scale., Platelet count 131. Sodium 130, potassium 5.3, chloride 103, CO2 17, BUN 34 creatinine 2.23. AST 1045, ALT 551. Alkaline phosphatase 82. Consult was added for nephrology with recommendations to add midodrine, and bicarb and hold diuretics as blood pressure is low.patient denies having any chest pain. He has ambulated in the hallway. .metoprolol was decreased, amiodarone was discontinued and statin on hold renal ultrasound reveals no hydronephrosis. Bladder remains partially distended despite the Newman catheter balloon seen within the bladder. 11/25: Patient remains in intensive care unit. He has been afebrile, heart rate in the 90s, blood pressure 138/77, pulse ox 90-98% on room air. wheel setter is sinus rhythm. He is reaching 1500 ML's on incentive spirometry. Repeat blood work reveals WBC 11, hemoglobin 8.3, platelet count 108. Sodium 131, potassium 4.1, chloride 103, CO2 22, BUN 50 creatinine 2.08. Capillary blood glucose running high today at 246. AST 743, ALT 661, alkaline phosphatase 97. Levemir will be increased to 20 units twice daily and scheduled NovoLog to 10 units before meals and at bedtime. Patient is scheduled to transfer to the cardiac stepdown unit. REVIEW OF SYSTEMS Constitutional: No fever, no chills, no night sweats. No weight change. Mild generalized weakness and fatigue. No daytime sleepiness. EENT: No headache. No blurred vision or double vision, no loss of vision. No loss of Hearing, no ringing in the ears, no dizziness. No nasal drainage or congestion. No epistaxis. No sore throat. Lungs: No shortness of breath, cough, no sputum production. No wheezing. Cardiovascular: Reports chest discomfort mild, no lower extremity edema. No palpitations. No paroxysmal nocturnal dyspnea. No orthopnea. No lightheadedness or dizziness. No syncopal episodes. Abdominal: No abdominal pain. No nausea, vomiting. No diarrhea. No constipation. No bloody or tarry stools. No loss of appetite. Genitourinary: No dysuria, increased frequency, urgency. No urinary retention. Musculoskeletal: No myalgias. No muscle weakness, no gait dysfunction, no frequent falls. No back pain. No neck pain. Integumentary: No wounds, no lesions. No rash or pruritus. No unusual bruising. No change in hair or nails. Neurologic: No aphasia. No facial droop. No change in mentation. No head injury. No headache. No paralysis. No paresthesia. Psychiatric: No depression. No anxiety. No mood swings. Endocrine: Noted abnormal blood sugars with hyperglycemia. No weight change. No excessive sweating or thirst. PHYSICAL EXAMINATION Gen: This is a 61-year-old male. He is resting and recliner and appears to be comfortable at rest. No acute distress noted. HEENT: Head is atraumatic, normocephalic. Pupils equal, round. Sclerae is anicteric. NECK: Supple. Trachea midline. LUNGS: Clear to auscultation. No wheezes or rhonchi. No intercostal retractions. HEART: Regular rate and rhythm. No murmur. wheel setter is sinus rhythm ABDOMEN: Soft. Bowel sounds are present. No masses. No tenderness. EXTREMITIES: No pedal edema. No calf tenderness. NEUROLOGICAL: Patient is awake, alert and oriented x3. Cranial nerves 2 through 12 are grossly intact. ASSESSMENT AND PLAN 1. Coronary artery disease status post double CABG 11/21. Continue aspirin, Lipitor(on hold), Plavix, Lopressor. 2. Severe bicuspid aortic valve stenosis status post aortic valve replacement. Continue current management per cardiothoracic surgery team. Patient has been recommended to have children checked for bicuspid valve. 3. Moderate to severe mitral valve regurgitation status post mitral valve repair. 4. Coronary artery disease with previous PCI/stent. 5. Chronic diastolic heart failure. 6. Hypertension, hypertensive cardiovascular disease. Continue Lopressor. 7. Thrombocytopenia secondary to surgery, not unexpected with illness or surgery. Continue to monitor 8. Anemia, acute blood loss expected with surgery. 9. Diabetes mellitus type 2. Hemoglobin A1c 10.4. Patient transition to Levemir and will increase to 20 units twice daily, increase scheduled NovoLog to 10 units before meals and at bedtime along with NovoLog scale before meals and at bedtime. 10. acute kidney injury secondary to ATN secondary to hypotension. Consult with nephrology appreciated. Midodrine was added, renal ultrasound as above. 11. Metabolic acidosis secondary to acute kidney injury. Patient was started on bicarb. 12. Hyponatremia. 13. Transaminitis. Amiodarone discontinued and statin placed on hold. 14. Gastroesophageal reflux disease. Continue Protonix. 14. DVT prophylaxis. Heparin subcu. CODE STATUS: Full code DISCHARGE PLAN Home with [facility]. Impression and plan of care have been directed as dictated by the signing physician. Harmony Hernandez nurse practitioner acting as scribe for signing physician. Objective - Vital Signs Vital signs: Vital Signs Temp 97.9 F 11/25/21 08:00 Pulse 96 11/25/21 08:00 Resp 14 11/25/21 08:00 BP 123/71 11/25/21 07:30 Pulse Ox 98 11/25/21 08:00 Intake & Output 11/24/21 11/25/21 11/25/21 18:59 06:59 18:59 Intake Total 812 312 52 Output Total 100 500 250 Balance 712 -188 -198 Weight 111.8 kg Intake: IV 312 312 52 Pressure Bag 72 72 12 Sodium Chloride 0.9% 1, 240 240 40 000 ml @ 20 mls/hr IV . Q24H [facility] Rx#:[id number] Oral 500 Output: Urine 100 500 250 Other: Voiding Method Urinal Urinal # Voids 1 0 ABP, PAP, CO, CI - Last Documented Arterial Blood Pressure 139/59 Pulmonary Artery Pressure 39/23 Cardiac Output 7.8 Cardiac Index 3.6 - Labs CBC & Chem 7: 11/25/21 05:00 11/25/21 05:00 Labs: Abnormal Lab Results - Last 24 Hours (Table) 11/24/21 11/24/21 11/24/21 Range/Units 11:08 17:09 18:20 WBC (3.8-10.6) k/uL RBC (4.30-5.90) m/uL Hgb (13.0-17.5) gm/dL Hct (39.0-53.0) % Plt Count (150-450) k/uL Neutrophils # (1.3-7.7) k/uL Sodium (137-145) mmol/L BUN (9-20) mg/dL Creatinine (0.66-1.25) mg/dL Glucose (74-99) mg/dL POC Glucose (mg/dL) 174 H 259 H (75-99) mg/dL Calcium (8.4-10.2) mg/dL AST (17-59) U/L ALT (4-49) U/L Total Protein (6.3-8.2) g/dL Albumin (3.5-5.0) g/dL Urine Protein Trace H (Negative) Urine Glucose (UA) 1+ H (Negative) Urine Ketones Trace H (Negative) Urine Blood Small H (Negative) Ur Leukocyte Esterase Trace H (Negative) Urine RBC 9 H (0-5) /hpf Urine WBC 10 H (0-5) /hpf Hyaline Casts 221 H (0-2) /lpf Urine Mucus Occasional H (None) /hpf 11/24/21 11/25/21 11/25/21 Range/Units 21:05 05:00 05:00 WBC 11.0 H (3.8-10.6) k/uL RBC 2.82 L (4.30-5.90) m/uL Hgb 8.3 L (13.0-17.5) gm/dL Hct 25.9 L (39.0-53.0) % Plt Count 108 L (150-450) k/uL Neutrophils # 8.9 H (1.3-7.7) k/uL Sodium 131 L (137-145) mmol/L BUN 50 H (9-20) mg/dL Creatinine 2.08 H (0.66-1.25) mg/dL Glucose 115 H (74-99) mg/dL POC Glucose (mg/dL) 212 H (75-99) mg/dL Calcium 8.1 L (8.4-10.2) mg/dL AST 743 H (17-59) U/L ALT 661 H (4-49) U/L Total Protein 5.0 L (6.3-8.2) g/dL Albumin 2.9 L (3.5-5.0) g/dL Urine Protein (Negative) Urine Glucose (UA) (Negative) Urine Ketones (Negative) Urine Blood (Negative) Ur Leukocyte Esterase (Negative) Urine RBC (0-5) /hpf Urine WBC (0-5) /hpf Hyaline Casts (0-2) /lpf Urine Mucus (None) /hpf 11/25/21 Range/Units 08:13 WBC (3.8-10.6) k/uL RBC (4.30-5.90) m/uL Hgb (13.0-17.5) gm/dL Hct (39.0-53.0) % Plt Count (150-450) k/uL Neutrophils # (1.3-7.7) k/uL Sodium (137-145) mmol/L BUN (9-20) mg/dL Creatinine (0.66-1.25) mg/dL Glucose (74-99) mg/dL POC Glucose (mg/dL) 246 H (75-99) mg/dL Calcium (8.4-10.2) mg/dL AST (17-59) U/L ALT (4-49) U/L Total Protein (6.3-8.2) g/dL Albumin (3.5-5.0) g/dL Urine Protein (Negative) Urine Glucose (UA) (Negative) Urine Ketones (Negative) Urine Blood (Negative) Ur Leukocyte Esterase (Negative) Urine RBC (0-5) /hpf Urine WBC (0-5) /hpf Hyaline Casts (0-2) /lpf Urine Mucus (None) /hpf Microbiology - Last 24 Hours (Table) 11/24/21 14:15 Gram Stain - Preliminary Sputum Sputum Culture - Preliminary
[2021-11-25 11:30] LABS: Glucose,Whole Blood 180 mg/dL (75-99)
[2021-11-25] MEDS ORDERED: INSULIN ASPART (NovoLOG) 100 UNIT/ML VIAL SQ SCH (12:30)
--- NOTE | 2021-11-25 12:48 | P.PN ---
Subjective Progress Note Date: 11/25/21 Principal diagnosis: POD #4 double coronary artery bypass grafting using a reverse saphenous vein graft from the aorta to the first obtuse marginal coronary artery, a reverse greater saphenous vein graft from the aorta to the posterior lateral branch of the circumflex coronary artery. Aortic valve replacement using a 25 mm Inspiris pericardial bioprosthesis. Mitral valve repair with posterior annuloplasty using a 30 mm AnnuloFlex band. Exclusion of the left atrial appendage using a 35 mm Atriclip. This is a 61-year-old white male with history of bicuspid aortic valve stenosis, coronary artery disease, moderate to severe mitral valve regurgitation moderate LV dysfunction, history of previous MO and PCI in 2017, patient underwent double coronary bypass grafting yesterday using reverse saphenous vein graft from the aorta to the first obtuse marginal coronary artery reverse greater saphenous vein graft from the aorta to the posterior lateral branch of the circumflex artery, aortic valve replacement, mitral valve repair with posterior annuloplasty, postoperatively patient was admitted to the ICU, and I was asked to see him on consultation. I was notified on this patient about his ventilator settings early evening, and I have adjusted the ventilator settings based on the ABG. A few hours later, I was notified about this patient weaning, and he had excellent weaning parameters, I recommended extubating the patient, and he was extubated uneventfully. Patient was evaluated today, he is doing well, he is on 3 L nasal cannula, sating at a bedside chair, in no distress. Patient is on amiodarone drip, milrinone drip at 0.15, insulin drip at 12 units per hour, his cardiac index is 4.2, chest x-ray showed minimal atelectasis, no evidence of congestive heart failure, and the patient seems to be well, tolerated the extubation quite well overnight. Patient was reevaluated today on 11/23/2021, patient remains in the ICU, doing quite well, hemodynamically stable, on 1 L nasal cannula, denies any distress, had some minimal surgical site pain. Patient is not requiring any inotropes. CVP today is 15, patient is doing well with incentive spirometry achieving over 1250. Continues to have left pleural and mediastinal chest tubes. No air leak. Minimal output from the mediastinal chest tube, hence it would likely be removed today. Labs are unremarkable except for slight rise in his creatinine. Patient had a good cardiac index yesterday before going off milrinone. WBC count today is 15 hemoglobin is 9, basic metabolic profile is normal BUN is 17 and creatinine 1.2. Chest x-ray showed minimal right lower lobe atelectasis, doubt infiltrate. Reevaluated today on 11/24/2021, patient is postoperative day #3. Continues to do clinically well, relatively asymptomatic, however the patient is developing a picture of acute kidney injury, unexpected. And elevated liver enzymes, unexpected, patient is being followed by nephrology. Apparently had some shortness of breath last night, presently asymptomatic, he is on few liters nasal cannula, and his O2 saturation is in the 90s. Patient is now off amiodarone, he is on insulin, on tradjenta had overall clinically the patient is doing well, but there is a concern about his renal profile, liver profile, and a chest x-ray is showing a worsening atelectasis at the bases, clinically doubt infiltrate, patient does have a productive cough, and I recommended sputum cultures before deciding on antibiotics. Reevaluated today on 11/25/2021, patient is now postoperative day #4. Patient seems to be doing much better today, sitting in bed, on room air, not in any distress. Hardly any pain, patient continues to do well with incentive spirometry, his achieving or 1500 mL. Remains in sinus rhythm, blood pressure seems to be improved after midodrine was added. He is already ambulating in the hallway. Renal functioning is slightly better. Chest x-ray continues to show right basilar atelectasis and possibly developing a small tiny right-sided pleural effusion. Sputum culture is pending, sputum Gram stain is nondiagnostic so far. BUN today is 50 creatinine 2.08. Liver enzymes were also noted to be elevated but AST is coming down Objective - Vital Signs Vital signs: Vital Signs Temp 97.9 F 11/25/21 08:00 Pulse 90 11/25/21 12:38 Resp 16 11/25/21 12:38 BP 111/72 11/25/21 12:00 Pulse Ox 94 L 11/25/21 12:00 Intake & Output 11/24/21 11/25/21 11/25/21 18:59 06:59 18:59 Intake Total 812 312 104 Output Total 100 500 800 Balance 712 -188 -696 Weight 111.8 kg Intake: IV 312 312 104 Pressure Bag 72 72 24 Sodium Chloride 0.9% 1, 240 240 80 000 ml @ 20 mls/hr IV . Q24H [facility] Rx#:[id number] Oral 500 Output: Urine 100 500 800 Other: Voiding Method Urinal Urinal Urinal # Voids 1 0 ABP, PAP, CO, CI - Last Documented Arterial Blood Pressure 109/52 Pulmonary Artery Pressure 39/23 Cardiac Output 7.8 Cardiac Index 3.6 - Exam Gen.: Revealed a 61-year-old white male, in bed, on room air. HEENT: PERRLA, EOMI, nonicteric, RESPIRATORY: Symmetrical chest expansion, fine crackles at the bases especially at the right base. CARDIOVASCULAR: Distant S1 and S2, no S3 gallop, no murmur. GASTROINTESTINAL: Abdomen soft, nontender, nondistended. No guarding. Good bowel sounds. INTEGUMENTARY: No rashes. NEUROLOGIC: Alert and oriented 3 no gross focal deficits. MUSKULOSKELETAL: No deformities and no limitation in range of motion. PSYCHIATRIC: Normal mood, affect and normal mental status examination. - Labs CBC & Chem 7: 11/25/21 05:00 11/25/21 05:00 Labs: Abnormal Lab Results - Last 24 Hours (Table) 11/24/21 11/24/21 11/24/21 Range/Units 17:09 18:20 21:05 WBC (3.8-10.6) k/uL RBC (4.30-5.90) m/uL Hgb (13.0-17.5) gm/dL Hct (39.0-53.0) % Plt Count (150-450) k/uL Neutrophils # (1.3-7.7) k/uL Sodium (137-145) mmol/L BUN (9-20) mg/dL Creatinine (0.66-1.25) mg/dL Glucose (74-99) mg/dL POC Glucose (mg/dL) 259 H 212 H (75-99) mg/dL Calcium (8.4-10.2) mg/dL AST (17-59) U/L ALT (4-49) U/L Total Protein (6.3-8.2) g/dL Albumin (3.5-5.0) g/dL Urine Protein Trace H (Negative) Urine Glucose (UA) 1+ H (Negative) Urine Ketones Trace H (Negative) Urine Blood Small H (Negative) Ur Leukocyte Esterase Trace H (Negative) Urine RBC 9 H (0-5) /hpf Urine WBC 10 H (0-5) /hpf Hyaline Casts 221 H (0-2) /lpf Urine Mucus Occasional H (None) /hpf 11/25/21 11/25/21 11/25/21 Range/Units 05:00 05:00 08:13 WBC 11.0 H (3.8-10.6) k/uL RBC 2.82 L (4.30-5.90) m/uL Hgb 8.3 L (13.0-17.5) gm/dL Hct 25.9 L (39.0-53.0) % Plt Count 108 L (150-450) k/uL Neutrophils # 8.9 H (1.3-7.7) k/uL Sodium 131 L (137-145) mmol/L BUN 50 H (9-20) mg/dL Creatinine 2.08 H (0.66-1.25) mg/dL Glucose 115 H (74-99) mg/dL POC Glucose (mg/dL) 246 H (75-99) mg/dL Calcium 8.1 L (8.4-10.2) mg/dL AST 743 H (17-59) U/L ALT 661 H (4-49) U/L Total Protein 5.0 L (6.3-8.2) g/dL Albumin 2.9 L (3.5-5.0) g/dL Urine Protein (Negative) Urine Glucose (UA) (Negative) Urine Ketones (Negative) Urine Blood (Negative) Ur Leukocyte Esterase (Negative) Urine RBC (0-5) /hpf Urine WBC (0-5) /hpf Hyaline Casts (0-2) /lpf Urine Mucus (None) /hpf 11/25/21 Range/Units 11:29 WBC (3.8-10.6) k/uL RBC (4.30-5.90) m/uL Hgb (13.0-17.5) gm/dL Hct (39.0-53.0) % Plt Count (150-450) k/uL Neutrophils # (1.3-7.7) k/uL Sodium (137-145) mmol/L BUN (9-20) mg/dL Creatinine (0.66-1.25) mg/dL Glucose (74-99) mg/dL POC Glucose (mg/dL) 180 H (75-99) mg/dL Calcium (8.4-10.2) mg/dL AST (17-59) U/L ALT (4-49) U/L Total Protein (6.3-8.2) g/dL Albumin (3.5-5.0) g/dL Urine Protein (Negative) Urine Glucose (UA) (Negative) Urine Ketones (Negative) Urine Blood (Negative) Ur Leukocyte Esterase (Negative) Urine RBC (0-5) /hpf Urine WBC (0-5) /hpf Hyaline Casts (0-2) /lpf Urine Mucus (None) /hpf Microbiology - Last 24 Hours (Table) 11/24/21 14:15 Gram Stain - Preliminary Sputum Sputum Culture - Preliminary Assessment and Plan Assessment: Impression: Postoperative day #4 Severe bicuspid aortic valve, status post aortic valve replacement with 25 mm Inspiris pericardial bioprosthesis Coronary artery disease, status post double coronary artery bypass grafting Severe mitral regurgitation, status post mitral valve repair History of previous MO and LV dysfunction and previous PCI in 2017 Ischemic cardiomyopathy Benign essential hypertension Dyslipidemia History of COVID-19 infection in June 14 021 History of fatty liver disease Family history of premature coronary artery disease Postoperative atelectasis, expected. GERD without esophagitis. Type 2 diabetes. Insulin-dependent. Recommendation: Continue incentive spirometry, ambulate Continue aspirin and Plavix beta blockers Continue insulin Sputum cultures are pending. Nephrology is addressing his renal status, slight improvement noted today. We'll continue to follow while in the ICU. Time with Patient: Less than 30
--- NOTE | 2021-11-25 13:20 | US ---
EXAMINATION TYPE: US chest DATE OF EXAM: 11/25/2021 COMPARISON: XR earlier today. CLINICAL HISTORY: ángel for thoracentesis. Pleural effusion/markings. TECHNIQUE: Targeted ultrasound of the posterior lower bilateral hemithoraces EXAM MEASUREMENTS: Right Pleural Effusion pocket size: 9.3 cm Right skin surface to fluid distance: 3.4 cm. *Lung tissue is seen at 3.8 cm. Left Pleural Effusion pocket size: 3.0 cm Left skin surface to fluid distance: 3.2 cm *Lung issue seen at 3.2 cm. Right side Not marked for possible thoracentesis outside the dept. Left side Not marked for possible thoracentesis outside the dept. Pulmonologists are able to review the images in the patient?s EMR. Only small to tiny bilateral pleural effusions right slightly larger than left are identified on imag es saved. IMPRESSIONS: As above.
[2021-11-25 17:05] LABS: Glucose,Whole Blood 147 mg/dL (75-99)
[2021-11-25] MEDS: SENNOSIDES-DOCUSATE SODIUM 1 EACH TAB PO SCH (20:07)
[2021-11-25 20:25] LABS: Glucose,Whole Blood 179 mg/dL (75-99)
[2021-11-25] MEDS ORDERED: INSULIN DETEMIR (LEVEMIR) 100 UNIT/ML SYR SQ SCH (21:00)
[2021-11-26 05:56] LABS: Glucose,Whole Blood 109 mg/dL (75-99)
[2021-11-26] MEDS: MIDODRINE 5 MG TAB PO SCH ×3 (06:27→17:06)
[2021-11-26] MEDS: INSULIN ASPART (NovoLOG) 100 UNIT/ML VIAL SQ SCH ×7 (06:27→21:49)
[2021-11-26] MEDS: INSULIN DETEMIR (LEVEMIR) 100 UNIT/ML SYR SQ SCH ×2 (06:55→21:50)
[2021-11-26] MEDS: PANTOPRAZOLE 40 MG TABLET PO SCH (06:56)
--- NOTE | 2021-11-26 07:26 | XR ---
EXAMINATION TYPE: XR chest 2V DATE OF EXAM: 11/26/2021 COMPARISON: 11/25/2021 HISTORY: Shortness of breath TECHNIQUE: Frontal and lateral views of the chest are obtained. FINDINGS: Sternotomy wires along with left atrial appendage clip and metallic aortic valve are redemonstrated. Right IJ sheath has been removed. Improving pulmonary venous congestion and pleural effusions as well as basilar linear atelectasis. No evidence for infiltrate. No evidence for atelectasis. Heart size is stable. Mediastinal structures are stable and grossly unremarkable. No evidence for hilar prominence. Degenerative changes dorsal spine. IMPRESSION: 1. Improving pulmonary venous congestion and pleural effusions as well as basilar linear atelectasis.
[2021-11-26] MEDS: IPRATROPIUM-ALBUTEROL 3 ML NEB INHALATION SCH ×5 (08:03→20:28)
[2021-11-26 08:04] LABS: HCT 27.3 % (39.0-53.0); HGB 8.9 gm/dL (13.0-17.5); Hypochromasia Slight; MCH 30.5 pg (25.0-35.0); MCHC 32.6 g/dL (31.0-37.0); MCV 93.5 fL (80.0-100.0); Mean Platelet Volume 8.1; Platelet Count 124 k/uL (150-450); RBC 2.92 m/uL (4.30-5.90); RDW 15.5 % (11.5-15.5)
[2021-11-26 08:09] LABS: Albumin 3.3 g/dL (3.5-5.0); Calcium 8.4 mg/dL (8.4-10.2); Total Bilirubin 1.5 mg/dL (0.2-1.3); Total Protein 5.8 g/dL (6.3-8.2)
--- NOTE | 2021-11-26 09:27 | P.PN ---
Subjective Progress Note Date: 11/26/21 Principal diagnosis: Severe bicuspid aortic valve stenosis, coronary artery disease, moderate to severe mitral valve regurgitation and moderate left ventricular dysfunction. Past medical history significant for hypertension, coronary artery disease with history of myocardial infarction status post PCI in 2016, hyperlipidemia, insulin-dependent diabetes mellitus, fatty liver disease, prostate cancer status post prostatectomy in 2017, GERD, remote history of tobacco dependence, COVID-19 infection in June 2021, and a strong family history of premature coronary artery disease with his father having a CABG at age 54. Positive preoperative nasal screening for MSSA which was treated. POD #5 double coronary artery bypass grafting using a reverse saphenous vein graft from the aorta to the first obtuse marginal coronary artery, a reverse greater saphenous vein graft from the aorta to the posterior lateral branch of the circumflex coronary artery. Aortic valve replacement using a 25 mm Inspiris pericardial bioprosthesis. Mitral valve repair with posterior annuloplasty using a 30 mm AnnuloFlex band. Exclusion of the left atrial appendage using a 35 mm Atriclip. Intraoperative graft flow measurements using the YuuConnect-Stim sytem. Intraoperative transesophageal echocardiogram and epi-aortic scanning. Acute blood loss anemia, expected due to hemodilution and cardiopulmonary bypass. Acute kidney injury, unexpected likely due to hypotension. Elevated transaminases, unexpected, likely due to hypertension. The patient was seen in follow-up today 11/26/2021 at his bedside on the cardiac stepdown unit. Currently he is sitting up to the bedside chair, is awake, alert, and oriented 3 and is in no acute apparent distress. Denies any complaints of shortness of breath or surgical type pain at this time. He is complaining of some leakage from his previous left pleural chest tube site and is also complaining of some constipation. Oxygen saturation are 94% on room air and he is achieving 2000 mL on his incentive spirometry. Remote telemetry showing normal sinus rhythm heart rate 91 BPM. Complaining of a sore mouth with a coating on his tongue. He reports he has been up ambulating in the cardiac stepdown unit hallway with standby assistance from nursing and therapy staff, reports he ambulated 4 times total yesterday. Labs and chest x-ray results reviewed. He also reports that he has his first postoperative day shower yesterday. Objective - Vital Signs Vital signs: Vital Signs Temp 98.1 F 04/16/22 04:00 Pulse 92 11/26/21 08:17 Resp 18 11/26/21 04:00 BP 130/69 11/26/21 04:00 Pulse Ox 94 L 11/26/21 04:00 Intake & Output 11/25/21 11/26/21 11/26/21 18:59 06:59 18:59 Intake Total 224 Output Total 1100 650 Balance -876 -650 Weight 110.042 kg Intake: IV 104 Pressure Bag 24 Sodium Chloride 0.9% 1, 80 000 ml @ 20 mls/hr IV . Q24H COUNTS INCLUDE 234 BEDS AT THE [facility] Rx#:[id number] Oral 120 Output: Urine 1100 650 Other: Voiding Method Urinal Toilet # Voids 0 3 ABP, PAP, CO, CI - Last Documented Arterial Blood Pressure 109/52 Pulmonary Artery Pressure 39/23 Cardiac Output 7.8 Cardiac Index 3.6 - Exam CONSTITUTIONAL: Sitting up to the bedside chair on the cardiac stepdown unit, appears comfortable, cooperative, no apparent acute distress. HEENT: Neck is supple, no JVD, no lymphadenopathy. RESPIRATORY: Lungs sounds essentially clear throughout, diminished to his bilateral bases, right greater than left. Respirations are symmetrical and nonlabored. Currently on room air with oxygen saturations 94%. Able to achieve 2000 mL on his incentive spirometry. Strong cough. CARDIOVASCULAR: Regular rhythm and rate. S1 and S2 present, negative for S3, gallop or murmur. Sternum is stable. Palpable peripheral pulses bilaterally. No calf pain or tenderness noted. Heart hugger in place with patient demonstra ting appropriate use. Knee-high RICHIE hose and sequential compression devices in place to his bilateral lower extremities. Remote telemetry showing normal sinus rhythm heart rate 91 bpm. trace edema to his bilateral lower extremities. GASTROINTESTINAL: Abdomen soft, nontender, nondistended. Active bowel sounds present 4 quadrants. Tolerating diet. No guarding or rigidity. Passing flatus. GENITOURINARY: Continues to void. 650 mL output in the last 8 hours. INTEGUMENTARY: Skin is warm and dry with no evidence of clubbing or cyanosis. Midline sternal incision clean dry and well approximated, covered with dry intact dressing. Right lower extremity EVH sites well approximated. Excoriated area to his right upper thigh incision site. NEUROLOGIC: Cranial nerves II through XII intact. No focal deficits. MUSKULOSKELETAL: Able to move all extremities, strength equal bilaterally. PSYCHIATRIC: Alert and oriented to person place and time, appropriate affect, intact judgment and insight. INVASIVE LINES AND TUBES: Atrial epicardial pacemaker wires in place and grounded. - Allied health notes Allied health notes reviewed: nursing - Labs CBC & Chem 7: 11/26/21 07:44 11/26/21 07:44 Labs: Abnormal Lab Results - Last 24 Hours (Table) 11/25/21 11/25/21 11/25/21 Range/Units 11:29 17:04 20:02 RBC (4.30-5.90) m/uL Hgb (13.0-17.5) gm/dL Hct (39.0-53.0) % Plt Count (150-450) k/uL Sodium (137-145) mmol/L BUN (9-20) mg/dL Creatinine (0.66-1.25) mg/dL Glucose (74-99) mg/dL POC Glucose (mg/dL) 180 H 147 H 179 H (75-99) mg/dL Total Bilirubin (0.2-1.3) mg/dL AST (17-59) U/L ALT (4-49) U/L Total Protein (6.3-8.2) g/dL Albumin (3.5-5.0) g/dL 11/26/21 11/26/21 11/26/21 Range/Units 05:55 07:44 07:44 RBC 2.92 L (4.30-5.90) m/uL Hgb 8.9 L (13.0-17.5) gm/dL Hct 27.3 L (39.0-53.0) % Plt Count 124 L (150-450) k/uL Sodium 135 L (137-145) mmol/L BUN 42 H (9-20) mg/dL Creatinine 1.40 H (0.66-1.25) mg/dL Glucose 108 H (74-99) mg/dL POC Glucose (mg/dL) 109 H (75-99) mg/dL Total Bilirubin 1.5 H (0.2-1.3) mg/dL AST 465 H (17-59) U/L ALT 539 H (4-49) U/L Total Protein 5.8 L (6.3-8.2) g/dL Albumin 3.3 L (3.5-5.0) g/dL - Imaging and Cardiology Chest x-ray: report reviewed, image reviewed Assessment and Plan Assessment: 1. Severe bicuspid aortic valve stenosis, status post aortic valve replacement with a 25 mm Inspiris pericardial bioprosthesis 2. Moderate to severe mitral valve regurgitation, status post mitral valve repair with a posterior annuloplasty using a 30 mm AnnuloFlex band 3. Coronary artery disease, status post double coronary artery bypass grafting 4. Moderate left ventricular dysfunction 5. History of hypertension 6. Hyperlipidemia 7. History of coronary artery disease and myocardial infarction status post PCI in 2017 8. Insulin-dependent diabetes mellitus 9. History of prostate cancer status post prostatectomy in 2018 10. Remote history of tobacco dependence 11. COVID-19 infection in June 2021 12. Fatty liver disease 13. GERD 14. Strong family history of premature coronary artery disease with his father having a CABG at age 54 15. Acute blood loss anemia, expected due to hemodilution and cardiopulmonary bypass 16. Preoperative nasal screening positive for MSSA, treated 17. Acute kidney injury, unexpected likely due to hypotension 18. Elevated transaminase, unexpected, likely due to hypotension Plan: 1. Continue aspirin, Plavix and low-dose beta roosevelt. We will increase metoprolol tartrate as tolerated. Continue to hold statins and amiodarone for now due to elevated transaminase, once transaminase has normalized we will restart statin. 2. Encourage incentive spirometry use 10 times every hour while awake. Bronchodilators per pulmonology. 3. Increase activity, ambulate as tolerated. Out of bed for all meals. PT/OT/cardiac rehab following. 4. Will monitor daily labs and chest x-rays. Electrolyte replacement per protocol. 5. Pain control per current medication regimen. 6. Insulin management per primary care service. The patient needs tight blood sugar control to promote healing and sternal union as well as prevent infection. 7. Continue daily showers. 8. Strict accurate intake and output. Daily weights 9. Dulcolax suppository 1 now for his complaints of constipation. 10. Nystatin swish and swallow started for thrush 11. Silvadene ointment to his right groin twice a day. 12. Diabetic management per nephrology's recommendations. Avoid nephrotoxic agents. 13. More recommendations to follow based on patient's clinical course. Time with Patient: Greater than 30
[2021-11-26] MEDS: HEPARIN SODIUM,PORCINE/PF 5,000 UNIT/0.5 ML SYRINGE SQ SCH ×3 (09:52→23:59)
[2021-11-26] MEDS: CLOPIDOGREL 75 MG TAB PO SCH (09:52)
[2021-11-26] MEDS: SODIUM BICARBONATE TAB 650 MG TAB PO SCH (09:52)
[2021-11-26] MEDS: METOPROLOL TARTRATE 25 MG TAB PO SCH ×2 (09:52→21:50)
[2021-11-26] MEDS: ASPIRIN 325 MG TAB PO SCH (09:52)
[2021-11-26] MEDS: CHOLECALCIFEROL 25 MCG (1000 IU) TABLET PO SCH (09:52)
[2021-11-26] MEDS: bisacodyL 10 MG SUPP RECTAL PRN (09:52)
[2021-11-26] MEDS: PSYLLIUM HUSK 100% 6 GM PACKET PO SCH (09:52)
[2021-11-26] MEDS: LINAGLIPTIN 5 MG TABLET PO SCH ×2 (09:52→09:54)
--- NOTE | 2021-11-26 10:08 | PN ---
PROGRESS NOTE This gentleman underwent aortic valve replacement and mitral valve repair and also had a two-vessel bypass. He had some acute kidney injury, which seems to have improved. He is feeling better, ambulating in the hallways and maintaining sinus rhythm. There is no JVD. S1-S2 heard normally. Short systolic murmur is evident. Lungs reveal improved air entry. Abdomen is soft, nontender. Lower extremities reveal diminished pulses. Central nervous system is grossly within normal limits. Laboratory data, specifically renal function, is pending at this time. From a cardiac standpoint, I would recommend that we increase the beta roosevelt from 12.5 to 25 mg b.i.d., provided his blood pressure is acceptable and is kept more than 110 systolic. Increased activity. Await renal function. Continue incentive spirometry and pulmonary toilet. MMODL / IJN: [id number] /
[2021-11-26] MEDS: NYSTATIN 100,000 UNIT/ML SUSP 500,000 UNIT/5 ML CUP PO SCH ×4 (10:45→21:50)
--- NOTE | 2021-11-26 11:34 | P.PN ---
Subjective Progress Note Date: 11/26/21 The patient is seen today 11/26/2021 in follow-up on the selective care unit. He is currently up ambulating in the room. Awake and alert in no acute distress. Postoperative day #5. He is maintaining good O2 saturations in the 90s on room air. Ultrasound of the small bilateral effusions did not reveal any significant fluid. Not marked for thoracentesis. Chest x-ray reveals improving pulmonary vascular congestion and pleural effusions as well as the basilar linear atelectasis. He's been afebrile. Hemodynamically stable. Serous drainage from the right calf incision site. Serous drainage from the left chest tube site. Sputum culture was positive for Viviana only. White count 9.0. Hemoglobin 8.9. Platelets 124. Sodium 135. His 4.0. BUN 42. Creatinine 1.40. AST 465. ALT 539. He continues to work well with the incentive spirometer. Remains on bronchodilators. Heparin for DVT prophylaxis. Objective - Vital Signs Vital signs: Vital Signs Temp 98.6 F 11/26/21 08:00 Pulse 96 11/26/21 11:08 Resp 18 11/26/21 08:00 BP 145/77 11/26/21 08:00 Pulse Ox 94 L 11/26/21 08:00 Intake & Output 11/25/21 11/26/21 11/26/21 18:59 06:59 18:59 Intake Total 224 400 Output Total 1100 650 300 Balance -876 -650 100 Weight 110.042 kg Intake: IV 104 Pressure Bag 24 Sodium Chloride 0.9% 1, 80 000 ml @ 20 mls/hr IV . Q24H [facility] Rx#:[id number] Oral 120 400 Output: Urine 1100 650 300 Other: Voiding Method Urinal Toilet # Voids 0 3 ABP, PAP, CO, CI - Last Documented Arterial Blood Pressure 109/52 Pulmonary Artery Pressure 39/23 Cardiac Output 7.8 Cardiac Index 3.6 - Exam GENERAL EXAM: Alert, active, very pleasant 61-year-old male patient, on room air, comfortable in no apparent distress. HEAD: Normocephalic. EYES: Normal reaction of pupils, equal size. NOSE: Clear with pink turbinates. THROAT: No erythema or exudates. NECK: No masses, no JVD. CHEST: No chest wall deformity. Heart has been placed. Some serous drainage from the chest tube sites. LUNGS: Equal air entry with few crackles in the posterior bases. CVS: S1 and S2 normal with no audible murmur, regular rhythm. ABDOMEN: No hepatosplenomegaly, normal bowel sounds, no guarding or rigidity. SPINE: No scoliosis or deformity SKIN: No rashes CENTRAL NERVOUS SYSTEM: No focal deficits, tone is normal in all 4 extremities. EXTREMITIES: Small amount of drainage from incisional site right calf. There is no peripheral edema. No clubbing, no cyanosis. Peripheral pulses are intact. - Labs CBC & Chem 7: 11/26/21 07:44 11/26/21 07:44 Labs: Abnormal Lab Results - Last 24 Hours (Table) 11/25/21 11/25/21 11/25/21 Range/Units 11:29 17:04 20:02 RBC (4.30-5.90) m/uL Hgb (13.0-17.5) gm/dL Hct (39.0-53.0) % Plt Count (150-450) k/uL Sodium (137-145) mmol/L BUN (9-20) mg/dL Creatinine (0.66-1.25) mg/dL Glucose (74-99) mg/dL POC Glucose (mg/dL) 180 H 147 H 179 H (75-99) mg/dL Total Bilirubin (0.2-1.3) mg/dL AST (17-59) U/L ALT (4-49) U/L Total Protein (6.3-8.2) g/dL Albumin (3.5-5.0) g/dL 11/26/21 11/26/21 11/26/21 Range/Units 05:55 07:44 07:44 RBC 2.92 L (4.30-5.90) m/uL Hgb 8.9 L (13.0-17.5) gm/dL Hct 27.3 L (39.0-53.0) % Plt Count 124 L (150-450) k/uL Sodium 135 L (137-145) mmol/L BUN 42 H (9-20) mg/dL Creatinine 1.40 H (0.66-1.25) mg/dL Glucose 108 H (74-99) mg/dL POC Glucose (mg/dL) 109 H (75-99) mg/dL Total Bilirubin 1.5 H (0.2-1.3) mg/dL AST 465 H (17-59) U/L ALT 539 H (4-49) U/L Total Protein 5.8 L (6.3-8.2) g/dL Albumin 3.3 L (3.5-5.0) g/dL Microbiology - Last 24 Hours (Table) 11/24/21 14:15 Gram Stain - Final Sputum Sputum Culture - Final Viviana albicans Assessment and Plan Assessment: 1 Severe bicuspid aortic valve, status post aortic valve replacement with 25 mm Inspiris pericardial bioprosthesis, postoperative day #5 2 Coronary artery disease, status post double coronary artery bypass grafting, postoperative day #5 3 Severe mitral regurgitation, status post mitral valve repair, postoperative day #5 4 History of previous NH and LV dysfunction and previous PCI in 2016 5 Ischemic cardiomyopathy 6 Benign essential hypertension 7 Dyslipidemia 8 History of COVID-19 infection in June 14 9 History of fatty liver disease 10 Family history of premature coronary artery disease 11 GERD without esophagitis. 12 Type 2 diabetes. Insulin-dependent. Plan: The patient was seen and evaluated Ultrasound, chest x-ray and labs reviewed No plans for thoracentesis at this time Stable and on room air Continue to work with the incentive spirometer Increase his activity as tolerated Home once cleared by CT services I have personally seen and examined the patient, performed the documentation and the assessment and plan as written. Number of minutes spent on the visit: 10.
[2021-11-26 11:53] LABS: Glucose,Whole Blood 156 mg/dL (75-99)
[2021-11-26] MEDS: traMADol 50 MG TAB PO PRN ×3 (12:53→23:59)
--- NOTE | 2021-11-26 13:06 | P.PN ---
Subjective Progress Note Date: 11/26/21 Follow-up for acute kidney injury. Objective - Vital Signs Vital signs: Vital Signs Temp 98.4 F 11/26/21 12:38 Pulse 90 11/26/21 12:38 Resp 18 11/26/21 12:38 BP 114/69 11/26/21 12:38 Pulse Ox 97 11/26/21 12:38 Intake & Output 11/25/21 11/26/21 11/26/21 18:59 06:59 18:59 Intake Total 224 850 Output Total 1100 650 300 Balance -876 -650 550 Weight 110.042 kg Intake: IV 104 Pressure Bag 24 Sodium Chloride 0.9% 1, 80 000 ml @ 20 mls/hr IV . Q24H [facility] Rx#:[id number] Oral 120 850 Output: Urine 1100 650 300 Other: Voiding Method Urinal Toilet # Voids 0 3 1 # Bowel Movements 1 ABP, PAP, CO, CI - Last Documented Arterial Blood Pressure 109/52 Pulmonary Artery Pressure 39/23 Cardiac Output 7.8 Cardiac Index 3.6 - Exam No acute distress S1-S2 heard Decreased breath sounds No edema - Labs CBC & Chem 7: 11/26/21 07:44 11/26/21 07:44 Labs: Abnormal Lab Results - Last 24 Hours (Table) 11/25/21 11/25/21 11/26/21 Range/Units 17:04 20:02 05:55 RBC (4.30-5.90) m/uL Hgb (13.0-17.5) gm/dL Hct (39.0-53.0) % Plt Count (150-450) k/uL Sodium (137-145) mmol/L BUN (9-20) mg/dL Creatinine (0.66-1.25) mg/dL Glucose (74-99) mg/dL POC Glucose (mg/dL) 147 H 179 H 109 H (75-99) mg/dL Total Bilirubin (0.2-1.3) mg/dL AST (17-59) U/L ALT (4-49) U/L Total Protein (6.3-8.2) g/dL Albumin (3.5-5.0) g/dL 11/26/21 11/26/21 11/26/21 Range/Units 07:44 07:44 11:51 RBC 2.92 L (4.30-5.90) m/uL Hgb 8.9 L (13.0-17.5) gm/dL Hct 27.3 L (39.0-53.0) % Plt Count 124 L (150-450) k/uL Sodium 135 L (137-145) mmol/L BUN 42 H (9-20) mg/dL Creatinine 1.40 H (0.66-1.25) mg/dL Glucose 108 H (74-99) mg/dL POC Glucose (mg/dL) 156 H (75-99) mg/dL Total Bilirubin 1.5 H (0.2-1.3) mg/dL AST 465 H (17-59) U/L ALT 539 H (4-49) U/L Total Protein 5.8 L (6.3-8.2) g/dL Albumin 3.3 L (3.5-5.0) g/dL Microbiology - Last 24 Hours (Table) 11/24/21 14:15 Gram Stain - Final Sputum Sputum Culture - Final Viviana albicans Assessment and Plan Assessment: #1 acute kidney injury secondary to hemodynamic ATN with low blood pressures -Baseline creatinine 0.7 MG per DL, peak creatinine of 2.2-3 MG per DL. #2 coronary artery disease status post CABG and aortic valve replacement, 11/21/2021. #3 metabolic acidosis resolved #4 hypotension on midodrine. Plan: #1 renal function improving. Continue to monitor. #2 if blood pressures better, midodrine can be discontinued tomorrow #3 avoid nephrotoxic agents
[2021-11-26] MEDS ORDERED: FUROSEMIDE 10 MG/ML 4 ML VIAL IV STA (14:30)
[2021-11-26 16:23] LABS: Glucose,Whole Blood 135 mg/dL (75-99)
[2021-11-26] MEDS: BENZOCAINE/MENTHOL LOZENG 1 EACH LOZENGE MUCOUS MEM PRN ×2 (18:01→21:59)
--- NOTE | 2021-11-26 19:01 | P.PN ---
Subjective Progress Note Date: 11/26/21 HISTORY OF PRESENT ILLNESS This is a 61 year old male patient of Dr. Sridhar Tavarez with past medical history of hypertension, hypertensive cardiovascular disease, coronary artery disease status post stent in 2017, severe aortic stenosis, chronic diastolic heart failure, diabetes mellitus type 2, gastroesophageal reflux disease, hyperlipidemia, benign prostatic hypertrophy, prostate cancer status post prostatectomy in 2018 under the care of Dr. Willis, remote history of tobacco use, generalized osteoarthritis. Cardiac catheterization 10/21/2021 showed chronic total occlusion of mid RCA patent stent to the LAD 60-70% stenosis to the diagonal branch of the LAD 90% stenosis of the circumflex coronary artery and 70-80% stenosis to the OM branch. NABEEL revealed moderate aortic regurgitation, severe central mitral regurgitation, mild tricuspid regurgitation and normal left ventricular function. Patient has been brought into the hospital under the care of cardiothoracic surgery status post double coronary artery bypass grafting using a reverse saphenous vein graft from the aorta to the first obtuse marginal coronary artery, a reverse greater saphenous vein graft from the aorta to the posterior lateral branch of the circumflex coronary artery, aortic valve replacement using bioprosthesis, mitral valve repair with posterior annuloplasty, exclusion of the left atrial appendage using a 35 mm Atriclip. Patient is seen today in the ICU, successfully extubated, resting and recliner. Patient states he has discomfort in his chest pain is controlled. His last A1c was 10.4 on 10/21/2021. He states he was recently started on insulin and is currently on insulin drip. WBC 10.7, hemoglobin 9.6 and platelet count 95. Sodium 140, potassium 4.1, chloride 109, CO2 21, BUN 10 and creatinine 0.84. Blood sugar 147. 4/13: Patient is seen in the intensive care unit. He states he slept appetite in bed in half and recliner. He was also up walking today and felt he did well. Blood sugars are running between 128 and 190 however patient is on a high-dose of insulin 13 units per hour. We will increase Levemir, and NovoLog with meals scheduled, resume Tradjenta and add NovoLog scale and titrate off insulin drip. Repeat chest x-ray reveals mild right lower lobe atelectasis or developing infiltrate. [place]-Mir[place] catheter is been removed. Mediastinal chest tubes and left chest tube remains intact as well as Newman catheter. He is reaching 1500 miles on incentive spirometry. alarm security or surveillance monitor sinus rhythm. 11/24: Patient remains in the intensive care unit. Patient had hypoglycemia at midnight but he was still on insulin drip on top of the scheduled long-acting and short acting. The insulin drip was discontinued this morning and patient to continue on Levemir scheduled NovoLog and NovoLog scale., Platelet count 131. Sodium 130, potassium 5.3, chloride 103, CO2 17, BUN 34 creatinine 2.23. AST 1045, ALT 551. Alkaline phosphatase 82. Consult was added for nephrology with recommendations to add midodrine, and bicarb and hold diuretics as blood pressure is low.patient denies having any chest pain. He has ambulated in the hallway. .metoprolol was decreased, amiodarone was discontinued and statin on hold renal ultrasound reveals no hydronephrosis. Bladder remains partially distended despite the Newman catheter balloon seen within the bladder. 11/25: Patient remains in intensive care unit. He has been afebrile, heart rate in the 90s, blood pressure 138/77, pulse ox 90-98% on room air. alarm security or surveillance monitor is sinus rhythm. He is reaching 1500 ML's on incentive spirometry. Repeat blood work reveals WBC 11, hemoglobin 8.3, platelet count 108. Sodium 131, potassium 4.1, chloride 103, CO2 22, BUN 50 creatinine 2.08. Capillary blood glucose running high today at 246. AST 743, ALT 661, alkaline phosphatase 97. Levemir will be increased to 20 units twice daily and scheduled NovoLog to 10 units before meals and at bedtime. Patient is scheduled to transfer to the cardiac stepdown unit. 11/26: Patient is out of the ICU, chest tube is out, blood sugars running in the low 100 has been doing very well so far been on Levemir along with NovoLog ruth ent is off insulin drip completely. Still having mild shortness of breath require minimum oxygen at this point. Liver function tests were slightly elevated yesterday and still at 465 and 536 is likely slight decrease in circulation to the liver for the time patient had surgery on. Hemoglobin still little bit low at 8.9 patient does not require any blood transfusion. Kidney function has improved some creatinine is still 1.4 down from 2.08. All going well so far patient might be able to go home tomorrow. REVIEW OF SYSTEMS Constitutional: No fever, no chills, no night sweats. No weight change. Mild generalized weakness and fatigue. No daytime sleepiness. EENT: No headache. No blurred vision or double vision, no loss of vision. No loss of Hearing, no ringing in the ears, no dizziness. No nasal drainage or congestion. No epistaxis. No sore throat. Lungs: No shortness of breath, cough, no sputum production. No wheezing. Cardiovascular: Reports chest discomfort mild, no lower extremity edema. No palpitations. No paroxysmal nocturnal dyspnea. No orthopnea. No lightheadedness or dizziness. No syncopal episodes. Abdominal: No abdominal pain. No nausea, vomiting. No diarrhea. No constipation. No bloody or tarry stools. No loss of appetite. Genitourinary: No dysuria, increased frequency, urgency. No urinary retention. Musculoskeletal: No myalgias. No muscle weakness, no gait dysfunction, no frequent falls. No back pain. No neck pain. Integumentary: No wounds, no lesions. No rash or pruritus. No unusual bruising. No change in hair or nails. Neurologic: No aphasia. No facial droop. No change in mentation. No head injury. No headache. No paralysis. No paresthesia. Psychiatric: No depression. No anxiety. No mood swings. Endocrine: Noted abnormal blood sugars with hyperglycemia. No weight change. No excessive sweating or thirst. PHYSICAL EXAMINATION Gen: This is a 61-year-old male. He is resting and recliner and appears to be comfortable at rest. No acute distress noted. HEENT: Head is atraumatic, normocephalic. Pupils equal, round. Sclerae is anicteric. NECK: Supple. Trachea midline. LUNGS: Clear to auscultation. No wheezes or rhonchi. No intercostal retractions. his chest tube is out still have significant pain and discomfort in the rib cage area. HEART: Regular rate and rhythm. No murmur. alarm security or surveillance monitor is sinus rhythm ABDOMEN: Soft. Bowel sounds are present. No masses. No tenderness. EXTREMITIES: No pedal edema. No calf tenderness. NEUROLOGICAL: Patient is awake, alert and oriented x3. Cranial nerves 2 through 12 are grossly intact. ASSESSMENT AND PLAN 1. Coronary artery disease status post double CABG 4/11. Continue aspirin, Lipitor(on hold), Plavix, Lopressor. doing well after surgery. 2. Severe bicuspid aortic valve stenosis status post aortic valve replacement. Continue current management per cardiothoracic surgery team. Patient has been recommended to have children checked for bicuspid valve. 3. Moderate to severe mitral valve regurgitation status post mitral valve repair. 4. Coronary artery disease with previous PCI/stent.and 2 bypass surgery at this point has been doing well. 5. Chronic diastolic heart failure. expected significant improvement in heart function and symptoms so far on medical management. 6. Hypertension, hypertensive cardiovascular disease. Continue Lopressor.with improving kidney function patient be able to go back on smaller dose of ashley her heart. 7. Thrombocytopenia secondary to surgery, not unexpected with illness or surgery. Continue to monitor 8. Anemia, acute blood loss expected with surgery. 9. Diabetes mellitus type 2. Hemoglobin A1c 10.4. Patient transition to Levemir and will increase to 20 units twice daily, increase scheduled NovoLog to 10 units before meals and at bedtime along with NovoLog scale before meals and at bedtime. 10. acute kidney injury secondary to ATN secondary to hypotension. significant improvement GFR and creatinine continue hydration repeat CMP tomorrow. 11. Metabolic acidosis secondary to acute kidney injury. patient oxygenation is much better has been doing so well so far 12. Hyponatremia. result. 13. Transaminitis. Amiodarone discontinued and statin placed on hold.repeat liver function tests again tomorrow. 14. Gastroesophageal reflux disease. Continue Protonix. 14. DVT prophylaxis. Heparin subcu. discharge planning: Possibly home tomorrow. CODE STATUS: Full code Objective - Vital Signs Vital signs: Vital Signs Temp 98.1 F 11/26/21 04:00 Pulse 91 11/26/21 04:00 Resp 18 11/26/21 04:00 BP 130/69 11/26/21 04:00 Pulse Ox 94 L 11/26/21 04:00 Intake & Output 11/25/21 11/25/21 11/26/21 06:59 18:59 06:59 Intake Total 312 224 Output Total 500 1100 650 Balance -188 -876 -650 Weight 111.8 kg 110.042 kg Intake: IV 312 104 Pressure Bag 72 24 Sodium Chloride 0.9% 1, 240 80 000 ml @ 20 mls/hr IV . Q24H [facility] Rx#:[id number] Oral 120 Output: Urine 500 1100 650 Other: Voiding Method Urinal Urinal Toilet # Voids 0 3 ABP, PAP, CO, CI - Last Documented Arterial Blood Pressure 109/52 Pulmonary Artery Pressure 39/23 Cardiac Output 7.8 Cardiac Index 3.6 - Labs CBC & Chem 7: 11/26/21 07:44 11/26/21 07:44 Labs: Abnormal Lab Results - Last 24 Hours (Table) 11/25/21 11/25/21 11/25/21 Range/Units 08:13 11:29 17:04 POC Glucose (mg/dL) 246 H 180 H 147 H (75-99) mg/dL 11/25/21 11/26/21 Range/Units 20:02 05:55 POC Glucose (mg/dL) 179 H 109 H (75-99) mg/dL
[2021-11-26 20:40] LABS: Glucose,Whole Blood 156 mg/dL (75-99)
[2021-11-26] MEDS: SENNOSIDES-DOCUSATE SODIUM 1 EACH TAB PO SCH (21:50)
[2021-11-27 06:52] LABS: Glucose,Whole Blood 144 mg/dL (75-99)
[2021-11-27] MEDS: INSULIN DETEMIR (LEVEMIR) 100 UNIT/ML SYR SQ SCH ×2 (07:05→21:29)
[2021-11-27] MEDS: MIDODRINE 5 MG TAB PO SCH ×3 (07:06→18:24)
[2021-11-27] MEDS: PANTOPRAZOLE 40 MG TABLET PO SCH (07:06)
[2021-11-27] MEDS: INSULIN ASPART (NovoLOG) 100 UNIT/ML VIAL SQ SCH ×7 (07:06→20:29)
--- NOTE | 2021-11-27 07:30 | XR ---
EXAMINATION TYPE: XR chest 1V portable DATE OF EXAM: 11/27/2021 HISTORY: Postoperative cardiac COMPARISON: 11/26/2021 TECHNIQUE: Single view of the chest is submitted. FINDINGS: Demonstrated are scattered senescent parenchymal change. Again noted are sternotomy wires. Left atrial appendage clip is in place as well as left aortic valv ular prosthesis . Small left-sided pleural effusion noted. Improving atelectasis right medial lung ba se. The heart is stable. Hilar and mediastinal structures are within normal limits. Degenerative changes are seen of the dorsal spine. IMPRESSION: 1. Small left-sided pleural effusion noted. Improving atelectasis right medial lung base.
[2021-11-27 08:02] LABS: Basophils % (A) 0 %; Eosinophils # (A) 0.3 k/uL (0-0.7); Eosinophils % (A) 3 %; HCT 27.6 % (39.0-53.0); HGB 8.7 gm/dL (13.0-17.5); Hypochromasia Slight; Lymphocytes # (A) 1.2 k/uL (1.0-4.8); Lymphocytes % (A) 14 %; MCH 30.5 pg (25.0-35.0); MCHC 31.6 g/dL (31.0-37.0); MCV 96.4 fL (80.0-100.0); Mean Platelet Volume 8.4; Monocytes # (A) 0.7 k/uL (0-1.0); Monocytes % (A) 8 %; Neutrophils # (A) 6.1 k/uL (1.3-7.7); Neutrophils % (A) 71 %; Platelet Count 109 k/uL (150-450); RBC 2.86 m/uL (4.30-5.90); RDW 15.7 % (11.5-15.5); WBC 8.6 k/uL (3.8-10.6)
[2021-11-27 08:24] LABS: Albumin 3.2 g/dL (3.5-5.0); Calcium 8.4 mg/dL (8.4-10.2); Magnesium 1.9 mg/dL (1.6-2.3); Potassium 4.5 mmol/L (3.5-5.1); Total Bilirubin 1.5 mg/dL (0.2-1.3); Total Protein 5.7 g/dL (6.3-8.2)
[2021-11-27] MEDS: CHOLECALCIFEROL 25 MCG (1000 IU) TABLET PO SCH (08:28)
[2021-11-27] MEDS: ASPIRIN 325 MG TAB PO SCH (08:28)
[2021-11-27] MEDS: HEPARIN SODIUM,PORCINE/PF 5,000 UNIT/0.5 ML SYRINGE SQ SCH ×2 (08:28→15:58)
[2021-11-27] MEDS: LINAGLIPTIN 5 MG TABLET PO SCH (08:28)
[2021-11-27] MEDS: traMADol 50 MG TAB PO PRN ×2 (08:28→15:58)
[2021-11-27] MEDS: METOPROLOL TARTRATE 25 MG TAB PO SCH ×2 (08:28→20:28)
[2021-11-27] MEDS: PSYLLIUM HUSK 100% 6 GM PACKET PO SCH (08:28)
[2021-11-27] MEDS: NYSTATIN 100,000 UNIT/ML SUSP 500,000 UNIT/5 ML CUP PO SCH ×4 (08:36→20:30)
[2021-11-27] MEDS: CLOPIDOGREL 75 MG TAB PO SCH (08:36)
[2021-11-27] MEDS: IPRATROPIUM-ALBUTEROL 3 ML NEB INHALATION SCH ×4 (08:39→19:56)
[2021-11-27] MEDS ORDERED: FUROSEMIDE 10 MG/ML 4 ML VIAL IV STA (08:50)
--- NOTE | 2021-11-27 09:28 | P.PN ---
Subjective Progress Note Date: 11/27/21 Principal diagnosis: Severe bicuspid aortic valve stenosis, coronary artery disease, moderate to severe mitral valve regurgitation and moderate left ventricular dysfunction. Past medical history significant for hypertension, coronary artery disease with history of myocardial infarction status post PCI in 2016, hyperlipidemia, insulin-dependent diabetes mellitus, fatty liver disease, prostate cancer status post prostatectomy in 2017, GERD, remote history of tobacco dependence, COVID-19 infection in June 2021, and a strong family history of premature coronary artery disease with his father having a CABG at age 54. Positive preoperative nasal screening for MSSA which was treated. POD #6 double coronary artery bypass grafting using a reverse saphenous vein graft from the aorta to the first obtuse marginal coronary artery, a reverse greater saphenous vein graft from the aorta to the posterior lateral branch of the circumflex coronary artery. Aortic valve replacement using a 25 mm Inspiris pericardial bioprosthesis. Mitral valve repair with posterior annuloplasty using a 30 mm AnnuloFlex band. Exclusion of the left atrial appendage using a 35 mm Atriclip. Intraoperative graft flow measurements using the [employer]-Stim sytem. Intraoperative transesophageal echocardiogram and epi-aortic scanning. Acute blood loss anemia, expected due to hemodilution and cardiopulmonary bypass. Acute kidney injury, unexpected likely due to hypotension. Elevated transaminases, unexpected, likely due to hypertension. The patient was seen in follow-up today 11/27/2021 at his bedside on the cardiac stepdown unit. Currently he is sitting up to the bedside chair, is awake, alert, and oriented 3 and is in no acute apparent distress. The patient denies any complaints of pain or shortness of breath at this time. He reports he has been up inflating in the cardiac stepdown unit hallway 3-4 times yesterday with standby assistance from nursing and physical therapy staff. He states that he has stairs at home and would like to trial some stairs prior to discharge here in the hospital. Oxygen saturation are 95% on room air and he is achieving 2000 mL on his incentive spirometry. The drainage from his left pleural chest tube site has stopped and also from his right lower extremity previous RONAN drain site. Isaac wrap in place to his right lower extremity from toes to just above the knee. He reports that the Silvadene cream to his right groin area has helped. The thrush to his mouth has improved today. Remote telemetry showing normal sinus rhythm heart rate 91 BPM. His metoprolol tartrate was increased to 25 mg by mouth twice a day yesterday per cardiology. Sputum culture showed Viviana albicans. He remains afebrile last 24 hours. Laboratory results and chest x- ray results reviewed. Objective - Vital Signs Vital signs: Vital Signs Temp 98.0 F 11/27/21 04:00 Pulse 80 11/27/21 08:52 Resp 18 11/27/21 04:00 BP 123/64 11/27/21 04:00 Pulse Ox 93 L 11/27/21 04:00 Intake & Output 11/26/21 11/27/21 11/27/21 18:59 06:59 18:59 Intake Total 1660 240 240 Output Total 1250 350 Balance 410 -110 240 Weight 108.726 kg Intake: Oral 1660 240 240 Output: Urine 1250 350 Other: Voiding Method Toilet Urinal # Voids 1 # Bowel Movements 1 ABP, PAP, CO, CI - Last Documented Arterial Blood Pressure 109/52 Pulmonary Artery Pressure 39/23 Cardiac Output 7.8 Cardiac Index 3.6 - Exam CONSTITUTIONAL: Sitting up to the bedside chair on the cardiac stepdown unit, appears comfortable, cooperative, no apparent acute distress. HEENT: Neck is supple, no JVD, no lymphadenopathy. RESPIRATORY: Lungs sounds essentially clear throughout, diminished to his bilateral bases, right greater than left. Respirations are symmetrical and nonlabored. Currently on room air with oxygen saturations 95%. Able to achieve 2000 mL on his incentive spirometry. Strong cough. CARDIOVASCULAR: Regular rhythm and rate. S1 and S2 present, negative for S3, gallop or murmur. Sternum is stable. Palpable peripheral pulses bilaterally. No calf pain or tenderness noted. Heart hugger in place with patient demonstrating appropriate use. Knee-high RICHIE hose and sequential compression devices in place to his bilateral lower extremities. Remote telemetry showing normal sinus rhythm heart rate 91 bpm. Trace edema to his bilateral lower extremities. GASTROINTESTINAL: Abdomen soft, nontender, nondistended. Active bowel sounds present 4 quadrants. Tolerating diet. No guarding or rigidity. Passing flatus. Bowel movement yesterday 11/26/2021. GENITOURINARY: Continues to void. 350 mL output in the last 8 hours. INTEGUMENTARY: Skin is warm and dry with no evidence of clubbing or cyanosis. Midline sternal incision clean dry and well approximated, covered with dry intact dressing. Right lower extremity EVH sites well approximated. Excoriated area to his right upper thigh incision site, tape burn. NEUROLOGIC: Cranial nerves II through XII intact. No focal deficits. MUSKULOSKELETAL: Able to move all extremities, strength equal bilaterally. PSYCHIATRIC: Alert and oriented to person place and time, appropriate affect, intact judgment and insight. INVASIVE LINES AND TUBES: Atrial epicardial pacemaker wires in place and grounded. - Allied health notes Allied health notes reviewed: nursing - Labs CBC & Chem 7: 11/27/21 06:45 11/27/21 06:45 Labs: Abnormal Lab Results - Last 24 Hours (Table) 11/26/21 11/26/21 11/26/21 Range/Units 11:51 16:21 19:51 RBC (4.30-5.90) m/uL Hgb (13.0-17.5) gm/dL Hct (39.0-53.0) % RDW (11.5-15.5) % Plt Count (150-450) k/uL Sodium (137-145) mmol/L BUN (9-20) mg/dL Glucose (74-99) mg/dL POC Glucose (mg/dL) 156 H 135 H 156 H (75-99) mg/dL Total Bilirubin (0.2-1.3) mg/dL AST (17-59) U/L ALT (4-49) U/L Total Protein (6.3-8.2) g/dL Albumin (3.5-5.0) g/dL 11/27/21 11/27/21 11/27/21 Range/Units 06:45 06:45 06:50 RBC 2.86 L (4.30-5.90) m/uL Hgb 8.7 L (13.0-17.5) gm/dL Hct 27.6 L (39.0-53.0) % RDW 15.7 H (11.5-15.5) % Plt Count 109 L (150-450) k/uL Sodium 133 L (137-145) mmol/L BUN 36 H (9-20) mg/dL Glucose 147 H (74-99) mg/dL POC Glucose (mg/dL) 144 H (75-99) mg/dL Total Bilirubin 1.5 H (0.2-1.3) mg/dL AST 367 H (17-59) U/L ALT 460 H (4-49) U/L Total Protein 5.7 L (6.3-8.2) g/dL Albumin 3.2 L (3.5-5.0) g/dL Microbiology - Last 24 Hours (Table) 11/24/21 14:15 Gram Stain - Final Sputum Sputum Culture - Final Viviana albicans - Imaging and Cardiology Chest x-ray: report reviewed, image reviewed Assessment and Plan Assessment: 1. Severe bicuspid aortic valve stenosis, status post aortic valve replacement with a 25 mm Inspiris pericardial bioprosthesis 2. Moderate to severe mitral valve regurgitation, status post mitral valve repair with a posterior annuloplasty using a 30 mm AnnuloFlex band 3. Coronary artery disease, status post double coronary artery bypass grafting 4. Moderate left ventricular dysfunction 5. History of hypertension 6. Hyperlipidemia 7. History of coronary artery disease and myocardial infarction status post PCI in 2016 8. Insulin-dependent diabetes mellitus 9. History of prostate cancer status post prostatectomy in 2017 10. Remote history of tobacco dependence 11. COVID-19 infection in June 2021 12. Fatty liver disease 13. GERD 14. Strong family history of premature coronary artery disease with his father having a CABG at age 54 15. Acute blood loss anemia, expected due to hemodilution and cardiopulmonary bypass 16. Preoperative nasal screening positive for MSSA, treated 17. Acute kidney injury, unexpected likely due to hypotension 18. Elevated transaminase, unexpected, likely due to hypotension 19. Oropharyngeal candidiasis Plan: 1. Continue aspirin, Plavix and metoprolol tartrate. We will increase metoprolol tartrate as tolerated. Continue to hold statins and amiodarone for now due to elevated transaminase, once transaminase has normalized we will restart statin. 2. Encourage incentive spirometry use 10 times every hour while awake. Broncho dilators per pulmonology. 3. Increase activity, ambulate as tolerated. Out of bed for all meals. PT/OT/cardiac rehab following. 4. Will monitor daily labs and chest x-rays. Electrolyte replacement per protocol. Magnesium replaced per protocol. 5. Pain control per current medication regimen. 6. Insulin management per primary care service. The patient needs tight blood sugar control to promote healing and sternal union as well as prevent infection. 7. Continue daily showers. 8. Strict accurate intake and output. Daily weights 9. Lasix 40 mg IV 1 now. 10. Continue Nystatin swish and swallow for thrush. 11. Continue Silvadene ointment to his right groin twice a day. 12. More recommendations to follow based on patient's clinical course. Time with Patient: Greater than 30
--- NOTE | 2021-11-27 10:06 | PN ---
PROGRESS NOTE Mr. Shen is in sinus rhythm, status post aortic valve replacement, mitral valve repair and bypass surgery. His renal function has normalized. He feels well. No chest pain or shortness of breath. Advise to continue current medications, increase activity, and possible discharge in the next 24 hours, and to follow up with Dr. Medeiros. MMBROOKE / EDWIN: [id number] /
[2021-11-27 11:30] LABS: Glucose,Whole Blood 124 mg/dL (75-99)
--- NOTE | 2021-11-27 12:06 | P.PN ---
Subjective Progress Note Date: 11/27/21 Principal diagnosis: POD #5 double coronary artery bypass grafting using a reverse saphenous vein graft from the aorta to the first obtuse marginal coronary artery, a reverse greater saphenous vein graft from the aorta to the posterior lateral branch of the circumflex coronary artery. Aortic valve replacement using a 25 mm Inspiris pericardial bioprosthesis. Mitral valve repair with posterior annuloplasty using a 30 mm AnnuloFlex band. Exclusion of the left atrial appendage using a 35 mm Atriclip. This is a 61-year-old white male with history of bicuspid aortic valve stenosis, coronary artery disease, moderate to severe mitral valve regurgitation moderate LV dysfunction, history of previous TN and PCI in 2017, patient underwent double coronary bypass grafting yesterday using reverse saphenous vein graft from the aorta to the first obtuse marginal coronary artery reverse greater saphenous vein graft from the aorta to the posterior lateral branch of the circumflex artery, aortic valve replacement, mitral valve repair with posterior annuloplasty, postoperatively patient was admitted to the ICU, and I was asked to see him on consultation. I was notified on this patient about his ventilator settings early evening, and I have adjusted the ventilator settings based on the ABG. A few hours later, I was notified about this patient weaning, and he had excellent weaning parameters, I recommended extubating the patient, and he was extubated uneventfully. Patient was evaluated today, he is doing well, he is on 3 L nasal cannula, sating at a bedside chair, in no distress. Patient is on amiodarone drip, milrinone drip at 0.15, insulin drip at 12 units per hour, his cardiac index is 4.2, chest x-ray showed minimal atelectasis, no evidence of congestive heart failure, and the patient seems to be well, tolerated the extubation quite well overnight. Patient was reevaluated today on 11/23/2021, patient remains in the ICU, doing quite well, hemodynamically stable, on 1 L nasal cannula, denies any distress, had some minimal surgical site pain. Patient is not requiring any inotropes. CVP today is 15, patient is doing well with incentive spirometry achieving over 1250. Continues to have left pleural and mediastinal chest tubes. No air leak. Minimal output from the mediastinal chest tube, hence it would likely be removed today. Labs are unremarkable except for slight rise in his creatinine. Patient had a good cardiac index yesterday before going off milrinone. WBC count today is 15 hemoglobin is 9, basic metabolic profile is normal BUN is 17 and creatinine 1.2. Chest x-ray showed minimal right lower lobe atelectasis, doubt infiltrate. Reevaluated today on 11/24/2021, patient is postoperative day #3. Continues to do clinically well, relatively asymptomatic, however the patient is developing a picture of acute kidney injury, unexpected. And elevated liver enzymes, unexpected, patient is being followed by nephrology. Apparently had some shortness of breath last night, presently asymptomatic, he is on few liters nasal cannula, and his O2 saturation is in the 90s. Patient is now off amiodarone, he is on insulin, on tradjenta had overall clinically the patient is doing well, but there is a concern about his renal profile, liver profile, and a chest x-ray is showing a worsening atelectasis at the bases, clinically doubt infiltrate, patient does have a productive cough, and I recommended sputum cultures before deciding on antibiotics. Reevaluated today on 11/25/2021, patient is now postoperative day #4. Patient seems to be doing much better today, sitting in bed, on room air, not in any distress. Hardly any pain, patient continues to do well with incentive spirometry, his achieving or 1500 mL. Remains in sinus rhythm, blood pressure seems to be improved after midodrine was added. He is already ambulating in the hallway. Renal functioning is slightly better. Chest x-ray continues to show right basilar atelectasis and possibly developing a small tiny right-sided pleural effusion. Sputum culture is pending, sputum Gram stain is nondiagnostic so far. BUN today is 50 creatinine 2.08. Liver enzymes were also noted to be elevated but AST is coming down Reevaluated today on 11/27/2021, patient is on the cardiac stepdown unit, he is on room air, does not seem to be in any distress. Patient is doing extremely well with incentive spirometry, he is already ambulating, chest x-ray and ultrasound showed moderate sized right-sided pleural effusion, however the ultrasound is quite confusing to me, I believe doing thoracentesis at bedside is a bit risky considering the appearance of the ultrasound as that his lung tissue , I was considering interventional radiology to do ultrasound-guided thoracentesis, however the patient is doing much better clinically today, and I believe I would hold, canceled plans for thoracentesis by interventional radiology, and repeat chest x-ray in a.m. Clinically the patient is not in any distress. Not to mention the patient is actually on room air. Objective - Vital Signs Vital signs: Vital Signs Temp 98.8 F 11/27/21 08:00 Pulse 80 11/27/21 11:44 Resp 18 11/27/21 08:00 BP 128/63 11/27/21 08:00 Pulse Ox 94 L 11/27/21 08:00 Intake & Output 11/26/21 11/27/21 11/27/21 18:59 06:59 18:59 Intake Total 9521 995 0504 Output Total 1250 350 675 Balance 410 -110 365 Weight 108.726 kg Intake: Oral 7479 214 4005 Output: Urine 1250 350 675 Other: Voiding Method Toilet Urinal # Voids 1 # Bowel Movements 1 ABP, PAP, CO, CI - Last Documented Arterial Blood Pressure 109/52 Pulmonary Artery Pressure 39/23 Cardiac Output 7.8 Cardiac Index 3.6 - Exam Gen.: Revealed a 61-year-old white male, in bed, on room air. HEENT: PERRLA, EOMI, nonicteric, RESPIRATORY: Symmetrical chest expansion, slightly diminished breath sounds at the right base. Left side is clear. CARDIOVASCULAR: Distant S1 and S2, no S3 gallop, no murmur. GASTROINTESTINAL: Abdomen soft, nontender, nondistended. No guarding. Good bowel sounds. INTEGUMENTARY: No rashes. NEUROLOGIC: Alert and oriented 3 no gross focal deficits. MUSKULOSKELETAL: No deformities and no limitation in range of motion. PSYCHIATRIC: Normal mood, affect and normal mental status examination. - Labs CBC & Chem 7: 11/27/21 06:45 11/27/21 06:45 Labs: Abnormal Lab Results - Last 24 Hours (Table) 11/26/21 11/26/21 11/27/21 Range/Units 16:21 19:51 06:45 RBC 2.86 L (4.30-5.90) m/uL Hgb 8.7 L (13.0-17.5) gm/dL Hct 27.6 L (39.0-53.0) % RDW 15.7 H (11.5-15.5) % Plt Count 109 L (150-450) k/uL Sodium (137-145) mmol/L BUN (9-20) mg/dL Glucose (74-99) mg/dL POC Glucose (mg/dL) 135 H 156 H (75-99) mg/dL Total Bilirubin (0.2-1.3) mg/dL AST (17-59) U/L ALT (4-49) U/L Total Protein (6.3-8.2) g/dL Albumin (3.5-5.0) g/dL 11/27/21 11/27/21 11/27/21 Range/Units 06:45 06:50 11:28 RBC (4.30-5.90) m/uL Hgb (13.0-17.5) gm/dL Hct (39.0-53.0) % RDW (11.5-15.5) % Plt Count (150-450) k/uL Sodium 133 L (137-145) mmol/L BUN 36 H (9-20) mg/dL Glucose 147 H (74-99) mg/dL POC Glucose (mg/dL) 144 H 124 H (75-99) mg/dL Total Bilirubin 1.5 H (0.2-1.3) mg/dL AST 367 H (17-59) U/L ALT 460 H (4-49) U/L Total Protein 5.7 L (6.3-8.2) g/dL Albumin 3.2 L (3.5-5.0) g/dL Microbiology - Last 24 Hours (Table) 11/24/21 14:15 Gram Stain - Final Sputum Sputum Culture - Final Viviana albicans Assessment and Plan Assessment: Impression: Postoperative day #5. Severe bicuspid aortic valve, status post aortic valve replacement with 25 mm Inspiris pericardial bioprosthesis Coronary artery disease, status post double coronary artery bypass grafting Severe mitral regurgitation, status post mitral valve repair History of previous TN and LV dysfunction and previous PCI in 2017 Ischemic cardiomyopathy Benign essential hypertension Dyslipidemia History of COVID-19 infection in June 14 021 History of fatty liver disease Family history of premature coronary artery disease Postoperative atelectasis, expected. GERD without esophagitis. Type 2 diabetes. Insulin-dependent. Postoperative pleural effusion, expected, may or may not require thoracentesis. At this point at least no need for thoracentesis. If thoracentesis to be done, will recommend that it is done with live ultrasound and by interventional radiology. Recommendation: Continue aspirin and Plavix and beta blockers. Continue ambulation. Continue pain control management. Agree with nystatin swish and swallow. For his thrush. Continue to monitor renal profile. Continue management of his sugars. Continue incentive spirometry, ambulate Continue aspirin and Plavix beta blockers May or may not consider thoracentesis by interventional radiology. Time with Patient: Less than 30
--- NOTE | 2021-11-27 12:50 | P.PN ---
Subjective Progress Note Date: 11/27/21 HISTORY OF PRESENT ILLNESS This is a 61 year old male patient of Dr. Sridhar Tavarez with past medical history of hypertension, hypertensive cardiovascular disease, coronary artery disease status post stent in 2017, severe aortic stenosis, chronic diastolic heart failure, diabetes mellitus type 2, gastroesophageal reflux disease, hyperlipidemia, benign prostatic hypertrophy, prostate cancer status post prostatectomy in 2018 under the care of Dr. Willis, remote history of tobacco use, generalized osteoarthritis. Cardiac catheterization 10/21/2021 showed chronic total occlusion of mid RCA patent stent to the LAD 60-70% stenosis to the diagonal branch of the LAD 90% stenosis of the circumflex coronary artery and 70-80% stenosis to the OM branch. NABEEL revealed moderate aortic regurgitation, severe central mitral regurgitation, mild tricuspid regurgitation and normal left ventricular function. Patient has been brought into the hospital under the care of cardiothoracic surgery status post double coronary artery bypass grafting using a reverse saphenous vein graft from the aorta to the first obtuse marginal coronary artery, a reverse greater saphenous vein graft from the aorta to the posterior lateral branch of the circumflex coronary artery, aortic valve replacement using bioprosthesis, mitral valve repair with posterior annuloplasty, exclusion of the left atrial appendage using a 35 mm Atriclip. Patient is seen today in the ICU, successfully extubated, resting and recliner. Patient states he has discomfort in his chest pain is controlled. His last A1c was 10.4 on 10/21/2021. He states he was recently started on insulin and is currently on insulin drip. WBC 10.7, hemoglobin 9.6 and platelet count 95. Sodium 140, potassium 4.1, chloride 109, CO2 21, BUN 10 and creatinine 0.84. Blood sugar 147. 4/13: Patient is seen in the intensive care unit. He states he slept appetite in bed in half and recliner. He was also up walking today and felt he did well. Blood sugars are running between 128 and 190 however patient is on a high-dose of insulin 13 units per hour. We will increase Levemir, and NovoLog with meals scheduled, resume Tradjenta and add NovoLog scale and titrate off insulin drip. Repeat chest x-ray reveals mild right lower lobe atelectasis or developing infiltrate. Rowe-Mirian catheter is been removed. Mediastinal chest tubes and left chest tube remains intact as well as Newman catheter. He is reaching 1500 miles on incentive spirometry. laboratory monitor sinus rhythm. 11/24: Patient remains in the intensive care unit. Patient had hypoglycemia at midnight but he was still on insulin drip on top of the scheduled long-acting and short acting. The insulin drip was discontinued this morning and patient to continue on Levemir scheduled NovoLog and NovoLog scale., Platelet count 131. Sodium 130, potassium 5.3, chloride 103, CO2 17, BUN 34 creatinine 2.23. AST 1045, ALT 551. Alkaline phosphatase 82. Consult was added for nephrology with recommendations to add midodrine, and bicarb and hold diuretics as blood pressure is low.patient denies having any chest pain. He has ambulated in the hallway. .metoprolol was decreased, amiodarone was discontinued and statin on hold renal ultrasound reveals no hydronephrosis. Bladder remains partially distended despite the Newman catheter balloon seen within the bladder. 11/25: Patient remains in intensive care unit. He has been afebrile, heart rate in the 90s, blood pressure 138/77, pulse ox 90-98% on room air. laboratory monitor is sinus rhythm. He is reaching 1500 ML's on incentive spirometry. Repeat blood work reveals WBC 11, hemoglobin 8.3, platelet count 108. Sodium 131, potassium 4.1, chloride 103, CO2 22, BUN 50 creatinine 2.08. Capillary blood glucose running high today at 246. AST 743, ALT 661, alkaline phosphatase 97. Levemir will be increased to 20 units twice daily and scheduled NovoLog to 10 units before meals and at bedtime. Patient is scheduled to transfer to the cardiac stepdown unit. 11/26: Patient is out of the ICU, chest tube is out, blood sugars running in the low 100 has been doing very well so far been on Levemir along with NovoLog ruth ent is off insulin drip completely. Still having mild shortness of breath require minimum oxygen at this point. Liver function tests were slightly elevated yesterday and still at 465 and 536 is likely slight decrease in circulation to the liver for the time patient had surgery on. Hemoglobin still little bit low at 8.9 patient does not require any blood transfusion. Kidney function has improved some creatinine is still 1.4 down from 2.08. All going well so far patient might be able to go home tomorrow. 11/27: Patient is doing very well, his blood sugars running below 100 without any hypoglycemia, his oxygenation is doing pretty well does not require any O2 at this point. He still have mild anemia but no active bleed. He had decreased down to 1.28 close his baseline with good urine output. Patient is active able to move no help hopefully prepare for home tomorrow. REVIEW OF SYSTEMS Constitutional: No fever, no chills, no night sweats. No weight change. Mild generalized weakness and fatigue. No daytime sleepiness. EENT: No headache. No blurred vision or double vision, no loss of vision. No loss of Hearing, no ringing in the ears, no dizziness. No nasal drainage or congestion. No epistaxis. No sore throat. Lungs: No shortness of breath, cough, no sputum production. No wheezing. Cardiovascular: Reports chest discomfort mild, no lower extremity edema. No palpitations. No paroxysmal nocturnal dyspnea. No orthopnea. No lightheadedness or dizziness. No syncopal episodes. Abdominal: No abdominal pain. No nausea, vomiting. No diarrhea. No constipation. No bloody or tarry stools. No loss of appetite. Genitourinary: No dysuria, increased frequency, urgency. No urinary retention. Musculoskeletal: No myalgias. No muscle weakness, no gait dysfunction, no frequent falls. No back pain. No neck pain. Integumentary: No wounds, no lesions. No rash or pruritus. No unusual bruising. No change in hair or nails. Neurologic: No aphasia. No facial droop. No change in mentation. No head injury. No headache. No paralysis. No paresthesia. Psychiatric: No depression. No anxiety. No mood swings. Endocrine: Noted abnormal blood sugars with hyperglycemia. No weight change. No excessive sweating or thirst. PHYSICAL EXAMINATION Gen: This is a 61-year-old male. He is resting and recliner and appears to be comfortable at rest. No acute distress noted. HEENT: Head is atraumatic, normocephalic. Pupils equal, round. Sclerae is anicteric. NECK: Supple. Trachea midline. LUNGS: Clear to auscultation. No wheezes or rhonchi. No intercostal retractions. his chest tube is out still have significant pain and discomfort in the rib cage area. HEART: Regular rate and rhythm. No murmur. laboratory monitor is sinus rhythm ABDOMEN: Soft. Bowel sounds are present. No masses. No tenderness. EXTREMITIES: No pedal edema. No calf tenderness. NEUROLOGICAL: Patient is awake, alert and oriented x3. Cranial nerves 2 through 12 are grossly intact. ASSESSMENT AND PLAN 1. Coronary artery disease status post double CABG 11/21. Continue aspirin, Lipitor(on hold), Plavix, Lopressor. doing well after surgery. 2. Severe bicuspid aortic valve stenosis status post aortic valve replacement. Continue current management per cardiothoracic surgery team. Patient has been recommended to have children checked for bicuspid valve. 3. Moderate to severe mitral valve regurgitation status post mitral valve repair. 4. Coronary artery disease with previous PCI/stent.and 2 bypass surgery at this point has been doing well. 5. Chronic diastolic heart failure. expected significant improvement in heart function and symptoms so far on medical management. 6. Hypertension, hypertensive cardiovascular disease. Continue Lopressor.with improving kidney function patient be able to go back on smaller dose of ashley her heart. 7. Thrombocytopenia: Resolved so far. 8. Anemia, acute blood loss expected with surgery. Anemia stable at this point. 9. Diabetes mellitus type 2. Hemoglobin A1c 10.4. Patient transition to Levemir and will increase to 20 units twice daily, increase scheduled NovoLog to 10 units before meals and at bedtime along with NovoLog scale before meals and at bedtime. The blood sugar still running below 100. 10. acute kidney injury secondary to ATN secondary to hypotension. GFR is almost normal. 11. Metabolic acidosis secondary to acute kidney injury. patient oxygenation is much better has been doing so well so far 12. Hyponatremia. Resolved.. 13. Transaminitis. Amiodarone discontinued and statin placed on hold.repeat liver function tests again tomorrow. discharge planning: Possibly home tomorrow. CODE STATUS: Full code Objective - Vital Signs Vital signs: Vital Signs Temp 98.3 F 11/27/21 12:00 Pulse 87 11/27/21 12:00 Resp 18 11/27/21 12:00 BP 116/63 11/27/21 12:00 Pulse Ox 97 11/27/21 12:00 Intake & Output 11/26/21 11/27/21 11/27/21 18:59 06:59 18:59 Intake Total 9504 354 5218 Output Total 1250 350 675 Balance 410 -110 365 Weight 108.726 kg Intake: Oral 8973 532 2852 Output: Urine 1250 350 675 Other: Voiding Method Toilet Urinal # Voids 1 # Bowel Movements 1 ABP, PAP, CO, CI - Last Documented Arterial Blood Pressure 109/52 Pulmonary Artery Pressure 39/23 Cardiac Output 7.8 Cardiac Index 3.6 - Labs CBC & Chem 7: 11/27/21 06:45 11/27/21 06:45 Labs: Abnormal Lab Results - Last 24 Hours (Table) 11/26/21 11/26/21 11/27/21 Range/Units 16:21 19:51 06:45 RBC 2.86 L (4.30-5.90) m/uL Hgb 8.7 L (13.0-17.5) gm/dL Hct 27.6 L (39.0-53.0) % RDW 15.7 H (11.5-15.5) % Plt Count 109 L (150-450) k/uL Sodium (137-145) mmol/L BUN (9-20) mg/dL Glucose (74-99) mg/dL POC Glucose (mg/dL) 135 H 156 H (75-99) mg/dL Total Bilirubin (0.2-1.3) mg/dL AST (17-59) U/L ALT (4-49) U/L Total Protein (6.3-8.2) g/dL Albumin (3.5-5.0) g/dL 11/27/21 11/27/21 11/27/21 Range/Units 06:45 06:50 11:28 RBC (4.30-5.90) m/uL Hgb (13.0-17.5) gm/dL Hct (39.0-53.0) % RDW (11.5-15.5) % Plt Count (150-450) k/uL Sodium 133 L (137-145) mmol/L BUN 36 H (9-20) mg/dL Glucose 147 H (74-99) mg/dL POC Glucose (mg/dL) 144 H 124 H (75-99) mg/dL Total Bilirubin 1.5 H (0.2-1.3) mg/dL AST 367 H (17-59) U/L ALT 460 H (4-49) U/L Total Protein 5.7 L (6.3-8.2) g/dL Albumin 3.2 L (3.5-5.0) g/dL Microbiology - Last 24 Hours (Table) 11/24/21 14:15 Gram Stain - Final Sputum Sputum Culture - Final Viviana albicans
[2021-11-27] MEDS: MAGNESIUM SULFATE-D5W PMX 1 GM in DEXTROSE/WATER 1 100ML.BAG IVPB SCH ×2 (15:58→16:03)
[2021-11-27 17:28] LABS: Glucose,Whole Blood 109 mg/dL (75-99)
[2021-11-27 20:23] LABS: Glucose,Whole Blood 172 mg/dL (75-99)
[2021-11-27] MEDS: SENNOSIDES-DOCUSATE SODIUM 1 EACH TAB PO SCH (20:29)
[2021-11-28] MEDS: traMADol 50 MG TAB PO PRN ×2 (01:18→09:13)
[2021-11-28] MEDS: HEPARIN SODIUM,PORCINE/PF 5,000 UNIT/0.5 ML SYRINGE SQ SCH ×2 (01:18→09:14)
[2021-11-28 02:21] VITALS: RESP 18
[2021-11-28 06:02] LABS: Glucose,Whole Blood 121 mg/dL (75-99)
[2021-11-28] MEDS: INSULIN ASPART (NovoLOG) 100 UNIT/ML VIAL SQ SCH ×4 (06:04→12:28)
[2021-11-28] MEDS: MIDODRINE 5 MG TAB PO SCH (06:05)
[2021-11-28] MEDS: INSULIN DETEMIR (LEVEMIR) 100 UNIT/ML SYR SQ SCH (06:15)
[2021-11-28] MEDS: PANTOPRAZOLE 40 MG TABLET PO SCH (06:15)
[2021-11-28 07:07] LABS: Basophils % (A) 0 %; Eosinophils # (A) 0.3 k/uL (0-0.7); Eosinophils % (A) 4 %; HCT 29.5 % (39.0-53.0); HGB 9.1 gm/dL (13.0-17.5); Hypochromasia Slight; Lymphocytes # (A) 1.2 k/uL (1.0-4.8); Lymphocytes % (A) 14 %; MCH 29.8 pg (25.0-35.0); MCHC 30.8 g/dL (31.0-37.0); MCV 96.7 fL (80.0-100.0); Macrocytosis Slight; Mean Platelet Volume 8.1; Monocytes # (A) 0.6 k/uL (0-1.0); Monocytes % (A) 7 %; Neutrophils % (A) 72 %; Platelet Count 118 k/uL (150-450); RBC 3.05 m/uL (4.30-5.90); WBC 8.3 k/uL (3.8-10.6)
--- NOTE | 2021-11-28 07:11 | XR ---
EXAMINATION TYPE: XR chest 1V portable DATE OF EXAM: 11/28/2021 HISTORY: Shortness of breath. COMPARISON: 11/27/2021 TECHNIQUE: Single view of the chest is submitted. FINDINGS: Demonstrated are scattered senescent parenchymal change. Persistent small right-sided pleural effusion and linear strandy density left lower lobe. The heart is stable. Hilar and mediastinal structures are within normal limits. Degenerative changes are seen of the dorsal spine. IMPRESSION: 1. Persistent small right-sided pleural effusion and linear strandy density left lower lobe.
[2021-11-28] MEDS: IPRATROPIUM-ALBUTEROL 3 ML NEB INHALATION SCH ×2 (08:23→11:59)
[2021-11-28 08:29] LABS: Albumin 3.2 g/dL (3.5-5.0); Calcium 8.5 mg/dL (8.4-10.2); Potassium 4.1 mmol/L (3.5-5.1); Total Bilirubin 1.5 mg/dL (0.2-1.3); Total Protein 5.9 g/dL (6.3-8.2)
[2021-11-28] MEDS ORDERED: FUROSEMIDE 10 MG/ML 4 ML VIAL IV STA (08:45)
[2021-11-28] MEDS: ASPIRIN 325 MG TAB PO SCH (09:14)
[2021-11-28] MEDS: METOPROLOL TARTRATE 25 MG TAB PO SCH (09:14)
[2021-11-28] MEDS: LINAGLIPTIN 5 MG TABLET PO SCH (09:14)
[2021-11-28] MEDS: CLOPIDOGREL 75 MG TAB PO SCH (09:14)
[2021-11-28] MEDS: CHOLECALCIFEROL 25 MCG (1000 IU) TABLET PO SCH (09:14)
[2021-11-28] MEDS: NYSTATIN 100,000 UNIT/ML SUSP 500,000 UNIT/5 ML CUP PO SCH ×2 (09:14→14:26)
[2021-11-28] MEDS ORDERED: ATORVASTATIN 40 MG TAB PO SCH (09:15)
[2021-11-28] MEDS ORDERED: POTASSIUM CHLORIDE ER 10 MEQ TAB.ER.PRT PO SCH (09:30)
--- NOTE | 2021-11-28 09:36 | P.PN ---
Subjective Progress Note Date: 11/28/21 Principal diagnosis: Severe bicuspid aortic valve stenosis, coronary artery disease, moderate to severe mitral valve regurgitation and moderate left ventricular dysfunction. Past medical history significant for hypertension, coronary artery disease with history of myocardial infarction status post PCI in 2016, hyperlipidemia, insulin-dependent diabetes mellitus, fatty liver disease, prostate cancer status post prostatectomy in 2017, GERD, remote history of tobacco dependence, COVID-19 infection in June 2021, and a strong family history of premature coronary artery disease with his father having a CABG at age 54. Positive preoperative nasal screening for MSSA which was treated. POD #7 double coronary artery bypass grafting using a reverse saphenous vein graft from the aorta to the first obtuse marginal coronary artery, a reverse greater saphenous vein graft from the aorta to the posterior lateral branch of the circumflex coronary artery. Aortic valve replacement using a 25 mm Inspiris pericardial bioprosthesis. Mitral valve repair with posterior annuloplasty using a 30 mm AnnuloFlex band. Exclusion of the left atrial appendage using a 35 mm Atriclip. Intraoperative graft flow measurements using the [employer]-Stim sytem. Intraoperative transesophageal echocardiogram and epi-aortic scanning. Acute blood loss anemia, expected due to hemodilution and cardiopulmonary bypass. Acute kidney injury, unexpected likely due to hypotension. Elevated transaminases, unexpected, likely due to hypertension. The patient was seen and examined in follow-up today 11/28/2021 at his bedside on the cardiac stepdown unit. Currently the patient is sitting up to the b edside chair, is awake, alert, oriented 3 and is in no acute apparent distress. He remains hemodynamically stable and currently on no inotropic pressor support. Denies any complaints of pain or shortness of breath this time. Oxygen saturation are 96% on room air and he is achieving 2000 mL on his incentive spirometry with encouragement. Remote telemetry showing normal sinus rhythm heart rate 89 BPM. He remains on metoprolol tartrate 25 mg by mouth twice a day. Denies any further drainage from his left pleural chest tube insertion site and from his previous RONAN drain site to his right lower leg. The patient reports he was up ambulating in the cardiac stepdown unit hallway yesterday 4 with standby assistance from nursing and therapy staff. Atrial epicardial pacemaker wires were removed without incident this a.m. He has been afebrile the last 24 hours. Laboratory and chest x-ray results reviewed. Lasix 40 mg IV 1 was given yesterday with good diuresis, urine output 600 mL in the last 8 hours. Discharge instructions reviewed with the patient. Objective - Vital Signs Vital signs: Vital Signs Temp 98.5 F 11/27/21 20:00 Pulse 93 11/28/21 08:37 Resp 18 11/28/21 08:37 BP 132/73 11/28/21 04:00 Pulse Ox 93 L 11/28/21 08:25 Intake & Output 11/27/21 11/28/21 11/28/21 18:59 06:59 18:59 Intake Total 1880 480 120 Output Total 1275 850 Balance 605 -370 120 Weight 108.5 kg Intake: Intake, IV Titration 100 Amount Magnesium Sulfate-D5w Pmx 100 1 gm In Dextrose/Water 1 100ml.bag @ 100 mls/hr IVPB Q1H [facility] Rx#: [id number] Oral 1780 480 120 Output: Urine 1275 850 Other: Voiding Method Toilet Urinal ABP, PAP, CO, CI - Last Documented Arterial Blood Pressure 109/52 Pulmonary Artery Pressure 39/23 Cardiac Output 7.8 Cardiac Index 3.6 - Exam CONSTITUTIONAL: Sitting up to the bedside chair on the cardiac stepdown unit, appears comfortable, cooperative, no apparent acute distress. HEENT: Neck is supple, no JVD, no lymphadenopathy. RESPIRATORY: Lungs sounds essentially clear throughout, diminished to his bilateral bases, right greater than left. Respirations are symmetrical and nonlabored. Currently on room air with oxygen saturations 96%. Able to achieve 2000 mL on his incentive spirometry. Strong cough. CARDIOVASCULAR: Regular rhythm and rate. S1 and S2 present, negative for S3, gallop or murmur. Sternum is stable. Palpable peripheral pulses bilaterally. No calf pain or tenderness noted. Heart hugger in place with patient demonstrating appropriate use. Knee-high RICHIE hose and sequential compression devices in place to his bilateral lower extremities. Remote telemetry showing normal sinus rhythm heart rate 89 bpm. Trace edema to his bilateral lower extremities. GASTROINTESTINAL: Abdomen soft, nontender, nondistended. Active bowel sounds present 4 quadrants. Tolerating diet. No guarding or rigidity. Passing flatus. Bowel movement 11/26/2021. GENITOURINARY: Continues to void. 600 mL output in the last 8 hours. INTEGUMENTARY: Skin is warm and dry with no evidence of clubbing or cyanosis. Midline sternal incision clean dry and well approximated, covered with dry intact dressing. Right lower extremity EVH sites well approximated. Excoriated area to his right upper thigh incision site, tape burn. Scant serosanguineous drainage from his previous right lower extremity RONAN site. NEUROLOGIC: Cranial nerves II through XII intact. No focal deficits. MUSKULOSKELETAL: Able to move all extremities, strength equal bilaterally. PSYCHIATRIC: Alert and oriented to person place and time, appropriate affect, intact judgment and insight. - Allied health notes Allied health notes reviewed: nursing - Labs CBC & Chem 7: 11/28/21 05:47 11/28/21 05:47 Labs: Abnormal Lab Results - Last 24 Hours (Table) 11/27/21 11/27/21 11/27/21 Range/Units 11:28 17:27 20:21 RBC (4.30-5.90) m/uL Hgb (13.0-17.5) gm/dL Hct (39.0-53.0) % MCHC (31.0-37.0) g/dL RDW (11.5-15.5) % Plt Count (150-450) k/uL Sodium (137-145) mmol/L BUN (9-20) mg/dL Glucose (74-99) mg/dL POC Glucose (mg/dL) 124 H 109 H 172 H (75-99) mg/dL Total Bilirubin (0.2-1.3) mg/dL AST (17-59) U/L ALT (4-49) U/L Total Protein (6.3-8.2) g/dL Albumin (3.5-5.0) g/dL 11/28/21 11/28/21 11/28/21 Range/Units 05:47 05:47 05:55 RBC 3.05 L (4.30-5.90) m/uL Hgb 9.1 L (13.0-17.5) gm/dL Hct 29.5 L (39.0-53.0) % MCHC 30.8 L (31.0-37.0) g/dL RDW 16.0 H (11.5-15.5) % Plt Count 118 L (150-450) k/uL Sodium 134 L (137-145) mmol/L BUN 28 H (9-20) mg/dL Glucose 102 H (74-99) mg/dL POC Glucose (mg/dL) 121 H (75-99) mg/dL Total Bilirubin 1.5 H (0.2-1.3) mg/dL AST 207 H (17-59) U/L ALT 362 H (4-49) U/L Total Protein 5.9 L (6.3-8.2) g/dL Albumin 3.2 L (3.5-5.0) g/dL - Imaging and Cardiology Chest x-ray: report reviewed, image reviewed Assessment and Plan Assessment: 1. Severe bicuspid aortic valve stenosis, status post aortic valve replacement with a 25 mm Inspiris pericardial bioprosthesis 2. Moderate to severe mitral valve regurgitation, status post mitral valve repair with a posterior annuloplasty using a 30 mm AnnuloFlex band 3. Coronary artery disease, status post double coronary artery bypass grafting 4. Moderate left ventricular dysfunction 5. History of hypertension 6. Hyperlipidemia 7. History of coronary artery disease and myocardial infarction status post PCI in 2016 8. Insulin-dependent diabetes mellitus 9. History of prostate cancer status post prostatectomy in 2017 10. Remote history of tobacco dependence 11. COVID-19 infection in June 2021 12. Fatty liver disease 13. GERD 14. Strong family history of premature coronary artery disease with his father having a CABG at age 54 15. Acute blood loss anemia, expected due to hemodilution and cardiopulmonary bypass 16. Preoperative nasal screening positive for MSSA, treated 17. Acute kidney injury, unexpected likely due to hypotension 18. Elevated transaminase, unexpected, likely due to hypotension 19. Oropharyngeal candidiasis, resolved Plan: 1. Continue aspirin, Plavix and metoprolol tartrate. We will increase metoprolol tartrate as tolerated. 2. Encourage incentive spirometry use 10 times every hour while awake. Bronchodilators per pulmonology. 3. Increase activity, ambulate as tolerated. Out of bed for all meals. PT/OT/cardiac rehab following. 4. Will monitor daily labs and chest x-rays. Electrolyte replacement per protocol. 5. Pain control per current medication regimen. 6. Insulin management per primary care service. The patient needs tight blood sugar control to promote healing and sternal union as well as prevent infection. 7. Continue daily showers. 8. Strict accurate intake and output. Daily weights 9. Lasix 40 mg IV 1 now. The patient will be discharged home with Lasix 40 mg by mouth daily and potassium chloride ER 10 mEq by mouth daily while on Lasix. 10. Continue Nystatin swish and swallow for thrush. 11. Continue Silvadene ointment to his right groin twice a day. 12. Atorvastatin 40 mg by mouth daily started as his liver enzymes are trending down. 13. Discharge planning is in place, anticipate discharge home today with [facility]. 14. Midodrine discontinued. 15. More recommendations to follow based on patient's clinical course. Time with Patient: Greater than 30
[2021-11-28 09:47] VITALS: TEMP 97.9
[2021-11-28] MEDS: bisacodyL 10 MG SUPP RECTAL PRN (10:14)
[2021-11-28] MEDS ORDERED: ACETAMINOPHEN TAB 325 MG TAB PO PRN (10:48)
[2021-11-28 12:24] LABS: Glucose,Whole Blood 226 mg/dL (75-99)
[2021-11-28] MEDS: PSYLLIUM HUSK 100% 6 GM PACKET PO SCH (12:25)
--- NOTE | 2021-11-28 12:44 | P.PRLE ---
Patient was examined working with physical therapy and primary team. He was walking up and down stairs. He denies any new symptoms of chest discomfort, shortness of breath or palpitations. I did review patient's chart including vital signs are stable including CBC and BMP. Patient is okay to be discharged from internal medicine perspective. Regarding patient's insulin regimen I recommend resuming his home dose and following up with his primary care doctor within a week's time. Patient states that he will make a follow-up appointment this week. I recommended him to keep a log of his sugars at home and she is experiencing any episodes of hypoglycemia to stop taking insulin and to intake a form of carbohydrate/juice. I have resumed his home medication no further recommendations from internal medicine perspective. Okay to be discharged. Please follow with PCP and primary team.
[2021-11-28 12:48] VITALS: BP 98/54; PULSE 84
--- NOTE | 2021-11-28 14:10 | P.PN ---
Subjective Progress Note Date: 11/28/21 HISTORY OF PRESENT ILLNESS: Patient examined this morning at the bedside. Patient is status post aortic valve replacement, mitral valve repair, and 2 vessel CABG. Patient denies chest pain or pressure. Denies SOB. Vital signs are stable. PHYSICAL EXAM: VITAL SIGNS: Reviewed. GENERAL: Well-developed in no acute distress. NECK: Supple. No JVD or thyromegaly LUNGS: Respirations even and unlabored. Lungs diminished to auscultation bilaterally. HEART: Regular rate and rhythm. S1 and S2 heard. EXTREMITIES: Normal range of motion. No clubbing or cyanosis. Peripheral pulses intact. Trace lower extremity edema ASSESSMENT: Coronary artery disease, status post CABG 2 Severe bicuspid aortic valve stenosis, status post aortic valve replacement Moderate to severe mitral valve regurgitation, status post mitral valve repair History of coronary artery disease with previous PCI in 2017 Hypertension Hyperlipidemia Diabetes PLAN: Continue postoperative management per CTS Continue current cardiac medications Encourage use of spirometer Increase activity as tolerated Patient is stable for discharge home today from a cardiac standpoint Follow up outpatient with Dr. Medeiros Nurse practitioner note has been reviewed by physician. Signing provider agrees with the documented findings, assessment, and plan of care. Objective - Vital Signs Vital signs: Vital Signs Temp 97.9 F 11/28/21 08:00 Pulse 84 11/28/21 12:00 Resp 18 11/28/21 12:00 BP 98/54 11/28/21 12:00 Pulse Ox 96 11/28/21 12:00 Intake & Output 11/27/21 11/28/21 11/28/21 18:59 06:59 18:59 Intake Total 1880 480 120 Output Total 1275 850 Balance 605 -370 120 Weight 108.5 kg Intake: Intake, IV Titration 100 Amount Magnesium Sulfate-D5w Pmx 100 1 gm In Dextrose/Water 1 100ml.bag @ 100 mls/hr IVPB Q1H [facility] Rx#: [id number] Oral 1780 480 120 Output: Urine 1275 850 Other: Voiding Method Toilet Toilet Urinal Urinal ABP, PAP, CO, CI - Last Documented Arterial Blood Pressure 109/52 Pulmonary Artery Pressure 39/23 Cardiac Output 7.8 Cardiac Index 3.6 - Labs CBC & Chem 7: 11/28/21 05:47 11/28/21 05:47 Labs: Abnormal Lab Results - Last 24 Hours (Table) 11/27/21 11/27/21 11/28/21 Range/Units 17:27 20:21 05:47 RBC 3.05 L (4.30-5.90) m/uL Hgb 9.1 L (13.0-17.5) gm/dL Hct 29.5 L (39.0-53.0) % MCHC 30.8 L (31.0-37.0) g/dL RDW 16.0 H (11.5-15.5) % Plt Count 118 L (150-450) k/uL Sodium (137-145) mmol/L BUN (9-20) mg/dL Glucose (74-99) mg/dL POC Glucose (mg/dL) 109 H 172 H (75-99) mg/dL Total Bilirubin (0.2-1.3) mg/dL AST (17-59) U/L ALT (4-49) U/L Total Protein (6.3-8.2) g/dL Albumin (3.5-5.0) g/dL 11/28/21 11/28/21 11/28/21 Range/Units 05:47 05:55 12:23 RBC (4.30-5.90) m/uL Hgb (13.0-17.5) gm/dL Hct (39.0-53.0) % MCHC (31.0-37.0) g/dL RDW (11.5-15.5) % Plt Count (150-450) k/uL Sodium 134 L (137-145) mmol/L BUN 28 H (9-20) mg/dL Glucose 102 H (74-99) mg/dL POC Glucose (mg/dL) 121 H 226 H (75-99) mg/dL Total Bilirubin 1.5 H (0.2-1.3) mg/dL AST 207 H (17-59) U/L ALT 362 H (4-49) U/L Total Protein 5.9 L (6.3-8.2) g/dL Albumin 3.2 L (3.5-5.0) g/dL
--- NOTE | 2021-11-28 14:14 | P.DS ---
Providers Date of admission: 11/21/21 05:45 Expected date of discharge: 11/28/21 Attending physician: Ja Jones Consults: 11/21/21 15:35 Consult Physician Routine Consulting Provider: Wong Parra Consult Reason/Comments: Edge Stitcher Consult: post cardiac surgery Do you want consulting provider notified?: Yes Consult Physician Routine Consulting Provider: Guero Ye Consult Reason/Comments: [facility]; . [facility] patient Do you want consulting provider notified?: Yes Consult Physician Routine Consulting Provider: Maury Monteiro Consult Reason/Comments: Cigarette Book Maker Consult: post cardiac surgery Do you want consulting provider notified?: Yes 11/24/21 08:06 Consult Physician Routine Consulting Provider: Efrain Graham Consult Reason/Comments: increased kidney function Do you want consulting provider notified?: Yes Primary care physician: [facility] Course: FINAL DIAGNOSIS: 1. Severe bicuspid aortic valve stenosis, status post aortic valve replacement with a 25 mm Inspiris pericardial bioprosthesis 2. Moderate to severe mitral valve regurgitation, status post mitral valve repair with a posterior annuloplasty using a 30 mm AnnuloFlex band 3. Coronary artery disease, status post double coronary artery bypass grafting 4. Moderate left ventricular dysfunction 5. History of hypertension 6. Hyperlipidemia 7. History of coronary artery disease and myocardial infarction status post PCI in 2016 8. Insulin-dependent diabetes mellitus 9. History of prostate cancer status post prostatectomy in 2017 10. Remote history of tobacco dependence 11. COVID-19 infection in June 2021 12. Fatty liver disease 13. GERD 14. Strong family history of premature coronary artery disease with his father having a CABG at age 54 15. Acute blood loss anemia, expected due to hemodilution and cardiopulmonary bypass 16. Preoperative nasal screening positive for MSSA, treated 17. Acute kidney injury, unexpected likely due to hypotension 18. Elevated transaminase, unexpected, likely due to hypotension 19. Oropharyngeal candidiasis, resolved PRINCIPAL PROCEDURE: 1. Double coronary artery bypass grafting using a reverse saphenous vein graft from the aorta to the first obtuse marginal coronary artery, a reverse greater saphenous vein graft from the aorta to the posterior lateral branch of the circumflex coronary artery. 2. Aortic valve replacement using a 25 mm Inspiris pericardial bioprosthesis. 3. Mitral valve repair with posterior annuloplasty using a 30 mm AnnuloFlex band. 4. Exclusion of the left atrial appendage using a 35 mm Atriclip. 5. Intraoperative graft flow measurements using the [employer]Stim sytem. 6. Intraoperative transesophageal echocardiogram. 7. Intraoperative epi-aortic scanning. HISTORY OF PRESENT ILLNESS: This is a 61-year-old gentleman who follows on an outpatient basis with Dr. Sridhar Tavarez for his primary care. He also follows with Dr. Medeiros for his cardiology care. Recently, he has been experiencing exertional chest pain and shortness of breath with activity over a several week period. He was also having some occasional lower extremity swelling. Due to the patient's symptoms he underwent a heart catheterization and transesophageal echocardiogram. The cardiac catheterization demonstrated a chronic total occlusion of the mid right coronary artery, patent stents to the left anterior descending coronary artery, a 60-70% stenosis to the diagonal branch of the left anterior descending coronary artery, a 90% stenosis to the circumflex coronary artery as well as a 70-80% stenosis to the obtuse marginal coronary artery. The transesophageal echocardiogram results showed a bicuspid aortic valve with severe restriction in leaflet mobility, an aortic valve area measuring 0.5 cm, moderate aortic valve regurgitation, severe central mitral valve regurgitation, mild tricuspid valve regurgitation and a normal left ventricular systolic function. Subsequently, due to the patient's symptoms and findings on the cardiac catheterization and transesophageal echocardiogram a consult was placed to Dr. Ja Jones from cardiothoracic surgery for further evaluation and treatment recommendations including surgery. Dr. Jones met with the patient and the patient's , reviewed the findings on the above-mentioned studies, discussed treatment options including the surgical options. Risks and benefits of surgery were discussed and knowing and understanding these risks the patient wished to proceed with the surgical option. HOSPITAL COURSE: The patient was brought to the hospital on 11/21/2021, taken to the preoperative area, prepared in the usual fashion and subsequently was taken to the operating room where Dr. Ja Jones performed a double coronary artery bypass grafting using a reverse saphenous vein graft from the aorta to the first obtuse marginal coronary artery, a reverse greater saphenous vein graft from the aorta to the posterior lateral branch of the circumflex coronary artery, an aortic valve replacement using a 25 mm Inspiris pericardial bioprosthesis, a mitral valve repair with posterior annuloplasty using a 30 mm AnnuloFlex band, exclusion of the left atrial appendage using a 35 mm Atriclip, intraoperative graft flow measurements using the [employer]Stim sytem, intraoperative transesophageal echocardiogram and epi-aortic scanning. Upon completion of the surgery the patient was transferred to the cardiovascular intensive care unit where he was recovered and monitored hemodynamically. He was extubated, all lines, tubes and supportive drips were discontinued when appropriate and he was transferred to the cardiac stepdown unit for further monitoring and rehabilitation. His oxygen was titrated down, he continued to work with physical and occupational therapy, he was tolerating an oral diet, his pain was well-controlled and he was rate he be discharged home with [facility] on postoperative day #7. He has received written and verbal instructions regarding his medications, activity restrictions, signs and symptoms requiring physician on medication and his follow-up appointments. Plan - Discharge Summary Discharge Rx Participant: No New Discharge Prescriptions: New Potassium Chloride ER [K-Dur 10] 10 meq PO DAILY #30 tablet Furosemide [Lasix] 40 mg PO DAILY #30 tablet Atorvastatin [Lipitor] 40 mg PO DAILY #30 tab Sennosides-Docusate Sodium [Senokot-S] 2 each PO HS #14 tab Acetaminophen Tab [Tylenol] 650 mg PO Q6HR PRN tab PRN Reason: Fever and/ or MILD Pain Aspirin 325 mg PO DAILY tab Metoprolol Tartrate [Lopressor] 25 mg PO BID #60 tab Clopidogrel [Plavix] 75 mg PO DAILY #30 tab Midodrine [ProAmatine] 5 mg PO AC-BID #60 tab Continue Linagliptin [Tradjenta] 5 mg PO DAILY glipiZIDE [Glucotrol XL] 5 mg PO DAILY Desloratadine [Clarinex] 5 mg PO DAILY Famotidine [Pepcid] 20 mg PO DAILY Insulin Glargine,Hum.rec.anlog [Lantus Solostar Pen] 30 unit SQ QAM Cholecalciferol [Vitamin D3 (25 Mcg = 1000 Iu)] 25 mcg PO DAILY metFORMIN HCL [Glucophage] 1,000 mg PO BID Baclofen [Lioresal] 10 mg PO HS PRN PRN Reason: Muscle Spasm Zinc 50 mg PO DAILY Ubidecarenone [Co Q-10] 100 mg PO BID Fluticasone Nasal [place] [Flonase Nasal [place]] 2 spray EA NOSTRIL DAILY PRN PRN Reason: allergies Discontinued Nitroglycerin Sl Tabs [Nitrostat] 0.4 mg SL Q5M PRN PRN Reason: Chest Pain Ibuprofen [Motrin] 800 mg PO Q8H PRN PRN Reason: Pain amLODIPine [Norvasc] 5 mg PO DAILY #30 tab Mupirocin [Mupirocin 2%] 1 applic NASAL BID #1 tub Simvastatin 40 mg PO HS #30 tablet Aspirin EC [Ecotrin Low Dose] 81 mg PO DAILY Metoprolol Tartrate [Lopressor] 50 mg PO BID tab Furosemide [Lasix] 20 mg PO BID Discharge Medication List Linagliptin [Tradjenta] 5 mg PO DAILY 12/18/13 [History] glipiZIDE [Glucotrol XL] 5 mg PO DAILY 12/18/13 [History] Desloratadine [Clarinex] 5 mg PO DAILY 09/21/15 [History] Famotidine [Pepcid] 20 mg PO DAILY 03/18/20 [History] Baclofen [Lioresal] 10 mg PO HS PRN 10/20/21 [History] Insulin Glargine,Hum.rec.anlog [Lantus Solostar Pen] 30 unit SQ QAM 10/20/21 [History] Cholecalciferol [Vitamin D3 (25 Mcg = 1000 Iu)] 25 mcg PO DAILY 10/28/21 [History] Zinc 50 mg PO DAILY 10/28/21 [History] Ubidecarenone [Co Q-10] 100 mg PO BID 11/14/21 [History] metFORMIN HCL [Glucophage] 1,000 mg PO BID 11/14/21 [History] Fluticasone Nasal [place] [Flonase Nasal [place]] 2 spray EA NOSTRIL DAILY PRN 11/17/21 [History] Acetaminophen Tab [Tylenol] 650 mg PO Q6HR PRN tab 11/28/21 [Rx] Aspirin 325 mg PO DAILY tab 11/28/21 [Rx] Atorvastatin [Lipitor] 40 mg PO DAILY #30 tab 11/28/21 [Rx] Clopidogrel [Plavix] 75 mg PO DAILY #30 tab 11/28/21 [Rx] Furosemide [Lasix] 40 mg PO DAILY #30 tablet 11/28/21 [Rx] Metoprolol Tartrate [Lopressor] 25 mg PO BID #60 tab 11/28/21 [Rx] Midodrine [ProAmatine] 5 mg PO AC-BID #60 tab 11/28/21 [Rx] Potassium Chloride ER [K-Dur 10] 10 meq PO DAILY #30 tablet 11/28/21 [Rx] Sennosides-Docusate Sodium [Senokot-S] 2 each PO HS #14 tab 11/28/21 [Rx] Follow up Appointment(s)/Referral(s): Wong Parra MD [STAFF PHYSICIAN] - 12/09/21 10:45 am Jami Wesley NPC [Nurse Practitioner] - 12/05/21 11:00 am (You will be seen in the surgeon's office behind the hospital in [facility], [address] Office number is ) [facility] [NON-STAFF] - 4 Weeks (You will be called in 4-6 weeks for evaluation for cardiac rehab) Ja Jones MD [STAFF PHYSICIAN] - 12/23/21 10:00 am [facility], [NON-STAFF] - 1-2 Days Jacob Medeiros MD [STAFF PHYSICIAN] - 12/12/21 10:00 am Sridhar Tavarez MD [Primary Care Provider] - 2 Weeks Ambulatory/Diagnostic Orders: Complete Blood Count w/diff [LAB.AMB] Time Frame: 12/01/21, Facility: [facility], Location: [facility] Comprehensive Metabolic Panel [LAB.AMB] Time Frame: 12/01/21, Facility: [facility], Location: [facility] XR chest 2V [RAD.AMB] Time Frame: 12/05/21, Facility: [facility], Location: [facility] Activity/Diet/Wound Care/Special Instructions: DISCHARGE INSTRUCTIONS: 1. No driving for 4 weeks, or until physician gives their ok. 2. The patient should sleep in their own bed, no medical bed needed. 3. Stairs are not an issue. If the bedroom is upstairs, it is advised that the patient go up at night and down in the morning for the first week. Go slowly, using handrail and take 1 step at a time. 4. RICHIE hose are to be worn for 30 days or until physician discontinues. 5. Heart hugger is to be worn 100% of the time until physician discontinues.(except when showering) 6. No lifting, pushing, or pulling more than 10 pounds for 12 weeks. The physician will advise of any restriction changes. 7. The patient is expected to continue the prescribed walking program. 8. Continue pain control per as needed orders. 9. Continue with incentive spirometry and splinting/heart hugger until otherwise directed by the physician. 10. Must shower daily using liquid antibacterial soap and a separate white washcloth for each individual incision. 11. Routine sternal incision care. No powders, lotions, ointments on incisions. No dressings are necessary on incisions unless they are draining. Dermabond tape is to remain on sternal incision until surgeon follow-up. 12. Please call surgeon/CADD DRAFTER for temp greater than 101 F or purulent drainage from incisions. 13. You should weigh yourself daily, record and bring log with you to follow up appointments. 14. All prescriptions given by surgeon for 30 days. Refills need to be filled through clay puddler/primary care physician. 15. A Red armband has been placed on the patient. It should be worn for 30 days post surgery and will be removed by the cardiac surgeons. If an ER visit is necessary, please make sure the number on the Red armband is called. 16. You have been referred to and are expected to begin Cardiac Rehab in approximately 4-6 weeks. 17. Please check blood sugars before meals and at bedtime, make a record of her blood sugars. Please bring a copy of your record to your follow-up appointment with Dr. Sridhar Tavarez. HOME HEALTH SERVICES TO PROVIDE: RN SKILLED HOME CARE SERVICES FOR POST-OP SURGICAL PATIENTS WITH THE FOLLOWING: Coronary Artery Bypass Surgery (CABG), Mitral Valve Replacement/Repair ( MVR), Aortic Valve Replacement/Repair (AVR) RN TO CONTINUE EDUCATION FROM ``ROAD TO A HEALTH HEART PATIENT EDUCATION MANUAL (GIVEN TO PATIENT IN THE HOSPITAL) MEDICATION RECONCILIATION WITH EDUCATION NEEDED ON FIRST HOME VISIT EMPHASIZE IMPORTANCE OF WEARING BREAST SUPPORT/HEART HUGGER ENCOURAGE USE OF INCENTIVE SPIROMETER 10 X EVERY HOUR WHILE AWAKE ENCOURAGE UTILIZATION OF LOWER EXTREMITY COMPRESSION STOCKINGS/RICHIE HOSE and ELEVATE LEGS ABOVE LEVEL OF HEART WHILE AT REST. ENCOURAGE AMBULATION 3-5x/day INCREASING TOLERATES, WHILE AVOIDING EXTR EMES IN TEMPERATURE FREQUENCY: RN TO OPEN THE PATIENT WITHIN 24 HOURS OF DISCHARGE FROM THE HOSPITAL WITH TELEHEALTH INSTALLED AT [facility] TO VISIT 2-3 X A WEEK FOR 4 WEEKS ESTABLISHED BY PATIENT NEEDS. LABORATORY: CBC, CMP TO BE DRAWN ON THE THIRD DAY HOME, (RAN STAT) FAX RESULTS TO [phone]. TELEHEALTH PARAMETERS: WEIGHT: NOTIFY MD OF WEIGHT GAIN OF 2 LBS IN 24 HOURS OR 5 LBS IN ONE WEEK HR: NOTIFY MD OF HR <55 BPM OR HR>100 BPM BP: NOTIFY MD IF BP <90/55 OR BP>140/100 O2 SAT: NOTIFY MD IF PO2<93% ON ROOM AIR SEND TELEHEALTH REPORT TO DEBT AND BUDGET COUNSELOR AND CARDIOVASCULAR SURGEON THE FIRST WEEK OF CARE AND THEN BI-WEEKLY. PLEASE ADDITIONALLY COMMUNICATE ANY ABNORMALS AND NEW FINDINGS TO THE SURGEONS OFFICE. Discharge Disposition: HOME WITH HOME HEALTH SERVICES
--- NOTE | 2021-11-28 14:56 | P.PN ---
Subjective Progress Note Date: 11/28/21 Principal diagnosis: Moderate to severe mitral valve regurgitation, status post mitral valve repair, severe bicuspid aortic valve stenosis status post aortic valve replacement, CABG 2 On 11/28/2021 patient seen in follow-up on selective care unit, he is awake, in no acute distress, denies difficulty breathing, he is on room air, satting 93- 96%, afebrile, hemodynamically has been stable, breathing comfortably, no complaints of chest discomfort, his been able to ambulate in the hallway, his been walking up a flight of stairs with physical therapy, tolerated activity fairly well. Chest x-ray today showing persistent small right-sided pleural effusion and linear strandy density at the left lower lobe likely related to atelectasis. Today's labs have been reviewed with blood cell count is 8.3, hemoglobin is 9.1, sodium is 134, there is less lisinopril profile were unre markable. LFTs are improving, AST down to 207, ALT is 362, and alkaline phosphatase is 100. Patient has been getting intermittent doses of IV Lasix, he received another dose of IV Lasix 40 mg today. His been working on incentive spirometer, has been tolerating regular diet, his had no acute events overnight. Objective - Vital Signs Vital signs: Vital Signs Temp 97.9 F 11/28/21 08:00 Pulse 84 11/28/21 14:00 Resp 18 11/28/21 14:00 BP 98/54 11/28/21 12:00 Pulse Ox 96 11/28/21 12:00 Intake & Output 11/27/21 11/28/21 11/28/21 18:59 06:59 18:59 Intake Total 1880 480 220 Output Total 1275 850 Balance 605 -370 220 Weight 108.5 kg Intake: Intake, IV Titration 100 Amount Magnesium Sulfate-D5w Pmx 100 1 gm In Dextrose/Water 1 100ml.bag @ 100 mls/hr IVPB Q1H ROWAN Rx#: [id number] Oral 1780 480 220 Output: Urine 1275 850 Other: Voiding Method Toilet Toilet Urinal Urinal # Voids 3 ABP, PAP, CO, CI - Last Documented Arterial Blood Pressure 109/52 Pulmonary Artery Pressure 39/23 Cardiac Output 7.8 Cardiac Index 3.6 - Exam GENERAL EXAM: Alert, very pleasant, 61-year-old white male, on room air with pulse ox of 96% comfortable in no apparent distress. HEAD: Normocephalic/atraumatic. EYES: Normal reaction of pupils, equal size. Conjunctiva pink, sclera white. NOSE: Clear with pink turbinates. THROAT: No erythema or exudates. NECK: No masses, no JVD, no thyroid enlargement, no adenopathy. CHEST: No chest wall deformity. Symmetrical expansion. Midsternal incision is clean dry and intact, former chest tube sites are clean dry and intact. LUNGS: Equal air entry with no crackles, wheeze, rhonchi or dullness. CVS: Regular rate and rhythm, normal S1 and S2, no gallops, no murmurs, no rubs ABDOMEN: Soft, nontender. No hepatosplenomegaly, normal bowel sounds, no guarding or rigidity. EXTREMITIES: No clubbing, no edema, no cyanosis, 2+ pulses and upper and lower extremities. MUSCULOSKELETAL: Muscle strength and tone normal. SPINE: No scoliosis or deformity SKIN: No rashes CENTRAL NERVOUS SYSTEM: Alert and oriented -3. No focal deficits, tone is normal in all 4 extremities. PSYCHIATRIC: Alert and oriented -3. Appropriate affect. Intact judgment and insight. - Labs CBC & Chem 7: 11/28/21 05:47 11/28/21 05:47 Labs: Abnormal Lab Results - Last 24 Hours (Table) 11/27/21 11/27/21 11/28/21 Range/Units 17:27 20:21 05:47 RBC 3.05 L (4.30-5.90) m/uL Hgb 9.1 L (13.0-17.5) gm/dL Hct 29.5 L (39.0-53.0) % MCHC 30.8 L (31.0-37.0) g/dL RDW 16.0 H (11.5-15.5) % Plt Count 118 L (150-450) k/uL Sodium (137-145) mmol/L BUN (9-20) mg/dL Glucose (74-99) mg/dL POC Glucose (mg/dL) 109 H 172 H (75-99) mg/dL Total Bilirubin (0.2-1.3) mg/dL AST (17-59) U/L ALT (4-49) U/L Total Protein (6.3-8.2) g/dL Albumin (3.5-5.0) g/dL 11/28/21 11/28/21 11/28/21 Range/Units 05:47 05:55 12:23 RBC (4.30-5.90) m/uL Hgb (13.0-17.5) gm/dL Hct (39.0-53.0) % MCHC (31.0-37.0) g/dL RDW (11.5-15.5) % Plt Count (150-450) k/uL Sodium 134 L (137-145) mmol/L BUN 28 H (9-20) mg/dL Glucose 102 H (74-99) mg/dL POC Glucose (mg/dL) 121 H 226 H (75-99) mg/dL Total Bilirubin 1.5 H (0.2-1.3) mg/dL AST 207 H (17-59) U/L ALT 362 H (4-49) U/L Total Protein 5.9 L (6.3-8.2) g/dL Albumin 3.2 L (3.5-5.0) g/dL Assessment and Plan Plan: Assessment: #1. Severe bicuspid aortic valve stenosis, status post aortic valve replacement #2. Moderate to severe mitral valve regurgitation, status post mitral valve repair #3. Coronary artery disease status post double coronary artery bypass grafting #4. Moderate to severe left ventricular dysfunction #5. History of hypertension #6. Hyperlipidemia #7. History of coronary artery disease and myocardial infarction status post prior PCI in 2017 #8. History of prostate cancer status post prostatectomy #9. Remote history of tobacco dependence #11. COVID-19 infection On 12. Fatty liver disease #13. GERD #14. Strong family history of premature coronary artery disease in his father #15. Acute blood loss anemia, expected outcome due to hemodilution and card iopulmonary bypass #16. Preoperative nasal screening positive for MSSA treated #17. Acute kidney injury on expected #18. Elevated transaminases, unexpected likely due to hypertension #19. Oropharyngeal candidiasis Continue current medical treatment Patient has received another dose of IV Lasix today Chest x-ray been reviewed showing small right-sided pleural effusion, and tiny left lower lobe effusion or atelectasis No plans for thoracentesis Patient had received additional dose of IV Lasix Anticipated discharge home today Outpatient follow-up with Dr. Wayne in 7-10 days I have personally seen and examined the patient, performed the documentation and the assessment and plan as written. Number of minutes spent on the visit: [10] Time with Patient: Less than 30
--- NOTE | 2021-11-28 15:03 | P.PN ---
Subjective Patient is seen for follow-up for acute kidney injury. Status post coronary artery bypass surgery and aortic valve replacement on 11/21/2021. Renal function has improved. Serum creatinine at 1.08 mg/dL. Patient has lower extremity edema and is status post IV Lasix today. There are plans for discharge today. Objective - Vital Signs Vital signs: Vital Signs Temp 97.9 F 11/28/21 08:00 Pulse 84 11/28/21 14:00 Resp 18 11/28/21 14:00 BP 98/54 11/28/21 12:00 Pulse Ox 96 11/28/21 12:00 Intake & Output 11/27/21 11/28/21 11/28/21 18:59 06:59 18:59 Intake Total 1880 480 220 Output Total 1275 850 Balance 605 -370 220 Weight 108.5 kg Intake: Intake, IV Titration 100 Amount Magnesium Sulfate-D5w Pmx 100 1 gm In Dextrose/Water 1 100ml.bag @ 100 mls/hr IVPB Q1H ROWAN Rx#: [id number] Oral 1780 480 220 Output: Urine 1275 850 Other: Voiding Method Toilet Toilet Urinal Urinal # Voids 3 ABP, PAP, CO, CI - Last Documented Arterial Blood Pressure 109/52 Pulmonary Artery Pressure 39/23 Cardiac Output 7.8 Cardiac Index 3.6 - Exam Patient is awake, comfortable, not in any acute distress Alert oriented 3 Examination of the heart S1 and S2 Examination lungs bilateral breath sounds are heard Abdomen is soft nontender Examination lower extremity shows edema 2+ bilaterally LAUNDRY MACHINE MECHANIC exam grossly intact - Labs CBC & Chem 7: 11/28/21 05:47 11/28/21 05:47 Labs: Abnormal Lab Results - Last 24 Hours (Table) 11/27/21 11/27/21 11/28/21 Range/Units 17:27 20:21 05:47 RBC 3.05 L (4.30-5.90) m/uL Hgb 9.1 L (13.0-17.5) gm/dL Hct 29.5 L (39.0-53.0) % MCHC 30.8 L (31.0-37.0) g/dL RDW 16.0 H (11.5-15.5) % Plt Count 118 L (150-450) k/uL Sodium (137-145) mmol/L BUN (9-20) mg/dL Glucose (74-99) mg/dL POC Glucose (mg/dL) 109 H 172 H (75-99) mg/dL Total Bilirubin (0.2-1.3) mg/dL AST (17-59) U/L ALT (4-49) U/L Total Protein (6.3-8.2) g/dL Albumin (3.5-5.0) g/dL 11/28/21 11/28/21 11/28/21 Range/Units 05:47 05:55 12:23 RBC (4.30-5.90) m/uL Hgb (13.0-17.5) gm/dL Hct (39.0-53.0) % MCHC (31.0-37.0) g/dL RDW (11.5-15.5) % Plt Count (150-450) k/uL Sodium 134 L (137-145) mmol/L BUN 28 H (9-20) mg/dL Glucose 102 H (74-99) mg/dL POC Glucose (mg/dL) 121 H 226 H (75-99) mg/dL Total Bilirubin 1.5 H (0.2-1.3) mg/dL AST 207 H (17-59) U/L ALT 362 H (4-49) U/L Total Protein 5.9 L (6.3-8.2) g/dL Albumin 3.2 L (3.5-5.0) g/dL Assessment and Plan Assessment: 1. Acute kidney injury associated with hemodynamic ATN. Serum creatinine peaked at 2.2-3 mg/dL. Currently improved to 1.0 today. A stent creatinine 0.7 mg/dL 2. Coronary artery disease status post coronary artery bypass surgery and aortic valve replacement on 11/21/2021 3. Metabolic acidosis now resolved 4. Hypotension maintained on meter training line 5. Volume overload status post IV Lasix this morning Plan: Patient is stable for discharge from nephrology standpoint. Maintain low-dose loop diuretics as outpatient, 20 mg by mouth daily with close monitoring of renal function. Encourage increased oral intake Can discontinue midodrine
[2021-11-28] MEDS ORDERED: MIDODRINE 5 MG TAB PO SCH (17:30)
== END 2021-11-28 15:52 | disposition home health service (06) | DRG 219 ==
LOC: 2ORMAIN 05:45 → 2SICU 15:16 → 3SCARD 11-25 17:01
PROVIDERS: ADMIT Surgery; ATTEND Surgery
PROC: 5A1221Z Performance of Cardiac Output, Continuous (ICD-10-PCS; principal; 2021-11-21 08:00)
PROC: 02QG0ZZ Repair Mitral Valve, Open Approach (ICD-10-PCS; principal; 2021-11-21 08:00)
PROC: 021109W Bypass Coronary Artery, Two Arteries from Aorta with Autologous Venous Tissue, Open Approach (ICD-10-PCS; principal; 2021-11-21 08:00)
PROC: 4A1305C Monitoring of Arterial Flow, Coronary, Open Approach (ICD-10-PCS; principal; 2021-11-21 08:00)
PROC: B24BZZ4 Ultrasonography of Heart with Aorta, Transesophageal (ICD-10-PCS; principal; 2021-11-21 08:00)
PROC: 02RF08Z Replacement of Aortic Valve with Zooplastic Tissue, Open Approach (ICD-10-PCS; principal; 2021-11-21 08:00)
PROC: 02L70CK Occlusion of Left Atrial Appendage with Extraluminal Device, Open Approach (ICD-10-PCS; principal; 2021-11-21 08:00)
PROC: 06BP4ZZ Excision of Right Saphenous Vein, Percutaneous Endoscopic Approach (ICD-10-PCS; principal; 2021-11-21 08:00)
DX: Q23.1 Congenital insufficiency of aortic valve (principal); N17.0 Acute kidney failure with tubular necrosis; I50.32 Chronic diastolic (congestive) heart failure; J98.11 Atelectasis; D62 Acute posthemorrhagic anemia; E87.1 Hypo-osmolality and hyponatremia; E87.2 Acidosis; B37.0 Candidal stomatitis; I11.0 Hypertensive heart disease with heart failure; D69.59 Other secondary thrombocytopenia; I95.9 Hypotension, unspecified; I25.10 Atherosclerotic heart disease of native coronary artery without angina pectoris; E11.65 Type 2 diabetes mellitus with hyperglycemia; Z79.4 Long term (current) use of insulin; K76.0 Fatty (change of) liver, not elsewhere classified; I25.82 Chronic total occlusion of coronary artery; I34.0 Nonrheumatic mitral (valve) insufficiency; I25.5 Ischemic cardiomyopathy; I25.2 Old myocardial infarction; J98.4 Other disorders of lung; E78.5 Hyperlipidemia, unspecified; K21.9 Gastro-esophageal reflux disease without esophagitis; N40.0 Benign prostatic hyperplasia without lower urinary tract symptoms; N39.3 Stress incontinence (female) (male); R74.01 Elevation of levels of liver transaminase levels; J30.2 Other seasonal allergic rhinitis; H91.90 Unspecified hearing loss, unspecified ear; K59.00 Constipation, unspecified; M15.9 Polyosteoarthritis, unspecified; I83.90 Asymptomatic varicose veins of unspecified lower extremity; E66.9 Obesity, unspecified; Z68.34 Body mass index [BMI] 34.0-34.9, adult; Z79.82 Long term (current) use of aspirin; Z79.84 Long term (current) use of oral hypoglycemic drugs; Z79.899 Other long term (current) drug therapy; Z22.321 Carrier or suspected carrier of Methicillin susceptible Staphylococcus aureus; Z85.46 Personal history of malignant neoplasm of prostate; Z86.16 Personal history of COVID-19; Z90.79 Acquired absence of other genital organ(s); Z87.891 Personal history of nicotine dependence; Z95.5 Presence of coronary angioplasty implant and graft; Z86.73 Personal history of transient ischemic attack (TIA), and cerebral infarction without residual deficits; Z87.19 Personal history of other diseases of the digestive system; Z96.0 Presence of urogenital implants; Z96.642 Presence of left artificial hip joint; Z89.021 Acquired absence of right finger(s); Z87.39 Personal history of other diseases of the musculoskeletal system and connective tissue; Z98.890 Other specified postprocedural states; Z71.3 Dietary counseling and surveillance; Z82.49 Family history of ischemic heart disease and other diseases of the circulatory system
CPT/HCPCS: 71045; 71046; 76604; 76770; 76857; 80053; 81001; 82330; 82533; 82805; 83735; 85025; 85027; 85520; 85610; 85730; 86850; 86891; 86900; 86901; 86920; 87070; 87205; 88305; 88311; 94002; 94640; 94760

== ENCOUNTER → 2021-12-05 | Outpatient (CLI) | payer BC ==
--- NOTE | 2021-12-05 16:15 | XR ---
EXAMINATION TYPE: XR chest 2V DATE OF EXAM: 12/05/2021 COMPARISON: 11/28/2021 INDICATION: Previous abnormal, pleural effusion TECHNIQUE: Frontal and lateral views of the chest are obtained. FINDINGS: The heart size is normal. The pulmonary vasculature is normal. Small right pleural effusion is present. Minimal left pleural effusion may be present. Effusions appe ar larger on the lateral projection. IMPRESSION: 1. Bilateral pleural effusions.
== END | disposition home or self-care (01) ==
LOC: RADXRMAIN 13:21
PROVIDERS: ATTEND Nurse Practitioner Family
DX: J90 Pleural effusion, not elsewhere classified (principal)
CPT/HCPCS: 71046

== ENCOUNTER → 2022-02-23 | Outpatient (CLI) | payer BC | END | disposition home or self-care (01) | LOC: LABWHC1 10:28 | PROVIDERS: ATTEND Urology | DX: C61 Malignant neoplasm of prostate (principal) | CPT/HCPCS: 36415; 84153 ==

== ENCOUNTER → 2022-03-02 | Outpatient (CLI) | payer BC ==
[2022-03-02 14:21] LABS: African American GFR (CKD) 65.9 (60.0-200.0); Albumin 4.6 g/dL (3.8-4.9); BUN/Creat Ratio 17.52 Ratio (12.00-20.00); Blood Urea Nitrogen 23.3 mg/dL (9.0-27.0); Carbon Dioxide 23.2 mmol/L (20.0-27.5); Chloride 98 mmol/L (96-109); Glucose 246 mg/dL (70-110); Non-African American GFR(CKD) 56.9 (60.0-200.0); Potassium 4.7 mmol/L (3.5-5.5); Sodium 135 mmol/L (135-145); Total Protein 7.7 g/dL (6.2-8.2)
[2022-03-02 14:22] LABS: ALT 51 U/L (10-49); AST 55 U/L (14-35); Albumin/Globulin Ratio 1.47 (1.60-3.17); Alkaline Phosphatase 101 U/L (41-126); Globulin 3.1 g/dL (1.6-3.3); LDL Cholesterol,Calculated 20.8 mg/dL (0.0-131.0)
[2022-03-02 14:24] LABS: HCT 48.6 % (39.6-50.0); MCH 25.9 pg (27.0-32.0); MCHC 30.9 g/dL (32.0-37.0); MCV 83.8 fL (80.0-97.0); NRBC Per 100 WBC 0 /100 WBCS (0.0-0.0); Platelet Count 176 X 10*3/uL (140-440); RDW 15.1 % (11.5-14.5); WBC 9.67 X 10*3/uL (4.50-10.00)
== END | disposition home or self-care (01) ==
LOC: LABWHC1 08:28
PROVIDERS: ATTEND Family Medicine
DX: I10 Essential (primary) hypertension (principal); E78.2 Mixed hyperlipidemia; E11.9 Type 2 diabetes mellitus without complications
CPT/HCPCS: 36415; 80053; 80061; 83036; 85027

== ENCOUNTER → 2023-02-15 | Outpatient (CLI) | payer BC | END | disposition home or self-care (01) | LOC: LABWHC1 16:14 | PROVIDERS: ATTEND Urology | DX: R97.20 Elevated prostate specific antigen [PSA] (principal) | CPT/HCPCS: 36415; 84153 ==

== ENCOUNTER → 2024-04-22 | Outpatient (CLI) | payer BC ==
[2024-04-22 19:15] LABS: NT-Pro-B-Type Natriuretic Pept 501 pg/mL (0-125)
[2024-04-22 19:58] LABS: BUN/Creat Ratio 13.29 Ratio (12.00-20.00); Blood Urea Nitrogen 18.6 mg/dL (9.0-27.0); Calcium 10.6 mg/dL (8.7-10.3); Carbon Dioxide 24.3 mmol/L (21.6-31.8); Chloride 101 mmol/L (96-109); Glucose 123 mg/dL (70-110); Potassium 5.3 mmol/L (3.5-5.5); Sodium 140 mmol/L (135-145)
== END | disposition home or self-care (01) ==
LOC: LABWHC1 13:47
PROVIDERS: ATTEND Internal Medicine Cardiovascular Disease
DX: I50.32 Chronic diastolic (congestive) heart failure (principal)
CPT/HCPCS: 36415; 80048; 83880

== ENCOUNTER → 2024-06-16 | Outpatient (CLI) | payer BC | END | disposition home or self-care (01) | LOC: LABWHC1 15:28 | PROVIDERS: ATTEND Internal Medicine | DX: Z79.4 Long term (current) use of insulin (principal); E11.65 Type 2 diabetes mellitus with hyperglycemia | CPT/HCPCS: 36415; 82043; 82570; 83036 ==